=== PATIENT | female | born 1955 | race Caucasian/White ===

== ENCOUNTER 2017-01-20 10:26 | Inpatient (IN) | payer OTHER ==
[~2017-01-20] VITALS: Ht 162.6 cm; Wt 63.5 kg
[~2017-01-20 10:26] MED LIST: ALPR0.5T6 PO; APIX5TAB PO; ASPI81TA3 NGT; BENA10TA48 PO; CARI350T29 PO; HYDR-906 PO; ISOS30TA5 PO; LEVO50TA83 PO; NIT4 SL; OMEP20CA16 PO; TRAM50TA2 PO
--- NOTE | 2017-01-20 11:43 | RADRPT ---
PROCEDURE: XR Chest. CLINICAL INDICATION: chest pain TECHNIQUE: Single frontal view of the chest was obtained COMPARISON: 09/14/16 FINDINGS: The heart and mediastinum are within normal limits. The lungs are clear. There is no pleural effusion or pneumothorax. RPTAT: AA IMPRESSION: No acute disease. .Carl Sanchez MD, MD Date Time Electronically viewed and signed by .Carl Sanchez MD, on 01/20/2017 11:43 .S/
[2017-01-20 11:50] LABS: ADD SCAN DIFF NO
[2017-01-20 11:54] LABS: BASOPHIL # 0.1 10^3/ul (0.0-0.1); BASOPHILS % 0.5 % (0.0-2.0); EOSINOPHILS # 0.1 10^3/ul (0.0-0.5); EOSINOPHILS % 0.6 % (0.0-7.0); HEMATOCRIT 29.7 % (37.0-47.0); HEMOGLOBIN 9.6 g/dl (12.0-16.0); LYMPHOCYTES # 2.2 10^3/ul (0.8-2.9); LYMPHOCYTES % 20.5 % (15.0-51.0); MEAN CORPUSCULAR HEMOGLOBIN 27.2 pg (29.0-33.0); MEAN CORPUSCULAR HGB CONC 32.3 g/dl (32.0-37.0); MEAN CORPUSCULAR VOLUME 84.1 fl (82.0-101.0); MONOCYTE # 1.1 10^3/ul (0.3-0.9); MONOCYTES % 10.1 % (0.0-11.0); NEUTROPHIL # 7.4 10^3/ul (1.6-7.5); NEUTROPHILS % 67.9 % (39.0-77.0); PLATELET COUNT 325 10^3/UL (140-415); RED BLOOD COUNT 3.53 10^6/ul (4.20-5.40); RED CELL DISTRIBUTION WIDTH 18.6 % (11.5-14.5); WHITE BLOOD COUNT 10.9 10^3/ul (4.8-10.8)
[2017-01-20] MEDS ORDERED: morphine 4 MG/ML VIAL IV STA (11:58)
[2017-01-20 12:01] LABS: CHLORIDE 97 mmol/L (97-110); SODIUM 137 mmol/L (135-144)
[2017-01-20 12:02] LABS: POTASSIUM 3.8 mmol/L (3.5-5.1)
[2017-01-20 12:04] LABS: ANION GAP 16 (8-16); CARBON DIOXIDE 28 mmol/L (21-31); CREATININE 0.81 mg/dl (0.44-1.00)
[2017-01-20 12:05] LABS: BLOOD UREA NITROGEN 13 mg/dl (7-20); CALCIUM 8.4 mg/dl (8.4-10.2); GLUCOSE 137 mg/dl (70-220); INR 1.09; PROTIME 14.1 Sec (12.2-14.2); PT RATIO 1.1
[2017-01-20 12:06] LABS: PARTIAL THROMBOPLASTIN TIME 26.9 Sec (25.0-35.0)
[2017-01-20 12:18] LABS: TROPONIN-I < 0.012 ng/ml (0.00-0.12)
[2017-01-20] MEDS ORDERED: IOHEXOL 350MG/ML 50 ML BTL ONE (12:28)
[2017-01-20] MEDS ORDERED: IOHEXOL 100 ML ONE (12:28)
[2017-01-20] MEDS ORDERED: SOD CHLORIDE 0.9% 100 ML ONE (12:28)
--- NOTE | 2017-01-20 12:56 | RADRPT ---
PROCEDURE: CTA Chest and pulmonary angiogram. CLINICAL INDICATION: Chest pain and shortness of breath. TECHNIQUE: CT scan of the chest and CT pulmonary angiogram was performed on a multidetector high-r esolution CT scanner. High-resolution thin slice coronal and sagittal imaging was obtained from the axial source images. 3-D volumetric rendered post processing was performed as well. The patient w as examined following the uncomplicated intravenous administration of 100 cc of Omnipaque-350. The i mages were reviewed on a PACS workstation. The total exam CTDI equals 17.40 and the total exam DLP e quals 303.02 mGy-cm. One or more of the following dose reduction techniques were used: Automated exposure control. Adjustment of the mA and/or kV according to patient size. Use of iterative reconstruction technique. COMPARISON: No prior studies are available for comparison. FINDINGS: CT chest: The lungs are clear. There is minimal posterior dependent atelectasis. No focal opacification, effus ion, pneumothorax, edema, or nodules are seen. The central tracheobronchial tree is clear. The mediastinum is unremarkable without evidence for mass or lymphadenopathy. The vascular structur es of the mediastinum are normal in course and caliber. The heart size is normal without pericardia l thickening or effusion. The axillary, subpectoral, and supraclavicular regions are unremarkable. Imaging obtained through the upper abdomen is remarkable for small hiatal hernia. The adrenal gland s are symmetrically normal. The surrounding chest wall is unremarkable. The osseous structures are unremarkable CT pulmonary angiogram: No thrombus, clot, filling defect, or pulmonary web is identified. The pulmonary arteries are yo l in caliber and morphology. No filling defect is present to suggest pulmonary embolism. There is no evidence for pulmonary arterial hypertension. IMPRESSION: 1. No evidence for pulmonary embolism. 2. No mass, lymphadenopathy or acute infiltrates. 3. Scattered aortic and coronary artery calcifications. 4. Small hiatal hernia. RPTAT: BB .Mike Munoz MD, Date Time Electronically viewed and signed by .Mike Munoz MD, on 01/20/2017 12:56 .O/
--- NOTE | 2017-01-20 13:02 | RADRPT ---
PROCEDURE: US DVT. CLINICAL INDICATION: Left lower extremity swelling. TECHNIQUE: Multiple longitudinal and transverse images of the left lower extremity veins were obta ined with garcia scale and color Doppler imaging. 2D grayscale measurements with compression, color D oppler flow, and augmentation was performed. The calf veins were interrogated as well. COMPARISON: No prior studies are available for comparison. FINDINGS: The left common femoral, superficial femoral and popliteal veins are normally compressible throughou t. Color flow demonstrates normal filling of the vessel. Normal waveforms are visualized and there is normal response to augmentation. IMPRESSION: 1. No evidence of a deep vein thrombosis involving the left lower extremity. RPTAT: AACC Physician Rafita Date Time Electronically viewed and signed by Physician Rafita on 01/20/2017 13:02 /
--- NOTE | 2017-01-20 13:29 | ERA ---
ER Documentation Chief Complaint Date/Time DATE: 01/20/17 TIME: 13:25 Chief Complaint BILATERAL FOOT SWELLING W/ SOB. RECTAL BLEEDING BRIGHT RED HPI This is a 61-year-old female presents to the emergency room for evaluation of left foot pain and swelling, shortness of breath and chest pain. The patient does state that she has a previous history of a DVT and was on Eliquis, however she states that due to insurance reasons she has not taken her blood thinners in over 2 weeks. She presents with left lower extremity pain and shortness of breath and chest pain. The patient denies any aggravating or relieving factors for her pain ROS All systems reviewed and are negative except as per history of present illness. Medications Home Meds Active Scripts Apixaban* (Eliquis*) 5 Mg Tablet, 5 MG PO BID for 30 Days, TAB 5 Refills Prov:DOMITILA MURRELL 08/24/16 Aspirin (Aspirin) 81 Mg Chew, 81 MG NGT DAILY for 30 Days, TAB Prov:DOMITILA MURRELL 08/24/16 Alprazolam* (Alprazolam*) 0.5 Mg Tablet, 0.5 MG PO Q6H Y for ANXIETY, #30 TAB Prov:DOMITILA MURRELL 08/24/16 Levothyroxine Sodium* (Synthroid*) 50 Mcg Tablet, 50 MCG PO DAILY@06 for 30 Days , TAB Prov:DOMITILA MURRELL 08/24/16 Reported Medications Benazepril Hcl* (Benazepril Hcl*) 10 Mg Tablet, 10 MG PO DAILY, #30 TAB 09/14/16 Omeprazole* (Omeprazole*) 20 Mg Capsule.dr, 20 MG PO DAILY, #30 CAP 05/29/16 Isosorbide Mononitrate* (Isosorbide Mononitrate*) 30 Mg Tab.er.24h, 30 MG PO DAILY, TAB 05/29/16 Nitroglycerin* (Nitrostat*) 0.4 Mg Tab.subl, 0.4 MG SL Q5MIN Y for CHEST PAIN, BOTTLE 05/29/16 Discontinued Scripts Tramadol HCl (Tramadol HCl) 50 Mg Tablet, 50 MG PO Q6, #20 TAB Prov:SUGEY MEEKS 09/14/16 Hydrocodone/Acetaminophen (Garden 5-325 Tablet) 1 Each Tablet, 1 EACH PO Q4 for PAIN, #20 TAB Prov:DOMITILA MURRELL 08/24/16 Carisoprodol* (Carisoprodol*) 350 Mg Tablet, 350 MG PO BID Y for PAIN for 30 Days, TAB Prov:DOMITILA MURRELL 08/24/16 Allergies Allergies: Coded Allergies: No Known Allergy (Unverified , 01/20/17) PMhx/Soc History of Surgery: Yes (stenting) Anesthesia Reaction: No Hx Neurological Disorder: Yes (syncope) Hx Respiratory Disorders: No Hx Cardiac Disorders: Yes (a-fib, hypertension,angina, heart attack 1998 & 2003 ,DVT) Hx Psychiatric Problems: No Hx Miscellaneous Medical Probl: Yes (CAD< GA x2) Hx Alcohol Use: Yes (social) Hx Substance Use: No Hx Tobacco Use: No Smoking Status: Never smoker Physical Exam Vitals Vital Signs Date Time Temp Pulse Resp B/P Pulse Ox O2 Delivery O2 Flow Rate FiO2 01/20/17 10:47 99.4 125 22 123/70 97 Physical Exam INITIAL VITAL SIGNS: Reviewed by me GENERAL: The patient is well developed and appropriate for usual state of health in no apparent distress HEENT: Pupils equal, round, and reactive to light. EOMI. There is no scleral icterus. NECK: C-spine is soft and supple, there is no meningismus. There is no cervical lymphadenopathy. LUNGS: Clear to auscultation bilaterally. There are no rales, wheezes or rhonchi. HEART: Regular rate and rhythm, no murmurs, clicks, rubs or gallops. ABDOMEN: Soft, non-tender, non-distended. There are bowel sounds in all four quadrants. No rebound or guarding. EXTREMITIES: Tender to palpation in the left calf, 1+ pitting edema in the left lower extremity, no edema in the right lower extremity, there is no peripheral cyanosis . No focal swelling or erythema. NEUROLOGICAL: The patient moves all four extremities with 5/5 strength. Cranial nerves II - XII are intact. Normal gait. Alert and oriented SKIN: There is no apparent rash or petechiae. HEME/LYMPHATIC: There is no evidence of excessive bruising or lymphedema. PSYCHIATRIC: The patient does not appear anxious or depressed. Result Diagram: 01/20/17 1121 3/3/17 1121 Results 24 hrs Laboratory Tests Test 01/20/17 11:21 Activated Partial Thromboplast Time 26.9Sec Anion Gap 16 Basophils # 0.110^3/ul Basophils % 0.5% Blood Urea Nitrogen 13mg/dl Calcium Level 8.4mg/dl Carbon Dioxide Level 28mmol/L Chloride Level 97mmol/L Creatinine 0.81mg/dl Eosinophils # 0.110^3/ul Eosinophils % 0.6% Glucose Level 137mg/dl Hematocrit 29.7% Hemoglobin 9.6g/dl INR International Normalized Ratio 1.09 Lymphocytes # 2.210^3/ul Lymphocytes % 20.5% Mean Corpuscular Hemoglobin 27.2pg Mean Corpuscular Hemoglobin Concent 32.3g/dl Mean Corpuscular Volume 84.1fl Mean Platelet Volume 9.0fl Monocytes # 1.110^3/ul Monocytes % 10.1% Neutrophils # 7.410^3/ul Neutrophils % 67.9% Nucleated Red Blood Cells # 0.010^3/ul Nucleated Red Blood Cells % 0.0/100WBC Platelet Count 85523^3/UL Potassium Level 3.8mmol/L Prothrombin Time 14.1Sec Prothrombin Time Ratio 1.1 Red Blood Count 3.5310^6/ul Red Cell Distribution Width 18.6% Sodium Level 137mmol/L Troponin I < 0.012ng/ml White Blood Count 10.910^3/ul Current Medications Medications (Trade) Dose Ordered Sig/Marixa Route PRN Reason Start Time Stop Time Status Last Admin Dose Admin Morphine Sulfate (morphine) 4 mg ONCE STAT IV 01/20/17 11:58 01/20/17 12:02 DC 01/20/17 12:23 IV Flush 10 ml 10 ml STK-MED ONCE .ROUTE 01/20/17 12:28 01/20/17 12:29 DC 01/20/17 12:48 Sodium Chloride 100 ml @ ud STK-MED ONCE .ROUTE 01/20/17 12:28 01/20/17 12:29 DC 01/20/17 12:49 Iohexol (Omnipaque) 100 ml @ ud STK-MED ONCE .ROUTE 01/20/17 12:28 01/20/17 12:29 DC 01/20/17 12:49 Iohexol (Omnipaque 350mg/ ml) 50 ml STK-MED ONCE .ROUTE 01/20/17 12:28 01/20/17 12:29 DC 01/20/17 12:49 Procedures/MDM Ultrasound left lower extremity: No DVT CT angiography of chest: 1. No evidence for pulmonary embolism. 2. No mass, lymphadenopathy or acute infiltrates. 3. Scattered aortic and coronary artery calcifications. 4. Small hiatal hernia. Chest X-ray 1V Interpreted by me: Soft Tissue: No acute abnormalities Bones: No acute abnormalities Mediastinum/Cardiac Silhouette/Lungs: [No acute abnormalities] EKG: Rate/Rhythm: Sinus tachycardia QRS, ST, T-waves: [No changes consistent w/ acute ischemia] Impression: [No evidence of ischemia or arrhythmia] This 61-year-old female presents to the emergency room for evaluation of chest pain and left lower extremity pain and swelling. The patient has not been on blood thinners in over 2 weeks, states that she was on blood thinners for a previous deep vein thrombosis. Ultrasound was obtained which does not show any DVT. CT angios of the chest does not show any signs of pulmonary embolism. EKG is nonischemic, first troponin is normal. This patient will be placed in for admission at this time for evaluation of chest pain. This patient will be admitted on the telemetry floor under the care of Dr. travis. Departure Diagnosis: Primary Impression: Acute chest pain Additional Impressions: Normocytic anemia Left leg pain Leg edema, left Condition: VIVIANA Avalos DO Jan 20, 2017 13:29
[2017-01-20] MEDS ORDERED: ONDANSETRON 4 MG INJ IV PRN (13:30)
[2017-01-20] MEDS ORDERED: ACETAMINOPHEN 325 MG TAB PO PRN (13:30)
[2017-01-20 16:02] VITALS: TEMP 98.6
[2017-01-20 16:43] VITALS: PULSE 86
[2017-01-20 17:57] VITALS: Ht 162.6 cm; Wt 63.5 kg
--- NOTE | 2017-01-20 18:15 | HP ---
DATE OF ADMISSION: 01/20/2017 CHIEF COMPLAINT: Chest pain the patient developed a couple of days ago and left lower extremity swe lling and rectal bleed. HISTORY OF PRESENT ILLNESS: The patient is a 61-year-old female known to me from previous admission . The patient has a prior history of paroxysmal atrial fibrillation, hypertension, history of coron rajani artery disease and history of myocardial infarction, history of hypothyroidism, paroxysmal atria l fibrillation, anxiety, DVT of the right lower extremity. The patient was on Eliquis and hypertens ion. The patient presented to the emergency room with complaints of chest pain with radiation to bi lateral shoulder. The patient also complains of the left lower extremity swelling and pain and dav ent complains of some rectal bleeding. The patient also stated that she has been taking blood thinn ers for DVT; however, she stated that she stopped taking it more than 2 weeks ago. The patient unde rwent a left lower extremity ultrasound which did not reveal any evidence of deep vein thrombosis in volving the left lower extremity. The patient also underwent a CT chest and pulmonary angiogram wit h no evidence of pulmonary embolism. No mass, lymphadenopathy or acute infiltrates. Scattered aort ic and coronary artery calcifications noted and small hiatal hernia. The patient's troponin was neg ative on admission. Given the patient's past medical history, the patient was admitted for further evaluation and management to telemetry floor. The patient underwent a 12-lead EKG in the emergency room that revealed sinus tachycardia and no ST and T changes consistent with acute ischemia noted. The patient will be admitted for further evaluation and management, telemetry floor. PAST MEDICAL HISTORY: Per HPI. PAST SURGICAL HISTORY: Patient is status post C-sections x2. FAMILY HISTORY: Noncontributory. SOCIAL HISTORY: The patient denies any tobacco use, denies any illicit drug use. The patient uses alcohol occasionally. ALLERGIES: NO KNOWN ALLERGIES. MEDICATIONS ON ADMISSION: 1. Xanax. 2. Aspirin. 3. Benazepril. 4. Imdur. 5. Synthroid. 6. Nitroglycerin p.r.n. 7. Omeprazole. REVIEW OF SYSTEMS: Review of systems is negative unless what mentioned in the HPI. PHYSICAL EXAMINATION: GENERAL: Well-developed, well-nourished female, currently is awake, alert. VITAL SIGNS: Temperature is 98.6, pulse is 86, blood pressure is 110/77, respiratory rate 18, oxyge n saturation 100% on room air. HEENT: Head is atraumatic, normocephalic. Pupils equal, round, reactive to light and accommodation . Oral mucosa is pink and moist. NECK: Supple, no cervical lymphadenopathy, no thyromegaly. CHEST: Lungs clear bilaterally. There are no or rhonchi, wheezes, rales noted. CARDIOVASCULAR: Normal S1, S2. No murmurs, gallops, clicks, rubs noted. ABDOMEN: Round, soft, nondistended, nontender. Bowel sounds present. No guarding, no rebound tend erness. EXTREMITIES: Pulses equal bilaterally 2+. The patient has left lower extremity edema, 1+. There i s no erythema. Pulses equal bilaterally 2+. SKIN: There is no rash, petechiae noted. NEUROLOGIC: The patient is awake, alert and oriented x4. No focal deficits noted. Motor strength 5/5 in all extremities. LABORATORY DATA: On admission, CBC: White blood cells 10.9, hemoglobin 9.6, hematocrit 29.7, plate lets 325. Chemistry: Sodium is 137, potassium 3.8, chloride 97, carbon dioxide 28, anion gap 16. BUN is 15, creatinine 0.81, pulse 137, calcium 8.4. Troponin less than 0.012. PT is 14.1, INR is 1 .09, aPTT is 26.9. ASSESSMENT AND PLAN: 1. Chest pain, rule out acute coronary syndrome. We obtained cardiac enzymes q. 8 hours x3. We wi ll ask Dr. Cullen to see patient in cardiology consultation. Continue to monitor telemetry. Ramona nue patient on aspirin and Lovenox. 2. Left lower extremity swelling, deep venous thrombosis ruled out. Continue to monitor. 3. Anemia. The patient is complaining of the rectal bleed. We will continue to monitor hemoglobin and hematocrit. Obtain stool for OB. I will ask Dr. Sue to see patient in gastroenterology con sultation. 4. Hypertension. Continue patient on lisinopril. 5. Anxiety. Continue Xanax p.r.n. 6. Coronary artery disease. 7. Hypothyroidism. We will obtain TSH and T4. Continue patient's Synthroid. Further recommendations based on clinical course. Plan of care discussed with Dr. Gallo. Dictated By: DOMITILA MURRELL RADIOLOGY RECEPTIONIST for CJ GALLO MD, SR/NTS Conf#: [id number] DID#: [id number]
[2017-01-20] MEDS: ASPIRIN 81 MG TAB NGT SCH (18:27)
[2017-01-20] MEDS: ISOSORBIDE MONONITRATE(SR)30 MG TAB PO SCH (18:28)
[2017-01-20] MEDS: BENAZEPRIL 10 MG TAB PO SCH (18:28)
[2017-01-20 19:06] LABS: CK-MB 1.04 ng/ml (0.0-2.4)
[2017-01-20 19:09] LABS: TROPONIN-I 0.014 ng/ml (0.00-0.12)
[2017-01-20 20:16] VITALS: BP 119/70; RESP 16
[2017-01-20 20:18] VITALS: PULSE 86
[2017-01-20] MEDS: HYDROCODONE/APAP (5/325) TAB PO PRN (21:17)
--- NOTE | 2017-01-20 22:54 | RADRPT ---
PROCEDURE: Ultrasound of the right lower extremity venous system. CLINICAL INDICATION: Right leg pain and swelling, deep venous thrombosis TECHNIQUE: Saez scale with and without compression, color doppler, spectral doppler of the venous system of the right lower extremity was performed. Venous augmentation maneuvers were utilized. COMPARISON: 09/14/2016 FINDINGS: Common femoral vein: Patent. Superficial femoral vein: Patent. Popliteal vein: Patent. Calf veins: Patent. No soft tissue abnormalities are identified. IMPRESSION: No evidence of a deep vein thrombosis within the right lower extremity. RPTAT: AADD .Steve Garcia MD, MD Date Time Electronically viewed and signed by .Steve Garcia MD, MD on 01/20/2017 22:54 .B/
[2017-01-20] MEDS: ZOLPIDEM 5 MG TAB PO PRN (23:37)
[2017-01-21] VITALS (12 sets, daily range): BP systolic 90–119; BP diastolic 55–65; PULSE 72–80; RESP 16–20
[2017-01-21 00:07] LABS: CK-MB 0.84 ng/ml (0.0-2.4)
[2017-01-21 00:10] LABS: TROPONIN-I 0.03 ng/ml (0.00-0.12)
[2017-01-21] MEDS: HYDROCODONE/APAP (5/325) TAB PO PRN ×3 (03:22→18:10)
[2017-01-21] MEDS: LEVOTHYROXINE 50 MCG TAB PO SCH (05:48)
[2017-01-21 07:46] LABS: ADD SCAN DIFF NO
[2017-01-21 07:56] LABS: BASOPHIL # 0.1 10^3/ul (0.0-0.1); BASOPHILS % 0.6 % (0.0-2.0); EOSINOPHILS # 0.1 10^3/ul (0.0-0.5); EOSINOPHILS % 1.1 % (0.0-7.0); HEMATOCRIT 28.3 % (37.0-47.0); HEMOGLOBIN 8.8 g/dl (12.0-16.0); LYMPHOCYTES # 1.7 10^3/ul (0.8-2.9); LYMPHOCYTES % 17.7 % (15.0-51.0); MEAN CORPUSCULAR HGB CONC 31.1 g/dl (32.0-37.0); MEAN CORPUSCULAR VOLUME 86.8 fl (82.0-101.0); MEAN PLATELET VOLUME 9.1 fl (7.4-10.4); MONOCYTE # 0.5 10^3/ul (0.3-0.9); MONOCYTES % 5.4 % (0.0-11.0); NEUTROPHIL # 7.4 10^3/ul (1.6-7.5); PLATELET COUNT 262 10^3/UL (140-415); RED BLOOD COUNT 3.26 10^6/ul (4.20-5.40); WHITE BLOOD COUNT 9.8 10^3/ul (4.8-10.8)
[2017-01-21 08:01] LABS: POTASSIUM 3.7 mmol/L (3.5-5.1)
[2017-01-21 08:03] LABS: CREATININE 0.87 mg/dl (0.44-1.00)
[2017-01-21 08:04] LABS: CALCIUM 8.6 mg/dl (8.4-10.2)
[2017-01-21] MEDS: ASPIRIN 81 MG TAB NGT SCH (08:08)
[2017-01-21] MEDS: ENOXAPARIN 30 MG/0.3 ML SYG SC SCH (08:10)
[2017-01-21 08:34] LABS: THYROID STIMULATING HORMONE 4.7 MIU/L (0.465-4.680)
[2017-01-21] MEDS: ISOSORBIDE MONONITRATE(SR)30 MG TAB PO SCH (09:52)
[2017-01-21] MEDS: BENAZEPRIL 10 MG TAB PO SCH (09:53)
[2017-01-21] MEDS: ALPRAZOLAM 0.5 MG TAB PO PRN ×2 (11:09→20:55)
[2017-01-21] MEDS ORDERED: PEG/ELECTROLYTES 4L BTL PO ONE ×2 (14:00→21:00)
--- NOTE | 2017-01-21 14:10 | CONS ---
DATE OF ADMISSION: 01/20/2017 DATE OF CONSULTATION: 01/21/2017 TYPE OF CONSULTATION: Gastroenterology. Dear Dr. Gallo: Thank you for asking me to see Mrs. Rm Mandujano in GI consultation. HISTORY OF PRESENT ILLNESS: As you know, the patient is a 61-year-old white female who is admitted to the hospital because of left leg pain and chest pain. The venous Doppler study of the lower extr emities is negative. Troponin negative. EKG negative of myocardial infarction. Apparently she ennis s a history of myocardial infarction twice in the past. Now, she complains of rectal bleeding for t he past several weeks from time to time. She has no history of diarrhea. She does have abdominal pain that mostly occurs after eating food. She has a history of hematemesis in the recent past. No upper endoscopy, lower endoscopy done on h er. She lost 15 pounds of weight. No diarrhea, no constipation. She has bloody stools as mentioned earlier on from time to time in the past several weeks. PAST MEDICAL HISTORY: Two episodes of myocardial infarction and on admission, as I mentioned, she h ad left-sided chest pain radiating to the left arm. REVIEW OF SYSTEM: Includes coronary artery disease, hypothyroidism, paroxysmal atrial fibrillation, DVT in the right lower extremity. MEDICATIONS PRIOR TO THE ADMISSION: Include: 1. Xanax. 2. Aspirin. 3. Benazepril. 4. Imdur. 5. Synthroid. 6. Nitroglycerin. 7. Omeprazole. SOCIAL HISTORY: She denies smoking or drinking, although occasionally she drinks alcohol. PAST SURGICAL HISTORY: Includes C-sections in the past. PHYSICAL EXAMINATION: GENERAL: The patient is a 61-year-old white female who at this time, she is alert, she is afebrile. CARDIOVASCULAR: Normal heart sounds. RESPIRATORY: Normal breath sounds. ABDOMEN: Showed unremarkable findings. VITAL SIGNS: Temperature 98.3, pulse is 76, blood pressure is 119/62. LABORATORY WORKUP: The hemoglobin has dropped to 8.8 from 9.6, WBC 9800, platelets 252,000. Prothr ombin time 14.1. Potassium 3.7. Troponin 0.012, on another occasion 0.014 and then 0.030. The CT did not show any pulmonary embolus. CLINICAL IMPRESSION: The patient presenting with history of left lower extremity pain, chest pain, no evidence for myocardial infarction. She has history of rectal bleeding periodically in the past few weeks. She also has history of hematemesis, rule out peptic ulcer disease, rule out arterioveno us malformation of the stomach. Rule out colorectal neoplasm, diverticulosis, hemorrhoids in the colon. History of coronary artery disease, atrial fibrillation. PLAN: At this time, recommend upper endoscopy as well as lower endoscopy after cardiac clearance. Once again, doctor, thank you for this consultation. Dictated By: GIOVANY BAIG MD NC/NTS Conf#: [id number] DID#: [id number] CC: CJ GALLO MD;*EndCC*
--- NOTE | 2017-01-21 15:53 | CONS ---
DATE OF ADMISSION: 01/20/2017 DATE OF CONSULTATION: 01/21/2017 REASON FOR CONSULTATION: Preprocedure cardiac clearance. HISTORY OF PRESENT ILLNESS: The patient is a 61-year-old female who comes in with chest pain associ ated with shortness of breath and bilateral lower extremity edema. She does complain of dizziness. No palpitations. She does complain of history of syncope. Denies fever, chills, or rigors. Denie s nausea, vomiting. PAST MEDICAL HISTORY: Significant for: 1. Atrial fibrillation. 2. Myocardial infarction x2. 3. Deep venous thrombosis. 4. Hypertension. 5. Dyslipidemia. 6. Hypothyroidism. 7. Anxiety. PAST SURGICAL HISTORY: She had a x2. SOCIAL HISTORY: Denies any smoking or recreational drugs. She does take alcohol occasionally. ALLERGIES: NONE. CURRENT MEDICATIONS: Include: 1. Lovenox. 2. Synthroid. 3. Ambien. 4. Xanax. 5. Aspirin. 6. Benazepril. 7. Imdur. REVIEW OF SYSTEMS: Unremarkable except that mentioned in the HPI. PHYSICAL EXAMINATION: VITAL SIGNS: Temperature is 98.8, heart rate of 89, blood pressure 119/62 mmHg, breathing at 20, an d saturating 97% on room air. GENERAL: The patient is awake, alert, oriented, in no apparent distress. NECK: No JVD or carotid bruit. CARDIOVASCULAR: Regular rate and rhythm. There is ejection systolic murmur heard in second right u pper intercostal space. CHEST: Clear to auscultation. ABDOMEN: Soft. Bowel sounds are present. There is no organomegaly. EXTREMITIES: There is bilateral pedal edema. Pedal pulses are felt bilaterally. DIAGNOSTIC DATA: EKG shows sinus tachycardia with a ventricular rate of 118 beats per minute, yo l IL, normal QRS and normal QT intervals, with left atrial enlargement with left axis deviation, and low voltages. CTA shows no evidence of pulmonary embolism. Shows scattered aortic and coronary calcifications and small hiatal hernia Ultrasound of the right lower extremity shows no evidence of DVT. Chest x-ray shows no congestion or infiltrate. LABORATORY DATA: WBC 9.8, hemoglobin 8.8, hematocrit 28.3 with platelets of 262. Sodium 138, potas sium 3.7, chloride 99, CO2 of 30, BUN 7, creatinine 0.87. TSH 4.7. Troponin x3 is negative. ASSESSMENT AND PLAN: A 61-year-old female with: 1. Coronary artery disease, status post myocardial infarction x2. 2. Paroxysmal atrial fibrillation, now in sinus rhythm. 3. Hypertension. 4. History of deep venous thrombosis. 5. History of hypothyroidism. 6. Anxiety. 7. The patient has been ruled out for acute coronary syndrome with serial negative troponins. She has been ruled out for pulmonary embolism with a CTA as well as ruled out for DVT with bilateral low er extremity venous duplex. RECOMMENDATIONS: 1. Recommend 2-D echo to assess for systolic function and pulmonary arterial hypertension. 2. Started on low-dose metoprolol. 3. Continue benazepril. 4. Continue Imdur. 5. Continue GI and DVT prophylaxis. 6. Continue levothyroxine. The patient will be cleared for colonoscopy after review of the echocardiogram. Dictated By: CHEPE ANDERSON MD SR/NTS Conf#: [id number] DID#: [id number]
[2017-01-21] MEDS: ZOLPIDEM 5 MG TAB PO PRN (20:55)
[2017-01-21] MEDS: METOPROLOL 25 MG TAB PO SCH (20:55)
[2017-01-22] VITALS (12 sets, daily range): BP systolic 100–147; BP diastolic 56–95; PULSE 68–80; RESP 16–20
[2017-01-22] MEDS: LEVOTHYROXINE 50 MCG TAB PO SCH (05:19)
[2017-01-22] MEDS: HYDROCODONE/APAP (5/325) TAB PO PRN ×3 (05:19→18:13)
[2017-01-22] MEDS: ASPIRIN 81 MG TAB NGT SCH (08:26)
[2017-01-22] MEDS: METOPROLOL 25 MG TAB PO SCH ×2 (08:27→20:36)
[2017-01-22] MEDS: BENAZEPRIL 10 MG TAB PO SCH (08:27)
[2017-01-22] MEDS: ISOSORBIDE MONONITRATE(SR)30 MG TAB PO SCH (08:28)
[2017-01-22] MEDS: ENOXAPARIN 30 MG/0.3 ML SYG SC SCH (08:30)
--- NOTE | 2017-01-22 12:49 | PN ---
Date/Time of Note Date/Time of Note DATE: 01/22/17 TIME: 12:48 Assessment/Plan VTE Prophylaxis VTE Prophylaxis Intervention: other Lines/Catheters [facility] Urinary Cath still in place: No Assessment/Plan Chief Complaint/Hosp Course 1) chest pain - no active coronary syndrome - to have GI workup Problems: Subjective 24 Hr Interval Summary Free Text/Dictation Patient has no complaints Exam/Review of Systems Vital Signs Vitals Vital Signs Date Time Temp Pulse Resp B/P Pulse Ox O2 Delivery O2 Flow Rate FiO2 01/22/17 11:49 97.4 67 20 119/67 96 01/22/17 04:00 Room Air Intake and Output 01/21/17 01/21/17 01/22/17 15:00 23:00 07:00 Intake Total 200 ml 300 ml Output Total 1 ml Balance 200 ml 299 ml Exam Constitutional: well developed Head: atraumatic, normocephalic Neck: supple Respiratory: clear to auscultation Cardiovascular: regular rate and rhythm Gastrointestinal: non-tender, soft Results Result Diagram: 01/21/17 0723 01/21/17 0723 Medications Medications Current Medications Alprazolam (Xanax) 0.5 mg Q6H PRN PO ANXIETY Last administered on 01/21/17 20: 55; Admin Dose 0.5 MG; Start 01/20/17 at 17:30 Aspirin (Aspirin) 81 mg DAILY NGT Last administered on 01/22/17 08:26; Admin Dose 81 MG; Start 01/20/17 at 17:30 Benazepril HCl (Lotensin) 10 mg DAILY PO Last administered on 01/22/17 08:27; Admin Dose 10 MG; Start 01/20/17 at 17:30 Isosorbide Mononitrate (Imdur) 30 mg DAILY PO Last administered on 01/22/17 08: 28; Admin Dose 30 MG; Start 01/20/17 at 17:30 Levothyroxine Sodium (Synthroid) 50 mcg DAILY@06 PO Last administered on 05:19; Admin Dose 50 MCG; Start 01/21/17 at 06:00 Enoxaparin Sodium (Lovenox) 30 mg DAILY SC Last administered on 01/22/17 08:30 ; Admin Dose 30 MG; Start 01/21/17 at 09:00 Acetaminophen/ Hydrocodone Bitart (Rawlings (5/325)) 1 tab Q4H PRN PO MODERATE PAIN LEVEL 4-6 Last administered on 01/22/17 09:45; Admin Dose 1 TAB; Start 01/20 at 19:30 Zolpidem Tartrate (Ambien) 5 mg HS PRN PO INSOMNIA Last administered on 20:55; Admin Dose 5 MG; Start 01/20/17 at 19:30 Metoprolol Tartrate (Lopressor) 25 mg BID PO Last administered on 01/22/17 08: 27; Admin Dose 25 MG; Start 01/21/17 at 21:00 Polyethylene Glycol/ Electrolytes (Golytely) 2,000 ml ONCE ONCE PO ; Start 01/22 at 21:00; Stop 01/22/17 at 21:01 MATTHEW FRANK Jan 22, 2017 12:49
[2017-01-22] MEDS: ALPRAZOLAM 0.5 MG TAB PO PRN ×2 (12:58→16:20)
--- NOTE | 2017-01-22 16:06 | CONS ---
Date/Time of Note Date/Time of Note DATE: 01/22/17 TIME: 16:02 Assessment/Plan Assessment/Plan Additional Assessment/Plan ASSESSMENT AND PLAN: A 61-year-old female with: 1. Coronary artery disease, status post myocardial infarction x2. 2. Paroxysmal atrial fibrillation, now in sinus rhythm. 3. Hypertension. 4. History of deep venous thrombosis. 5. History of hypothyroidism. 6. Anxiety. 7. The patient has been ruled out for acute coronary syndrome with serial negative troponins. She has been ruled out for pulmonary embolism with a CTA as well as ruled out for DVT with bilateral lower extremity venous duplex. Echo shows normal systolic function with no segmental wall motion abnormality RECOMMENDATIONS: Continue low-dose metoprolol. Continue benazepril. Continue Imdur. Continue GI and DVT prophylaxis. Continue levothyroxine. Cleared for GI work up Consultation Date/Type/Reason Admit Date/Time Jan 20, 2017 at 11:25 Initial Consult Date Exam/Review of Systems Vital Signs Vitals Vital Signs Date Time Temp Pulse Resp B/P Pulse Ox O2 Delivery O2 Flow Rate FiO2 01/22/17 15:48 97.9 68 20 147/95 95 01/22/17 04:00 Room Air Intake and Output 01/21/17 01/21/17 01/22/17 15:00 23:00 07:00 Intake Total 200 ml 300 ml Output Total 1 ml Balance 200 ml 299 ml Exam Constitutional: alert, oriented Head: atraumatic, normocephalic Respiratory: clear to auscultation Cardiovascular: regular rate and rhythm Gastrointestinal: nl liver, spleen, non-tender, soft Extremities: normal pulses Results Result Diagram: 01/21/17 0723 01/21/17 0723 Medications Medications Current Medications Alprazolam (Xanax) 0.5 mg Q6H PRN PO ANXIETY Last administered on 01/22/17 12: 58; Admin Dose 0.5 MG; Start 01/20/17 at 17:30 Aspirin (Aspirin) 81 mg DAILY NGT Last administered on 01/22/17 08:26; Admin Dose 81 MG; Start 01/20/17 at 17:30 Benazepril HCl (Lotensin) 10 mg DAILY PO Last administered on 01/22/17 08:27; Admin Dose 10 MG; Start 01/20/17 at 17:30 Isosorbide Mononitrate (Imdur) 30 mg DAILY PO Last administered on 01/22/17 08: 28; Admin Dose 30 MG; Start 01/20/17 at 17:30 Levothyroxine Sodium (Synthroid) 50 mcg DAILY@06 PO Last administered on 05:19; Admin Dose 50 MCG; Start 01/21/17 at 06:00 Enoxaparin Sodium (Lovenox) 30 mg DAILY SC Last administered on 01/22/17 08:30 ; Admin Dose 30 MG; Start 01/21/17 at 09:00 Acetaminophen/ Hydrocodone Bitart ([place] (5/325)) 1 tab Q4H PRN PO MODERATE PAIN LEVEL 4-6 Last administered on 01/22/17 09:45; Admin Dose 1 TAB; Start 01/20 at 19:30 Zolpidem Tartrate (Ambien) 5 mg HS PRN PO INSOMNIA Last administered on 20:55; Admin Dose 5 MG; Start 01/20/17 at 19:30 Metoprolol Tartrate (Lopressor) 25 mg BID PO Last administered on 01/22/17 08: 27; Admin Dose 25 MG; Start 01/21/17 at 21:00 Polyethylene Glycol/ Electrolytes (Golytely) 2,000 ml ONCE ONCE PO ; Start 01/22 at 21:00; Stop 01/22/17 at 21:01 CHEPE ANDERSON M.D. Jan 22, 2017 16:05
[2017-01-22] MEDS ORDERED: ALPRAZOLAM 0.5 MG TAB PO ONE (16:23)
[2017-01-22] MEDS ORDERED: PEG/ELECTROLYTES 4L BTL PO ONE ×2 (16:30→21:00)
--- NOTE | 2017-01-22 19:35 | RADRPT ---
Echocardiogram Report Patient Name: JOHNSON RICHEY Gender: Female Date: 1955 Study Date: 22-Jan-2017 [employer] Education Director: GERRY Location: [facility] Height(Cm): 163 Weight(Kg): 63 BSA: 1.69 Ref. Physician: TAIWO DUNN Quality: Adequate Procedures: Transthoracic echocardiogram with complete 2D, M-Mode, and Doppler examination. Indications: Pre-op. 2D/M Mode Doppler Measurement Value Normal Ranges Measurement Value Normal Ranges AoR Diam MM 3.1 cm MAYRA Vmax 1.3 cm2 LVIDd 2D 4.0 3.5 - 5.6 cm MAYRA VTI 1.3 cm2 LVIDs 2D 2.2 2.1 - 4.1 cm AV Mean Thomas 2.4 m/sec LVPWd 2D 1.3 0.6 - 1.1 cm AV Mean PG 24.7 mmHg IVSd 2D 1.3 0.6 - 1.1 cm AV Peak Thomas 3.1 m/sec EDV 2D 71.2 cm3 AV Peak PG 37.8 mmHg ESV 2D 10.4 cm3 AV VTI 66.5 cm LA Dimen 2D 4.0 2.3 - 4.0 cm LVOT Mean Thomas 1.0 m/sec LVOT Diam 2.0 cm LVOT Mean PG 4.6 mmHg LVOT Peak Thomas 1.3 m/sec LVOT Peak PG 6.8 mmHg LVOT VTI 28.2 cm MVA PHT 2.8 cm2 TR Peak Thomas 2.5 m/sec TR Peak PG 24.2 mmHg PV Mean Thomas 0.8 m/sec PV Mean PG 3.0 mmHg RVSP 27.2 mmHg Findings Left Ventricle: Normal left ventricular systolic function. Normal left ventricular cavity size. Mild concentric left ventricular hypertrophy. Ejection fraction is visually estimated at 65 %. Tissue Doppler/Mitral Doppler indices are consistent with impaired relaxation (Stage I diastolic dysfunction). Right Ventricle: Normal right ventricular size. Normal right ventricular systolic function. Left Atrium: There is severe enlargement of left atrium, appreciated best by LA volume index. LA Volume Index=57. Right Atrium: The right atrium is normal in size. Atrial Septum: Normal atrial septum. Mitral Valve: Mild to moderate mitral annular calcification. Mild mitral valve regurgitation. Aortic Valve: Moderate aortic stenosis. Aortic valve Max velocity 3.10 m/sec. Max PG 38.00 mmHg. Mean PG 25.00 mmHg. Aortic valve area 1.30 cm2. Aortic cusps appear moderately calcified. Tricuspid Valve: Normal appearance of the tricuspid valve. Estimated peak PA systolic pressure 25 mmHg. There is trace to mild tricuspid regurgitation. Pulmonic Valve: Normal pulmonic valve appearance. There is trace pulmonic regurgitation. Pericardium: Normal pericardium with no significant pericardial effusion. Aorta: Normal aortic root. There is mild aortic root calcification. IVC: Normal size and normal respiratory collapse consistent with normal right atrial pressure. Pulmonary Artery: Normal pulmonary artery size. Conclusions Normal left ventricular systolic function. Normal left ventricular cavity size. Mild concentric left ventricular hypertrophy. Ejection fraction is visually estimated at 65 %. Tissue Doppler/Mitral Doppler indices are consistent with impaired relaxation (Stage I diastolic dysfunction). Normal right ventricular size. Normal right ventricular systolic function. Mild to moderate mitral annular calcification. Mild mitral valve regurgitation. Moderate aortic stenosis. Aortic valve area 1.30 cm2. Aortic cusps appear moderately calcified. Normal appearance of the tricuspid valve. Estimated peak PA systolic pressure 25 mmHg. There is trace to mild tricuspid regurgitation. Normal pericardium with no significant pericardial effusion. Electronically Signed By: Taiwo Dunn 22-Jan-2017 19:34:09 -0800 Patient Name: JOHNSON RICHEY Study Date: 22-Jan-2017 [id number]
[2017-01-22] MEDS ORDERED: KETOROLAC 15 MG INJ IV STA (20:25)
[2017-01-23] VITALS (11 sets, daily range): BP systolic 122–178; BP diastolic 67–86; PULSE 60–69; RESP 18–21
[2017-01-23] MEDS: LEVOTHYROXINE 50 MCG TAB PO SCH ×2 (05:23→08:22)
[2017-01-23 08:09] LABS: POTASSIUM 4.2 mmol/L (3.5-5.1)
[2017-01-23 08:11] LABS: CREATININE 0.74 mg/dl (0.44-1.00)
[2017-01-23 08:12] LABS: CALCIUM 8.2 mg/dl (8.4-10.2)
[2017-01-23] MEDS: METOPROLOL 25 MG TAB PO SCH ×2 (08:21→21:06)
[2017-01-23] MEDS: ISOSORBIDE MONONITRATE(SR)30 MG TAB PO SCH (08:21)
[2017-01-23] MEDS: ASPIRIN 81 MG TAB NGT SCH (08:21)
[2017-01-23] MEDS: BENAZEPRIL 10 MG TAB PO SCH ×2 (08:22→16:42)
[2017-01-23] MEDS: HYDROCODONE/APAP (5/325) TAB PO PRN ×3 (08:22→21:13)
[2017-01-23] MEDS: ENOXAPARIN 30 MG/0.3 ML SYG SC SCH (08:25)
[2017-01-23] MEDS: ALPRAZOLAM 0.5 MG TAB PO PRN ×2 (08:38→17:55)
--- NOTE | 2017-01-23 14:00 | PN ---
Date/Time of Note Date/Time of Note DATE: 01/23/17 TIME: 13:54 Assessment/Plan VTE Prophylaxis VTE Prophylaxis Intervention: SCD's Lines/Catheters [facility] Urinary Cath still in place: No Assessment/Plan Chief Complaint/Hosp Course ASSESSMENT AND PLAN: 1. Chest pain, ruled out acute coronary syndrome. Cardiac enzymes are negative. Dr. Cullen is following in cardiology consultation. Continue aspirin. 2. Left lower extremity swelling, deep venous thrombosis ruled out. Continue to monitor. 3. Anemia. The patient was complaining of the rectal bleed on admission. Stool for obese pending. Dr. Sue is following in in gastroenterology consultation. Plan for EGD and colonoscopy that patient refused today. 4. Hypertension. Continue patient on lisinopril. 5. Anxiety. Continue Xanax p.r.n. 6. Coronary artery disease. 7. Hypothyroidism. Continue patient's Synthroid. Further recommendations based on clinical course. Plan of care discussed with Dr. Trejo. Problems: Subjective 24 Hr Interval Summary Free Text/Dictation Patient refused EGD and colonoscopy today, patient denies any rectal bleed while in-house, denies any chest pain denies any shortness of breath. Exam/Review of Systems Vital Signs Vitals Vital Signs Date Time Temp Pulse Resp B/P Pulse Ox O2 Delivery O2 Flow Rate FiO2 01/23/17 13:38 98.1 57 20 170/79 96 01/22/17 04:00 Room Air Intake and Output 01/22/17 01/22/17 01/23/17 15:00 23:00 07:00 Intake Total 1300 ml 300 ml Output Total 2 ml Balance 1298 ml 300 ml Exam PHYSICAL EXAMINATION: GENERAL: Well-developed, well-nourished female, currently is awake, alert. HEENT: Head is atraumatic, normocephalic. Pu NECK: Supple, no cervical lymphadenopathy, no thyromegaly. CHEST: Lungs clear bilaterally. There are no or rhonchi, wheezes, rales noted. CARDIOVASCULAR: Normal S1, S2. No murmurs, gallops, clicks, rubs noted. ABDOMEN: Round, soft, nondistended, nontender. Bowel sounds present. EXTREMITIES: Pulses equal bilaterally 2+. The patient has left lower extremity edema, 1+. There is no erythema. Pulses equal bilaterally 2+. SKIN: There is no rash, petechiae noted. NEUROLOGIC: The patient is awake, alert and oriented x4. Results Result Diagram: 01/21/17 0723 01/23/17 0645 Results 24 hrs Laboratory Tests Test 01/23/17 06:45 Anion Gap 12 Blood Urea Nitrogen 7 Calcium Level 8.2 L Carbon Dioxide Level 30 Chloride Level 102 Creatinine 0.74 Glucose Level 82 Potassium Level 4.2 Sodium Level 140 Medications Medications Current Medications Alprazolam (Xanax) 0.5 mg Q6H PRN PO ANXIETY Last administered on 01/23/17 08: 38; Admin Dose 0.5 MG; Start 01/20/17 at 17:30 Aspirin (Aspirin) 81 mg DAILY NGT Last administered on 01/23/17 08:21; Admin Dose 81 MG; Start 01/20/17 at 17:30 Benazepril HCl (Lotensin) 10 mg DAILY PO Last administered on 01/23/17 08:22; Admin Dose 10 MG; Start 01/20/17 at 17:30 Isosorbide Mononitrate (Imdur) 30 mg DAILY PO Last administered on 01/23/17 08: 21; Admin Dose 30 MG; Start 01/20/17 at 17:30 Levothyroxine Sodium (Synthroid) 50 mcg DAILY@06 PO Last administered on 08:22; Admin Dose 50 MCG; Start 01/21/17 at 06:00 Enoxaparin Sodium (Lovenox) 30 mg DAILY SC Last administered on 01/23/17 08:25 ; Admin Dose 30 MG; Start 01/21/17 at 09:00 Acetaminophen/ Hydrocodone Bitart ([place] (5/325)) 1 tab Q4H PRN PO MODERATE PAIN LEVEL 4-6 Last administered on 01/23/17 08:22; Admin Dose 1 TAB; Start 01/20 at 19:30 Zolpidem Tartrate (Ambien) 5 mg HS PRN PO INSOMNIA Last administered on 20:55; Admin Dose 5 MG; Start 01/20/17 at 19:30 Metoprolol Tartrate (Lopressor) 25 mg BID PO Last administered on 01/23/17 08: 21; Admin Dose 25 MG; Start 01/21/17 at 21:00 Morphine Sulfate (morphine) 2 mg Q4H PRN IV PAIN; Start 01/23/17 at 05:00 DOMITILA MURRELL Jan 23, 2017 14:00
--- NOTE | 2017-01-23 16:03 | CONS ---
Date/Time of Note Date/Time of Note DATE: 01/23/17 TIME: 15:59 Assessment/Plan Assessment/Plan Chief Complaint/Hosp Course IMp: 1.Chest pain-resolved. Negative troponin x3/NL EF by echo 2.HTN 3.CAD 4.Anemia 5.LE edema-negative DVT by RUSS 6,Hypothyroid Recc: -Tele -serial ecg's -pnding endoscopy -continue BB -Add ACEI to improve BP -Dose of lasix and follow volume status closely Problems: Consultation Date/Type/Reason Admit Date/Time Jan 20, 2017 at 11:25 Initial Consult Date 01/21/2017 Type of Consultation: Cardiology Reason for Consultation Chest pain Referring Provider: CJ GALLO MD Exam/Review of Systems Vital Signs Vitals Vital Signs Date Time Temp Pulse Resp B/P Pulse Ox O2 Delivery O2 Flow Rate FiO2 01/23/17 13:38 98.1 57 20 170/79 96 01/22/17 04:00 Room Air Intake and Output 01/22/17 01/22/17 01/23/17 15:00 23:00 07:00 Intake Total 1300 ml 300 ml Output Total 2 ml Balance 1298 ml 300 ml Exam Review of Systems: CONSTITUTIONAL: No fevers, chills. PULMONARY: No sob CARDIOVASCULAR: No chest pain/palpitations GASTROINTESTINAL: No nausea/vomiting. GENITOURINARY: No hematuria/dysuria. MUSCULOSKELETAL: No myagias/arthalgias. PSYCHIATRIC: The patient denies depression. NEUROLOGIC: No weakness Constitutional: alert, oriented Psych: no complaints Head: normocephalic ENMT: mucosa pink and moist Neck: jvd (8-9 cm water), supple Respiratory: clear to auscultation Cardiovascular: regular rate and rhythm Gastrointestinal: non-tender, soft Musculoskeletal: muscle tone (normal) Extremities: edema (trace at ankles) Neurological: other (No focal deficits) Results Result Diagram: 01/21/17 0723 01/23/17 0645 Results 24 hrs Laboratory Tests Test 01/23/17 06:45 Anion Gap 12 Blood Urea Nitrogen 7 Calcium Level 8.2 L Carbon Dioxide Level 30 Chloride Level 102 Creatinine 0.74 Glucose Level 82 Potassium Level 4.2 Sodium Level 140 Medications Medications Current Medications Alprazolam (Xanax) 0.5 mg Q6H PRN PO ANXIETY Last administered on 01/23/17 08: 38; Admin Dose 0.5 MG; Start 01/20/17 at 17:30 Aspirin (Aspirin) 81 mg DAILY NGT Last administered on 01/23/17 08:21; Admin Dose 81 MG; Start 01/20/17 at 17:30 Benazepril HCl (Lotensin) 10 mg DAILY PO Last administered on 01/23/17 08:22; Admin Dose 10 MG; Start 01/20/17 at 17:30 Isosorbide Mononitrate (Imdur) 30 mg DAILY PO Last administered on 01/23/17 08: 21; Admin Dose 30 MG; Start 01/20/17 at 17:30 Levothyroxine Sodium (Synthroid) 50 mcg DAILY@06 PO Last administered on 08:22; Admin Dose 50 MCG; Start 01/21/17 at 06:00 Enoxaparin Sodium (Lovenox) 30 mg DAILY SC Last administered on 01/23/17 08:25 ; Admin Dose 30 MG; Start 01/21/17 at 09:00 Acetaminophen/ Hydrocodone Bitart ([place] (5/325)) 1 tab Q4H PRN PO MODERATE PAIN LEVEL 4-6 Last administered on 01/23/17 14:07; Admin Dose 1 TAB; Start 01/20 at 19:30 Zolpidem Tartrate (Ambien) 5 mg HS PRN PO INSOMNIA Last administered on 20:55; Admin Dose 5 MG; Start 01/20/17 at 19:30 Metoprolol Tartrate (Lopressor) 25 mg BID PO Last administered on 01/23/17 08: 21; Admin Dose 25 MG; Start 01/21/17 at 21:00 Morphine Sulfate (morphine) 2 mg Q4H PRN IV PAIN; Start 01/23/17 at 05:00 DALILA BUTT Jan 23, 2017 16:03
[2017-01-23] MEDS ORDERED: ACETAMINOPHEN 325 MG TAB PO PRN (16:30)
[2017-01-23] MEDS ORDERED: FUROSEMIDE 20 MG INJ IV ONE (16:30)
[2017-01-23] MEDS: ZOLPIDEM 5 MG TAB PO PRN (22:36)
[2017-01-24] VITALS (10 sets, daily range): BP systolic 98–164; BP diastolic 59–87; PULSE 56–68; RESP 17–20
[2017-01-24] MEDS: ALPRAZOLAM 0.5 MG TAB PO PRN ×3 (00:23→17:14)
[2017-01-24] MEDS: LEVOTHYROXINE 50 MCG TAB PO SCH (05:29)
[2017-01-24] MEDS: HYDROCODONE/APAP (5/325) TAB PO PRN ×3 (05:32→21:57)
[2017-01-24 08:07] LABS: ADD SCAN DIFF NO
[2017-01-24 08:14] LABS: BASOPHIL # 0.1 10^3/ul (0.0-0.1); EOSINOPHILS # 0.2 10^3/ul (0.0-0.5); EOSINOPHILS % 3.5 % (0.0-7.0); HEMATOCRIT 35.5 % (37.0-47.0); HEMOGLOBIN 10.7 g/dl (12.0-16.0); LYMPHOCYTES # 1.1 10^3/ul (0.8-2.9); LYMPHOCYTES % 21.5 % (15.0-51.0); MEAN CORPUSCULAR HEMOGLOBIN 26.8 pg (29.0-33.0); MEAN CORPUSCULAR HGB CONC 30.1 g/dl (32.0-37.0); MEAN PLATELET VOLUME 9.4 fl (7.4-10.4); MONOCYTE # 0.4 10^3/ul (0.3-0.9); MONOCYTES % 7.2 % (0.0-11.0); NEUTROPHIL # 3.3 10^3/ul (1.6-7.5); NEUTROPHILS % 66.6 % (39.0-77.0); PLATELET COUNT 310 10^3/UL (140-415); RED BLOOD COUNT 3.99 10^6/ul (4.20-5.40); RED CELL DISTRIBUTION WIDTH 19.9 % (11.5-14.5); WHITE BLOOD COUNT 4.9 10^3/ul (4.8-10.8)
[2017-01-24] MEDS: METOPROLOL 25 MG TAB PO SCH ×2 (08:20→20:27)
[2017-01-24] MEDS: ASPIRIN 81 MG TAB NGT SCH (08:20)
[2017-01-24] MEDS: BENAZEPRIL 10 MG TAB PO SCH (08:21)
[2017-01-24] MEDS: ISOSORBIDE MONONITRATE(SR)30 MG TAB PO SCH (08:21)
[2017-01-24] MEDS: ENOXAPARIN 30 MG/0.3 ML SYG SC SCH (08:22)
[2017-01-24] MEDS: morphine 2 MG INJ IV PRN (08:27)
[2017-01-24 08:32] LABS: IRON 20 ug/dl (35-150); POTASSIUM 3.8 mmol/L (3.5-5.1)
[2017-01-24 08:35] LABS: CALCIUM 9.1 mg/dl (8.4-10.2); CREATININE 0.78 mg/dl (0.44-1.00)
[2017-01-24 08:41] LABS: TOTAL IRON BINDING CAPACITY 367 ug/dl (241-421)
[2017-01-24 09:38] LABS: FOLATE 14.8 ng/ml (2.8-20.0)
[2017-01-24 09:59] LABS: FERRITIN 19.1 ng/ml (11.1-264.0)
--- NOTE | 2017-01-24 16:28 | PN ---
Date/Time of Note Date/Time of Note DATE: 01/24/17 TIME: 16:27 Assessment/Plan VTE Prophylaxis VTE Prophylaxis Intervention: SCD's Lines/Catheters [facility] Urinary Cath still in place: No Assessment/Plan Chief Complaint/Hosp Course ASSESSMENT AND PLAN: 1. Chest pain, ruled out acute coronary syndrome. Cardiac enzymes are negative. Dr. Cullen is following in cardiology consultation. Continue aspirin. 2. Left lower extremity swelling, deep venous thrombosis ruled out. Continue to monitor. 3. Anemia. The patient was complaining of the rectal bleed on admission. Stool for obese pending. Dr. Sue is following in in gastroenterology consultation. Plan for EGD and colonoscopy. 4. Hypertension. Continue patient on lisinopril. 5. Anxiety. Continue Xanax p.r.n. 6. Coronary artery disease. 7. Hypothyroidism. Continue patient's Synthroid. Further recommendations based on clinical course. Plan of care discussed with Dr. Trejo. Problems: Subjective 24 Hr Interval Summary Free Text/Dictation Patient agreed for colonoscopy, denies any chest pain nausea vomiting. Exam/Review of Systems Vital Signs Vitals Vital Signs Date Time Temp Pulse Resp B/P Pulse Ox O2 Delivery O2 Flow Rate FiO2 01/24/17 16:09 63 01/24/17 11:53 97.9 18 98/63 97 Room Air Intake and Output 01/23/17 01/23/17 01/24/17 15:00 23:00 07:00 Intake Total 950 ml 480 ml Balance 950 ml 480 ml Exam PHYSICAL EXAMINATION: GENERAL: Well-developed, well-nourished female, currently is awake, alert. HEENT: Head is atraumatic, normocephalic. Pu NECK: Supple, no cervical lymphadenopathy, no thyromegaly. CHEST: Lungs clear bilaterally. There are no or rhonchi, wheezes, rales noted. CARDIOVASCULAR: Normal S1, S2. No murmurs, gallops, clicks, rubs noted. ABDOMEN: Round, soft, nondistended, nontender. Bowel sounds present. EXTREMITIES: Pulses equal bilaterally 2+. The patient has left lower extremity edema, 1+. There is no erythema. Pulses equal bilaterally 2+. SKIN: There is no rash, petechiae noted. NEUROLOGIC: The patient is awake, alert and oriented x4. Results Result Diagram: 01/24/17 0656 01/24/17 0656 Results 24 hrs Laboratory Tests Test 01/24/17 06:56 Anion Gap 15 Basophils # 0.1 Basophils % 1.0 Blood Urea Nitrogen 5 L Calcium Level 9.1 Carbon Dioxide Level 31 Chloride Level 100 Creatinine 0.78 Eosinophils # 0.2 Eosinophils % 3.5 Ferritin 19.1 Folate 14.8 Glucose Level 88 Hematocrit 35.5 #L Hemoglobin 10.7 #L Iron Level 20 L Lymphocytes # 1.1 Lymphocytes % 21.5 Mean Corpuscular Hemoglobin 26.8 L Mean Corpuscular Hemoglobin Concent 30.1 L Mean Corpuscular Volume 89.0 Mean Platelet Volume 9.4 Monocytes # 0.4 Monocytes % 7.2 Neutrophils # 3.3 Neutrophils % 66.6 Nucleated Red Blood Cells # 0.0 Nucleated Red Blood Cells % 0.0 Percent Iron Saturation 5 L Platelet Count 310 Potassium Level 3.8 Red Blood Count 3.99 #L Red Cell Distribution Width 19.9 H Sodium Level 142 Total Iron Binding Capacity 367 White Blood Count 4.9 # Medications Medications Current Medications Alprazolam (Xanax) 0.5 mg Q6H PRN PO ANXIETY Last administered on 01/24/17 07: 48; Admin Dose 0.5 MG; Start 01/20/17 at 17:30 Aspirin (Aspirin) 81 mg DAILY NGT Last administered on 01/24/17 08:20; Admin Dose 81 MG; Start 01/20/17 at 17:30 Isosorbide Mononitrate (Imdur) 30 mg DAILY PO Last administered on 01/24/17 08: 21; Admin Dose 30 MG; Start 01/20/17 at 17:30 Levothyroxine Sodium (Synthroid) 50 mcg DAILY@06 PO Last administered on 05:29; Admin Dose 50 MCG; Start 01/21/17 at 06:00 Enoxaparin Sodium (Lovenox) 30 mg DAILY SC Last administered on 01/24/17 08:22 ; Admin Dose 30 MG; Start 01/21/17 at 09:00 Acetaminophen/ Hydrocodone Bitart ([place] (5/325)) 1 tab Q4H PRN PO MODERATE PAIN LEVEL 4-6 Last administered on 01/24/17 14:29; Admin Dose 1 TAB; Start 01/20 at 19:30 Zolpidem Tartrate (Ambien) 5 mg HS PRN PO INSOMNIA Last administered on 22:36; Admin Dose 5 MG; Start 01/20/17 at 19:30 Metoprolol Tartrate (Lopressor) 25 mg BID PO Last administered on 01/24/17 08: 20; Admin Dose 25 MG; Start 01/21/17 at 21:00 Morphine Sulfate (morphine) 2 mg Q4H PRN IV PAIN Last administered on 01/24/17 08:27; Admin Dose 2 MG; Start 01/23/17 at 05:00 Benazepril HCl (Lotensin) 10 mg DAILY PO Last administered on 01/24/17 08:21; Admin Dose 10 MG; Start 01/23/17 at 16:30 Acetaminophen (Tylenol Tab) 650 mg Q4H PRN PO PAIN AND OR ELEVATED TEMP Last administered on 01/23/17 16:41; Admin Dose 650 MG; Start 01/23/17 at 16:30 Ferrous Sulfate (Ferrous Sulfate (Ec)) 325 mg BID PO ; Start 01/24/17 at 21:00 DOMITILA MURRELL Jan 24, 2017 16:28
[2017-01-24] MEDS ORDERED: METOCLOPRAMIDE 10 MG INJ IV PRN (17:30)
[2017-01-24] MEDS ORDERED: PEG/ELECTROLYTES 4L BTL PO ONE (17:30)
[2017-01-24] MEDS ORDERED: POTASSIUM CHLORIDE 30 MEQ in DEXTROSE 5% 250 ML IVPB PRN (17:30)
--- NOTE | 2017-01-24 18:52 | CONS ---
Date/Time of Note Date/Time of Note DATE: 01/24/17 TIME: 18:49 Assessment/Plan Assessment/Plan Chief Complaint/Hosp Course IMp: 1.Chest pain-resolved. Negative troponin x3/NL EF by echo 2.HTN-very labile 3.CAD 4.Anemia 5.LE edema-negative DVT by RUSS-improved edema 6,Hypothyroid Recc: -Tele -serial ecg's -pnding endoscopy tomorrow -continue BB/ACEI and follow very labile BP closely -Follow volume status closely with spot dose lasix as necessary Problems: Consultation Date/Type/Reason Admit Date/Time Jan 20, 2017 at 11:25 Initial Consult Date 01/21/2017 Type of Consultation: Cardiology Reason for Consultation chest pain Referring Provider: CJ GALLO MD Exam/Review of Systems Vital Signs Vitals Vital Signs Date Time Temp Pulse Resp B/P Pulse Ox O2 Delivery O2 Flow Rate FiO2 01/24/17 16:09 63 01/24/17 16:00 97.9 18 156/71 98 Room Air Intake and Output 01/23/17 01/23/17 01/24/17 15:00 23:00 07:00 Intake Total 950 ml 480 ml Balance 950 ml 480 ml Exam Review of Systems: CONSTITUTIONAL: No fevers, chills. PULMONARY: No sob CARDIOVASCULAR: No chest pain/palpitations GASTROINTESTINAL: No nausea/vomiting. GENITOURINARY: No hematuria/dysuria. MUSCULOSKELETAL: No myagias/arthalgias. PSYCHIATRIC: The patient denies depression. NEUROLOGIC: No weakness Constitutional: alert, oriented Psych: no complaints Head: normocephalic ENMT: mucosa pink and moist Neck: jvd (8 cm water), supple Respiratory: clear to auscultation Cardiovascular: regular rate and rhythm Gastrointestinal: other (Mild TTP difusely), soft Musculoskeletal: muscle tone (normal) Extremities: edema (none) Neurological: other (No focal deficits) Results Result Diagram: 01/24/17 0656 01/24/17 0656 Results 24 hrs Laboratory Tests Test 01/24/17 06:56 Anion Gap 15 Basophils # 0.1 Basophils % 1.0 Blood Urea Nitrogen 5 L Calcium Level 9.1 Carbon Dioxide Level 31 Chloride Level 100 Creatinine 0.78 Eosinophils # 0.2 Eosinophils % 3.5 Ferritin 19.1 Folate 14.8 Glucose Level 88 Hematocrit 35.5 #L Hemoglobin 10.7 #L Iron Level 20 L Lymphocytes # 1.1 Lymphocytes % 21.5 Mean Corpuscular Hemoglobin 26.8 L Mean Corpuscular Hemoglobin Concent 30.1 L Mean Corpuscular Volume 89.0 Mean Platelet Volume 9.4 Monocytes # 0.4 Monocytes % 7.2 Neutrophils # 3.3 Neutrophils % 66.6 Nucleated Red Blood Cells # 0.0 Nucleated Red Blood Cells % 0.0 Percent Iron Saturation 5 L Platelet Count 310 Potassium Level 3.8 Red Blood Count 3.99 #L Red Cell Distribution Width 19.9 H Sodium Level 142 Total Iron Binding Capacity 367 White Blood Count 4.9 # Medications Medications Current Medications Alprazolam (Xanax) 0.5 mg Q6H PRN PO ANXIETY Last administered on 01/24/17 17: 14; Admin Dose 0.5 MG; Start 01/20/17 at 17:30 Aspirin (Aspirin) 81 mg DAILY NGT Last administered on 01/24/17 08:20; Admin Dose 81 MG; Start 01/20/17 at 17:30 Isosorbide Mononitrate (Imdur) 30 mg DAILY PO Last administered on 01/24/17 08: 21; Admin Dose 30 MG; Start 01/20/17 at 17:30 Levothyroxine Sodium (Synthroid) 50 mcg DAILY@06 PO Last administered on 05:29; Admin Dose 50 MCG; Start 01/21/17 at 06:00 Enoxaparin Sodium (Lovenox) 30 mg DAILY SC Last administered on 01/24/17 08:22 ; Admin Dose 30 MG; Start 01/21/17 at 09:00 Acetaminophen/ Hydrocodone Bitart ([place] (5/325)) 1 tab Q4H PRN PO MODERATE PAIN LEVEL 4-6 Last administered on 01/24/17 14:29; Admin Dose 1 TAB; Start 01/20 at 19:30 Zolpidem Tartrate (Ambien) 5 mg HS PRN PO INSOMNIA Last administered on 22:36; Admin Dose 5 MG; Start 01/20/17 at 19:30 Metoprolol Tartrate (Lopressor) 25 mg BID PO Last administered on 01/24/17 08: 20; Admin Dose 25 MG; Start 01/21/17 at 21:00 Morphine Sulfate (morphine) 2 mg Q4H PRN IV PAIN Last administered on 01/24/17 08:27; Admin Dose 2 MG; Start 01/23/17 at 05:00 Benazepril HCl (Lotensin) 10 mg DAILY PO Last administered on 01/24/17 08:21; Admin Dose 10 MG; Start 01/23/17 at 16:30 Acetaminophen (Tylenol Tab) 650 mg Q4H PRN PO PAIN AND OR ELEVATED TEMP Last administered on 01/23/17 16:41; Admin Dose 650 MG; Start 01/23/17 at 16:30 Ferrous Sulfate (Ferrous Sulfate (Ec)) 325 mg BID PO ; Start 01/24/17 at 21:00 Metoclopramide HCl 10 mg 10 mg Q4 PRN IV NAUSEA; Start 01/24/17 at 17:30 Potassium Chloride/Dextrose (KCl/D5W) 265 ml @ 88.333 mls/ hr ONCE PRN IVPB NOTE; Start 01/24/17 at 17:30; Stop 01/24/17 at 23:00 DALILA BUTT Jan 24, 2017 18:52
[2017-01-24] MEDS: FERROUS SULFATE (EC) 325 MG TAB PO SCH (20:28)
--- NOTE | 2017-01-24 20:38 | PN ---
Date/Time of Note Date/Time of Note DATE: 01/24/17 TIME: 20:36 Assessment/Plan VTE Prophylaxis VTE Prophylaxis Intervention: other (per pmd) Lines/Catheters IV Catheter Type (from Nrsg): pmd Urinary Cath still in place: No Assessment/Plan Assessment/Plan anemia r/ gi causes pud vs gi neoplasm plan egd colonoscopy Subjective 24 Hr Interval Summary Free Text/Dictation h/o anemia non sp gi complaints Exam/Review of Systems Vital Signs Vitals Vital Signs Date Time Temp Pulse Resp B/P Pulse Ox O2 Delivery O2 Flow Rate FiO2 01/24/17 20:24 97.8 68 18 153/83 98 Room Air Intake and Output 01/23/17 01/23/17 01/24/17 15:00 23:00 07:00 Intake Total 950 ml 480 ml Balance 950 ml 480 ml Exam pe pt alert heart nsr lungs clear abd soft Results Result Diagram: 01/24/17 0656 01/24/17 0656 Results 24 hrs Laboratory Tests Test 01/24/17 06:56 Anion Gap 15 Basophils # 0.1 Basophils % 1.0 Blood Urea Nitrogen 5 L Calcium Level 9.1 Carbon Dioxide Level 31 Chloride Level 100 Creatinine 0.78 Eosinophils # 0.2 Eosinophils % 3.5 Ferritin 19.1 Folate 14.8 Glucose Level 88 Hematocrit 35.5 #L Hemoglobin 10.7 #L Iron Level 20 L Lymphocytes # 1.1 Lymphocytes % 21.5 Mean Corpuscular Hemoglobin 26.8 L Mean Corpuscular Hemoglobin Concent 30.1 L Mean Corpuscular Volume 89.0 Mean Platelet Volume 9.4 Monocytes # 0.4 Monocytes % 7.2 Neutrophils # 3.3 Neutrophils % 66.6 Nucleated Red Blood Cells # 0.0 Nucleated Red Blood Cells % 0.0 Percent Iron Saturation 5 L Platelet Count 310 Potassium Level 3.8 Red Blood Count 3.99 #L Red Cell Distribution Width 19.9 H Sodium Level 142 Total Iron Binding Capacity 367 White Blood Count 4.9 # Medications Medications Current Medications Alprazolam (Xanax) 0.5 mg Q6H PRN PO ANXIETY Last administered on 01/24/17 17: 14; Admin Dose 0.5 MG; Start 01/20/17 at 17:30 Aspirin (Aspirin) 81 mg DAILY NGT Last administered on 01/24/17 08:20; Admin Dose 81 MG; Start 01/20/17 at 17:30 Isosorbide Mononitrate (Imdur) 30 mg DAILY PO Last administered on 01/24/17 08: 21; Admin Dose 30 MG; Start 01/20/17 at 17:30 Levothyroxine Sodium (Synthroid) 50 mcg DAILY@06 PO Last administered on 05:29; Admin Dose 50 MCG; Start 01/21/17 at 06:00 Enoxaparin Sodium (Lovenox) 30 mg DAILY SC Last administered on 01/24/17 08:22 ; Admin Dose 30 MG; Start 01/21/17 at 09:00 Acetaminophen/ Hydrocodone Bitart ([place] (5/325)) 1 tab Q4H PRN PO MODERATE PAIN LEVEL 4-6 Last administered on 01/24/17 14:29; Admin Dose 1 TAB; Start 01/20 at 19:30 Zolpidem Tartrate (Ambien) 5 mg HS PRN PO INSOMNIA Last administered on 22:36; Admin Dose 5 MG; Start 01/20/17 at 19:30 Metoprolol Tartrate (Lopressor) 25 mg BID PO Last administered on 01/24/17 20: 27; Admin Dose 25 MG; Start 01/21/17 at 21:00 Morphine Sulfate (morphine) 2 mg Q4H PRN IV PAIN Last administered on 01/24/17 08:27; Admin Dose 2 MG; Start 01/23/17 at 05:00 Benazepril HCl (Lotensin) 10 mg DAILY PO Last administered on 01/24/17 08:21; Admin Dose 10 MG; Start 01/23/17 at 16:30 Acetaminophen (Tylenol Tab) 650 mg Q4H PRN PO PAIN AND OR ELEVATED TEMP Last administered on 01/23/17 16:41; Admin Dose 650 MG; Start 01/23/17 at 16:30 Ferrous Sulfate (Ferrous Sulfate (Ec)) 325 mg BID PO Last administered on 20:28; Admin Dose 325 MG; Start 01/24/17 at 21:00 Metoclopramide HCl 10 mg 10 mg Q4 PRN IV NAUSEA; Start 01/24/17 at 17:30 Potassium Chloride/Dextrose (KCl/D5W) 265 ml @ 88.333 mls/ hr ONCE PRN IVPB NOTE; Start 01/24/17 at 17:30; Stop 01/24/17 at 23:00 GIOVANY BAIG MD Jan 24, 2017 20:38
[2017-01-24] MEDS: ZOLPIDEM 5 MG TAB PO PRN (21:57)
[2017-01-25] VITALS (13 sets, daily range): BP systolic 122–181; BP diastolic 70–99; PULSE 63–74; RESP 13–20
[2017-01-25] MEDS: ALPRAZOLAM 0.25 MG TAB PO PRN ×3 (02:58→19:43)
[2017-01-25 05:43] LABS: ADD SCAN DIFF NO
[2017-01-25 05:55] LABS: BASOPHIL # 0.1 10^3/ul (0.0-0.1); BASOPHILS % 1.2 % (0.0-2.0); EOSINOPHILS # 0.2 10^3/ul (0.0-0.5); EOSINOPHILS % 3.7 % (0.0-7.0); HEMATOCRIT 30.5 % (37.0-47.0); HEMOGLOBIN 9.6 g/dl (12.0-16.0); LYMPHOCYTES # 1.4 10^3/ul (0.8-2.9); LYMPHOCYTES % 32.9 % (15.0-51.0); MEAN CORPUSCULAR HEMOGLOBIN 27.5 pg (29.0-33.0); MEAN CORPUSCULAR HGB CONC 31.5 g/dl (32.0-37.0); MEAN CORPUSCULAR VOLUME 87.4 fl (82.0-101.0); MEAN PLATELET VOLUME 9.3 fl (7.4-10.4); MONOCYTE # 0.4 10^3/ul (0.3-0.9); MONOCYTES % 10.2 % (0.0-11.0); NEUTROPHIL # 2.2 10^3/ul (1.6-7.5); NEUTROPHILS % 51.5 % (39.0-77.0); PLATELET COUNT 293 10^3/UL (140-415); RED BLOOD COUNT 3.49 10^6/ul (4.20-5.40); RED CELL DISTRIBUTION WIDTH 19.9 % (11.5-14.5); WHITE BLOOD COUNT 4.3 10^3/ul (4.8-10.8)
[2017-01-25] MEDS: LEVOTHYROXINE 50 MCG TAB PO SCH (06:00)
[2017-01-25] MEDS: morphine 2 MG INJ IV PRN ×4 (06:17→22:08)
[2017-01-25 06:27] LABS: CALCIUM 8.5 mg/dl (8.4-10.2); CREATININE 0.77 mg/dl (0.44-1.00)
[2017-01-25] MEDS: FERROUS SULFATE (EC) 325 MG TAB PO SCH ×2 (09:00→22:07)
[2017-01-25] MEDS: ASPIRIN 81 MG TAB NGT SCH (09:00)
[2017-01-25] MEDS: ENOXAPARIN 30 MG/0.3 ML SYG SC SCH (09:00)
[2017-01-25] MEDS: BENAZEPRIL 10 MG TAB PO SCH (09:23)
[2017-01-25] MEDS: METOPROLOL 25 MG TAB PO SCH ×2 (09:23→22:08)
[2017-01-25] MEDS: ISOSORBIDE MONONITRATE(SR)30 MG TAB PO SCH (09:23)
--- NOTE | 2017-01-25 12:18 | CONS ---
Date/Time of Note Date/Time of Note DATE: 01/25/17 TIME: 12:16 Assessment/Plan Assessment/Plan Chief Complaint/Hosp Course IMp: 1.Chest pain-resolved. Negative troponin x3/NL EF by echo 2.HTN-very labile 3.CAD 4.Anemia 5.LE edema-negative DVT by RUSS-improved edema 6,Hypothyroid Recc: -Now on med-surg -serial ecg's -continue BB/ACEI and follow very labile BP closely -Follow volume status closely with spot dose lasix as necessary -Pnding endoscopy today Problems: Consultation Date/Type/Reason Admit Date/Time Jan 20, 2017 at 11:25 Initial Consult Date 01/21/2017 Type of Consultation: Cardiology Reason for Consultation Chest pain Referring Provider: CJ GALLO MD Exam/Review of Systems Vital Signs Vitals Vital Signs Date Time Temp Pulse Resp B/P Pulse Ox O2 Delivery O2 Flow Rate FiO2 01/25/17 07:26 97.7 61 18 141/76 99 01/24/17 20:24 Room Air Intake and Output 01/24/17 01/24/17 01/25/17 15:00 23:00 07:00 Intake Total 960 ml 120 ml Balance 960 ml 120 ml Exam Review of Systems: CONSTITUTIONAL: No fevers, chills. PULMONARY: No sob CARDIOVASCULAR: No chest pain/palpitations GASTROINTESTINAL: No nausea/vomiting. GENITOURINARY: No hematuria/dysuria. MUSCULOSKELETAL: No myagias/arthalgias. PSYCHIATRIC: The patient denies depression. NEUROLOGIC: No weakness Constitutional: alert, oriented Psych: no complaints Head: normocephalic ENMT: mucosa pink and moist Neck: jvd (8 cm water), supple Respiratory: clear to auscultation Cardiovascular: regular rate and rhythm Gastrointestinal: non-tender, soft Musculoskeletal: muscle tone (normal) Extremities: edema (none) Neurological: other (No focal deficits) Results Result Diagram: 01/25/1718 01/25/1718 Results 24 hrs Laboratory Tests Test 01/25/17 05:18 Anion Gap 14 Basophils # 0.1 Basophils % 1.2 Blood Urea Nitrogen 6 L Calcium Level 8.5 Carbon Dioxide Level 29 Chloride Level 102 Creatinine 0.77 Eosinophils # 0.2 Eosinophils % 3.7 Glucose Level 83 Hematocrit 30.5 L Hemoglobin 9.6 L Lymphocytes # 1.4 Lymphocytes % 32.9 Mean Corpuscular Hemoglobin 27.5 L Mean Corpuscular Hemoglobin Concent 31.5 L Mean Corpuscular Volume 87.4 Mean Platelet Volume 9.3 Monocytes # 0.4 Monocytes % 10.2 Neutrophils # 2.2 Neutrophils % 51.5 Nucleated Red Blood Cells # 0.0 Nucleated Red Blood Cells % 0.0 Platelet Count 293 Potassium Level 4.0 Red Blood Count 3.49 L Red Cell Distribution Width 19.9 H Sodium Level 141 White Blood Count 4.3 L Medications Medications Current Medications Aspirin (Aspirin) 81 mg DAILY NGT Last administered on 01/24/17 08:20; Admin Dose 81 MG; Start 01/20/17 at 17:30 Isosorbide Mononitrate (Imdur) 30 mg DAILY PO Last administered on 01/25/17 09: 23; Admin Dose 30 MG; Start 01/20/17 at 17:30 Levothyroxine Sodium (Synthroid) 50 mcg DAILY@06 PO Last administered on 05:29; Admin Dose 50 MCG; Start 01/21/17 at 06:00 Enoxaparin Sodium (Lovenox) 30 mg DAILY SC Last administered on 01/24/17 08:22 ; Admin Dose 30 MG; Start 01/21/17 at 09:00 Acetaminophen/ Hydrocodone Bitart ([place] (5/325)) 1 tab Q4H PRN PO MODERATE PAIN LEVEL 4-6 Last administered on 01/24/17 21:57; Admin Dose 1 TAB; Start 01/20 at 19:30 Zolpidem Tartrate (Ambien) 5 mg HS PRN PO INSOMNIA Last administered on 21:57; Admin Dose 5 MG; Start 01/20/17 at 19:30 Metoprolol Tartrate (Lopressor) 25 mg BID PO Last administered on 01/25/17 09: 23; Admin Dose 25 MG; Start 01/21/17 at 21:00 Morphine Sulfate (morphine) 2 mg Q4H PRN IV PAIN Last administered on 01/25/17 10:05; Admin Dose 2 MG; Start 01/23/17 at 05:00 Benazepril HCl (Lotensin) 10 mg DAILY PO Last administered on 01/25/17 09:23; Admin Dose 10 MG; Start 01/23/17 at 16:30 Acetaminophen (Tylenol Tab) 650 mg Q4H PRN PO PAIN AND OR ELEVATED TEMP Last administered on 01/23/17 16:41; Admin Dose 650 MG; Start 01/23/17 at 16:30 Ferrous Sulfate (Ferrous Sulfate (Ec)) 325 mg BID PO Last administered on 20:28; Admin Dose 325 MG; Start 01/24/17 at 21:00 Metoclopramide HCl (Reglan) 10 mg Q4 PRN IV NAUSEA; Start 01/24/17 at 17:30 Alprazolam (Xanax) 0.5 mg Q6H PRN PO ANXIETY Last administered on 01/25/17 11: 43; Admin Dose 0.5 MG; Start 01/25/17 at 02:50 DALILA BUTT 8, 2017 12:18
[2017-01-25] MEDS ORDERED: LIDOCAINE 2% (SDV) 5 ML INJ ONE (17:10)
[2017-01-25] MEDS ORDERED: PROPOFOL 40 ML ONE (17:10)
[2017-01-25] MEDS ORDERED: hydrALAzine 20 MG INJ IV PRN (17:30)
[2017-01-25] MEDS ORDERED: DIPHENHYDRAMINE 50 MG INJ IV PRN (17:30)
[2017-01-25] MEDS ORDERED: EPHEDrine SULFATE 50 MG/5 ML SYG IV PRN (17:30)
[2017-01-25] MEDS ORDERED: ONDANSETRON 4 MG INJ IV PRN (17:30)
[2017-01-25] MEDS ORDERED: LABETALOL HCL 20MG INJ IV PRN (17:30)
[2017-01-25] MEDS ORDERED: HYDROmorphONE (0.2 MG/ML) 10ML SYG IV PRN (17:30)
--- NOTE | 2017-01-25 17:57 | PN ---
Date/Time of Note Date/Time of Note DATE: 01/25/17 TIME: 17:55 Assessment/Plan VTE Prophylaxis VTE Prophylaxis Intervention: SCD's Lines/Catheters [facility]from [facility] Peripheral IV Urinary Cath still in place: No Assessment/Plan Chief Complaint/Hosp Course ASSESSMENT AND PLAN: 1. Chest pain, ruled out acute coronary syndrome. Cardiac enzymes are negative. Dr. Cullen is following in cardiology consultation. Continue aspirin. 2. Left lower extremity swelling, deep venous thrombosis ruled out. Continue to monitor. 3. Anemia. The patient was complaining of the rectal bleed on admission. Dr. Sue is following in in gastroenterology consultation. Plan for EGD and colonoscopy today. 4. Hypertension. Continue patient on lisinopril. 5. Anxiety. Continue Xanax p.r.n. 6. Coronary artery disease. 7. Hypothyroidism. Continue patient's Synthroid. Further recommendations based on clinical course. Plan of care discussed with Dr. Trejo. Problems: Subjective 24 Hr Interval Summary Free Text/Dictation Patient went to GI lab for colonoscopy. Exam/Review of Systems Vital Signs Vitals Vital Signs Date Time Temp Pulse Resp B/P Pulse Ox O2 Delivery O2 Flow Rate FiO2 01/25/17 17:25 63 18 122/70 98 Room Air 01/25/17 15:38 97.9 Intake and Output 01/24/17 01/24/17 01/25/17 15:00 23:00 07:00 Intake Total 960 ml 120 ml Balance 960 ml 120 ml Results Result Diagram: 01/25/17 0518 01/25/17 0518 Results 24 hrs Laboratory Tests Test 01/25/17 05:18 Anion Gap 14 Basophils # 0.1 Basophils % 1.2 Blood Urea Nitrogen 6 L Calcium Level 8.5 Carbon Dioxide Level 29 Chloride Level 102 Creatinine 0.77 Eosinophils # 0.2 Eosinophils % 3.7 Glucose Level 83 Hematocrit 30.5 L Hemoglobin 9.6 L Lymphocytes # 1.4 Lymphocytes % 32.9 Mean Corpuscular Hemoglobin 27.5 L Mean Corpuscular Hemoglobin Concent 31.5 L Mean Corpuscular Volume 87.4 Mean Platelet Volume 9.3 Monocytes # 0.4 Monocytes % 10.2 Neutrophils # 2.2 Neutrophils % 51.5 Nucleated Red Blood Cells # 0.0 Nucleated Red Blood Cells % 0.0 Platelet Count 293 Potassium Level 4.0 Red Blood Count 3.49 L Red Cell Distribution Width 19.9 H Sodium Level 141 White Blood Count 4.3 L Medications Medications Current Medications Aspirin (Aspirin) 81 mg DAILY NGT Last administered on 01/24/17 08:20; Admin Dose 81 MG; Start 01/20/17 at 17:30 Isosorbide Mononitrate (Imdur) 30 mg DAILY PO Last administered on 01/25/17 09: 23; Admin Dose 30 MG; Start 01/20/17 at 17:30 Levothyroxine Sodium (Synthroid) 50 mcg DAILY@06 PO Last administered on 05:29; Admin Dose 50 MCG; Start 01/21/17 at 06:00 Enoxaparin Sodium (Lovenox) 30 mg DAILY SC Last administered on 01/24/17 08:22 ; Admin Dose 30 MG; Start 01/21/17 at 09:00 Acetaminophen/ Hydrocodone Bitart ([place] (5/325)) 1 tab Q4H PRN PO MODERATE PAIN LEVEL 4-6 Last administered on 01/24/17 21:57; Admin Dose 1 TAB; Start 01/20 at 19:30 Zolpidem Tartrate (Ambien) 5 mg HS PRN PO INSOMNIA Last administered on 21:57; Admin Dose 5 MG; Start 01/20/17 at 19:30 Metoprolol Tartrate (Lopressor) 25 mg BID PO Last administered on 01/25/17 09: 23; Admin Dose 25 MG; Start 01/21/17 at 21:00 Morphine Sulfate (morphine) 2 mg Q4H PRN IV PAIN Last administered on 01/25/17 14:22; Admin Dose 2 MG; Start 01/23/17 at 05:00 Benazepril HCl (Lotensin) 10 mg DAILY PO Last administered on 01/25/17 09:23; Admin Dose 10 MG; Start 01/23/17 at 16:30 Acetaminophen (Tylenol Tab) 650 mg Q4H PRN PO PAIN AND OR ELEVATED TEMP Last administered on 01/23/17 16:41; Admin Dose 650 MG; Start 01/23/17 at 16:30 Ferrous Sulfate (Ferrous Sulfate (Ec)) 325 mg BID PO Last administered on 20:28; Admin Dose 325 MG; Start 01/24/17 at 21:00 Metoclopramide HCl (Reglan) 10 mg Q4 PRN IV NAUSEA; Start 01/24/17 at 17:30 Alprazolam (Xanax) 0.5 mg Q6H PRN PO ANXIETY Last administered on 01/25/17t 11: 43; Admin Dose 0.5 MG; Start 01/25/17 at 02:50 DOMITILA MURRELL Jan 25, 2017 17:56
[2017-01-25] MEDS ORDERED: EPHEDrine SULFATE 50 MG/5 ML SYG ONE (18:30)
--- NOTE | 2017-01-25 19:08 | GILP ---
DATE OF PROCEDURE: NAME OF PROCEDURE: Esophagogastroduodenoscopy. PREOPERATIVE DIAGNOSIS: The patient presenting with history of severe anemia, rule out peptic ulcer disease. POSTOPERATIVE DIAGNOSES: 1. Thickened folds noted in the antrum with erosions on the top of these folds. Multiple biopsies were obtained. 2. Patchy gastritis. 3. Hiatal hernia. 4. Possible betty of the esophagus. DESCRIPTION OF PROCEDURE: After informed written consent was obtained, the patient was asked to lie on the left lateral side. Intravenous anesthesia was given by anesthesiologist, Dr. Patel. When th e patient became somnolent, Olympus video upper endoscope was introduced into the oropharynx, then i nto the esophagus. Esophagus showed evidence of several areas of whitish patches. This could be ca ndida. Hence, biopsies were obtained to rule out betty. Small hiatal hernia was noted. Scope at this time was advanced into the stomach. Stomach showed evidence of thickening of the folds in the antrum with erosions on the tops of those folds noted. Multiple biopsies were obtained to rule out possible lymphoma. Several areas of erythema were noted, indicating mild diffuse gastritis. Biops y was done from the antrum, the lesser curvature and the fundus to rule out H. pylori infection. Th e duodenum appeared normal up to the end of the third portion. Scope at this time was withdrawn. O n the way out, no additional abnormalities detected, and the procedure was terminated. PLAN: Wait for the pathology report. Recommend Protonix 40 mg daily. Dictated By: GIOVANY EDWARD/MURTAZA Conf#: [id number] DID#: [id number]
--- NOTE | 2017-01-25 19:09 | GILP ---
DATE OF PROCEDURE: PROCEDURE: Colonoscopy. PREOPERATIVE DIAGNOSIS: Anemia, rule out colorectal neoplasm. POSTOPERATIVE DIAGNOSES: 1. Diverticulosis. 2. Minimal internal and external hemorrhoids. After the informed written consent was obtained, the patient was asked to lie on the left lateral si de. Intravenous anesthesia was given by anesthesiologist, Dr. Patel. When the patient became somnol ent, Olympus video colonoscope was introduced into the rectum, and scope was advanced all the way to the cecum. Diverticulosis noted all along the colon. At this time, no additional abnormalities de tected. On the way out, minimal internal and minimal external hemorrhoids were noted, and the proce dure was terminated. PLAN: Recommend further workup as indicated. Dictated By: GIOVANY EDWARD/MURTAZA Conf#: [id number] DID#: [id number]
[2017-01-25] MEDS: ZOLPIDEM 5 MG TAB PO PRN (23:07)
[2017-01-26] MEDS: morphine 2 MG INJ IV PRN ×2 (03:08→17:09)
[2017-01-26] MEDS: ALPRAZOLAM 0.25 MG TAB PO PRN ×3 (03:43→21:43)
[2017-01-26 05:42] LABS: ADD SCAN DIFF NO
[2017-01-26 05:46] LABS: BASOPHILS % 0.7 % (0.0-2.0); EOSINOPHILS # 0.1 10^3/ul (0.0-0.5); HEMATOCRIT 31.5 % (37.0-47.0); HEMOGLOBIN 9.7 g/dl (12.0-16.0); LYMPHOCYTES # 1.4 10^3/ul (0.8-2.9); MEAN CORPUSCULAR HEMOGLOBIN 26.9 pg (29.0-33.0); MEAN CORPUSCULAR HGB CONC 30.8 g/dl (32.0-37.0); MEAN CORPUSCULAR VOLUME 87.5 fl (82.0-101.0); MEAN PLATELET VOLUME 9.4 fl (7.4-10.4); MONOCYTE # 0.8 10^3/ul (0.3-0.9); MONOCYTES % 13.4 % (0.0-11.0); NEUTROPHIL # 3.5 10^3/ul (1.6-7.5); NEUTROPHILS % 59.6 % (39.0-77.0); PLATELET COUNT 299 10^3/UL (140-415); RED CELL DISTRIBUTION WIDTH 20.5 % (11.5-14.5); WHITE BLOOD COUNT 5.9 10^3/ul (4.8-10.8)
[2017-01-26 05:57] LABS: CREATININE 0.82 mg/dl (0.44-1.00)
[2017-01-26 05:58] LABS: CALCIUM 8.8 mg/dl (8.4-10.2)
[2017-01-26] MEDS: LEVOTHYROXINE 50 MCG TAB PO SCH (06:12)
[2017-01-26 07:59] VITALS: BP 144/82; RESP 20
[2017-01-26] MEDS: ASPIRIN 81 MG TAB NGT SCH (08:14)
[2017-01-26] MEDS: FERROUS SULFATE (EC) 325 MG TAB PO SCH ×2 (08:14→21:43)
[2017-01-26] MEDS: BENAZEPRIL 10 MG TAB PO SCH (08:14)
[2017-01-26] MEDS: ISOSORBIDE MONONITRATE(SR)30 MG TAB PO SCH (08:14)
[2017-01-26] MEDS: HYDROCODONE/APAP (5/325) TAB PO PRN (08:15)
[2017-01-26] MEDS: METOPROLOL 25 MG TAB PO SCH ×2 (08:15→21:44)
[2017-01-26] MEDS: ENOXAPARIN 30 MG/0.3 ML SYG SC SCH (08:18)
--- NOTE | 2017-01-26 12:46 | CONS ---
Date/Time of Note Date/Time of Note DATE: 01/26/17 TIME: 12:44 Assessment/Plan Assessment/Plan Chief Complaint/Hosp Course IMp: 1.Chest pain-resolved. Negative troponin x3/NL EF by echo 2.HTN-very labile 3.CAD 4.Anemia s/p EGD/colonscopy with gastritis/hemmrhoids 5.LE edema-negative DVT by RUSS-improved edema 6,Hypothyroid Recc: -Now on med-surg -continue BB and incrase ACEI to improve BP -Follow volume status closely with spot dose lasix as necessary Problems: Consultation Date/Type/Reason Admit Date/Time Jan 20, 2017 at 11:25 Initial Consult Date 01/21/2017 Type of Consultation: Cardiology Reason for Consultation Chest pain Referring Provider: CJ GALLO MD Exam/Review of Systems Vital Signs Vitals Vital Signs Date Time Temp Pulse Resp B/P Pulse Ox O2 Delivery O2 Flow Rate FiO2 01/26/17 07:59 98.7 64 20 144/82 100 01/25/17 18:34 Room Air Intake and Output 01/25/17 01/25/17 01/26/17 15:00 23:00 07:00 Intake Total 740 ml Balance 740 ml Exam Review of Systems: CONSTITUTIONAL: No fevers, chills. PULMONARY: No sob CARDIOVASCULAR: No chest pain/palpitations GASTROINTESTINAL: No nausea/vomiting. GENITOURINARY: No hematuria/dysuria. MUSCULOSKELETAL: No myagias/arthalgias. PSYCHIATRIC: The patient denies depression. NEUROLOGIC: No weakness Constitutional: alert, oriented Psych: no complaints Head: normocephalic ENMT: mucosa pink and moist Neck: jvd (8 cm water), supple Respiratory: clear to auscultation Cardiovascular: regular rate and rhythm Gastrointestinal: non-tender, soft Musculoskeletal: muscle tone (normal) Extremities: edema (none) Neurological: other (No focal deficits) Results Result Diagram: 01/26/1745601/26/17456 Results 24 hrs Laboratory Tests Test 01/26/17 04:57 Anion Gap 13 Basophils # 0.0 Basophils % 0.7 Blood Urea Nitrogen 9 Calcium Level 8.8 Carbon Dioxide Level 29 Chloride Level 102 Creatinine 0.82 Eosinophils # 0.1 Eosinophils % 2.0 Glucose Level 112 Hematocrit 31.5 L Hemoglobin 9.7 L Lymphocytes # 1.4 Lymphocytes % 24.0 Mean Corpuscular Hemoglobin 26.9 L Mean Corpuscular Hemoglobin Concent 30.8 L Mean Corpuscular Volume 87.5 Mean Platelet Volume 9.4 Monocytes # 0.8 Monocytes % 13.4 H Neutrophils # 3.5 Neutrophils % 59.6 Nucleated Red Blood Cells # 0.0 Nucleated Red Blood Cells % 0.0 Platelet Count 299 Potassium Level 4.0 Red Blood Count 3.60 L Red Cell Distribution Width 20.5 H Sodium Level 140 White Blood Count 5.9 # Medications Medications Current Medications Aspirin (Aspirin) 81 mg DAILY NGT Last administered on 01/26/17 08:14; Admin Dose 81 MG; Start 01/20/17 at 17:30 Isosorbide Mononitrate (Imdur) 30 mg DAILY PO Last administered on 01/26/17 08: 14; Admin Dose 30 MG; Start 01/20/17 at 17:30 Levothyroxine Sodium (Synthroid) 50 mcg DAILY@06 PO Last administered on 06:12; Admin Dose 50 MCG; Start 01/21/17 at 06:00 Enoxaparin Sodium (Lovenox) 30 mg DAILY SC Last administered on 01/26/17 08:18 ; Admin Dose 30 MG; Start 01/21/17 at 09:00 Acetaminophen/ Hydrocodone Bitart ([place] (5/325)) 1 tab Q4H PRN PO MODERATE PAIN LEVEL 4-6 Last administered on 01/26/17 08:15; Admin Dose 1 TAB; Start 01/20 at 19:30 Zolpidem Tartrate (Ambien) 5 mg HS PRN PO INSOMNIA Last administered on 23:07; Admin Dose 5 MG; Start 01/20/17 at 19:30 Metoprolol Tartrate (Lopressor) 25 mg BID PO Last administered on 01/26/17 08: 15; Admin Dose 25 MG; Start 01/21/17 at 21:00 Morphine Sulfate (morphine) 2 mg Q4H PRN IV PAIN Last administered on 01/26/17 03:08; Admin Dose 2 MG; Start 01/23/17 at 05:00 Benazepril HCl (Lotensin) 10 mg DAILY PO Last administered on 01/26/17 08:14; Admin Dose 10 MG; Start 01/23/17 at 16:30 Acetaminophen (Tylenol Tab) 650 mg Q4H PRN PO PAIN AND OR ELEVATED TEMP Last administered on 01/23/17 16:41; Admin Dose 650 MG; Start 01/23/17 at 16:30 Ferrous Sulfate (Ferrous Sulfate (Ec)) 325 mg BID PO Last administered on 08:14; Admin Dose 325 MG; Start 01/24/17 at 21:00 Metoclopramide HCl (Reglan) 10 mg Q4 PRN IV NAUSEA; Start 01/24/17 at 17:30 Alprazolam (Xanax) 0.5 mg Q6H PRN PO ANXIETY Last administered on 01/26/17 12: 03; Admin Dose 0.5 MG; Start 01/25/17 at 02:50 DALILA BUTT Jan 26, 2017 12:46
--- NOTE | 2017-01-26 14:03 | PN ---
Date/Time of Note Date/Time of Note DATE: 01/26/17 TIME: 14:02 Assessment/Plan VTE Prophylaxis VTE Prophylaxis Intervention: other Lines/Catheters [facility] [place] Urinary Cath still in place: No Assessment/Plan Assessment/Plan 1. Chest pain, ruled out acute coronary syndrome. Cardiac enzymes are negative. Dr. Cullen is following in cardiology consultation. Continue aspirin. 2. Left lower extremity swelling, deep venous thrombosis ruled out. Continue to monitor. 3. Anemia. The patient was complaining of the rectal bleed on admission. Dr. Sue is following in in gastroenterology consultation. Plan for EGD and colonoscopy today. 4. Hypertension. Continue patient on lisinopril. 5. Anxiety. Continue Xanax p.r.n. 6. Coronary artery disease. 7. Hypothyroidism. Continue patient's Synthroid. Further recommendations based on clinical course. Plan of care discussed with Dr. Trejo. Subjective 24 Hr Interval Summary Constitutional: improved Eyes: no complaints ENT: bleeding Respiratory: no complaints Cardiovascular: no complaints Gastrointestinal: no complaints Genitourinary: no complaints Musculoskeletal: no complaints Skin: no complaints Neurologic: no complaints Endocrine: no complaints Lymphatic: no complaints Psychological: no complaints Immunologic: no complaints Exam/Review of Systems Vital Signs Vitals Vital Signs Date Time Temp Pulse Resp B/P Pulse Ox O2 Delivery O2 Flow Rate FiO2 01/26/17 07:59 98.7 64 20 144/82 100 01/25/17 18:34 Room Air Intake and Output 01/25/17 01/25/17 01/26/17 15:00 23:00 07:00 Intake Total 740 ml Balance 740 ml Exam Constitutional: alert, oriented, well developed Psych: nl mood/affect Head: atraumatic Eyes: EOMI, PERRL, nl sclera ENMT: nl external ears & nose Neck: non-tender Respiratory: clear to auscultation Cardiovascular: nl pulses Gastrointestinal: non-tender, soft Musculoskeletal: nl extremities to inspection Extremities: normal pulses Neurological: nl mental status, nl speech Skin: nl turgor Results Result Diagram: 01/26/177 01/26/17456 Results 24 hrs Laboratory Tests Test 01/26/17 04:57 Anion Gap 13 Basophils # 0.0 Basophils % 0.7 Blood Urea Nitrogen 9 Calcium Level 8.8 Carbon Dioxide Level 29 Chloride Level 102 Creatinine 0.82 Eosinophils # 0.1 Eosinophils % 2.0 Glucose Level 112 Hematocrit 31.5 L Hemoglobin 9.7 L Lymphocytes # 1.4 Lymphocytes % 24.0 Mean Corpuscular Hemoglobin 26.9 L Mean Corpuscular Hemoglobin Concent 30.8 L Mean Corpuscular Volume 87.5 Mean Platelet Volume 9.4 Monocytes # 0.8 Monocytes % 13.4 H Neutrophils # 3.5 Neutrophils % 59.6 Nucleated Red Blood Cells # 0.0 Nucleated Red Blood Cells % 0.0 Platelet Count 299 Potassium Level 4.0 Red Blood Count 3.60 L Red Cell Distribution Width 20.5 H Sodium Level 140 White Blood Count 5.9 # Medications Medications Current Medications Aspirin (Aspirin) 81 mg DAILY NGT Last administered on 01/26/17 08:14; Admin Dose 81 MG; Start 01/20/17 at 17:30 Isosorbide Mononitrate (Imdur) 30 mg DAILY PO Last administered on 01/26/17 08: 14; Admin Dose 30 MG; Start 01/20/17 at 17:30 Levothyroxine Sodium (Synthroid) 50 mcg DAILY@06 PO Last administered on 06:12; Admin Dose 50 MCG; Start 01/21/17 at 06:00 Enoxaparin Sodium (Lovenox) 30 mg DAILY SC Last administered on 01/26/17 08:18 ; Admin Dose 30 MG; Start 01/21/17 at 09:00 Acetaminophen/ Hydrocodone Bitart ([place] (5/325)) 1 tab Q4H PRN PO MODERATE PAIN LEVEL 4-6 Last administered on 01/26/17 08:15; Admin Dose 1 TAB; Start 01/20 at 19:30 Zolpidem Tartrate (Ambien) 5 mg HS PRN PO INSOMNIA Last administered on 23:07; Admin Dose 5 MG; Start 01/20/17 at 19:30 Metoprolol Tartrate (Lopressor) 25 mg BID PO Last administered on 01/26/17 08: 15; Admin Dose 25 MG; Start 01/21/17 at 21:00 Morphine Sulfate (morphine) 2 mg Q4H PRN IV PAIN Last administered on 01/26/17 03:08; Admin Dose 2 MG; Start 01/23/17 at 05:00 Acetaminophen (Tylenol Tab) 650 mg Q4H PRN PO PAIN AND OR ELEVATED TEMP Last administered on 01/23/17 16:41; Admin Dose 650 MG; Start 01/23/17 at 16:30 Ferrous Sulfate (Ferrous Sulfate (Ec)) 325 mg BID PO Last administered on 08:14; Admin Dose 325 MG; Start 01/24/17 at 21:00 Metoclopramide HCl (Reglan) 10 mg Q4 PRN IV NAUSEA; Start 01/24/17 at 17:30 Alprazolam (Xanax) 0.5 mg Q6H PRN PO ANXIETY Last administered on 01/26/17 12: 03; Admin Dose 0.5 MG; Start 01/25/17 at 02:50 Benazepril HCl (Lotensin) 20 mg DAILY PO ; Start 01/27/17 at 09:00 AGUILA SEN Jan 26, 2017 14:03
[2017-01-26 19:39] VITALS: BP 101/55; RESP 16
[2017-01-26] MEDS: ZOLPIDEM 5 MG TAB PO PRN (23:48)
[2017-01-27] MEDS: LEVOTHYROXINE 50 MCG TAB PO SCH (05:10)
[2017-01-27] MEDS: morphine 2 MG INJ IV PRN ×3 (05:10→20:27)
[2017-01-27 05:35] LABS: ADD SCAN DIFF NO
[2017-01-27 05:49] LABS: BASOPHIL # 0.1 10^3/ul (0.0-0.1); BASOPHILS % 1.2 % (0.0-2.0); EOSINOPHILS # 0.2 10^3/ul (0.0-0.5); EOSINOPHILS % 3.3 % (0.0-7.0); HEMATOCRIT 31.9 % (37.0-47.0); HEMOGLOBIN 9.7 g/dl (12.0-16.0); LYMPHOCYTES # 1.5 10^3/ul (0.8-2.9); LYMPHOCYTES % 29.4 % (15.0-51.0); MEAN CORPUSCULAR HEMOGLOBIN 26.8 pg (29.0-33.0); MEAN CORPUSCULAR HGB CONC 30.4 g/dl (32.0-37.0); MEAN CORPUSCULAR VOLUME 88.1 fl (82.0-101.0); MEAN PLATELET VOLUME 9.2 fl (7.4-10.4); MONOCYTE # 0.7 10^3/ul (0.3-0.9); MONOCYTES % 12.5 % (0.0-11.0); NEUTROPHIL # 2.8 10^3/ul (1.6-7.5); PLATELET COUNT 304 10^3/UL (140-415); RED BLOOD COUNT 3.62 10^6/ul (4.20-5.40); RED CELL DISTRIBUTION WIDTH 20.6 % (11.5-14.5); WHITE BLOOD COUNT 5.2 10^3/ul (4.8-10.8)
[2017-01-27 05:52] LABS: POTASSIUM 3.9 mmol/L (3.5-5.1)
[2017-01-27 05:55] LABS: CALCIUM 8.6 mg/dl (8.4-10.2); CREATININE 0.85 mg/dl (0.44-1.00)
[2017-01-27 08:03] VITALS: BP 124/83; RESP 18
[2017-01-27] MEDS: FERROUS SULFATE (EC) 325 MG TAB PO SCH ×2 (08:13→20:36)
[2017-01-27] MEDS: ASPIRIN 81 MG TAB NGT SCH (08:13)
[2017-01-27] MEDS: ISOSORBIDE MONONITRATE(SR)30 MG TAB PO SCH (08:14)
[2017-01-27] MEDS: METOPROLOL 25 MG TAB PO SCH ×2 (08:14→20:40)
[2017-01-27] MEDS: BENAZEPRIL 20 MG TAB PO SCH (08:14)
[2017-01-27] MEDS: ENOXAPARIN 30 MG/0.3 ML SYG SC SCH (08:22)
[2017-01-27] MEDS ORDERED: LISINOPRIL 20 MG TAB PO SCH (09:00)
[2017-01-27] MEDS ORDERED: BENAZEPRIL 10 MG TAB PO SCH (09:00)
[2017-01-27] MEDS: ALPRAZOLAM 0.25 MG TAB PO PRN ×3 (09:35→22:21)
[2017-01-27] MEDS ORDERED: PANTOPRAZOLE (EC) 40 MG TAB PO SCH (11:00)
[2017-01-27] MEDS: AMOXICILLIN 500 MG CAP PO SCH ×2 (11:41→20:36)
[2017-01-27] MEDS: CLARITHROMYCIN 500 MG TAB PO SCH ×2 (11:41→20:36)
--- NOTE | 2017-01-27 11:50 | CONS ---
Date/Time of Note Date/Time of Note DATE: 01/27/17 TIME: 11:48 Assessment/Plan Assessment/Plan Chief Complaint/Hosp Course IMp: 1.Chest pain-resolved. Negative troponin x3/NL EF by echo 2.HTN-very labile 3.CAD 4.Anemia s/p EGD/colonscopy with gastritis/hemmrhoids 5.LE edema-negative DVT by RUSS-improved edema 6,Hypothyroid Recc: -Now on med-surg -continue BB/ACEI at current doses -Contineu imdur and consider holding asa if continues to have abd pain -Follow volume status closely with spot dose lasix as necessary -Continue traeatment for H pylori Problems: Consultation Date/Type/Reason Admit Date/Time Jan 20, 2017 at 11:25 Initial Consult Date 01/21/2017 Type of Consultation: Cardiology Reason for Consultation Chest pain Referring Provider: CJ GALLO MD Exam/Review of Systems Vital Signs Vitals Vital Signs Date Time Temp Pulse Resp B/P Pulse Ox O2 Delivery O2 Flow Rate FiO2 01/27/17 08:03 98.0 70 18 124/83 98 01/25/17 18:34 Room Air Intake and Output 01/26/17 01/26/17 01/27/17 15:00 23:00 07:00 Intake Total 1080 ml 240 ml Balance 1080 ml 240 ml Exam Review of Systems: CONSTITUTIONAL: No fevers, chills. PULMONARY: No sob CARDIOVASCULAR: No chest pain/palpitations GASTROINTESTINAL: MIld abd pain GENITOURINARY: No hematuria/dysuria. MUSCULOSKELETAL: No myagias/arthalgias. PSYCHIATRIC: The patient denies depression. NEUROLOGIC: No weakness Constitutional: alert, oriented Psych: no complaints Head: normocephalic ENMT: mucosa pink and moist Neck: jvd (9 cm water), supple Respiratory: clear to auscultation Cardiovascular: regular rate and rhythm Gastrointestinal: non-tender, soft Musculoskeletal: muscle tone (normal) Extremities: edema (none) Neurological: other (No focal deficits) Results Result Diagram: 01/27/17 0505 01/27/17 0505 Results 24 hrs Laboratory Tests Test 01/27/17 05:05 Anion Gap 13 Basophils # 0.1 Basophils % 1.2 Blood Urea Nitrogen 9 Calcium Level 8.6 Carbon Dioxide Level 27 Chloride Level 105 Creatinine 0.85 Eosinophils # 0.2 Eosinophils % 3.3 Glucose Level 94 Hematocrit 31.9 L Hemoglobin 9.7 L Lymphocytes # 1.5 Lymphocytes % 29.4 Mean Corpuscular Hemoglobin 26.8 L Mean Corpuscular Hemoglobin Concent 30.4 L Mean Corpuscular Volume 88.1 Mean Platelet Volume 9.2 Monocytes # 0.7 Monocytes % 12.5 H Neutrophils # 2.8 Neutrophils % 53.0 Nucleated Red Blood Cells # 0.0 Nucleated Red Blood Cells % 0.0 Platelet Count 304 Potassium Level 3.9 Red Blood Count 3.62 L Red Cell Distribution Width 20.6 H Sodium Level 141 White Blood Count 5.2 Medications Medications Current Medications Aspirin (Aspirin) 81 mg DAILY NGT Last administered on 01/27/17 08:13; Admin Dose 81 MG; Start 01/20/17 at 17:30 Isosorbide Mononitrate (Imdur) 30 mg DAILY PO Last administered on 01/27/17 08 :14; Admin Dose 30 MG; Start 01/20/17 at 17:30 Levothyroxine Sodium (Synthroid) 50 mcg DAILY@06 PO Last administered on 05:10; Admin Dose 50 MCG; Start 01/21/17 at 06:00 Enoxaparin Sodium (Lovenox) 30 mg DAILY SC Last administered on 01/27/17 08:22 ; Admin Dose 30 MG; Start 01/21/17 at 09:00 Acetaminophen/ Hydrocodone Bitart ([place] (5/325)) 1 tab Q4H PRN PO MODERATE PAIN LEVEL 4-6 Last administered on 01/26/17 08:15; Admin Dose 1 TAB; Start 01/20 at 19:30 Zolpidem Tartrate (Ambien) 5 mg HS PRN PO INSOMNIA Last administered on 23:48; Admin Dose 5 MG; Start 01/20/17 at 19:30 Metoprolol Tartrate (Lopressor) 25 mg BID PO Last administered on 01/27/17 08: 14; Admin Dose 25 MG; Start 01/21/17 at 21:00 Morphine Sulfate (morphine) 2 mg Q4H PRN IV PAIN Last administered on 09:37; Admin Dose 2 MG; Start 01/23/17 at 05:00 Acetaminophen (Tylenol Tab) 650 mg Q4H PRN PO PAIN AND OR ELEVATED TEMP Last administered on 01/23/17 16:41; Admin Dose 650 MG; Start 01/23/17 at 16:30 Ferrous Sulfate (Ferrous Sulfate (Ec)) 325 mg BID PO Last administered on 08:13; Admin Dose 325 MG; Start 01/24/17 at 21:00 Metoclopramide HCl (Reglan) 10 mg Q4 PRN IV NAUSEA; Start 01/24/17 at 17:30 Alprazolam (Xanax) 0.5 mg Q6H PRN PO ANXIETY Last administered on 01/27/17 09: 35; Admin Dose 0.5 MG; Start 01/25/17 at 02:50 Benazepril HCl (Lotensin) 20 mg DAILY PO Last administered on 01/27/17 08:14; Admin Dose 20 MG; Start 01/27/17 at 09:00 Clarithromycin (Biaxin) 500 mg BID PO Last administered on 01/27/17 11:41; Admin Dose 500 MG; Start 01/27/17 at 12:00 Amoxicillin (Amoxicillin) 1,000 mg BID PO Last administered on 01/27/17 11:41 ; Admin Dose 1,000 MG; Start 01/27/17 at 12:00 Pantoprazole (Protonix Tab) 40 mg BID@18 PO ; Start 01/27/17 at 18:00 DALILA BUTT Jan 27, 2017 11:50
--- NOTE | 2017-01-27 17:21 | PN ---
Date/Time of Note Date/Time of Note DATE: 01/27/17 TIME: 17:16 Assessment/Plan VTE Prophylaxis VTE Prophylaxis Intervention: SCD's Lines/Catheters IV [facility] Type [facility]from [facility] Urinary Cath still in place: No Assessment/Plan Chief Complaint/Hosp Course ASSESSMENT AND PLAN: 1. Chest pain, ruled out acute coronary syndrome. Cardiac enzymes are negative. Dr. Cullen is following in cardiology consultation. Continue aspirin. 2. Left lower extremity swelling, deep venous thrombosis ruled out. Continue to monitor. 3. Rectal bleed on admission. Dr. Sue is following in in gastroenterology consultation.S/p EGD and colonoscopy 01/25. 4. Hypertension. Continue patient on lisinopril. 5. Anxiety. Continue Xanax p.r.n. 6. Coronary artery disease. 7. Hypothyroidism. Continue patient's Synthroid. 8. Patchy gastritis per EGD continue Protonix. 9. Gastric biopsies positive for H pylori, patient is started on H. pylori eradication regimen. 10. Iron deficiency anemia, continue iron supplement. Patient stated that she feels sick was a stomach pain today, is unable to go home, anticipate discharge home tomorrow with amoxicillin and Biaxin and Protonix for 9 more days. Further recommendations based on clinical course. Plan of care discussed with Dr. Trejo. Problems: Subjective 24 Hr Interval Summary Free Text/Dictation Patient's complains of abdominal pain, stated that she feels too sick to go home , patient denies any chest pain and denies shortness of breath. Exam/Review of Systems Vital Signs Vitals Vital Signs Date Time Temp Pulse Resp B/P Pulse Ox O2 Delivery O2 Flow Rate FiO2 01/27/17 08:03 98.0 70 18 124/83 98 01/25/17 18:34 Room Air Intake and Output 01/26/17 01/26/17 01/27/17 15:00 23:00 07:00 Intake Total 1080 ml 240 ml Balance 1080 ml 240 ml Exam PHYSICAL EXAMINATION: GENERAL: Well-developed, well-nourished female, currently is awake, alert. HEENT: Head is atraumatic, normocephalic. Pu NECK: Supple, no cervical lymphadenopathy, no thyromegaly. CHEST: Lungs clear bilaterally. There are no or rhonchi, wheezes, rales noted. CARDIOVASCULAR: Normal S1, S2. No murmurs, gallops, clicks, rubs noted. ABDOMEN: Round, soft, nondistended, nontender. Bowel sounds present. EXTREMITIES: Pulses equal bilaterally 2+. The patient has left lower extremity edema, 1+. There is no erythema. Pulses equal bilaterally 2+. SKIN: There is no rash, petechiae noted. NEUROLOGIC: The patient is awake, alert and oriented x4. Results Result Diagram: 01/27/17 0505 01/27/17 0505 Results 24 hrs Laboratory Tests Test 01/27/17 05:05 Anion Gap 13 Basophils # 0.1 Basophils % 1.2 Blood Urea Nitrogen 9 Calcium Level 8.6 Carbon Dioxide Level 27 Chloride Level 105 Creatinine 0.85 Eosinophils # 0.2 Eosinophils % 3.3 Glucose Level 94 Hematocrit 31.9 L Hemoglobin 9.7 L Lymphocytes # 1.5 Lymphocytes % 29.4 Mean Corpuscular Hemoglobin 26.8 L Mean Corpuscular Hemoglobin Concent 30.4 L Mean Corpuscular Volume 88.1 Mean Platelet Volume 9.2 Monocytes # 0.7 Monocytes % 12.5 H Neutrophils # 2.8 Neutrophils % 53.0 Nucleated Red Blood Cells # 0.0 Nucleated Red Blood Cells % 0.0 Platelet Count 304 Potassium Level 3.9 Red Blood Count 3.62 L Red Cell Distribution Width 20.6 H Sodium Level 141 White Blood Count 5.2 Medications Medications Current Medications Aspirin (Aspirin) 81 mg DAILY NGT Last administered on 01/27/17 08:13; Admin Dose 81 MG; Start 01/20/17 at 17:30 Isosorbide Mononitrate (Imdur) 30 mg DAILY PO Last administered on 01/27/17 08 :14; Admin Dose 30 MG; Start 01/20/17 at 17:30 Levothyroxine Sodium (Synthroid) 50 mcg DAILY@06 PO Last administered on 05:10; Admin Dose 50 MCG; Start 01/21/17 at 06:00 Enoxaparin Sodium (Lovenox) 30 mg DAILY SC Last administered on 01/27/17 08:22 ; Admin Dose 30 MG; Start 01/21/17 at 09:00 Acetaminophen/ Hydrocodone Bitart ([place] (5/325)) 1 tab Q4H PRN PO MODERATE PAIN LEVEL 4-6 Last administered on 01/26/17 08:15; Admin Dose 1 TAB; Start 01/20 at 19:30 Zolpidem Tartrate (Ambien) 5 mg HS PRN PO INSOMNIA Last administered on 23:48; Admin Dose 5 MG; Start 01/20/17 at 19:30 Metoprolol Tartrate (Lopressor) 25 mg BID PO Last administered on 01/27/17 08: 14; Admin Dose 25 MG; Start 01/21/17 at 21:00 Morphine Sulfate (morphine) 2 mg Q4H PRN IV PAIN Last administered on 09:37; Admin Dose 2 MG; Start 01/23/17 at 05:00 Acetaminophen (Tylenol Tab) 650 mg Q4H PRN PO PAIN AND OR ELEVATED TEMP Last administered on 01/23/17 16:41; Admin Dose 650 MG; Start 01/23/17 at 16:30 Ferrous Sulfate (Ferrous Sulfate (Ec)) 325 mg BID PO Last administered on 08:13; Admin Dose 325 MG; Start 01/24/17 at 21:00 Metoclopramide HCl (Reglan) 10 mg Q4 PRN IV NAUSEA; Start 01/24/17 at 17:30 Alprazolam (Xanax) 0.5 mg Q6H PRN PO ANXIETY Last administered on 01/27/17 15: 48; Admin Dose 0.5 MG; Start 01/25/17 at 02:50 Benazepril HCl (Lotensin) 20 mg DAILY PO Last administered on 01/27/17 08:14; Admin Dose 20 MG; Start 01/27/17 at 09:00 Clarithromycin (Biaxin) 500 mg BID PO Last administered on 01/27/17 11:41; Admin Dose 500 MG; Start 01/27/17 at 12:00 Amoxicillin (Amoxicillin) 1,000 mg BID PO Last administered on 01/27/17 11:41 ; Admin Dose 1,000 MG; Start 01/27/17 at 12:00 Pantoprazole (Protonix Tab) 40 mg BID@,18 PO ; Start 01/27/17 at 18:00 DOMITILA MURRELL Jan 27, 2017 17:20
[2017-01-27] MEDS: PANTOPRAZOLE (EC) 40 MG TAB PO SCH (17:35)
[2017-01-27 19:36] VITALS: BP 109/59; RESP 16
[2017-01-27] MEDS: ZOLPIDEM 5 MG TAB PO PRN (22:53)
[2017-01-28] MEDS: morphine 2 MG INJ IV PRN ×3 (01:53→20:22)
[2017-01-28] MEDS: LEVOTHYROXINE 50 MCG TAB PO SCH (05:31)
[2017-01-28] MEDS: PANTOPRAZOLE (EC) 40 MG TAB PO SCH ×2 (05:31→17:52)
[2017-01-28 07:55] VITALS: BP 140/94; RESP 18
[2017-01-28] MEDS: METOPROLOL 25 MG TAB PO SCH ×2 (08:13→20:15)
[2017-01-28] MEDS: ASPIRIN 81 MG TAB NGT SCH (08:13)
[2017-01-28] MEDS: ISOSORBIDE MONONITRATE(SR)30 MG TAB PO SCH (08:13)
[2017-01-28] MEDS: CLARITHROMYCIN 500 MG TAB PO SCH ×2 (08:13→20:14)
[2017-01-28] MEDS: AMOXICILLIN 500 MG CAP PO SCH ×2 (08:13→20:14)
[2017-01-28] MEDS: FERROUS SULFATE (EC) 325 MG TAB PO SCH ×2 (08:13→20:14)
[2017-01-28] MEDS: BENAZEPRIL 20 MG TAB PO SCH (08:14)
[2017-01-28] MEDS: ALPRAZOLAM 0.25 MG TAB PO PRN ×2 (08:22→16:19)
[2017-01-28] MEDS: ENOXAPARIN 30 MG/0.3 ML SYG SC SCH (08:25)
--- NOTE | 2017-01-28 10:45 | PN ---
CJ GALLO MD 01/28/17 1045: Date/Time of Note Date/Time of Note DATE: 01/28/17 TIME: 10:42 Assessment/Plan VTE Prophylaxis VTE Prophylaxis Intervention: other Lines/Catheters IV Catheter Type (from [facility]rs): Saline Lock Urinary Cath still in place: No Assessment/Plan Assessment/Plan 1. Chest pain, ruled out acute coronary syndrome. Cardiac enzymes are negative. Dr. Cullen is following in cardiology consultation. Continue aspirin. 2. Left lower extremity swelling, deep venous thrombosis ruled out. Continue to monitor. 3. Rectal bleed on admission. Dr. Sue is following in in gastroenterology consultation.S/p EGD and colonoscopy 01/25. 4. Hypertension. Continue patient on lisinopril. 5. Anxiety. Continue Xanax p.r.n. 6. Coronary artery disease. 7. Hypothyroidism. Continue patient's Synthroid. 8. Patchy gastritis per EGD continue Protonix. 9. Gastric biopsies positive for H pylori, patient is started on H. pylori eradication regimen. 10. Iron deficiency anemia, continue iron supplement. 11. Hx chronic gstritis Anticipate discharge home with amoxicillin and Biaxin and Protonix for 8 more days.If stable. Further recommendations based on clinical course. Plan of care discussed with Dr. Gallo. Subjective 24 Hr Interval Summary Constitutional: improved Eyes: no complaints ENT: no complaints Respiratory: no complaints Cardiovascular: no complaints Gastrointestinal: no complaints Genitourinary: no complaints Musculoskeletal: no complaints Skin: no complaints Neurologic: no complaints Endocrine: no complaints Lymphatic: no complaints Psychological: nl mood/affect Immunologic: no complaints Exam/Review of Systems Vital Signs Vitals Vital Signs Date Time Temp Pulse Resp B/P Pulse Ox O2 Delivery O2 Flow Rate FiO2 01/28/17 07:55 98.0 65 18 140/94 99 01/25/17 18:34 Room Air Intake and Output 01/27/17 01/27/17 01/28/17 15:00 23:00 07:00 Intake Total 1400 ml 400 ml Output Total 1400 ml 600 ml Balance 0 ml -200 ml Exam Constitutional: alert, oriented, well developed Psych: nl mood/affect Head: atraumatic Eyes: EOMI, nl sclera ENMT: nl external ears & nose Neck: non-tender Respiratory: clear to auscultation Cardiovascular: nl pulses Gastrointestinal: non-tender, soft Musculoskeletal: other Extremities: normal pulses Neurological: nl mental status, nl speech Skin: nl turgor Lymph: nl lymph nodes Results Result Diagram: 01/27/17 0505 01/27/17 0505 Medications Medications Current Medications Aspirin (Aspirin) 81 mg DAILY NGT Last administered on 01/28/17 08:13; Admin Dose 81 MG; Start 01/20/17 at 17:30 Isosorbide Mononitrate (Imdur) 30 mg DAILY PO Last administered on 01/28/17 08 :13; Admin Dose 30 MG; Start 01/20/17 at 17:30 Levothyroxine Sodium (Synthroid) 50 mcg DAILY@06 PO Last administered on 05:31; Admin Dose 50 MCG; Start 01/21/17 at 06:00 Enoxaparin Sodium (Lovenox) 30 mg DAILY SC Last administered on 01/28/17 08:25 ; Admin Dose 30 MG; Start 01/21/17 at 09:00 Acetaminophen/ Hydrocodone Bitart ([place] (5/325)) 1 tab Q4H PRN PO MODERATE PAIN LEVEL 4-6 Last administered on 01/26/17 08:15; Admin Dose 1 TAB; Start 01/20 at 19:30 Zolpidem Tartrate (Ambien) 5 mg HS PRN PO INSOMNIA Last administered on 22:53; Admin Dose 5 MG; Start 01/20/17 at 19:30 Metoprolol Tartrate (Lopressor) 25 mg BID PO Last administered on 01/28/17 08: 13; Admin Dose 25 MG; Start 01/21/17 at 21:00 Morphine Sulfate (morphine) 2 mg Q4H PRN IV PAIN Last administered on 08:22; Admin Dose 2 MG; Start 01/23/17 at 05:00 Acetaminophen (Tylenol Tab) 650 mg Q4H PRN PO PAIN AND OR ELEVATED TEMP Last administered on 01/23/17 16:41; Admin Dose 650 MG; Start 01/23/17 at 16:30 Ferrous Sulfate (Ferrous Sulfate (Ec)) 325 mg BID PO Last administered on 08:13; Admin Dose 325 MG; Start 01/24/17 at 21:00 Metoclopramide HCl (Reglan) 10 mg Q4 PRN IV NAUSEA; Start 01/24/17 at 17:30 Alprazolam (Xanax) 0.5 mg Q6H PRN PO ANXIETY Last administered on 01/28/17 08: 22; Admin Dose 0.5 MG; Start 01/25/17 at 02:50 Benazepril HCl (Lotensin) 20 mg DAILY PO Last administered on 01/28/17 08:14; Admin Dose 20 MG; Start 01/27/17 at 09:00 Clarithromycin (Biaxin) 500 mg BID PO Last administered on 01/28/17 08:13; Admin Dose 500 MG; Start 01/27/17 at 12:00 Amoxicillin (Amoxicillin) 1,000 mg BID PO Last administered on 01/28/17 08:13 ; Admin Dose 1,000 MG; Start 01/27/17 at 12:00 Pantoprazole (Protonix Tab) 40 mg BID@06,18 PO Last administered on 01/28/17 05:31; Admin Dose 40 MG; Start 01/27/17 at 18:00 AGUILA SEN 01/28/17 1136: Exam/Review of Systems Results Result Diagram: 01/27/17 0505 01/27/17 0505 CJ GALLO MD Jan 28, 2017 10:45 AGUILA SEN Jan 28, 2017 11:36
--- NOTE | 2017-01-28 11:36 | PN ---
Date/Time of Note Date/Time of Note DATE: 01/28/17 TIME: 11:35 Assessment/Plan Lines/Catheters IV C[facility]ter Type (from [facility]): Sal[facility] Urinary Cath still in place: No Assessment/Plan Assessment/Plan 1. Chest pain, ruled out acute coronary syndrome. Cardiac enzymes are negative. Dr. Cullen is following in cardiology consultation. Continue aspirin. 2. Left lower extremity swelling, deep venous thrombosis ruled out. Continue to monitor. 3. Rectal bleed on admission. Dr. Sue is following in in gastroenterology consultation.S/p EGD and colonoscopy 01/25. 4. Hypertension. Continue patient on lisinopril. 5. Anxiety. Continue Xanax p.r.n. 6. Coronary artery disease. 7. Hypothyroidism. Continue patient's Synthroid. 8. Patchy gastritis per EGD continue Protonix. 9. Gastric biopsies positive for H pylori, patient is started on H. pylori eradication regimen. 10. Iron deficiency anemia, continue iron supplement. 11. Hx chronic gastritis Anticipate discharge home with amoxicillin and Biaxin and Protonix for 8 more days.If stable. Further recommendations based on clinical course. Plan of care discussed with Dr. Trejo. Subjective 24 Hr Interval Summary Eyes: no complaints ENT: no complaints Respiratory: no complaints Cardiovascular: no complaints Gastrointestinal: pain Genitourinary: no complaints Musculoskeletal: no complaints Skin: no complaints Neurologic: no complaints Exam/Review of Systems Vital Signs Vitals Vital Signs Date Time Temp Pulse Resp B/P Pulse Ox O2 Delivery O2 Flow Rate FiO2 01/28/17 07:55 98.0 65 18 140/94 99 01/25/17 18:34 Room Air Intake and Output 01/27/17 01/27/17 01/28/17 15:00 23:00 07:00 Intake Total 1400 ml 400 ml Output Total 1400 ml 600 ml Balance 0 ml -200 ml Exam Constitutional: alert, oriented, well developed Head: atraumatic Eyes: EOMI ENMT: nl external ears & nose Neck: non-tender Respiratory: clear to auscultation Cardiovascular: nl pulses Gastrointestinal: non-tender, soft Musculoskeletal: nl extremities to inspection Extremities: normal pulses Neurological: nl mental status, nl speech Results Result Diagram: 01/27/17 0505 01/27/17 0508 Medications Medications Current Medications Aspirin (Aspirin) 81 mg DAILY NGT Last administered on 01/28/17 08:13; Admin Dose 81 MG; Start 01/20/17 at 17:30 Isosorbide Mononitrate (Imdur) 30 mg DAILY PO Last administered on 01/28/17 08 :13; Admin Dose 30 MG; Start 01/20/17 at 17:30 Levothyroxine Sodium (Synthroid) 50 mcg DAILY@06 PO Last administered on 05:31; Admin Dose 50 MCG; Start 01/21/17 at 06:00 Enoxaparin Sodium (Lovenox) 30 mg DAILY SC Last administered on 01/28/17 08:25 ; Admin Dose 30 MG; Start 01/21/17 at 09:00 Acetaminophen/ Hydrocodone Bitart ([place] (5/325)) 1 tab Q4H PRN PO MODERATE PAIN LEVEL 4-6 Last administered on 01/26/17 08:15; Admin Dose 1 TAB; Start 01/20 at 19:30 Zolpidem Tartrate (Ambien) 5 mg HS PRN PO INSOMNIA Last administered on 22:53; Admin Dose 5 MG; Start 01/20/17 at 19:30 Metoprolol Tartrate (Lopressor) 25 mg BID PO Last administered on 01/28/17 08: 13; Admin Dose 25 MG; Start 01/21/17 at 21:00 Morphine Sulfate (morphine) 2 mg Q4H PRN IV PAIN Last administered on 08:22; Admin Dose 2 MG; Start 01/23/17 at 05:00 Acetaminophen (Tylenol Tab) 650 mg Q4H PRN PO PAIN AND OR ELEVATED TEMP Last administered on 01/23/17 16:41; Admin Dose 650 MG; Start 01/23/17 at 16:30 Ferrous Sulfate (Ferrous Sulfate (Ec)) 325 mg BID PO Last administered on 08:13; Admin Dose 325 MG; Start 01/24/17 at 21:00 Metoclopramide HCl (Reglan) 10 mg Q4 PRN IV NAUSEA; Start 01/24/17 at 17:30 Alprazolam (Xanax) 0.5 mg Q6H PRN PO ANXIETY Last administered on 01/28/17 08: 22; Admin Dose 0.5 MG; Start 01/25/17 at 02:50 Benazepril HCl (Lotensin) 20 mg DAILY PO Last administered on 01/28/17 08:14; Admin Dose 20 MG; Start 01/27/17 at 09:00 Clarithromycin (Biaxin) 500 mg BID PO Last administered on 01/28/17 08:13; Admin Dose 500 MG; Start 01/27/17 at 12:00 Amoxicillin (Amoxicillin) 1,000 mg BID PO Last administered on 01/28/17 08:13 ; Admin Dose 1,000 MG; Start 01/27/17 at 12:00 Pantoprazole (Protonix Tab) 40 mg BID@06,18 PO Last administered on 01/28/17 05:31; Admin Dose 40 MG; Start 01/27/17 at 18:00 AGUILA SEN Jan 28, 2017 11:36
--- NOTE | 2017-01-28 13:51 | CONS ---
Date/Time of Note Date/Time of Note DATE: 01/28/17 TIME: 13:49 Assessment/Plan Assessment/Plan Chief Complaint/Hosp Course IMP: 1.Chest pain-resolved. Negative troponin x3/NL EF by echo 2.HTN-very labile 3.CAD 4.Anemia s/p EGD/colonscopy with gastritis/hemmrhoids 5.LE edema-negative DVT by RUSS-improved edema 6,Hypothyroid Recc: -Now on med-surg -continue BB/ACEI at current doses -Continue imdur and consider holding asa if continues to have abd pain -Follow volume status closely with spot dose lasix as necessary -Continue treatment for H pylori Problems: Consultation Date/Type/Reason Admit Date/Time Jan 20, 2017 at 11:25 Initial Consult Date 01/21/2017 Type of Consultation: Cardiology Reason for Consultation Chest pain Referring Provider: CJ GALLO MD Exam/Review of Systems Vital Signs Vitals Vital Signs Date Time Temp Pulse Resp B/P Pulse Ox O2 Delivery O2 Flow Rate FiO2 01/28/17 07:55 98.0 65 18 140/94 99 01/25/17 18:34 Room Air Intake and Output 01/27/17 01/27/17 01/28/17 15:00 23:00 07:00 Intake Total 1400 ml 400 ml Output Total 1400 ml 600 ml Balance 0 ml -200 ml Exam Review of Systems: CONSTITUTIONAL: No fevers, chills. PULMONARY: No sob CARDIOVASCULAR: No chest pain/palpitations GASTROINTESTINAL: No nausea/vomiting. GENITOURINARY: No hematuria/dysuria. MUSCULOSKELETAL: No myagias/arthalgias. PSYCHIATRIC: The patient denies depression. NEUROLOGIC: No weakness Constitutional: alert, oriented Psych: no complaints Head: normocephalic ENMT: mucosa pink and moist Neck: jvd (8 cm water), supple Respiratory: diminished breath sounds (at bases/B) Cardiovascular: regular rate and rhythm Gastrointestinal: non-tender, soft Musculoskeletal: muscle tone (normal) Extremities: edema (none) Neurological: other (No focal deficits) Results Result Diagram: 01/27/17 0505 01/27/17 0505 Medications Medications Current Medications Aspirin (Aspirin) 81 mg DAILY NGT Last administered on 01/28/17t 08:13; Admin Dose 81 MG; Start 01/20/17 at 17:30 Isosorbide Mononitrate (Imdur) 30 mg DAILY PO Last administered on 01/28/17 08 :13; Admin Dose 30 MG; Start 01/20/17 at 17:30 Levothyroxine Sodium (Synthroid) 50 mcg DAILY@06 PO Last administered on 05:31; Admin Dose 50 MCG; Start 01/21/17 at 06:00 Enoxaparin Sodium (Lovenox) 30 mg DAILY SC Last administered on 01/28/17 08:25 ; Admin Dose 30 MG; Start 01/21/17 at 09:00 Acetaminophen/ Hydrocodone Bitart ([place] (5/325)) 1 tab Q4H PRN PO MODERATE PAIN LEVEL 4-6 Last administered on 01/26/17 08:15; Admin Dose 1 TAB; Start 01/20 at 19:30 Zolpidem Tartrate (Ambien) 5 mg HS PRN PO INSOMNIA Last administered on 22:53; Admin Dose 5 MG; Start 01/20/17 at 19:30 Metoprolol Tartrate (Lopressor) 25 mg BID PO Last administered on 01/28/17 08: 13; Admin Dose 25 MG; Start 01/21/17 at 21:00 Morphine Sulfate (morphine) 2 mg Q4H PRN IV PAIN Last administered on 08:22; Admin Dose 2 MG; Start 01/23/17 at 05:00 Acetaminophen (Tylenol Tab) 650 mg Q4H PRN PO PAIN AND OR ELEVATED TEMP Last administered on 01/23/17 16:41; Admin Dose 650 MG; Start 01/23/17 at 16:30 Ferrous Sulfate (Ferrous Sulfate (Ec)) 325 mg BID PO Last administered on 08:13; Admin Dose 325 MG; Start 01/24/17 at 21:00 Metoclopramide HCl (Reglan) 10 mg Q4 PRN IV NAUSEA; Start 01/24/17 at 17:30 Alprazolam (Xanax) 0.5 mg Q6H PRN PO ANXIETY Last administered on 01/28/17 08: 22; Admin Dose 0.5 MG; Start 01/25/17 at 02:50 Benazepril HCl (Lotensin) 20 mg DAILY PO Last administered on 01/28/17 08:14; Admin Dose 20 MG; Start 01/27/17 at 09:00 Clarithromycin (Biaxin) 500 mg BID PO Last administered on 01/28/17 08:13; Admin Dose 500 MG; Start 01/27/17 at 12:00 Amoxicillin (Amoxicillin) 1,000 mg BID PO Last administered on 01/28/17 08:13 ; Admin Dose 1,000 MG; Start 01/27/17 at 12:00 Pantoprazole (Protonix Tab) 40 mg BID@,18 PO Last administered on 01/28/17 05:31; Admin Dose 40 MG; Start 01/27/17 at 18:00 DALILA BUTT Jan 28, 2017 13:51
[2017-01-28 19:14] VITALS: BP 139/80; RESP 18
[2017-01-28] MEDS: ZOLPIDEM 5 MG TAB PO PRN (21:44)
[2017-01-29] MEDS: morphine 2 MG INJ IV PRN ×3 (01:33→22:09)
[2017-01-29 06:05] LABS: ADD SCAN DIFF NO
[2017-01-29 06:06] LABS: BASOPHILS % 0.9 % (0.0-2.0); EOSINOPHILS # 0.2 10^3/ul (0.0-0.5); EOSINOPHILS % 3.6 % (0.0-7.0); HEMATOCRIT 30.5 % (37.0-47.0); HEMOGLOBIN 9.2 g/dl (12.0-16.0); LYMPHOCYTES # 1.8 10^3/ul (0.8-2.9); LYMPHOCYTES % 38.6 % (15.0-51.0); MEAN CORPUSCULAR HEMOGLOBIN 27.3 pg (29.0-33.0); MEAN CORPUSCULAR HGB CONC 30.2 g/dl (32.0-37.0); MEAN CORPUSCULAR VOLUME 90.5 fl (82.0-101.0); MEAN PLATELET VOLUME 9.3 fl (7.4-10.4); MONOCYTE # 0.8 10^3/ul (0.3-0.9); MONOCYTES % 16.2 % (0.0-11.0); NEUTROPHIL # 1.9 10^3/ul (1.6-7.5); NEUTROPHILS % 40.3 % (39.0-77.0); PLATELET COUNT 342 10^3/UL (140-415); RED BLOOD COUNT 3.37 10^6/ul (4.20-5.40); RED CELL DISTRIBUTION WIDTH 20.7 % (11.5-14.5); WHITE BLOOD COUNT 4.7 10^3/ul (4.8-10.8)
[2017-01-29] MEDS: LEVOTHYROXINE 50 MCG TAB PO SCH (06:08)
[2017-01-29] MEDS: PANTOPRAZOLE (EC) 40 MG TAB PO SCH ×2 (06:08→18:09)
[2017-01-29 06:41] LABS: POTASSIUM 3.9 mmol/L (3.5-5.1)
[2017-01-29 06:43] LABS: CREATININE 0.83 mg/dl (0.44-1.00)
[2017-01-29 06:44] LABS: CALCIUM 8.6 mg/dl (8.4-10.2)
[2017-01-29] MEDS: AMOXICILLIN 500 MG CAP PO SCH ×2 (09:04→21:06)
[2017-01-29] MEDS: FERROUS SULFATE (EC) 325 MG TAB PO SCH ×2 (09:04→21:06)
[2017-01-29] MEDS: CLARITHROMYCIN 500 MG TAB PO SCH ×2 (09:04→21:00)
[2017-01-29] MEDS: ISOSORBIDE MONONITRATE(SR)30 MG TAB PO SCH (09:05)
[2017-01-29] MEDS: BENAZEPRIL 20 MG TAB PO SCH (09:05)
[2017-01-29] MEDS: METOPROLOL 25 MG TAB PO SCH ×2 (09:07→21:00)
[2017-01-29] MEDS: ENOXAPARIN 30 MG/0.3 ML SYG SC SCH (09:19)
[2017-01-29] MEDS ORDERED: CLAR500T39 PO (11:40)
[2017-01-29] MEDS ORDERED: AMO500 PO (11:40)
[2017-01-29] MEDS ORDERED: FER325 PO (11:41)
[2017-01-29] MEDS ORDERED: PANT40TA4 PO (11:41)
[2017-01-29] MEDS ORDERED: METO-448 PO (11:41)
[2017-01-29] MEDS ORDERED: BENA20TA48 PO (11:41)
[2017-01-29] MEDS ORDERED: HYDR-906 PO (12:58)
--- NOTE | 2017-01-29 13:01 | PN ---
Date/Time of Note Date/Time of Note DATE: 01/29/17 TIME: 12:58 Assessment/Plan VTE Prophylaxis VTE Prophylaxis Intervention: other Lines/Catheters [facility] Type [facility] Saline Lock Urinary Cath still in place: No Assessment/Plan Assessment/Plan 1. Chest pain, ruled out acute coronary syndrome. Cardiac enzymes are negative. Dr. Cullen is following in cardiology consultation. Continue aspirin. 2. Left lower extremity swelling, deep venous thrombosis ruled out. Continue to monitor. 3. Rectal bleed on admission. Dr. Sue is following in in gastroenterology consultation.S/p EGD and colonoscopy 01/25. 4. Hypertension. Continue patient on lisinopril. 5. Anxiety. Continue Xanax p.r.n. 6. Coronary artery disease. 7. Hypothyroidism. Continue patient's Synthroid. 8. Patchy gastritis per EGD continue Protonix. 9. Gastric biopsies positive for H pylori, patient is started on H. pylori eradication regimen. 10. Iron deficiency anemia, continue iron supplement. 11. Hx chronic gastritis 12. Acute nausea/vomitting - none at present. Patient was discharged today but started c/o abdomonal apin /nausea/vomitting. will hold discharge today. Anticipate discharge home with amoxicillin and Biaxin and Protonix for total 10 more days.If stable. Further recommendations based on clinical course. Plan of care discussed with Dr. Trejo. Subjective 24 Hr Interval Summary Eyes: no complaints ENT: no complaints Respiratory: no complaints Cardiovascular: no complaints Gastrointestinal: nausea, pain Genitourinary: no complaints Musculoskeletal: no complaints Skin: no complaints Endocrine: no complaints Lymphatic: no complaints Psychological: no complaints Exam/Review of Systems Vital Signs Vitals Vital Signs Date Time Temp Pulse Resp B/P Pulse Ox O2 Delivery O2 Flow Rate FiO2 01/28/17 19:14 98.2 80 18 139/80 97 01/25/17 18:34 Room Air Intake and Output 01/28/17 01/28/17 01/29/17 15:00 23:00 07:00 Intake Total 1440 ml 750 ml Balance 1440 ml 750 ml Exam Constitutional: alert, oriented, well developed Psych: nl mood/affect Head: atraumatic Eyes: EOMI ENMT: nl external ears & nose Neck: non-tender Cardiovascular: nl pulses Gastrointestinal: non-tender, soft Musculoskeletal: nl extremities to inspection Extremities: normal pulses Neurological: nl mental status, nl speech Skin: nl turgor Results Result Diagram: 01/29/173 01/29/17452 Results 24 hrs Laboratory Tests Test 01/29/17 04:53 Anion Gap 14 Basophils # 0.0 Basophils % 0.9 Blood Urea Nitrogen 8 Calcium Level 8.6 Carbon Dioxide Level 28 Chloride Level 105 Creatinine 0.83 Eosinophils # 0.2 Eosinophils % 3.6 Glucose Level 79 Hematocrit 30.5 L Hemoglobin 9.2 L Lymphocytes # 1.8 Lymphocytes % 38.6 Mean Corpuscular Hemoglobin 27.3 L Mean Corpuscular Hemoglobin Concent 30.2 L Mean Corpuscular Volume 90.5 Mean Platelet Volume 9.3 Monocytes # 0.8 Monocytes % 16.2 H Neutrophils # 1.9 Neutrophils % 40.3 Nucleated Red Blood Cells # 0.0 Nucleated Red Blood Cells % 0.0 Platelet Count 342 Potassium Level 3.9 Red Blood Count 3.37 L Red Cell Distribution Width 20.7 H Sodium Level 143 White Blood Count 4.7 L Medications Medications Current Medications Aspirin (Aspirin) 81 mg DAILY NGT Last administered on 01/28/17 08:13; Admin Dose 81 MG; Start 01/20/17 at 17:30; Status Future Hold Isosorbide Mononitrate (Imdur) 30 mg DAILY PO Last administered on 01/29/17 09 :05; Admin Dose 30 MG; Start 01/20/17 at 17:30 Levothyroxine Sodium (Synthroid) 50 mcg DAILY@06 PO Last administered on 06:08; Admin Dose 50 MCG; Start 01/21/17 at 06:00 Enoxaparin Sodium (Lovenox) 30 mg DAILY SC Last administered on 01/29/17 09:19 ; Admin Dose 30 MG; Start 01/21/17 at 09:00 Acetaminophen/ Hydrocodone Bitart ([place] (5/325)) 1 tab Q4H PRN PO MODERATE PAIN LEVEL 4-6 Last administered on 01/26/17 08:15; Admin Dose 1 TAB; Start 01/20 at 19:30 Zolpidem Tartrate (Ambien) 5 mg HS PRN PO INSOMNIA Last administered on 21:44; Admin Dose 5 MG; Start 01/20/17 at 19:30 Metoprolol Tartrate (Lopressor) 25 mg BID PO Last administered on 01/29/17 09: 07; Admin Dose 25 MG; Start 01/21/17 at 21:00 Morphine Sulfate (morphine) 2 mg Q4H PRN IV PAIN Last administered on 01:33; Admin Dose 2 MG; Start 01/23/17 at 05:00 Acetaminophen (Tylenol Tab) 650 mg Q4H PRN PO PAIN AND OR ELEVATED TEMP Last administered on 01/23/17 16:41; Admin Dose 650 MG; Start 01/23/17 at 16:30 Ferrous Sulfate (Ferrous Sulfate (Ec)) 325 mg BID PO Last administered on 09:04; Admin Dose 325 MG; Start 01/24/17 at 21:00 Metoclopramide HCl (Reglan) 10 mg Q4 PRN IV NAUSEA; Start 01/24/17 at 17:30 Alprazolam (Xanax) 0.5 mg Q6H PRN PO ANXIETY Last administered on 01/28/17 16: 19; Admin Dose 0.5 MG; Start 01/25/17 at 02:50 Benazepril HCl (Lotensin) 20 mg DAILY PO Last administered on 01/29/17 09:05; Admin Dose 20 MG; Start 01/27/17 at 09:00 Clarithromycin (Biaxin) 500 mg BID PO Last administered on 01/29/17 09:04; Admin Dose 500 MG; Start 01/27/17 at 12:00 Amoxicillin (Amoxicillin) 1,000 mg BID PO Last administered on 01/29/17 09:04 ; Admin Dose 1,000 MG; Start 01/27/17 at 12:00 Pantoprazole (Protonix Tab) 40 mg BID@18 PO Last administered on 01/29/17 06:08; Admin Dose 40 MG; Start 01/27/17 at 18:00 AGUILA SEN Jan 29, 2017 13:01
[2017-01-29] MEDS: ALPRAZOLAM 0.25 MG TAB PO PRN (13:03)
[2017-01-29] MEDS: HYDROCODONE/APAP (5/325) TAB PO PRN (13:04)
--- NOTE | 2017-01-29 13:37 | CONS ---
Date/Time of Note Date/Time of Note DATE: 01/29/17 TIME: 13:35 Assessment/Plan Assessment/Plan Chief Complaint/Hosp Course IMP: 1.Chest pain-resolved. Negative troponin x3/NL EF by echo 2.HTN-very labile 3.CAD 4.Anemia s/p EGD/colonscopy with gastritis/hemmrhoids 5.LE edema-negative DVT by RUSS-improved edema 6,Hypothyroid Recc: -Now on med-surg -continue BB/ACEI at current doses -Continue imdur -Holding asa given abd pain and gastritis -Follow volume status closely with spot dose lasix as necessary -Continue treatment for H pylori Problems: Consultation Date/Type/Reason Admit Date/Time Jan 20, 2017 at 11:25 Initial Consult Date 01/21/2017 Type of Consultation: Cardiology Reason for Consultation Chest pain Referring Provider: CJ GALLO MD Exam/Review of Systems Vital Signs Vitals Vital Signs Date Time Temp Pulse Resp B/P Pulse Ox O2 Delivery O2 Flow Rate FiO2 01/28/17 19:14 98.2 80 18 139/80 97 01/25/17 18:34 Room Air Intake and Output 01/28/17 01/28/17 01/29/17 14:59 22:59 06:59 Intake Total 1440 ml 750 ml Balance 1440 ml 750 ml Exam Review of Systems: CONSTITUTIONAL: No fevers, chills. PULMONARY: No sob CARDIOVASCULAR: No chest pain/palpitations GASTROINTESTINAL: intermittent abd pain GENITOURINARY: No hematuria/dysuria. MUSCULOSKELETAL: No myagias/arthalgias. PSYCHIATRIC: The patient denies depression. NEUROLOGIC: No weakness Constitutional: alert, oriented Psych: no complaints Head: normocephalic ENMT: mucosa pink and moist Neck: jvd (8-9 cm water), supple Respiratory: clear to auscultation Cardiovascular: regular rate and rhythm Gastrointestinal: non-tender, soft Musculoskeletal: muscle tone (normal) Extremities: edema (none) Neurological: other (No focal deficits) Results Result Diagram: 01/29/17 0453 01/29/17 0453 Results 24 hrs Laboratory Tests Test 01/29/17 04:53 Anion Gap 14 Basophils # 0.0 Basophils % 0.9 Blood Urea Nitrogen 8 Calcium Level 8.6 Carbon Dioxide Level 28 Chloride Level 105 Creatinine 0.83 Eosinophils # 0.2 Eosinophils % 3.6 Glucose Level 79 Hematocrit 30.5 L Hemoglobin 9.2 L Lipase 202 Lymphocytes # 1.8 Lymphocytes % 38.6 Mean Corpuscular Hemoglobin 27.3 L Mean Corpuscular Hemoglobin Concent 30.2 L Mean Corpuscular Volume 90.5 Mean Platelet Volume 9.3 Monocytes # 0.8 Monocytes % 16.2 H Neutrophils # 1.9 Neutrophils % 40.3 Nucleated Red Blood Cells # 0.0 Nucleated Red Blood Cells % 0.0 Platelet Count 342 Potassium Level 3.9 Red Blood Count 3.37 L Red Cell Distribution Width 20.7 H Sodium Level 143 White Blood Count 4.7 L Medications Medications Current Medications Aspirin (Aspirin) 81 mg DAILY NGT Last administered on 01/28/17 08:13; Admin Dose 81 MG; Start 01/20/17 at 17:30; Status Future Hold Isosorbide Mononitrate (Imdur) 30 mg DAILY PO Last administered on 01/29/17 09 :05; Admin Dose 30 MG; Start 01/20/17 at 17:30 Levothyroxine Sodium (Synthroid) 50 mcg DAILY@06 PO Last administered on 06:08; Admin Dose 50 MCG; Start 01/21/17 at 06:00 Enoxaparin Sodium (Lovenox) 30 mg DAILY SC Last administered on 01/29/17 09:19 ; Admin Dose 30 MG; Start 01/21/17 at 09:00 Acetaminophen/ Hydrocodone Bitart ([place] (5/325)) 1 tab Q4H PRN PO MODERATE PAIN LEVEL 4-6 Last administered on 01/29/17 13:04; Admin Dose 1 TAB; Start 01/20/17 at 19:30 Zolpidem Tartrate (Ambien) 5 mg HS PRN PO INSOMNIA Last administered on 21:44; Admin Dose 5 MG; Start 01/20/17 at 19:30 Metoprolol Tartrate (Lopressor) 25 mg BID PO Last administered on 01/29/17 09: 07; Admin Dose 25 MG; Start 01/21/17 at 21:00 Morphine Sulfate (morphine) 2 mg Q4H PRN IV PAIN Last administered on 01:33; Admin Dose 2 MG; Start 01/23/17 at 05:00 Acetaminophen (Tylenol Tab) 650 mg Q4H PRN PO PAIN AND OR ELEVATED TEMP Last administered on 01/23/17 16:41; Admin Dose 650 MG; Start 01/23/17 at 16:30 Ferrous Sulfate (Ferrous Sulfate (Ec)) 325 mg BID PO Last administered on 09:04; Admin Dose 325 MG; Start 01/24/17 at 21:00 Metoclopramide HCl (Reglan) 10 mg Q4 PRN IV NAUSEA; Start 01/24/17 at 17:30 Alprazolam (Xanax) 0.5 mg Q6H PRN PO ANXIETY Last administered on 01/29/17 13: 03; Admin Dose 0.5 MG; Start 01/25/17 at 02:50 Benazepril HCl (Lotensin) 20 mg DAILY PO Last administered on 01/29/17 09:05; Admin Dose 20 MG; Start 01/27/17 at 09:00 Clarithromycin (Biaxin) 500 mg BID PO Last administered on 01/29/17 09:04; Admin Dose 500 MG; Start 01/27/17 at 12:00 Amoxicillin (Amoxicillin) 1,000 mg BID PO Last administered on 01/29/17 09:04 ; Admin Dose 1,000 MG; Start 01/27/17 at 12:00 Pantoprazole (Protonix Tab) 40 mg BID@,18 PO Last administered on 01/29/17 06:08; Admin Dose 40 MG; Start 01/27/17 at 18:00 DALILA BUTT 12, 2017 13:37
[2017-01-29 21:00] VITALS: BP 101/58; PULSE 67; RESP 18
[2017-01-29] MEDS: ZOLPIDEM 5 MG TAB PO PRN (22:07)
[2017-01-30] MEDS: LEVOTHYROXINE 50 MCG TAB PO SCH (05:30)
[2017-01-30] MEDS: PANTOPRAZOLE (EC) 40 MG TAB PO SCH ×2 (05:30→17:44)
[2017-01-30] MEDS: morphine 2 MG INJ IV PRN ×4 (05:30→22:12)
[2017-01-30 05:44] LABS: ADD SCAN DIFF NO
[2017-01-30 05:50] LABS: BASOPHILS % 0.9 % (0.0-2.0); EOSINOPHILS # 0.2 10^3/ul (0.0-0.5); EOSINOPHILS % 3.7 % (0.0-7.0); HEMATOCRIT 30.7 % (37.0-47.0); HEMOGLOBIN 9.3 g/dl (12.0-16.0); LYMPHOCYTES % 43.9 % (15.0-51.0); MEAN CORPUSCULAR HEMOGLOBIN 27.3 pg (29.0-33.0); MEAN CORPUSCULAR HGB CONC 30.3 g/dl (32.0-37.0); MEAN PLATELET VOLUME 9.6 fl (7.4-10.4); MONOCYTE # 0.7 10^3/ul (0.3-0.9); MONOCYTES % 15.5 % (0.0-11.0); NEUTROPHIL # 1.6 10^3/ul (1.6-7.5); NEUTROPHILS % 35.8 % (39.0-77.0); PLATELET COUNT 353 10^3/UL (140-415); RED BLOOD COUNT 3.41 10^6/ul (4.20-5.40); RED CELL DISTRIBUTION WIDTH 21.2 % (11.5-14.5); WHITE BLOOD COUNT 4.6 10^3/ul (4.8-10.8)
[2017-01-30 06:02] LABS: POTASSIUM 4.4 mmol/L (3.5-5.1)
[2017-01-30 06:05] LABS: CREATININE 0.84 mg/dl (0.44-1.00)
[2017-01-30 06:06] LABS: CALCIUM 8.7 mg/dl (8.4-10.2)
[2017-01-30 07:43] VITALS: BP 127/72; RESP 16
[2017-01-30] MEDS: BENAZEPRIL 20 MG TAB PO SCH (08:37)
[2017-01-30] MEDS: ISOSORBIDE MONONITRATE(SR)30 MG TAB PO SCH (08:38)
[2017-01-30] MEDS: ALPRAZOLAM 0.25 MG TAB PO PRN ×2 (08:38→15:55)
[2017-01-30] MEDS: METOPROLOL 25 MG TAB PO SCH ×2 (08:39→20:14)
[2017-01-30] MEDS: FERROUS SULFATE (EC) 325 MG TAB PO SCH ×2 (08:39→20:13)
[2017-01-30] MEDS: AMOXICILLIN 500 MG CAP PO SCH ×2 (08:39→20:14)
[2017-01-30] MEDS: ENOXAPARIN 30 MG/0.3 ML SYG SC SCH (08:50)
[2017-01-30] MEDS: CLARITHROMYCIN 500 MG TAB PO SCH ×3 (09:00→22:11)
--- NOTE | 2017-01-30 16:48 | CONS ---
Date/Time of Note Date/Time of Note DATE: 01/30/17 TIME: 16:46 Assessment/Plan Assessment/Plan Chief Complaint/Hosp Course IMP: 1.Chest pain-resolved. Negative troponin x3/NL EF by echo 2.HTN-very labile 3.CAD 4.Anemia s/p EGD/colonscopy with gastritis/hemmrhoids 5.LE edema-negative DVT by RUSS-improved edema 6,Hypothyroid Recc: -Now on med-surg -continue BB/ACEI at current doses -Continue imdur -Holding asa given abd pain and gastritis -Follow volume status closely with spot dose lasix as necessary -Continue treatment for H pylori Problems: Consultation Date/Type/Reason Admit Date/Time Jan 20, 2017 at 11:25 Initial Consult Date 01/21/2017 Type of Consultation: Cardiology Reason for Consultation Chest pain Referring Provider: CJ GALLO MD Exam/Review of Systems Vital Signs Vitals Vital Signs Date Time Temp Pulse Resp B/P Pulse Ox O2 Delivery O2 Flow Rate FiO2 01/30/17 07:43 98.1 61 16 127/72 95 01/29/17 21:00 Room Air Intake and Output 01/29/17 01/29/17 01/30/17 15:00 23:00 07:00 Intake Total 1050 ml Balance 1050 ml Exam Review of Systems: CONSTITUTIONAL: No fevers, chills. PULMONARY: No sob CARDIOVASCULAR: No chest pain/palpitations GASTROINTESTINAL: No nausea/vomiting. GENITOURINARY: No hematuria/dysuria. MUSCULOSKELETAL: No myagias/arthalgias. PSYCHIATRIC: The patient denies depression. NEUROLOGIC: No weakness Constitutional: alert, oriented Psych: no complaints Head: normocephalic ENMT: mucosa pink and moist Neck: jvd (8 cm water), supple Cardiovascular: regular rate and rhythm Gastrointestinal: non-tender, soft Musculoskeletal: muscle tone (normal) Extremities: edema (none) Neurological: other (No focal deficits) Results Result Diagram: 01/30/17 0459 01/30/17 0459 Results 24 hrs Laboratory Tests Test 01/30/17 04:59 Anion Gap 15 Basophils # 0.0 Basophils % 0.9 Blood Urea Nitrogen 15 Calcium Level 8.7 Carbon Dioxide Level 27 Chloride Level 103 Creatinine 0.84 Eosinophils # 0.2 Eosinophils % 3.7 Glucose Level 83 Hematocrit 30.7 L Hemoglobin 9.3 L Lymphocytes # 2.0 Lymphocytes % 43.9 Mean Corpuscular Hemoglobin 27.3 L Mean Corpuscular Hemoglobin Concent 30.3 L Mean Corpuscular Volume 90.0 Mean Platelet Volume 9.6 Monocytes # 0.7 Monocytes % 15.5 H Neutrophils # 1.6 Neutrophils % 35.8 L Nucleated Red Blood Cells # 0.0 Nucleated Red Blood Cells % 0.0 Platelet Count 353 Potassium Level 4.4 Red Blood Count 3.41 L Red Cell Distribution Width 21.2 H Sodium Level 141 White Blood Count 4.6 L Medications Medications Current Medications Aspirin (Aspirin) 81 mg DAILY NGT Last administered on 01/28/17 08:13; Admin Dose 81 MG; Start 01/20/17 at 17:30; Status Future Hold Isosorbide Mononitrate (Imdur) 30 mg DAILY PO Last administered on 01/30/17 08 :38; Admin Dose 30 MG; Start 01/20/17 at 17:30 Levothyroxine Sodium (Synthroid) 50 mcg DAILY@06 PO Last administered on 05:30; Admin Dose 50 MCG; Start 01/21/17 at 06:00 Enoxaparin Sodium (Lovenox) 30 mg DAILY SC Last administered on 01/30/17 08:50 ; Admin Dose 30 MG; Start 01/21/17 at 09:00 Acetaminophen/ Hydrocodone Bitart ([place] (5/325)) 1 tab Q4H PRN PO MODERATE PAIN LEVEL 4-6 Last administered on 01/29/17 13:04; Admin Dose 1 TAB; Start 01/20/17 at 19:30 Zolpidem Tartrate (Ambien) 5 mg HS PRN PO INSOMNIA Last administered on 22:07; Admin Dose 5 MG; Start 01/20/17 at 19:30 Metoprolol Tartrate (Lopressor) 25 mg BID PO Last administered on 01/30/17 08: 39; Admin Dose 25 MG; Start 01/21/17 at 21:00 Morphine Sulfate (morphine) 2 mg Q4H PRN IV PAIN Last administered on 13:14; Admin Dose 2 MG; Start 01/23/17 at 05:00 Acetaminophen (Tylenol Tab) 650 mg Q4H PRN PO PAIN AND OR ELEVATED TEMP Last administered on 01/23/17 16:41; Admin Dose 650 MG; Start 01/23/17 at 16:30 Ferrous Sulfate (Ferrous Sulfate (Ec)) 325 mg BID PO Last administered on 08:39; Admin Dose 325 MG; Start 01/24/17 at 21:00 Metoclopramide HCl (Reglan) 10 mg Q4 PRN IV NAUSEA; Start 01/24/17 at 17:30 Alprazolam (Xanax) 0.5 mg Q6H PRN PO ANXIETY Last administered on 01/30/17 15: 55; Admin Dose 0.5 MG; Start 01/25/17 at 02:50 Benazepril HCl (Lotensin) 20 mg DAILY PO Last administered on 01/30/17 08:37; Admin Dose 20 MG; Start 01/27/17 at 09:00 Clarithromycin (Biaxin) 500 mg BID PO Last administered on 01/30/17 13:13; Admin Dose 500 MG; Start 01/27/17 at 12:00 Amoxicillin (Amoxicillin) 1,000 mg BID PO Last administered on 01/30/17 08:39 ; Admin Dose 1,000 MG; Start 01/27/17 at 12:00 Pantoprazole (Protonix Tab) 40 mg BID@,18 PO Last administered on 01/30/17 05:30; Admin Dose 40 MG; Start 01/27/17 at 18:00 DALILA BUTT 13, 2017 16:47
--- NOTE | 2017-01-30 17:45 | PN ---
Date/Time of Note Date/Time of Note DATE: 01/30/17 TIME: 17:43 Assessment/Plan VTE Prophylaxis VTE Prophylaxis Intervention: SCD's Lines/Catheters [facility] Saline Lock Urinary Cath still in place: No Assessment/Plan Chief Complaint/Hosp Course ASSESSMENT AND PLAN: 1. Chest pain, ruled out acute coronary syndrome. Cardiac enzymes are negative. Dr. Cullen is following in cardiology consultation. Continue aspirin. 2. Left lower extremity swelling, deep venous thrombosis ruled out. Continue to monitor. 3. Rectal bleed on admission. Dr. Sue is following in in gastroenterology consultation.S/p EGD and colonoscopy 01/25. 4. Hypertension. Continue patient on lisinopril. 5. Anxiety. Continue Xanax p.r.n. 6. Coronary artery disease. 7. Hypothyroidism. Continue patient's Synthroid. 8. Patchy gastritis per EGD continue Protonix. 9. Gastric biopsies positive for H pylori, patient is started on H. pylori eradication regimen. 10. Iron deficiency anemia, continue iron supplement. Further recommendations based on clinical course. Plan of care discussed with Dr. Trejo. Problems: Subjective 24 Hr Interval Summary Free Text/Dictation Patient's continues to complaints of abdominal pain and generalized weakness, patient is encouraged to ambulate in the hallway, patient stated that she gets anxious at times. Exam/Review of Systems Vital Signs Vitals Vital Signs Date Time Temp Pulse Resp B/P Pulse Ox O2 Delivery O2 Flow Rate FiO2 01/30/17 07:43 98.1 61 16 127/72 95 01/29/17 21:00 Room Air Intake and Output 01/29/17 01/29/17 01/30/17 15:00 23:00 07:00 Intake Total 1050 ml Balance 1050 ml Exam PHYSICAL EXAMINATION: GENERAL: Well-developed, well-nourished female, currently is awake, alert. HEENT: Head is atraumatic, normocephalic. PERRLA. NECK: Supple, no cervical lymphadenopathy, no thyromegaly. CHEST: Lungs clear bilaterally. There are no or rhonchi, wheezes, rales noted. CARDIOVASCULAR: Normal S1, S2. No murmurs, gallops, clicks, rubs noted. ABDOMEN: Round, soft, nondistended, nontender. Bowel sounds present. EXTREMITIES: Pulses equal bilaterally 2+. The patient has left lower extremity edema, 1+. There is no erythema. Pulses equal bilaterally 2+. SKIN: There is no rash, petechiae noted. NEUROLOGIC: The patient is awake, alert and oriented x4. Results Result Diagram: 01/30/17 0459 01/30/17 0459 Results 24 hrs Laboratory Tests Test 01/30/17 04:59 Anion Gap 15 Basophils # 0.0 Basophils % 0.9 Blood Urea Nitrogen 15 Calcium Level 8.7 Carbon Dioxide Level 27 Chloride Level 103 Creatinine 0.84 Eosinophils # 0.2 Eosinophils % 3.7 Glucose Level 83 Hematocrit 30.7 L Hemoglobin 9.3 L Lymphocytes # 2.0 Lymphocytes % 43.9 Mean Corpuscular Hemoglobin 27.3 L Mean Corpuscular Hemoglobin Concent 30.3 L Mean Corpuscular Volume 90.0 Mean Platelet Volume 9.6 Monocytes # 0.7 Monocytes % 15.5 H Neutrophils # 1.6 Neutrophils % 35.8 L Nucleated Red Blood Cells # 0.0 Nucleated Red Blood Cells % 0.0 Platelet Count 353 Potassium Level 4.4 Red Blood Count 3.41 L Red Cell Distribution Width 21.2 H Sodium Level 141 White Blood Count 4.6 L Medications Medications Current Medications Aspirin (Aspirin) 81 mg DAILY NGT Last administered on 01/28/17 08:13; Admin Dose 81 MG; Start 01/20/17 at 17:30; Status Future Hold Isosorbide Mononitrate (Imdur) 30 mg DAILY PO Last administered on 01/30/17 08 :38; Admin Dose 30 MG; Start 01/20/17 at 17:30 Levothyroxine Sodium (Synthroid) 50 mcg DAILY@06 PO Last administered on 05:30; Admin Dose 50 MCG; Start 01/21/17 at 06:00 Enoxaparin Sodium (Lovenox) 30 mg DAILY SC Last administered on 01/30/17 08:50 ; Admin Dose 30 MG; Start 01/21/17 at 09:00 Acetaminophen/ Hydrocodone Bitart ([place] (5/325)) 1 tab Q4H PRN PO MODERATE PAIN LEVEL 4-6 Last administered on 01/29/17 13:04; Admin Dose 1 TAB; Start 01/20/17 at 19:30 Zolpidem Tartrate (Ambien) 5 mg HS PRN PO INSOMNIA Last administered on 22:07; Admin Dose 5 MG; Start 01/20/17 at 19:30 Metoprolol Tartrate (Lopressor) 25 mg BID PO Last administered on 01/30/17 08: 39; Admin Dose 25 MG; Start 01/21/17 at 21:00 Morphine Sulfate (morphine) 2 mg Q4H PRN IV PAIN Last administered on 13:14; Admin Dose 2 MG; Start 01/23/17 at 05:00 Acetaminophen (Tylenol Tab) 650 mg Q4H PRN PO PAIN AND OR ELEVATED TEMP Last administered on 01/23/17 16:41; Admin Dose 650 MG; Start 01/23/17 at 16:30 Ferrous Sulfate (Ferrous Sulfate (Ec)) 325 mg BID PO Last administered on 08:39; Admin Dose 325 MG; Start 01/24/17 at 21:00 Metoclopramide HCl (Reglan) 10 mg Q4 PRN IV NAUSEA; Start 01/24/17 at 17:30 Alprazolam (Xanax) 0.5 mg Q6H PRN PO ANXIETY Last administered on 01/30/17 15: 55; Admin Dose 0.5 MG; Start 01/25/17 at 02:50 Benazepril HCl (Lotensin) 20 mg DAILY PO Last administered on 01/30/17 08:37; Admin Dose 20 MG; Start 01/27/17 at 09:00 Clarithromycin (Biaxin) 500 mg BID PO Last administered on 01/30/17 13:13; Admin Dose 500 MG; Start 01/27/17 at 12:00 Amoxicillin (Amoxicillin) 1,000 mg BID PO Last administered on 01/30/17 08:39 ; Admin Dose 1,000 MG; Start 01/27/17 at 12:00 Pantoprazole (Protonix Tab) 40 mg BID@18 PO Last administered on 01/30/17 05:30; Admin Dose 40 MG; Start 01/27/17 at 18:00 DOMITILA MURRELL Jan 30, 2017 17:45
[2017-01-30 19:31] VITALS: BP 126/63; RESP 18
[2017-01-30] MEDS: ZOLPIDEM 5 MG TAB PO PRN (22:15)
[2017-01-31] MEDS: ALPRAZOLAM 0.25 MG TAB PO PRN ×2 (01:21→16:11)
[2017-01-31] MEDS: LEVOTHYROXINE 50 MCG TAB PO SCH (06:01)
[2017-01-31] MEDS: PANTOPRAZOLE (EC) 40 MG TAB PO SCH ×2 (06:01→18:37)
[2017-01-31] MEDS: morphine 2 MG INJ IV PRN ×4 (06:14→21:38)
[2017-01-31 07:56] VITALS: BP 119/68; RESP 20
[2017-01-31] MEDS: CLARITHROMYCIN 500 MG TAB PO SCH ×2 (08:15→20:28)
[2017-01-31] MEDS: AMOXICILLIN 500 MG CAP PO SCH ×2 (08:15→20:27)
[2017-01-31] MEDS: METOPROLOL 25 MG TAB PO SCH ×2 (08:16→20:28)
[2017-01-31] MEDS: FERROUS SULFATE (EC) 325 MG TAB PO SCH ×2 (08:16→20:27)
[2017-01-31] MEDS: ISOSORBIDE MONONITRATE(SR)30 MG TAB PO SCH (08:16)
[2017-01-31] MEDS: BENAZEPRIL 20 MG TAB PO SCH (08:16)
--- NOTE | 2017-01-31 10:23 | CONS ---
Date/Time of Note Date/Time of Note DATE: 01/31/17 TIME: 10:21 Assessment/Plan Assessment/Plan Additional Assessment/Plan 1.Chest pain-resolved. Negative troponin x3/NL EF by echo - no intervention planned now. 2.HTN-very labile - better now, con't to adjust RX as needed. 3.CAD - no CP now, r/o ID. 4.Anemia s/p EGD/colonscopy with gastritis/hemmrhoids - GI team follows 5.LE edema-negative DVT by RUSS-improved edema 6,Hypothyroid - rx as needed Consultation Date/Type/Reason Admit Date/Time Jan 20, 2017 at 11:25 Initial Consult Date Type of Consultation: Cardiology Referring Provider: CJ GALLO MD 24 HR Interval Summary Free Text/Dictation NO acute change - no active CP now ROS: No fever, no chills, no nausea, no vomiting, no diarrhea/constipation No recent weight changes No chest pain, no PND, no orthopnea No dizziness, blurred vision No thirst, no heat or cold intolerance Exam/Review of Systems Vital Signs Vitals Vital Signs Date Time Temp Pulse Resp B/P Pulse Ox O2 Delivery O2 Flow Rate FiO2 01/31/17 07:56 97.7 66 20 119/68 95 01/29/17 21:00 Room Air Intake and Output 01/30/17 01/30/17 01/31/17 15:00 23:00 07:00 Intake Total 1200 ml 400 ml Output Total 800 ml 800 ml Balance 400 ml -400 ml Exam General: WN/WD/NAD, AOx 3 HEENT: Unicetric/atraumatic/EOMI ( follow commands) NECK: JVD elevated, no thyromegaly Lymph: no lymphadenopathy HEART: regular with no S3, II/ systolic murmur at apex LUNGS: Coarse sounds ABD: soft, NT, ND, +BS : Intact Neuro: non focal SKIN: chronic changes EXT: trace edema Results Result Diagram: 01/30/179 01/30/17 0459 Medications Medications Current Medications Aspirin (Aspirin) 81 mg DAILY NGT Last administered on 01/28/17t 08:13; Admin Dose 81 MG; Start 01/20/17 at 17:30; Status Future Hold Isosorbide Mononitrate (Imdur) 30 mg DAILY PO Last administered on 01/30/17 08 :38; Admin Dose 30 MG; Start 01/20/17 at 17:30 Levothyroxine Sodium (Synthroid) 50 mcg DAILY@06 PO Last administered on 06:01; Admin Dose 50 MCG; Start 01/21/17 at 06:00 Enoxaparin Sodium (Lovenox) 30 mg DAILY SC Last administered on 01/30/17 08:50 ; Admin Dose 30 MG; Start 01/21/17 at 09:00 Acetaminophen/ Hydrocodone Bitart ([place] (5/325)) 1 tab Q4H PRN PO MODERATE PAIN LEVEL 4-6 Last administered on 01/29/17 13:04; Admin Dose 1 TAB; Start 01/20/17 at 19:30 Zolpidem Tartrate (Ambien) 5 mg HS PRN PO INSOMNIA Last administered on 22:15; Admin Dose 5 MG; Start 01/20/17 at 19:30 Metoprolol Tartrate (Lopressor) 25 mg BID PO Last administered on 01/30/17 20: 14; Admin Dose 25 MG; Start 01/21/17 at 21:00 Morphine Sulfate (morphine) 2 mg Q4H PRN IV PAIN Last administered on 06:14; Admin Dose 2 MG; Start 01/23/17 at 05:00 Acetaminophen (Tylenol Tab) 650 mg Q4H PRN PO PAIN AND OR ELEVATED TEMP Last administered on 01/23/17 16:41; Admin Dose 650 MG; Start 01/23/17 at 16:30 Ferrous Sulfate (Ferrous Sulfate (Ec)) 325 mg BID PO Last administered on 20:13; Admin Dose 325 MG; Start 01/24/17 at 21:00 Metoclopramide HCl (Reglan) 10 mg Q4 PRN IV NAUSEA; Start 01/24/17 at 17:30 Alprazolam (Xanax) 0.5 mg Q6H PRN PO ANXIETY Last administered on 01/31/17 01: 21; Admin Dose 0.5 MG; Start 01/25/17 at 02:50 Benazepril HCl (Lotensin) 20 mg DAILY PO Last administered on 01/30/17 08:37; Admin Dose 20 MG; Start 01/27/17 at 09:00 Clarithromycin (Biaxin) 500 mg BID PO Last administered on 01/30/17 22:11; Admin Dose 500 MG; Start 01/27/17 at 12:00 Amoxicillin (Amoxicillin) 1,000 mg BID PO Last administered on 01/30/17 20:14 ; Admin Dose 1,000 MG; Start 01/27/17 at 12:00 Pantoprazole (Protonix Tab) 40 mg BID@18 PO Last administered on 01/31/17 06:01; Admin Dose 40 MG; Start 01/27/17 at 18:00 CONSTANCE KC MD Jan 31, 2017 10:23
[2017-01-31] MEDS: ENOXAPARIN 30 MG/0.3 ML SYG SC SCH (11:04)
--- NOTE | 2017-01-31 16:01 | PN ---
Date/Time of Note Date/Time of Note DATE: 01/31/17 TIME: 15:59 Assessment/Plan VTE Prophylaxis VTE Prophylaxis Intervention: SCD's Lines/Catheters IV [facility] Saline Lock Urinary Cath still in place: No Assessment/Plan Chief Complaint/Hosp Course ASSESSMENT AND PLAN: 1. Chest pain, ruled out acute coronary syndrome. Cardiac enzymes are negative. Dr. Cullen is following in cardiology consultation. Continue aspirin. 2. Left lower extremity swelling, deep venous thrombosis ruled out. Continue to monitor. 3. Rectal bleed on admission. Dr. Sue is following in in gastroenterology consultation.S/p EGD and colonoscopy 01/25. 4. Hypertension. Continue patient on lisinopril. 5. Anxiety. Continue Xanax p.r.n. 6. Coronary artery disease. 7. Hypothyroidism. Continue patient's Synthroid. 8. Patchy gastritis per EGD continue Protonix. 9. Gastric biopsies positive for H pylori, patient is started on H. pylori eradication regimen. 10. Iron deficiency anemia, continue iron supplement. Further recommendations based on clinical course. Plan of care discussed with Dr. Trejo. Problems: Subjective 24 Hr Interval Summary Free Text/Dictation Patient stated that she developed chest pain overnight, complains of some mild chest pain right now, will obtain 12-lead EKG and troponin. Vital signs remained stable. Per nurse per nurse patient is tolerates diet well no nausea no vomiting. Exam/Review of Systems Vital Signs Vitals Vital Signs Date Time Temp Pulse Resp B/P Pulse Ox O2 Delivery O2 Flow Rate FiO2 01/31/17 07:56 97.7 66 20 119/68 95 01/29/17 21:00 Room Air Intake and Output 01/30/17 01/30/17 01/31/17 15:00 23:00 07:00 Intake Total 1200 ml 400 ml Output Total 800 ml 800 ml Balance 400 ml -400 ml Exam PHYSICAL EXAMINATION: GENERAL: Well-developed, well-nourished female, currently is awake, alert. HEENT: Head is atraumatic, normocephalic. PERRLA. NECK: Supple, no cervical lymphadenopathy, no thyromegaly. CHEST: Lungs clear bilaterally. There are no or rhonchi, wheezes, rales noted. CARDIOVASCULAR: Normal S1, S2. No murmurs, gallops, clicks, rubs noted. ABDOMEN: Round, soft, nondistended, nontender. Bowel sounds present. EXTREMITIES: Pulses equal bilaterally 2+. The patient has left lower extremity edema, 1+. There is no erythema. Pulses equal bilaterally 2+. SKIN: There is no rash, petechiae noted. NEUROLOGIC: The patient is awake, alert and oriented x4. Results Result Diagram: 01/30/17 0459 01/30/17 0459 Medications Medications Current Medications Aspirin (Aspirin) 81 mg DAILY NGT Last administered on 01/28/17 08:13; Admin Dose 81 MG; Start 01/20/17 at 17:30; Status Future Hold Isosorbide Mononitrate (Imdur) 30 mg DAILY PO Last administered on 01/31/17 08 :16; Admin Dose 30 MG; Start 01/20/17 at 17:30 Levothyroxine Sodium (Synthroid) 50 mcg DAILY@06 PO Last administered on 06:01; Admin Dose 50 MCG; Start 01/21/17 at 06:00 Enoxaparin Sodium (Lovenox) 30 mg DAILY SC Last administered on 01/31/17 11:04 ; Admin Dose 30 MG; Start 01/21/17 at 09:00 Acetaminophen/ Hydrocodone Bitart ([place] (5/325)) 1 tab Q4H PRN PO MODERATE PAIN LEVEL 4-6 Last administered on 01/29/17 13:04; Admin Dose 1 TAB; Start 01/20/17 at 19:30 Zolpidem Tartrate (Ambien) 5 mg HS PRN PO INSOMNIA Last administered on 22:15; Admin Dose 5 MG; Start 01/20/17 at 19:30 Metoprolol Tartrate (Lopressor) 25 mg BID PO Last administered on 01/31/17 08: 16; Admin Dose 25 MG; Start 01/21/17 at 21:00 Morphine Sulfate (morphine) 2 mg Q4H PRN IV PAIN Last administered on 11:38; Admin Dose 2 MG; Start 01/23/17 at 05:00 Acetaminophen (Tylenol Tab) 650 mg Q4H PRN PO PAIN AND OR ELEVATED TEMP Last administered on 01/23/17 16:41; Admin Dose 650 MG; Start 01/23/17 at 16:30 Ferrous Sulfate (Ferrous Sulfate (Ec)) 325 mg BID PO Last administered on 08:16; Admin Dose 325 MG; Start 01/24/17 at 21:00 Metoclopramide HCl (Reglan) 10 mg Q4 PRN IV NAUSEA; Start 01/24/17 at 17:30 Alprazolam (Xanax) 0.5 mg Q6H PRN PO ANXIETY Last administered on 01/31/17 01: 21; Admin Dose 0.5 MG; Start 01/25/17 at 02:50 Benazepril HCl (Lotensin) 20 mg DAILY PO Last administered on 01/31/17 08:16; Admin Dose 20 MG; Start 01/27/17 at 09:00 Clarithromycin (Biaxin) 500 mg BID PO Last administered on 01/31/17 08:15; Admin Dose 500 MG; Start 01/27/17 at 12:00 Amoxicillin (Amoxicillin) 1,000 mg BID PO Last administered on 01/31/17 08:15 ; Admin Dose 1,000 MG; Start 01/27/17 at 12:00 Pantoprazole (Protonix Tab) 40 mg BID@18 PO Last administered on 01/31/17 06:01; Admin Dose 40 MG; Start 01/27/17 at 18:00 DOMITILA MURRELL Jan 31, 2017 16:01
[2017-01-31 19:57] VITALS: BP 115/69; RESP 20
[2017-01-31] MEDS: ZOLPIDEM 5 MG TAB PO PRN (21:38)
[2017-02-01] MEDS: ALPRAZOLAM 0.25 MG TAB PO PRN ×2 (00:44→08:34)
[2017-02-01] MEDS: morphine 2 MG INJ IV PRN ×3 (02:03→11:31)
[2017-02-01] MEDS: LEVOTHYROXINE 50 MCG TAB PO SCH (06:05)
[2017-02-01] MEDS: PANTOPRAZOLE (EC) 40 MG TAB PO SCH (06:05)
[2017-02-01 06:13] LABS: ADD SCAN DIFF NO
[2017-02-01 06:25] LABS: BASOPHIL # 0.1 10^3/ul (0.0-0.1); EOSINOPHILS # 0.1 10^3/ul (0.0-0.5); EOSINOPHILS % 2.5 % (0.0-7.0); HEMATOCRIT 32.1 % (37.0-47.0); HEMOGLOBIN 9.5 g/dl (12.0-16.0); LYMPHOCYTES # 2.4 10^3/ul (0.8-2.9); LYMPHOCYTES % 45.8 % (15.0-51.0); MEAN CORPUSCULAR HEMOGLOBIN 27.1 pg (29.0-33.0); MEAN CORPUSCULAR HGB CONC 29.6 g/dl (32.0-37.0); MEAN CORPUSCULAR VOLUME 91.7 fl (82.0-101.0); MEAN PLATELET VOLUME 9.7 fl (7.4-10.4); MONOCYTE # 0.6 10^3/ul (0.3-0.9); MONOCYTES % 10.7 % (0.0-11.0); NEUTROPHILS % 39.6 % (39.0-77.0); PLATELET COUNT 373 10^3/UL (140-415); RED CELL DISTRIBUTION WIDTH 21.1 % (11.5-14.5); WHITE BLOOD COUNT 5.2 10^3/ul (4.8-10.8)
[2017-02-01 06:31] LABS: POTASSIUM 4.1 mmol/L (3.5-5.1)
[2017-02-01 06:34] LABS: CREATININE 0.91 mg/dl (0.44-1.00)
[2017-02-01 06:35] LABS: CALCIUM 8.9 mg/dl (8.4-10.2)
[2017-02-01 07:38] VITALS: BP 121/59; RESP 18
[2017-02-01] MEDS: CLARITHROMYCIN 500 MG TAB PO SCH (08:28)
[2017-02-01] MEDS: AMOXICILLIN 500 MG CAP PO SCH (08:29)
[2017-02-01] MEDS: ISOSORBIDE MONONITRATE(SR)30 MG TAB PO SCH (08:29)
[2017-02-01] MEDS: FERROUS SULFATE (EC) 325 MG TAB PO SCH (08:29)
[2017-02-01] MEDS: METOPROLOL 25 MG TAB PO SCH (08:29)
[2017-02-01] MEDS: BENAZEPRIL 20 MG TAB PO SCH (08:29)
[2017-02-01] MEDS: HYDROCODONE/APAP (5/325) TAB PO PRN (08:34)
[2017-02-01] MEDS: ENOXAPARIN 30 MG/0.3 ML SYG SC SCH (09:00)
--- NOTE | 2017-02-01 14:31 | CONS ---
Date/Time of Note Date/Time of Note DATE: 02/01/17 TIME: 14:28 Assessment/Plan Assessment/Plan Chief Complaint/Hosp Course IMP: 1.Chest pain-resolved. Negative troponin x3/NL EF by echo 2.HTN-very labile 3.CAD 4.Anemia s/p EGD/colonscopy with gastritis/hemmrhoids 5.LE edema-negative DVT by RUSS-improved edema 6,Hypothyroid 7. Syncope-reported by patient but not witnessed by nurse/staff Recc: -Now on med-surg -continue BB/ACEI at current doses -Continue imdur -Holding asa given abd pain and gastritis -Follow volume status closely with spot dose lasix as necessary -Continue treatment for H pylori -Check orthstatics/ECG -Will consider transfer to [facility] for additional findings/eval Problems: Consultation Date/Type/Reason Admit Date/Time Jan 20, 2017 at 11:25 Initial Consult Date 01/21/2017 Type of Consultation: Cardiology Reason for Consultation Chest pain Referring Provider: CJ GALLO MD Exam/Review of Systems Vital Signs Vitals Vital Signs Date Time Temp Pulse Resp B/P Pulse Ox O2 Delivery O2 Flow Rate FiO2 02/01/17 07:38 97.8 56 18 121/59 99 01/29/17 21:00 Room Air Intake and Output 01/31/17 01/31/17 02/01/17 15:00 23:00 07:00 Intake Total 1480 ml 840 ml Output Total 1300 ml 800 ml Balance 180 ml 40 ml Exam Review of Systems: CONSTITUTIONAL: No fevers, chills. PULMONARY: No sob CARDIOVASCULAR: No chest pain/palpitations GASTROINTESTINAL: abd pain GENITOURINARY: No hematuria/dysuria MUSCULOSKELETAL: No myagias/arthalgias. PSYCHIATRIC: The patient denies depression. NEUROLOGIC: syncope Constitutional: alert Psych: no complaints Head: normocephalic ENMT: mucosa pink and moist Neck: jvd, supple Respiratory: diminished breath sounds (at bases/B) Cardiovascular: regular rate and rhythm Gastrointestinal: non-tender, soft Musculoskeletal: muscle tone (normal) Extremities: edema (none) Neurological: other (No focal deficits) Results Result Diagram: 02/01/17 0531 02/01/17 0531 Results 24 hrs Laboratory Tests Test 01/31/17 18:10 02/01/17 00:29 02/01/17 05:31 Troponin I < 0.012 0.015 Anion Gap 11 Basophils # 0.1 Basophils % 1.0 Blood Urea Nitrogen 19 Calcium Level 8.9 Carbon Dioxide Level 30 Chloride Level 105 Creatinine 0.91 Eosinophils # 0.1 Eosinophils % 2.5 Glucose Level 79 Hematocrit 32.1 L Hemoglobin 9.5 L Lymphocytes # 2.4 Lymphocytes % 45.8 Mean Corpuscular Hemoglobin 27.1 L Mean Corpuscular Hemoglobin Concent 29.6 L Mean Corpuscular Volume 91.7 Mean Platelet Volume 9.7 Monocytes # 0.6 Monocytes % 10.7 Neutrophils # 2.0 Neutrophils % 39.6 Nucleated Red Blood Cells # 0.0 Nucleated Red Blood Cells % 0.0 Platelet Count 373 Potassium Level 4.1 Red Blood Count 3.50 L Red Cell Distribution Width 21.1 H Sodium Level 142 White Blood Count 5.2 Medications Medications Current Medications Aspirin (Aspirin) 81 mg DAILY NGT Last administered on 01/28/17 08:13; Admin Dose 81 MG; Start 01/20/17 at 17:30; Status Future Hold Isosorbide Mononitrate (Imdur) 30 mg DAILY PO Last administered on 02/01/17 08 :29; Admin Dose 30 MG; Start 01/20/17 at 17:30 Levothyroxine Sodium (Synthroid) 50 mcg DAILY@06 PO Last administered on 06:05; Admin Dose 50 MCG; Start 01/21/17 at 06:00 Enoxaparin Sodium (Lovenox) 30 mg DAILY SC Last administered on 01/31/17 11:04 ; Admin Dose 30 MG; Start 01/21/17 at 09:00 Acetaminophen/ Hydrocodone Bitart ([place] (5/325)) 1 tab Q4H PRN PO MODERATE PAIN LEVEL 4-6 Last administered on 02/01/17 08:34; Admin Dose 1 TAB; Start 01/20/17 at 19:30 Zolpidem Tartrate (Ambien) 5 mg HS PRN PO INSOMNIA Last administered on 21:38; Admin Dose 5 MG; Start 01/20/17 at 19:30 Metoprolol Tartrate (Lopressor) 25 mg BID PO Last administered on 02/01/17 08: 29; Admin Dose 25 MG; Start 01/21/17 at 21:00 Morphine Sulfate (morphine) 2 mg Q4H PRN IV PAIN Last administered on 11:31; Admin Dose 2 MG; Start 01/23/17 at 05:00 Acetaminophen (Tylenol Tab) 650 mg Q4H PRN PO PAIN AND OR ELEVATED TEMP Last administered on 01/23/17 16:41; Admin Dose 650 MG; Start 01/23/17 at 16:30 Ferrous Sulfate (Ferrous Sulfate (Ec)) 325 mg BID PO Last administered on 08:29; Admin Dose 325 MG; Start 01/24/17 at 21:00 Metoclopramide HCl (Reglan) 10 mg Q4 PRN IV NAUSEA; Start 01/24/17 at 17:30 Alprazolam (Xanax) 0.5 mg Q6H PRN PO ANXIETY Last administered on 02/01/17 08: 34; Admin Dose 0.5 MG; Start 01/25/17 at 02:50 Benazepril HCl (Lotensin) 20 mg DAILY PO Last administered on 02/01/17 08:29; Admin Dose 20 MG; Start 01/27/17 at 09:00 Clarithromycin (Biaxin) 500 mg BID PO Last administered on 02/01/17 08:28; Admin Dose 500 MG; Start 01/27/17 at 12:00 Amoxicillin (Amoxicillin) 1,000 mg BID PO Last administered on 02/01/17 08:29 ; Admin Dose 1,000 MG; Start 01/27/17 at 12:00 Pantoprazole (Protonix Tab) 40 mg BID@,18 PO Last administered on 02/01/17 06:05; Admin Dose 40 MG; Start 01/27/17 at 18:00 DALILA BUTT Feb 01, 2017 14:31
--- NOTE | 2017-02-01 19:18 | RADRPT ---
Vent Rate: 64 bpm RR Interval: 0 msec IN Interval: 182 msec QRS Duration: 84 msec QT Interval: 410 msec QTC Interval: 422 msec P-R-T [place]: 26 - -31 - 27 degrees Normal sinus rhythm Left axis deviation Low voltage QRS Inferior infarct , age undetermined Cannot rule out Anteroseptal infarct , age undetermined Abnormal ECG Electronically Signed By: Dane Dahl [id number]
== END 2017-02-01 16:35 | disposition home or self-care (01) | DRG 378 ==
LOC: E/R 10:26 → MS4 11:25 → MS2 01-24 22:20
PROVIDERS: ADMIT Internal Medicine; ATTEND Internal Medicine
PROC: 0DJD8ZZ Inspection of Lower Intestinal Tract, Via Natural or Artificial Opening Endoscopic (ICD-10-PCS; 2017-01-25)
PROC: 0DB58ZX Excision of Esophagus, Via Natural or Artificial Opening Endoscopic, Diagnostic (ICD-10-PCS; principal; 2017-01-25 17:00)
PROC: 0DB68ZX Excision of Stomach, Via Natural or Artificial Opening Endoscopic, Diagnostic (ICD-10-PCS; 2017-01-25 17:00)
DX: K62.5 Hemorrhage of anus and rectum (principal); B37.81 Candidal esophagitis; M79.89 Other specified soft tissue disorders; R07.9 Chest pain, unspecified; I25.2 Old myocardial infarction; Z86.718 Personal history of other venous thrombosis and embolism; Z79.02 Long term (current) use of antithrombotics/antiplatelets; R06.02 Shortness of breath; I10 Essential (primary) hypertension; E03.9 Hypothyroidism, unspecified; F41.9 Anxiety disorder, unspecified; K44.9 Diaphragmatic hernia without obstruction or gangrene; K29.70 Gastritis, unspecified, without bleeding; K57.30 Diverticulosis of large intestine without perforation or abscess without bleeding; K64.4 Residual hemorrhoidal skin tags; K64.8 Other hemorrhoids; D50.9 Iron deficiency anemia, unspecified; B96.81 Helicobacter pylori [H. pylori] as the cause of diseases classified elsewhere
CPT/HCPCS: 36415; 71010; 71275; 80048; 82550; 82553; 82607; 82728; 82746; 83540; 83690; 84443; 84484; 85025; 85610; 85730; 88305; 88312; 93005; 93306; 93971; 96374; J1940; J0360; J1650; J1885; J2270; Q9967

== ENCOUNTER 2017-03-20 17:08 | Inpatient (IN) | payer OTHER ==
[~2017-03-20] VITALS: Ht 162.6 cm; Wt 60.2 kg
[~2017-03-20 17:08] MED LIST changes: +AMO500 PO; +BENA20TA48 PO; -CARI350T29 PO; +CLAR500T39 PO; +FER325 PO; +METO-448 PO; +PANT40TA4 PO; -TRAM50TA2 PO
[2017-03-20 21:27] VITALS: PULSE 72
[2017-03-20 21:30] VITALS: Ht 162.6 cm; Wt 60.2 kg
[2017-03-20 22:06] VITALS: BP 134/67; RESP 20
[2017-03-20 22:42] LABS: ADD SCAN DIFF NO
[2017-03-20 22:44] LABS: BASOPHILS % 0.9 % (0.0-2.0); EOSINOPHILS # 0.3 10^3/ul (0.0-0.5); HEMATOCRIT 32.9 % (37.0-47.0); HEMOGLOBIN 10.5 g/dl (12.0-16.0); LYMPHOCYTES # 1.9 10^3/ul (0.8-2.9); LYMPHOCYTES % 40.3 % (15.0-51.0); MEAN CORPUSCULAR HEMOGLOBIN 27.9 pg (29.0-33.0); MEAN CORPUSCULAR HGB CONC 31.9 g/dl (32.0-37.0); MEAN CORPUSCULAR VOLUME 87.5 fl (82.0-101.0); MEAN PLATELET VOLUME 8.9 fl (7.4-10.4); MONOCYTE # 0.6 10^3/ul (0.3-0.9); MONOCYTES % 11.8 % (0.0-11.0); NEUTROPHIL # 1.9 10^3/ul (1.6-7.5); PLATELET COUNT 229 10^3/UL (140-415); RED BLOOD COUNT 3.76 10^6/ul (4.20-5.40); RED CELL DISTRIBUTION WIDTH 17.4 % (11.5-14.5); WHITE BLOOD COUNT 4.7 10^3/ul (4.8-10.8)
[2017-03-20 22:53] LABS: INR 1.1; PROTIME 14.2 Sec (12.2-14.2); PT RATIO 1.1
[2017-03-20 22:54] LABS: PARTIAL THROMBOPLASTIN TIME 32.3 Sec (25.0-35.0)
[2017-03-20 22:59] LABS: CALCIUM 8.9 mg/dl (8.4-10.2); CREATININE 0.82 mg/dl (0.44-1.00); POTASSIUM 4.8 mmol/L (3.5-5.1)
[2017-03-20] MEDS ORDERED: ALPRAZOLAM 0.5 MG TAB PO PRN (23:00)
[2017-03-20 23:08] LABS: CK-MB 0.49 ng/ml (0.0-2.4)
[2017-03-20] MEDS: ALPRAZOLAM 0.25 MG TAB PO PRN (23:09)
[2017-03-20] MEDS: ZOLPIDEM 5 MG TAB PO PRN (23:09)
[2017-03-20 23:12] LABS: TROPONIN-I 0.016 ng/ml (0.00-0.12)
[2017-03-21] VITALS (11 sets, daily range): BP systolic 116–132; BP diastolic 69–74; PULSE 60–73; RESP 18–22
[2017-03-21] MEDS ORDERED: ALPRAZOLAM 0.5 MG TAB PO PRN (02:00)
[2017-03-21] MEDS ORDERED: ALPRAZOLAM 0.25 MG TAB PO PRN (02:00)
[2017-03-21] MEDS ORDERED: NITROGLYCERIN (SL) 0.4 MG TAB SL PRN ×3 (02:00→03:00)
[2017-03-21] MEDS ORDERED: NACL 0.9% 3 ML SYG IV SCH (03:00)
[2017-03-21] MEDS ORDERED: ONDANSETRON 4 MG TAB PO PRN (03:00)
[2017-03-21] MEDS ORDERED: ZOLPIDEM 5 MG TAB PO PRN (03:00)
--- NOTE | 2017-03-21 03:16 | HP ---
Date/Time of Note Date/Time of Note DATE: 03/21/17 TIME: 03:00 Assessment/Plan VTE Prophylaxis VTE Prophylaxis Intervention: heparin Lines/Catheters IV C[facility]from [facility] Saline Lock Assessment/Plan Chief Complaint/Hosp Course This is a 61-year-old female being admitted to telemetry for: #1 chest pain -patient is being admitted to the telemetry floor at her previous hospital stay in [facility] she had positive troponins 3 which is likely possibly from type II and NSTEMI. Patient was subsequently transferred to our facility here at [facility]. Accepting supervisor statement clerks is Dr. Reese. Patient is to undergo further workup and possibly cardiac catheterization. Trend troponin. Continue nitro patch for chest pain. Continue telemetry monitoring #2 DVT-apparently patient was diagnosed with a right lower extremity DVT in January she was treated with Eliquis for 1 month and since then has not been taking any anticoagulation except for when she was admitted at [facility] over the last few days based on her transfer records.. At the current time her next dose will be held and further discuss with cardiology when to restart as she may be undergoing a cardiac cath. Currently we will put her on heparin subq. #3 coronary artery disease: Patient is status post stent placement, will continue telemetry monitoring, continue statin, continue Coreg, continue nitro patch for chest pain #4 hyperlipidemia -continue statin 10 mg of atorvastatin daily #5 hypothyroidism-check TSH, continue 50 mcgs of Synthroid daily #6 hypertension continue benazepril 10 mg once daily. #7 anxiety -continue Xanax 0.5 mg p.o. 3 times daily as needed #8 DVT and GI prophylaxis, heparin subcu, as a tramaine, patient also has current history of DVT was previously started on Eliquis however did not complete her course. Will restart medication as clinically indicated once evaluated by cardiology. Problems: HPI/ROS Admit Date/Time Admit Date/Time March 20, 2017 at 21:00 Hx of Present Illness This is a 61-year-old female with a past medical history of CAD/[place] status post stent/hypertension/DVT who was transferred over from [facility]. Patient was recently admitted to [facility] complaining of chest pain. The pain had been constant for about 24 hours. She stated that he had felt like her previous [place]. She had also previously been diagnosed with a right lower extremity DVT in January for which she did take Eliquis for 1 month. She did not continue Eliquis after that as the cost of the medication was too high for her and she did not want to take Coumadin secondary to the requirement of frequent blood tests. Because of her insurance issues her anxiety is also been getting worse and making her chest pain worse. She states that when she did have her chest pain it was located in the middle of her chest and it was radiating down her left arm. She stated that at that time she felt short of breath and also had nausea. She denied any fevers coughing or any other sort of symptoms at that time. Denied any vomiting diarrhea or dysuria. Did not have any lower extremity edema or any diaphoresis. Upon transfer to [facility], currently she is sitting in bed comfortably she does state that she does sometimes experience the chest pain as it comes and goes but is not as bad as it was when she went to the ER at [facility]. She does have a nitro patch on right now. Patient also states that she is anxious. And she is requesting her Xanax right now. Allergies: NKDA Meds: See REBEKAH BAZAN Const: Currently denies any chest pain or shortness of breath, she does state she is slightly anxious Eyes : No pain discharge or redness or change in visual acuity ENT: No pain, sore throat, congestion, congestion, dysphagia or discharge Respiratory: No shortness of breath, cough, sputum, wheezing, or pleuritic pain Cardiovascular: No chest pain, palpitation, PND, or edema GI : no change in appetite, abdominal pain, nausea, vomiting, diarrhea, constipation, or change in the color his stool Genitourinary: No dysuria, hematuria, flank pain , discharge or CVA tenderness Musculoskeletal: Right lower extremity posterior thigh pain to palpation ( chronic since being diagnosed with a DVT) Skin: No rash, bruising or hives Neuro: No headache, dizziness, syncope, seizure, focal weakness Endocrine: No polyuria, polydipsia, temperature intolerance Psych: Does state she feels anxious. no hallucination, depression, or suicidal ideation PMH/Family/Social Past Medical History CAD, hypertension, [place] status post stents, DVT diagnosed in January 2017 Past Surgical History C-sections 2 Family History Significant Family History: diabetes Social History EtOH negative, smoking negative Alcohol Use: none Smoking Status: Never smoker Drug Use: none Exam/Review of Systems Vital Signs Vitals Vital Signs Date Time Temp Pulse Resp B/P Pulse Ox O2 Delivery O2 Flow Rate FiO2 03/21/17 00:01 66 03/20/17 22:06 97.9 20 134/67 96 Exam Exam General: The patient is well-developed, well-nourished woman in acute distress. The patient is alert oriented -3 lying comfortably in bed. HEENT: Atraumatic, normocephalic. The pupils are equal, round and reactive. Extraocular motor are intact Neck: Supple with full range of motion. No rigidity or meningismus Chest: Nontender Lungs: Clear to auscultation bilaterally no crackles rales or wheezing Heart: Normal S1-S2, Regular rhythm and rate. Systolic murmur Abdomen: Soft , nontender, nondistended , bowel sounds are present. No guarding no rebound tenderness , No masses or organomegaly. No costovertebral temporal angle mass Extremities: Right posterior thigh tenderness to palpation, no erythema or redness noted of the bilateral thighs. Neurologic: Normal mental status, speech normal, cranial nerves II through XII are intact, motor and sensory are intact, no focal weakness Additional Comments Telemetry: Patient is currently in normal sinus rhythm, no overt ST abnormalities noted Labs Result Diagram: 03/20/17222903/20/172229 Medications Medications Current Medications Alprazolam (Xanax) 0.5 mg TID PRN PO ANXIETY Last administered on 03/20/17t 23: 09; Admin Dose 0.5 MG; Start 03/20/17 at 23:30 Aspirin (Aspirin) 81 mg DAILY NGT ; Start 03/21/17 at 09:00 Benazepril HCl (Lotensin) 10 mg DAILY PO ; Start 03/21/17 at 09:00 Isosorbide Mononitrate (Imdur) 30 mg DAILY PO ; Start 03/21/17 at 09:00 Levothyroxine Sodium (Synthroid) 50 mcg DAILY@06 PO ; Start 03/21/17 at 06:00 Pantoprazole (Protonix Tab) 40 mg BID@06,18 PO ; Start 03/21/17 at 06:00 Carvedilol (Coreg) 6.25 mg BID PO ; Start 03/21/17 at 09:00 Nitroglycerin (Nitroglycerin 2% Oint) 1 inch Q12 TD ; Start 03/21/17 at 09:00 Alprazolam (Xanax) 0.25 mg Q6H PRN PO ANXIETY; Start 03/21/17 at 02:00 Nitroglycerin 1 tab 1 tab Q5M PRN SL CHEST PAIN; Start 03/21/17 at 02:00 Sodium Chloride (NS) 1,000 ml @ 75 mls/hr [id number] IV ; Start 03/21/17 at 02:44; Status UNV Ondansetron HCl (Zofran Tab) 4 mg Q6H PRN PO NAUSEA AND/OR VOMITING; Start 03/21 at 03:00; Status UNV Nitroglycerin (Nitroglycerin (Sl Tab) 0.4 Mg) 1 tab Q5M PRN SL CHEST PAIN; Start 03/21/17 at 03:00; Status UNV Acetaminophen (Tylenol Tab) 650 mg Q6H PRN PO PAIN LEVEL 1-3 OR FEVER; Start at 03:00; Status UNV Zolpidem Tartrate (Ambien) 5 mg QHS PRN PO INSOMNIA; Start 03/21/17 at 03:00; Status UNV Famotidine (Pepcid) 20 mg Q12 PO ; Start 03/21/17 at 09:00; Status UNV Heparin Sodium (Porcine) (Heparin (5000 Units/0.5 ml)) 5,000 unit Q8 SC ; Start 03/21/17 at 06:00; Status UNV CHIQUI ZAMORA March 21, 2017 03:10
[2017-03-21] MEDS: SOD CHLORIDE 0.9% 1,000 ML IV SCH ×2 (03:20→16:55)
[2017-03-21] MEDS: PANTOPRAZOLE (EC) 40 MG TAB PO SCH ×2 (06:14→17:01)
[2017-03-21] MEDS: LEVOTHYROXINE 50 MCG TAB PO SCH (06:15)
[2017-03-21] MEDS: HEPARIN 5,000 UNIT/0.5 ML VIAL SC SCH ×3 (06:20→21:00)
[2017-03-21 07:21] LABS: ADD SCAN DIFF NO
[2017-03-21 07:39] LABS: BASOPHIL # 0.1 10^3/ul (0.0-0.1); BASOPHILS % 1.1 % (0.0-2.0); EOSINOPHILS # 0.3 10^3/ul (0.0-0.5); EOSINOPHILS % 6.2 % (0.0-7.0); HEMATOCRIT 33.8 % (37.0-47.0); HEMOGLOBIN 10.6 g/dl (12.0-16.0); LYMPHOCYTES # 1.8 10^3/ul (0.8-2.9); LYMPHOCYTES % 39.5 % (15.0-51.0); MEAN CORPUSCULAR HGB CONC 31.4 g/dl (32.0-37.0); MEAN CORPUSCULAR VOLUME 89.4 fl (82.0-101.0); MEAN PLATELET VOLUME 9.5 fl (7.4-10.4); MONOCYTE # 0.5 10^3/ul (0.3-0.9); MONOCYTES % 10.4 % (0.0-11.0); NEUTROPHIL # 1.9 10^3/ul (1.6-7.5); NEUTROPHILS % 42.6 % (39.0-77.0); PLATELET COUNT 225 10^3/UL (140-415); RED BLOOD COUNT 3.78 10^6/ul (4.20-5.40); RED CELL DISTRIBUTION WIDTH 17.3 % (11.5-14.5); WHITE BLOOD COUNT 4.5 10^3/ul (4.8-10.8)
[2017-03-21 07:46] LABS: ALBUMIN 3.4 g/dl (3.3-4.9); ALBUMIN/GLOBULIN RATIO 1.47; BILIRUBIN,INDIRECT 0.1 mg/dl (0-1.1); BILIRUBIN,TOTAL 0.1 mg/dl (0.2-1.3); CALCIUM 8.7 mg/dl (8.4-10.2); CREATININE 0.8 mg/dl (0.44-1.00); POTASSIUM 4.5 mmol/L (3.5-5.1); TOTAL PROTEIN 5.7 g/dl (6.1-8.1)
[2017-03-21] MEDS: ASPIRIN 81 MG TAB NGT SCH (09:25)
[2017-03-21] MEDS: ACETAMINOPHEN 325 MG TAB PO PRN (09:26)
[2017-03-21] MEDS: FAMOTIDINE 20 MG TAB PO SCH ×2 (09:26→20:50)
[2017-03-21] MEDS: ALPRAZOLAM 0.25 MG TAB PO PRN ×3 (09:26→22:38)
[2017-03-21] MEDS: BENAZEPRIL 10 MG TAB PO SCH (09:27)
[2017-03-21] MEDS: ISOSORBIDE MONONITRATE(SR)30 MG TAB PO SCH (09:28)
[2017-03-21] MEDS: NITROGLYCERIN 2% 1 GM OINT PKT TD SCH ×2 (09:28→21:00)
--- NOTE | 2017-03-21 11:26 | RADRPT ---
Vent Rate: 62 bpm RR Interval: 0 msec [place] Interval: 188 msec QRS Duration: 84 msec QT Interval: 418 msec QTC Interval: 424 msec P-R-T [place]: 47 - -26 - 51 degrees Normal sinus rhythm Anteroseptal infarct , age undetermined Abnormal ECG Electronically Signed By: Stephon Casas [id number]
--- NOTE | 2017-03-21 12:45 | EN ---
Date/Time of Note Date/Time of Note DATE: 03/21/17 TIME: 12:43 Event Note Medicine Medicine Event Note Patient stable this morning following transfer from [facility] Complaining of right-sided shoulder pain Denies any chest discomfort no shortness of breath chest pain or palpitations no orthopnea or PND. Vital signs within normal limits GENERAL: Well-nourished well-developed lady comfortable at rest VITAL SIGNS: per chart NECK: Supple. No JVD or lymphadenopathy. CARDIAC EXAM: S1, S2. No added sounds or murmurs. CHEST: clear bilaterally, No added sounds, rales or wheezes ABDOMEN: Soft, nontender. No guarding or rebound. EXTREMITIES: No cyanosis, clubbing or edema. NEUROLOGIC: Generalized weakness. No focal deficits. Assessment 1. History of coronary artery disease now with new onset chest pain concerning for coronary ischemia 2. History of hypertension 3. Musculoskeletal pain Plan 1. Pending cardiac catheterization by Dr. Reese 2. Continue current medications 3. Addition of IV morphine per patient request BLANCA ROSEN MD, [facility] March 21, 2017 12:45
[2017-03-21] MEDS: morphine 2 MG INJ IV PRN ×2 (13:47→20:52)
[2017-03-21 15:39] LABS: BARBITURATES NEGATIVE (NEGATIVE); BENZODIAZEPINES POSITIVE (NEGATIVE); CANNABINOIDS NEGATIVE (NEGATIVE); COCAINE NEGATIVE (NEGATIVE); OPIATES NEGATIVE (NEGATIVE)
--- NOTE | 2017-03-21 17:25 | CONS ---
DATE OF ADMISSION: 03/20/2017 DATE OF CONSULTATION: 03/21/2017 TYPE OF CONSULTATION: Cardiology. REFERRING PHYSICIAN: Dr. Omalley. REASON FOR EVALUATION: Non-ST elevation myocardial infarction, chest pain. HISTORY OF PRESENT ILLNESS: Ms. Arroyo is a 61-year-old [facility] with history of hypertension, dyslipidemia, history of coronary artery disease, history of hypothy roidism, prior history of syncope, who presented initially to the medical center with syncope and ch est pain. I have been asked to see the patient in consultation for cardiac evaluation. The patient says that he was arranging contact with Dr. Cullen his primary bacteriologist pharmaceutical. Dr. Cullen is plann ing to have left heart catheterization with this patient tomorrow. The patient is aware of risks, b enefits and alternatives and agrees to proceed. PAST MEDICAL HISTORY: 1. Hypertension. 2. Dyslipidemia. 3. History of syncope. 4. History of lower extremity edema. 5. Thyroid disease. 6. Possible psychiatric illness. ALLERGIES: NO KNOWN DRUG ALLERGIES. SOCIAL HISTORY: The patient does not smoke, does not drink, does not use any drugs. FAMILY HISTORY: Negative for sudden cardiac or premature coronary artery disease. OUTPATIENT MEDICATIONS: 1. Atorvastatin 10 mg p.o. once a day. 2. Morphine sulfate. 3. Aspirin. 4. Benazepril 10 mg daily. 5. Isosorbide mononitrate 30 mg p.o. daily. 6. Coreg 6.25 mg p.o. once a day. 7. Famotidine. 8. Levothyroxine. 9. ____IV flush. 10. Nitroglycerin. 11. Alprazolam. REVIEW OF SYSTEMS: CONSTITUTIONAL: No fevers, no chills, rash, changes in vision. CARDIAC: Chest pain as reported. RESPIRATORY: Shortness of breath. GASTROINTESTINAL: No nausea, vomiting, diarrhea, constipation. GENITOURINARY: No dysuria, hematuria. NEUROLOGIC: The patient has history of psychiatric illness. PHYSICAL EXAMINATION: VITAL SIGNS: Temperature is 98.3, heart rate 70, blood pressure was . GENERAL: He is a well-nourished woman in no acute distress, alert and oriented x3, aware of her con dition. HEAD: Normocephalic, atraumatic. Eyes anicteric. NECK: Supple. JVD 6-7 cm. No lymphadenopathy. HEART: Regular with soft holosystolic murmur at the apex. PMI is nondisplaced. I do not hear S3. LUNGS: Coarse at bases. ABDOMEN: Distended, bowel sounds are present. There is no hepatosplenomegaly. GENITOURINARY: Grossly intact. EXTREMITIES: Show no clubbing, cyanosis, or edema. LABORATORY DATA: ____ 4.5, ____ 10.6, platelets 255. INR is 1.0. Sodium 134, potassium 4.5, creat inine 0.8. Troponin 0.6 on presentation. ASSESSMENT AND PLAN: Acute chest pain with angina. The patient is here with chest pain and angina. She was initiated admitted in [facility] to the [facility]. She had chest pain there and was d iagnosed with non-ST elevation myocardial infarction. The patient is planned to have left heart cat heterization with Dr. Cullen tomorrow. 2. Hypertension. Blood pressure well controlled. Continue medical optimization care. 3. History of coronary artery disease as noted. 4. History of gastroesophageal reflux disease. Continue PPI therapy. 5. History of medical noncompliance. I will defer to primary team for evaluation and management. Left heart catheterization tomorrow. I would like to thank Dr. Omalley for referring this patient for my evaluation. Dictated By: CONSTANCE KC MD ML/NTS Conf#: [id number] DID#: [id number]
[2017-03-21] MEDS: ATORVASTATIN 10 MG TAB PO SCH (20:50)
[2017-03-21] MEDS: ZOLPIDEM 5 MG TAB PO PRN (22:38)
[2017-03-22] VITALS (36 sets, daily range): BP systolic 119–173; BP diastolic 71–90; PULSE 62–70; RESP 13–23
[2017-03-22] MEDS: SOD CHLORIDE 0.9% 1,000 ML IV SCH (05:11)
[2017-03-22] MEDS: morphine 2 MG INJ IV PRN ×2 (05:11→17:55)
[2017-03-22] MEDS: HEPARIN 5,000 UNIT/0.5 ML VIAL SC SCH ×3 (05:18→22:00)
[2017-03-22] MEDS: LEVOTHYROXINE 50 MCG TAB PO SCH (05:19)
[2017-03-22] MEDS: PANTOPRAZOLE (EC) 40 MG TAB PO SCH ×2 (05:19→17:37)
[2017-03-22] MEDS: ALPRAZOLAM 0.25 MG TAB PO PRN ×2 (06:31→22:30)
[2017-03-22 08:08] LABS: ADD SCAN DIFF NO
[2017-03-22 08:23] LABS: BASOPHILS % 0.7 % (0.0-2.0); EOSINOPHILS # 0.3 10^3/ul (0.0-0.5); HEMATOCRIT 33.1 % (37.0-47.0); HEMOGLOBIN 10.6 g/dl (12.0-16.0); LYMPHOCYTES # 1.9 10^3/ul (0.8-2.9); LYMPHOCYTES % 35.4 % (15.0-51.0); MEAN CORPUSCULAR HEMOGLOBIN 28.4 pg (29.0-33.0); MEAN CORPUSCULAR VOLUME 88.7 fl (82.0-101.0); MEAN PLATELET VOLUME 9.8 fl (7.4-10.4); MONOCYTE # 0.5 10^3/ul (0.3-0.9); MONOCYTES % 9.7 % (0.0-11.0); NEUTROPHIL # 2.6 10^3/ul (1.6-7.5); PLATELET COUNT 213 10^3/UL (140-415); RED BLOOD COUNT 3.73 10^6/ul (4.20-5.40); RED CELL DISTRIBUTION WIDTH 17.4 % (11.5-14.5); WHITE BLOOD COUNT 5.3 10^3/ul (4.8-10.8)
[2017-03-22 08:44] LABS: POTASSIUM 4.9 mmol/L (3.5-5.1)
[2017-03-22 08:46] LABS: CREATININE 0.73 mg/dl (0.44-1.00)
[2017-03-22 08:47] LABS: MAGNESIUM 1.7 mg/dl (1.7-2.5); PHOSPHORUS 4.7 mg/dl (2.5-4.9)
[2017-03-22] MEDS: ASPIRIN 81 MG TAB NGT SCH (08:48)
[2017-03-22] MEDS: NITROGLYCERIN 2% 1 GM OINT PKT TD SCH ×2 (08:48→20:31)
[2017-03-22] MEDS: BENAZEPRIL 10 MG TAB PO SCH (08:48)
[2017-03-22] MEDS: FAMOTIDINE 20 MG TAB PO SCH ×2 (08:48→20:30)
[2017-03-22] MEDS: ACETAMINOPHEN 325 MG TAB PO PRN ×3 (10:40→20:32)
[2017-03-22] MEDS: ISOSORBIDE MONONITRATE(SR)30 MG TAB PO SCH (11:27)
--- NOTE | 2017-03-22 11:53 | CONS ---
Date/Time of Note Date/Time of Note DATE: 03/22/17 TIME: 11:47 Assessment/Plan Assessment/Plan Chief Complaint/Hosp Course Imp: 1.Nstemi-at [facility] 2.Chest pain 3.abnl ecg- q's 4.HTN 5.Hypothyroid Recc: -Tele -serial ecg's -Continue asa/statin -Continue ACEI/BB -Continue oral nitrates -LHC with possible PTCA/stent today Problems: Consultation Date/Type/Reason Admit Date/Time March 20, 2017 at 21:00 Initial Consult Date 03/21/2017 Type of Consultation: Cardiology Reason for Consultation Chest pain Referring Provider: BLANCA ROSEN MD, [facility] Exam/Review of Systems Vital Signs Vitals Vital Signs Date Time Temp Pulse Resp B/P Pulse Ox O2 Delivery O2 Flow Rate FiO2 03/22/17 08:21 64 03/22/17 07:53 97.8 18 154/90 98 Intake and Output 03/21/17 03/21/17 03/22/17 15:00 23:00 07:00 Intake Total 1900 ml 1100 ml Balance 1900 ml 1100 ml Exam Review of Systems: CONSTITUTIONAL: No fevers, chills. PULMONARY: No sob CARDIOVASCULAR: No chest pain/palpitations GASTROINTESTINAL: No nausea/vomiting. GENITOURINARY: No hematuria/dysuria. MUSCULOSKELETAL: No myagias/arthalgias. PSYCHIATRIC: The patient denies depression. NEUROLOGIC: No weakness Constitutional: alert, oriented Psych: no complaints Head: normocephalic ENMT: mucosa pink and moist Neck: jvd, supple Respiratory: diminished breath sounds (at bases/B) Cardiovascular: regular rate and rhythm Gastrointestinal: non-tender, soft Musculoskeletal: muscle tone (normal) Extremities: edema (none) Neurological: other (No focal deficits) Results Result Diagram: 03/22/17 0711 03/22/17 0711 Results 24 hrs Laboratory Tests Test 03/21/17 14:15 03/22/17 07:11 Urine Opiates Screen NEGATIVE Urine Barbiturates NEGATIVE Urine Amphetamines Screen NEGATIVE Urine Benzodiazepines Screen POSITIVE Urine Cocaine Screen NEGATIVE Urine Cannabinoids NEGATIVE White Blood Count 5.3 Red Blood Count 3.73 L Hemoglobin 10.6 L Hematocrit 33.1 L Mean Corpuscular Volume 88.7 Mean Corpuscular Hemoglobin 28.4 L Mean Corpuscular Hemoglobin Concent 32.0 Red Cell Distribution Width 17.4 H Platelet Count 213 Mean Platelet Volume 9.8 Neutrophils % 48.0 Lymphocytes % 35.4 Monocytes % 9.7 Eosinophils % 6.0 Basophils % 0.7 Nucleated Red Blood Cells % 0.0 Neutrophils # 2.6 Lymphocytes # 1.9 Monocytes # 0.5 Eosinophils # 0.3 Basophils # 0.0 Nucleated Red Blood Cells # 0.0 Sodium Level 137 Potassium Level 4.9 Chloride Level 99 Carbon Dioxide Level 30 Anion Gap 13 Blood Urea Nitrogen 14 Creatinine 0.73 Glucose Level 101 Calcium Level 9.0 Phosphorus Level 4.7 Magnesium Level 1.7 Medications Medications Current Medications Alprazolam (Xanax) 0.5 mg TID PRN PO ANXIETY Last administered on 03/22/17 06: 31; Admin Dose 0.5 MG; Start 03/20/17 at 23:30 Aspirin (Aspirin) 81 mg DAILY NGT Last administered on 03/22/17 08:48; Admin Dose 81 MG; Start 03/21/17 at 09:00 Benazepril HCl (Lotensin) 10 mg DAILY PO Last administered on 03/22/17 08:48; Admin Dose 10 MG; Start 03/21/17 at 09:00 Isosorbide Mononitrate (Imdur) 30 mg DAILY PO Last administered on 03/22/17 11: 27; Admin Dose 30 MG; Start 03/21/17 at 09:00 Levothyroxine Sodium (Synthroid) 50 mcg DAILY@06 PO Last administered on 06:15; Admin Dose 50 MCG; Start 03/21/17 at 06:00 Pantoprazole (Protonix Tab) 40 mg BID@06,18 PO Last administered on 03/21/17 17 :01; Admin Dose 40 MG; Start 03/21/17 at 06:00 Carvedilol (Coreg) 6.25 mg BID PO Last administered on 03/22/17 08:48; Admin Dose 6.25 MG; Start 03/21/17 at 09:00 Nitroglycerin (Nitroglycerin 2% Oint) 1 inch Q12 TD Last administered on 08:48; Admin Dose 1 INCH; Start 03/21/17 at 09:00 Alprazolam (Xanax) 0.25 mg Q6H PRN PO ANXIETY Last administered on 03/21/17 06: 15; Admin Dose 0.25 MG; Start 03/21/17 at 02:00 Nitroglycerin 1 tab 1 tab Q5M PRN SL CHEST PAIN; Start 03/21/17 at 02:00 Sodium Chloride (NS) 1,000 ml @ 75 mls/hr [id number] IV Last administered on 05:11; Admin Dose 75 MLS/HR; Start 03/21/17 at 02:44 Ondansetron HCl (Zofran Tab) 4 mg Q6H PRN PO NAUSEA AND/OR VOMITING; Start 03/21 at 03:00 Nitroglycerin (Nitroglycerin (Sl Tab) 0.4 Mg) 1 tab Q5M PRN SL CHEST PAIN; Start 03/21/17 at 03:00 Acetaminophen (Tylenol Tab) 650 mg Q6H PRN PO PAIN LEVEL 1-3 OR FEVER Last administered on 03/22/17 10:40; Admin Dose 650 MG; Start 03/21/17 at 03:00 Zolpidem Tartrate (Ambien) 5 mg QHS PRN PO INSOMNIA; Start 03/21/17 at 03:00 Famotidine (Pepcid) 20 mg Q12 PO Last administered on 03/22/17 08:48; Admin Dose 20 MG; Start 03/21/17 at 09:00 Heparin Sodium (Porcine) (Heparin (5000 Units/0.5 ml)) 5,000 unit Q8 SC Last administered on 03/22/17 05:18; Admin Dose 5,000 UNIT; Start 03/21/17 at 06:00 Atorvastatin Calcium (Lipitor) 10 mg HS PO Last administered on 03/21/17 20:50 ; Admin Dose 10 MG; Start 03/21/17 at 21:00 Morphine Sulfate (morphine) 2 mg Q4H PRN IV pain Last administered on 03/22/17 05:11; Admin Dose 2 MG; Start 03/21/17 at 13:00 DALILA BUTT March 22, 2017 11:53
--- NOTE | 2017-03-22 12:42 | PN ---
Date/Time of Note Date/Time of Note DATE: 03/22/17 TIME: 12:40 Assessment/Plan VTE Prophylaxis VTE Prophylaxis Intervention: LMWH Lines/Catheters IV [facility] Peripheral IV Assessment/Plan Chief Complaint/Hosp Course Assessment 1. History of coronary artery disease now with new onset chest pain concerning for coronary ischemia, mildly positive troponin 2. History of hypertension 3. Musculoskeletal pain Plan 1. Pending cardiac catheterization possibly today 2. Continue current medications 3. Addition IV Ativan per patient request Problems: Subjective 24 Hr Interval Summary Free Text/Dictation patient somewhat anxious this morning concerned about if she is having a cardiac catheterization She denies any chest pain or shortness of breath. No nausea no vomiting. She did eat a light breakfast this morning. Exam/Review of Systems Vital Signs Vitals Vital Signs Date Time Temp Pulse Resp B/P Pulse Ox O2 Delivery O2 Flow Rate FiO2 03/22/17 12:31 65 03/22/17 11:46 98.2 18 139/78 91 Intake and Output 03/21/17 03/21/17 03/22/17 15:00 23:00 07:00 Intake Total 1900 ml 1100 ml Balance 1900 ml 1100 ml Exam GENERAL: Well-nourished well-developed lady comfortable at rest VITAL SIGNS: per chart NECK: Supple. No JVD or lymphadenopathy. CARDIAC EXAM: S1, S2. No added sounds or murmurs. CHEST: clear bilaterally, No added sounds, rales or wheezes ABDOMEN: Soft, nontender. No guarding or rebound. EXTREMITIES: No cyanosis, clubbing or edema. NEUROLOGIC: Generalized weakness. No focal deficits. Results Result Diagram: 03/22/17 0711 03/22/17 0711 Results 24 hrs Laboratory Tests Test 03/21/17 14:15 03/22/17 07:11 Urine Opiates Screen NEGATIVE Urine Barbiturates NEGATIVE Urine Amphetamines Screen NEGATIVE Urine Benzodiazepines Screen POSITIVE Urine Cocaine Screen NEGATIVE Urine Cannabinoids NEGATIVE White Blood Count 5.3 Red Blood Count 3.73 L Hemoglobin 10.6 L Hematocrit 33.1 L Mean Corpuscular Volume 88.7 Mean Corpuscular Hemoglobin 28.4 L Mean Corpuscular Hemoglobin Concent 32.0 Red Cell Distribution Width 17.4 H Platelet Count 213 Mean Platelet Volume 9.8 Neutrophils % 48.0 Lymphocytes % 35.4 Monocytes % 9.7 Eosinophils % 6.0 Basophils % 0.7 Nucleated Red Blood Cells % 0.0 Neutrophils # 2.6 Lymphocytes # 1.9 Monocytes # 0.5 Eosinophils # 0.3 Basophils # 0.0 Nucleated Red Blood Cells # 0.0 Sodium Level 137 Potassium Level 4.9 Chloride Level 99 Carbon Dioxide Level 30 Anion Gap 13 Blood Urea Nitrogen 14 Creatinine 0.73 Glucose Level 101 Calcium Level 9.0 Phosphorus Level 4.7 Magnesium Level 1.7 Medications Medications Current Medications Alprazolam (Xanax) 0.5 mg TID PRN PO ANXIETY Last administered on 03/22/17 06: 31; Admin Dose 0.5 MG; Start 03/20/17 at 23:30 Aspirin (Aspirin) 81 mg DAILY NGT Last administered on 03/22/17 08:48; Admin Dose 81 MG; Start 03/21/17 at 09:00 Benazepril HCl (Lotensin) 10 mg DAILY PO Last administered on 03/22/17 08:48; Admin Dose 10 MG; Start 03/21/17 at 09:00 Isosorbide Mononitrate (Imdur) 30 mg DAILY PO Last administered on 03/22/17 11: 27; Admin Dose 30 MG; Start 03/21/17 at 09:00 Levothyroxine Sodium (Synthroid) 50 mcg DAILY@06 PO Last administered on 06:15; Admin Dose 50 MCG; Start 03/21/17 at 06:00 Pantoprazole (Protonix Tab) 40 mg BID@06,18 PO Last administered on 03/21/17 17 :01; Admin Dose 40 MG; Start 03/21/17 at 06:00 Carvedilol (Coreg) 6.25 mg BID PO Last administered on 03/22/17 08:48; Admin Dose 6.25 MG; Start 03/21/17 at 09:00 Nitroglycerin (Nitroglycerin 2% Oint) 1 inch Q12 TD Last administered on 08:48; Admin Dose 1 INCH; Start 03/21/17 at 09:00 Alprazolam (Xanax) 0.25 mg Q6H PRN PO ANXIETY Last administered on 03/21/17 06: 15; Admin Dose 0.25 MG; Start 03/21/17 at 02:00 Nitroglycerin 1 tab 1 tab Q5M PRN SL CHEST PAIN; Start 03/21/17 at 02:00 Sodium Chloride (NS) 1,000 ml @ 75 mls/hr [id number] IV Last administered on 05:11; Admin Dose 75 MLS/HR; Start 03/21/17 at 02:44 Ondansetron HCl (Zofran Tab) 4 mg Q6H PRN PO NAUSEA AND/OR VOMITING; Start 03/21 at 03:00 Nitroglycerin (Nitroglycerin (Sl Tab) 0.4 Mg) 1 tab Q5M PRN SL CHEST PAIN; Start 03/21/17 at 03:00 Acetaminophen (Tylenol Tab) 650 mg Q6H PRN PO PAIN LEVEL 1-3 OR FEVER Last administered on 03/22/17 10:40; Admin Dose 650 MG; Start 03/21/17 at 03:00 Zolpidem Tartrate (Ambien) 5 mg QHS PRN PO INSOMNIA; Start 03/21/17 at 03:00 Famotidine (Pepcid) 20 mg Q12 PO Last administered on 03/22/17 08:48; Admin Dose 20 MG; Start 03/21/17 at 09:00 Heparin Sodium (Porcine) (Heparin (5000 Units/0.5 ml)) 5,000 unit Q8 SC Last administered on 03/22/17 05:18; Admin Dose 5,000 UNIT; Start 03/21/17 at 06:00 Atorvastatin Calcium (Lipitor) 10 mg HS PO Last administered on 03/21/17 20:50 ; Admin Dose 10 MG; Start 03/21/17 at 21:00 Morphine Sulfate (morphine) 2 mg Q4H PRN IV pain Last administered on 03/22/17 05:11; Admin Dose 2 MG; Start 03/21/17 at 13:00 BLANCA ROSEN MD, [facility] March 22, 2017 12:42
[2017-03-22] MEDS ORDERED: HEPARIN 1000 UNITS/ML 10 ML INJ ONE (12:49)
[2017-03-22] MEDS ORDERED: IODIXANOL LOCM 100 ML BTL ONE (12:49)
[2017-03-22] MEDS ORDERED: LIDOCAINE 1% (MDV) 20 ML INJ ONE (12:49)
[2017-03-22] MEDS ORDERED: NITROGLYCERIN (IC) 100 MCG/ML INJ ONE (12:50)
[2017-03-22] MEDS ORDERED: MIDAZOLAM 1 MG/ML 2 ML INJ ONE (12:50)
[2017-03-22] MEDS ORDERED: SOD CHLORIDE 0.9% 500 ML ONE (12:50)
[2017-03-22] MEDS ORDERED: VERAPAMIL 5 MG INJ ONE ×2 (12:50→12:51)
[2017-03-22] MEDS ORDERED: FENTAnyl 50 MCG/ML VIAL ONE (12:51)
[2017-03-22] MEDS ORDERED: SOD CHLORIDE 0.9% 1,000 ML IV SCH (14:02)
--- NOTE | 2017-03-22 14:29 | CARRPT ---
DATE OF PROCEDURE: 03/22/2017 TYPE OF PROCEDURE: 1. Left heart catheterization. 2. Coronary angiography. 3. Measurement of left ventricular end-diastolic pressure. ATTENDING PHYSICIAN: Dalila Cullen MD REFERRING PHYSICIAN: Yeyo Omalley MD from the hospitalist service. INDICATION: Positive troponin, non-ST elevation myocardial infarction with chest pain at outside [facility]. TYPE OF ANESTHESIA: Conscious and local. BRIEF HISTORY AND HOSPITAL COURSE: Ms. Kerr is a 61-year-old female with a history of hype rtension, dyslipidemia, who initially presented to outside hospital with complaints of substernal ch est pain. The patient subsequently ruled in for [id number] myocardial infarction with minimal ly positive troponins. The patient therefore was transferred to [facility] to ass ess for the possibility of significant obstructive coronary artery disease lending to symptoms of ch est pain and positive troponin and subsequent non-ST myocardial infarction. PROCEDURE: After informed consent was obtained, the patient was brought to the [facility] cardiac catheterization lab where her right radial area was prepped and draped in the usual sterile fashion. Lidocaine 2% was infiltrated in the right radial area in order to achieve adequat e local anesthesia. Using modified Seldinger technique, the radial artery was cannulated and a 6-Fr ench arterial sheath was placed. A 6-Tamazight JL3.5 catheter was used to cannulate the left main guy nary ostium. With contrast injection, multiple views of the left coronary arterial system were obta ined. JL3.5 was removed over a guidewire for a JR4. We initially attempted to cannulate the right coronary artery with a JR4 unsuccessfully. Subsequently, this was exchanged for a Scott right wh ich was used to successfully cannulate the right coronary arterial ostium. With contrast injection, multiple views of the right coronary arterial system obtained. JR4 was removed over a guidewire an d a 6-Tamazight pigtail was passed down the ascending aorta across the aortic valve. Left ventricular end-diastolic pressure was measured and pullback across the aortic valve to assess for significant g radient, which there was not and removed. Subsequently, at this time, the patient's radial sheath w as removed and a TR ban was applied. This completed the procedure. There were no noted complicatio ns. Additionally, it should be noted at the onset of the procedure, the patient did receive a radia l cocktail which included 5000 units of heparin, 2.5 of verapamil and 200 mcg of nitroglycerin. FINDINGS: 1. Coronary angiography: Right coronary artery proximally is a 4 mm vessel and has a 20% to 30% st enosis in its ostium. Thereafter, the remainder of the right coronary artery is free of any signifi cant focal stenoses. It is a dominant vessel and therefore gives off a 2 mm PDA and a 2.5 mm assistant tennis coach olateral branch with no significant focal stenoses. The left main proximally is a 4.5 mm vessel wit h no significant stenoses. Circumflex proximally is a 3.5 mm vessel and has no significant focal st enoses throughout its entirety with a mid branching obtuse marginal sub-2 mm vessel with no signific ant focal stenoses. The LAD proximally is a 3.5 mm vessel, had 20% stenosis shortly after its takeo ff. In the mid portion of the LAD, there is approximately a 30% to 40% stenosis with an area of pro bable mild myocardial bridging with not complete compression of the vessel. Thereafter, the LAD goe s around the apex and is very tortuous. There are proximal and mid branching diagonals, each approx imately 2 to 2.5 mm, with no significant focal stenoses. Once again, very tortuous vessels. Measurement of left ventricular end-diastolic pressure of 30 to 31. No significant aortic stenosis by gradient. No LV gram undertaken due to elevated LVEDP. TOTAL FLUOROSCOPY TIME: 5.5 minutes. TOTAL CONTRAST: 55 mL. IMPRESSION: 1. Moderate nonobstructive coronary artery disease primarily involving a mid left anterior descendi ng lesion. 2. 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 3. Probable hypertensive effect on the vessels with extreme tortuosity. 4. Probable diastolic dysfunction with elevated left ventricular end-diastolic pressure. 5. No significant aortic stenosis by gradient. RECOMMENDATIONS: In light of procedure and findings at this time would: 1. Maximize medical management. 2. Aggressive risk factor reduction. 3. The patient will be admitted to the telemetry floor for post-catheterization observation and con tinued management of symptoms with probable discharge later this afternoon or tomorrow a.m. Dictated By: DALILA ROMO/MURTAZA Conf#: [id number] DID#: [id number] CC: YEYO OMALLEY MD;*[facility]*
[2017-03-22] MEDS ORDERED: AL HYDROX/MG HYDROX/SIMETH 30 ML CUP PO PRN (14:30)
[2017-03-22] MEDS ORDERED: ONDANSETRON 4 MG INJ IV PRN (14:30)
[2017-03-22] MEDS: ATORVASTATIN 10 MG TAB PO SCH (20:30)
[2017-03-22] MEDS: ZOLPIDEM 5 MG TAB PO PRN (22:30)
[2017-03-23] VITALS (12 sets, daily range): BP systolic 95–166; BP diastolic 50–83; PULSE 53–69; RESP 16–20
[2017-03-23] MEDS: morphine 2 MG INJ IV PRN ×5 (02:17→20:31)
[2017-03-23] MEDS: LEVOTHYROXINE 50 MCG TAB PO SCH ×2 (05:42→05:44)
[2017-03-23] MEDS: ALPRAZOLAM 0.25 MG TAB PO PRN ×2 (05:43→05:44)
[2017-03-23] MEDS: PANTOPRAZOLE (EC) 40 MG TAB PO SCH ×2 (05:44→17:36)
[2017-03-23] MEDS: HEPARIN 5,000 UNIT/0.5 ML VIAL SC SCH ×2 (05:45→12:44)
[2017-03-23] MEDS: ASPIRIN 81 MG TAB NGT SCH (08:20)
[2017-03-23] MEDS: BENAZEPRIL 10 MG TAB PO SCH (08:20)
[2017-03-23] MEDS: NITROGLYCERIN 2% 1 GM OINT PKT TD SCH (08:21)
[2017-03-23] MEDS: FAMOTIDINE 20 MG TAB PO SCH ×2 (08:21→20:30)
[2017-03-23] MEDS: ISOSORBIDE MONONITRATE(SR)30 MG TAB PO SCH (08:21)
[2017-03-23] MEDS: ACETAMINOPHEN 325 MG TAB PO PRN (12:43)
--- NOTE | 2017-03-23 14:23 | PN ---
Date/Time of Note Date/Time of Note DATE: 03/23/17 TIME: 14:17 Assessment/Plan VTE Prophylaxis VTE Prophylaxis Intervention: other Lines/Catheters IV Catheter Type (from [facility]rs[facility]): [place] Assessment/Plan Assessment/Plan 1. Chest pain, coronary angiography on 03/22/2017 without significant obstructive lesion(up to 40%), follow up with cardiology 2. CAD, s/p PCI/stent in the past, continue treatment 3. Anxiety disorder, change xanax to ativan 4. Dyslipidemia, on statin 5. Hypothyroidism, on synthroid 6. Hypertension, controlled 7. DVT-apparently patient was diagnosed with a right lower extremity DVT in January, restart Eliquis Subjective 24 Hr Interval Summary Free Text/Dictation still has lower retrosternal chest pain, anxious and states xanax is not working Exam/Review of Systems Vital Signs Vitals Vital Signs Date Time Temp Pulse Resp B/P Pulse Ox O2 Delivery O2 Flow Rate FiO2 03/23/17 12:05 61 03/23/17 12:00 97.8 18 95/50 96 03/22/17 18:00 Room Air Intake and Output 03/22/17 03/22/17 03/23/17 15:00 23:00 07:00 Intake Total 1280 ml Balance 1280 ml Exam Constitutional: alert, oriented, well developed Psych: anxiety Head: atraumatic, normocephalic Eyes: EOMI, PERRL, nl conjunctiva, nl lids ENMT: nl external ears & nose, nl lips & teeth, nl nasal mucosa & septum Neck: non-tender, supple Respiratory: clear to auscultation, normal air movement, No congested cough, No crackles/rales, No diminished breath sounds, No intercostal retraction, No labored breathing, No other, No respirations, No tactile fremitus, No wheezing Cardiovascular: nl pulses, regular rate and rhythm, No S3, No S4, No bruits, No diastolic murmur, No edema, No gallop, No irregular rhythm, No jugular venous distention (JVD), No murmurs/extra sounds, No other, No rub, No systolic murmur Gastrointestinal: nl liver, spleen, non-tender, soft, No ascites, No bowel sounds, No distended, No firm, No hepatomegaly, No mass , No other, No rebound or guarding, No splenomegaly, No surgical scars, No tender Musculoskeletal: nl extremities to inspection Extremities: normal pulses, No calf tenderness, No clubbing, No cyanosis, No edema, No other, No palpable cord, No pitting pedal edema, No tenderness Neurological: 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 MAKEUP DESIGNER II-XII intact, nl mental status, nl speech, nl strength Skin: nl turgor Lymph: nl lymph nodes Results Result Diagram: 03/22/17 0711 03/22/17 0711 Medications Medications Current Medications Alprazolam (Xanax) 0.5 mg TID PRN PO ANXIETY Last administered on 03/23/17 05: 44; Admin Dose 0.5 MG; Start 03/20/17 at 23:30 Aspirin (Aspirin) 81 mg DAILY NGT Last administered on 03/23/17 08:20; Admin Dose 81 MG; Start 03/21/17 at 09:00 Benazepril HCl (Lotensin) 10 mg DAILY PO Last administered on 03/23/17 08:20; Admin Dose 10 MG; Start 03/21/17 at 09:00 Isosorbide Mononitrate (Imdur) 30 mg DAILY PO Last administered on 03/23/17 08: 21; Admin Dose 30 MG; Start 03/21/17 at 09:00 Levothyroxine Sodium (Synthroid) 50 mcg DAILY@06 PO Last administered on 05:44; Admin Dose 50 MCG; Start 03/21/17 at 06:00 Pantoprazole (Protonix Tab) 40 mg BID@06,18 PO Last administered on 03/23/17 05 :44; Admin Dose 40 MG; Start 03/21/17 at 06:00 Carvedilol (Coreg) 6.25 mg BID PO Last administered on 03/23/17 08:21; Admin Dose 6.25 MG; Start 03/21/17 at 09:00 Nitroglycerin (Nitroglycerin 2% Oint) 1 inch Q12 TD Last administered on 08:21; Admin Dose 1 INCH; Start 03/21/17 at 09:00 Alprazolam (Xanax) 0.25 mg Q6H PRN PO ANXIETY Last administered on 03/21/17 06: 15; Admin Dose 0.25 MG; Start 03/21/17 at 02:00 Nitroglycerin (Nitroglycerin (Sl Tab) 0.4 Mg) 1 tab Q5M PRN SL CHEST PAIN; Start 03/21/17 at 02:00 Ondansetron HCl (Zofran Tab) 4 mg Q6H PRN PO NAUSEA AND/OR VOMITING; Start 03/21 at 03:00 Nitroglycerin (Nitroglycerin (Sl Tab) 0.4 Mg) 1 tab Q5M PRN SL CHEST PAIN; Start 03/21/17 at 03:00 Zolpidem Tartrate (Ambien) 5 mg QHS PRN PO INSOMNIA; Start 03/21/17 at 03:00 Famotidine (Pepcid) 20 mg Q12 PO Last administered on 03/23/17 08:21; Admin Dose 20 MG; Start 03/21/17 at 09:00 Heparin Sodium (Porcine) (Heparin (5000 Units/0.5 ml)) 5,000 unit Q8 SC Last administered on 03/23/17 12:44; Admin Dose 5,000 UNIT; Start 03/21/17 at 06:00 Atorvastatin Calcium (Lipitor) 10 mg HS PO Last administered on 03/22/17 20:30 ; Admin Dose 10 MG; Start 03/21/17 at 21:00 Acetaminophen (Tylenol Tab) 650 mg Q4H PRN PO NON-CARDIAC PAIN LEVEL (1-3) Last administered on 03/23/17 12:43; Admin Dose 650 MG; Start 03/22/17 at 14:30 Morphine Sulfate (morphine) 2 mg Q2H PRN IV FOR NON CARDIAC PAIN (4-10) Last administered on 03/23/17 09:52; Admin Dose 2 MG; Start 03/22/17 at 14:30 Al Hydrox/Mg Hydrox/Simethicone (Mag-Al Plus) 30 ml Q4H PRN PO GASTROINTESTINAL UPSET; Start 03/22/17 at 14:30 Ondansetron HCl (Zofran Inj) 4 mg Q4H PRN IV NAUSEA AND/OR VOMITING; Start 03/22 at 14:30 SHITAL FERNÁNDEZ MD March 23, 2017 14:23
--- NOTE | 2017-03-23 19:47 | CONS ---
Date/Time of Note Date/Time of Note DATE: 03/23/17 TIME: 19:44 Assessment/Plan Assessment/Plan Chief Complaint/Hosp Course Imp: 1.Nstemi-at [facility] now s/p C with no sig obstructive disease. 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 2.Chest pain 3.abnl ecg- q's 4.HTN 5.Hypothyroid 6.anxiety Recc: -Tele -Continue asa/statin -Continue ACEI/BB -Continue oral nitrates -Treat anxiety -follow radial site for any recurrent bleeding Problems: Consultation Date/Type/Reason Admit Date/Time March 20, 2017 at 21:00 Initial Consult Date 03/21/2017 Type of Consultation: Cardiology Reason for Consultation Chset pain/positive troponin @[facility] Referring Provider: BLANCA ROSEN MD, [facility] Exam/Review of Systems Vital Signs Vitals Vital Signs Date Time Temp Pulse Resp B/P Pulse Ox O2 Delivery O2 Flow Rate FiO2 03/23/17 19:30 97.7 73 20 166/83 97 03/22/17 18:00 Room Air Intake and Output 03/22/17 03/22/17 03/23/17 15:00 23:00 07:00 Intake Total 1280 ml Balance 1280 ml Exam Review of Systems: CONSTITUTIONAL: No fevers, chills. PULMONARY: No sob CARDIOVASCULAR:c/o intermittent chest pain GASTROINTESTINAL: No nausea/vomiting. GENITOURINARY: No hematuria/dysuria. MUSCULOSKELETAL: No myagias/arthalgias. PSYCHIATRIC: The patient denies depression. NEUROLOGIC: No weakness Constitutional: alert, oriented Psych: anxiety ENMT: mucosa pink and moist Neck: jvd (9cm water), supple Respiratory: diminished breath sounds (at bases/B) Cardiovascular: regular rate and rhythm Gastrointestinal: non-tender, soft Musculoskeletal: muscle tone (normal) Extremities: edema (none) Neurological: other (No focal deficits) Results Result Diagram: 03/22/17 0711 03/22/17 0711 Medications Medications Current Medications Aspirin (Aspirin) 81 mg DAILY NGT Last administered on 03/23/17 08:20; Admin Dose 81 MG; Start 03/21/17 at 09:00 Benazepril HCl (Lotensin) 10 mg DAILY PO Last administered on 03/23/17 08:20; Admin Dose 10 MG; Start 03/21/17 at 09:00 Isosorbide Mononitrate (Imdur) 30 mg DAILY PO Last administered on 03/23/17 08: 21; Admin Dose 30 MG; Start 03/21/17 at 09:00 Levothyroxine Sodium (Synthroid) 50 mcg DAILY@06 PO Last administered on 05:44; Admin Dose 50 MCG; Start 03/21/17 at 06:00 Pantoprazole (Protonix Tab) 40 mg BID@,18 PO Last administered on 03/23/17 17 :36; Admin Dose 40 MG; Start 03/21/17 at 06:00 Carvedilol (Coreg) 6.25 mg BID PO Last administered on 03/23/17 08:21; Admin Dose 6.25 MG; Start 03/21/17 at 09:00 Nitroglycerin (Nitroglycerin 2% Oint) 1 inch Q12 TD Last administered on 08:21; Admin Dose 1 INCH; Start 03/21/17 at 09:00 Ondansetron HCl (Zofran Tab) 4 mg Q6H PRN PO NAUSEA AND/OR VOMITING; Start 03/21 at 03:00 Nitroglycerin (Nitroglycerin (Sl Tab) 0.4 Mg) 1 tab Q5M PRN SL CHEST PAIN; Start 03/21/17 at 03:00 Famotidine (Pepcid) 20 mg Q12 PO Last administered on 03/23/17 08:21; Admin Dose 20 MG; Start 03/21/17 at 09:00 Atorvastatin Calcium (Lipitor) 10 mg HS PO Last administered on 03/22/17 20:30 ; Admin Dose 10 MG; Start 03/21/17 at 21:00 Acetaminophen (Tylenol Tab) 650 mg Q4H PRN PO NON-CARDIAC PAIN LEVEL (1-3) Last administered on 03/23/17 12:43; Admin Dose 650 MG; Start 03/22/17 at 14:30 Morphine Sulfate (morphine) 2 mg Q2H PRN IV FOR NON CARDIAC PAIN (4-10) Last administered on 03/23/17 15:59; Admin Dose 2 MG; Start 03/22/17 at 14:30 Al Hydrox/Mg Hydrox/Simethicone (Mag-Al Plus) 30 ml Q4H PRN PO GASTROINTESTINAL UPSET; Start 03/22/17 at 14:30 Ondansetron HCl (Zofran Inj) 4 mg Q4H PRN IV NAUSEA AND/OR VOMITING; Start 03/22 at 14:30 Apixaban (Eliquis) 5 mg BID PO ; Start 03/23/17 at 21:00 Lorazepam (Ativan) 1 mg Q6H PRN IV anxiety; Start 03/23/17 at 14:30 DALILA BUTT March 23, 2017 19:47
[2017-03-23] MEDS: ATORVASTATIN 10 MG TAB PO SCH (20:30)
[2017-03-23] MEDS: APIXABAN 5 MG TABLET PO SCH (20:35)
[2017-03-23] MEDS: ZOLPIDEM 5 MG TAB PO PRN (22:30)
[2017-03-23] MEDS: LORAZEPAM 2 MG INJ IV PRN (22:30)
[2017-03-24] VITALS (7 sets, daily range): BP systolic 117–131; BP diastolic 73–83; PULSE 65–75; RESP 18–21
--- NOTE | 2017-03-24 03:01 | RADRPT ---
PROCEDURE: XR Chest. CLINICAL INDICATION: Chest pain. TECHNIQUE: PA and lateral chest x-ray. COMPARISON: 01/20/2017 FINDINGS: Heart is mildly enlarged. There is no congestive heart failure. There is no focal infiltrate. Th ere is no pleural effusion. There is no pneumothorax Bones are unchanged including old fractures/o steolysis of the distal left clavicle.. IMPRESSION: No CHF or focal infiltrate. Unchanged old fracture versus osteolysis of the distal left clavicle. RPTAT: HMVK .Mario Silva MD, MD Date Time Electronically viewed and signed by .Mario Silva MD, on 03/24/2017 03:01 .K/
[2017-03-24] MEDS: morphine 2 MG INJ IV PRN ×2 (04:00→09:27)
[2017-03-24] MEDS: LORAZEPAM 2 MG INJ IV PRN ×2 (05:26→11:53)
[2017-03-24] MEDS: PANTOPRAZOLE (EC) 40 MG TAB PO SCH (05:26)
[2017-03-24] MEDS: LEVOTHYROXINE 50 MCG TAB PO SCH (05:27)
[2017-03-24] MEDS: ASPIRIN 81 MG TAB NGT SCH (09:14)
[2017-03-24] MEDS: BENAZEPRIL 10 MG TAB PO SCH (09:14)
[2017-03-24] MEDS: FAMOTIDINE 20 MG TAB PO SCH (09:14)
[2017-03-24] MEDS: ISOSORBIDE MONONITRATE(SR)30 MG TAB PO SCH (09:14)
[2017-03-24] MEDS: APIXABAN 5 MG TABLET PO SCH (09:16)
[2017-03-24] MEDS ORDERED: APIX2.5T PO (14:24)
[2017-03-24] MEDS ORDERED: ALPR0.5T PO (14:24)
--- NOTE | 2017-03-24 14:34 | DS ---
Date/Time of Note Date/Time of Note DATE: 03/24/17 TIME: 14:27 Discharge Summary Admission/Discharge Info Admit Date/Time March 20, 2017 at 21:00 Discharge Date/Time Final Diagnosis 1. Chest pain, coronary angiography on 03/22/2017 without significant obstructive lesion(up to 40%), follow up with cardiology 2. CAD, h/o IN but never had PCI/stent, follow up with cardiology 3. Anxiety disorder, xanax prn 4. Dyslipidemia, on statin 5. Hypothyroidism, on synthroid 6. Hypertension, controlled Patient Condition: Stable Procedures CARDIOLOGY REPORT DATE OF PROCEDURE: 03/22/2017 TYPE OF PROCEDURE: 1. Left heart catheterization. 2. Coronary angiography. 3. Measurement of left ventricular end-diastolic pressure. ATTENDING PHYSICIAN: Dalila Cullen MD REFERRING PHYSICIAN: Yeyo Omalley MD from the hospitalist service. INDICATION: Positive troponin, non-ST elevation myocardial infarction with chest pain at outside hospital. TYPE OF ANESTHESIA: Conscious and local. BRIEF HISTORY AND HOSPITAL COURSE: Ms. Kerr is a 61-year-old female with a history of hypertension, dyslipidemia, who initially presented to outside hospital with complaints of substernal chest pain. The patient subsequently ruled in for pos-CV-vfssaimfy myocardial infarction with minimally positive troponins. The patient therefore was transferred to [facility] to assess for the possibility of significant obstructive coronary artery disease lending to symptoms of chest pain and positive troponin and subsequent non-ST myocardial infarction. PROCEDURE: After informed consent was obtained, the patient was brought to the [facility] cardiac catheterization lab where her right radial area was prepped and draped in the usual sterile fashion. Lidocaine 2% was infiltrated in the right radial area in order to achieve adequate local anesthesia. Using modified Seldinger technique, the radial artery was cannulated and a 6[place] arterial sheath was placed. A 6[place] JL3.5 catheter was used to cannulate the left main coronary ostium. With contrast injection, multiple views of the left coronary arterial system were obtained. JL3.5 was removed over a guidewire for a JR4. We initially attempted to cannulate the right coronary artery with a JR4 unsuccessfully. Subsequently, this was exchanged for a Scott right which was used to successfully cannulate the right coronary arterial ostium. With contrast injection, multiple views of the right coronary arterial system obtained. JR4 was removed over a guidewire and a 6-[place]izen [place] pigtail was passed down the ascending aorta across the aortic valve. Left ventricular end-diastolic pressure was measured and pullback across the aortic valve to assess for significant gradient, which there was not and removed. Subsequently, at this time, the patient's radial sheath was removed and a TR ban was applied. This completed the procedure. There were no noted complications. Additionally, it should be noted at the onset of the procedure, the patient did receive a radial cocktail which included 5000 units of heparin, 2.5 of verapamil and 200 mcg of nitroglycerin. FINDINGS: 1. Coronary angiography: Right coronary artery proximally is a 4 mm vessel and has a 20% to 30% stenosis in its ostium. Thereafter, the remainder of the right coronary artery is free of any significant focal stenoses. It is a dominant vessel and therefore gives off a 2 mm PDA and a 2.5 mm posterolateral branch with no significant focal stenoses. The left main proximally is a 4.5 mm vessel with no significant stenoses. Circumflex proximally is a 3.5 mm vessel and has no significant focal stenoses throughout its entirety with a mid branching obtuse marginal sub-2 mm vessel with no significant focal stenoses. The LAD proximally is a 3.5 mm vessel, had 20% stenosis shortly after its takeoff. In the mid portion of the LAD, there is approximately a 30% to 40% stenosis with an area of probable mild myocardial bridging with not complete compression of the vessel. Thereafter, the LAD goes around the apex and is very tortuous. There are proximal and mid branching diagonals, each approximately 2 to 2.5 mm, with no significant focal stenoses. Once again, very tortuous vessels. Measurement of left ventricular end-diastolic pressure of 30 to 31. No significant aortic stenosis by gradient. No LV gram undertaken due to elevated LVEDP. TOTAL FLUOROSCOPY TIME: 5.5 minutes. TOTAL CONTRAST: 55 mL. IMPRESSION: 1. Moderate nonobstructive coronary artery disease primarily involving a mid left anterior descending lesion. 2. Probable area of mild myocardial bridge with incomplete compression of the left anterior descending in the mid portion. 3. Probable hypertensive effect on the vessels with extreme tortuosity. 4. Probable diastolic dysfunction with elevated left ventricular end-diastolic pressure. 5. No significant aortic stenosis by gradient. RECOMMENDATIONS: In light of procedure and findings at this time would: 1. Maximize medical management. 2. Aggressive risk factor reduction. 3. The patient will be admitted to the telemetry floor for post- catheterization observation and continued management of symptoms with probable discharge later this afternoon or tomorrow a.m. Dictated By: DALILA ROMO/NTS Conf#: [id number] DID#: [id number] CC: YEYO OMALLEY MD;*EndCC* Hospital Course 61 years old female with hypertension and dyslipidemia was diagnosed with IN in [facility] in the past but no need for PCI or stent. She came in with constant left sided chest pain. Patient had coronary angiography on 2016 that only showed nonobstructive lesions up to 40%. Patient will have medical management and follow up with PCP outpatient. Home Meds Active Scripts Apixaban* (Eliquis*) 2.5 Mg Tablet, 5 MG PO BID for 30 Days, TAB Prov:SHITAL FERNÁNDEZ MD 03/24/17 Alprazolam* (Xanax*) 0.5 Mg Tab, 0.5 MG PO Q8H Y for ANXIETY, #20 TAB Prov:SHITAL FERNÁNDEZ MD 03/24/17 Hydrocodone/Acetaminophen ([place] 5-325 Tablet) 1 Each Tablet, 1 EACH PO Q6, #14 TAB Prov:AGUILA SEN 01/29/17 Pantoprazole* (Pantoprazole*) 40 Mg Tablet.dr, 40 MG PO BID@06,18 for 30 Days Prov:AGUILA SEN 01/29/17 Metoprolol Tartrate* (Lopressor*) 25 Mg Tab, 25 MG PO BID for 30 Days, TAB Prov:AGUILA SEN 01/29/17 Ferrous Sulfate* (Ferrous Sulfate*) 325 Mg Tabec, 325 MG PO BID for 30 Days, TAB Prov:AGUILA SEN 01/29/17 Aspirin (Aspirin) 81 Mg Chew, 81 MG NGT DAILY for 30 Days, TAB Prov:DOMITILA MURRELL 08/24/16 Levothyroxine Sodium* (Synthroid*) 50 Mcg Tablet, 50 MCG PO DAILY@06 for 30 Days , TAB Prov:DOMITILA MURRELL 08/24/16 Reported Medications Benazepril Hcl* (Benazepril Hcl*) 10 Mg Tablet, 10 MG PO DAILY, #30 TAB 09/14/16 Omeprazole* (Omeprazole*) 20 Mg Capsule.dr, 20 MG PO DAILY, #30 CAP 05/29/16 Isosorbide Mononitrate* (Isosorbide Mononitrate*) 30 Mg Tab.er.24h, 30 MG PO DAILY, TAB 05/29/16 Nitroglycerin* (Nitrostat*) 0.4 Mg Tab.subl, 0.4 MG SL Q5MIN Y for CHEST PAIN, BOTTLE 05/29/16 Discontinued Scripts Benazepril Hcl* (Benazepril Hcl*) 20 Mg Tablet, 20 MG PO DAILY for 30 Days, TAB Prov:AGUILA SEN 01/29/17 Clarithromycin* (Biaxin*) 500 Mg Tablet, 500 MG PO BID for 10 Days, TAB Prov:AGUILA SEN 01/29/17 Amoxicillin* (Amoxicillin*) 500 Mg Cap, 1000 MG PO BID for 10 Days, CAP Prov:AGUILA SEN 01/29/17 Apixaban* (Eliquis*) 5 Mg Tablet, 5 MG PO BID for 30 Days, TAB 5 Refills Prov:DOMITILA MURRELL 08/24/16 Alprazolam* (Alprazolam*) 0.5 Mg Tablet, 0.5 MG PO Q6H Y for ANXIETY, #30 TAB Prov:DOMITILA MURRELL 08/24/16 Follow-up Plan PCP in one week Cardiology in one week SHITAL FERNÁNDEZ MD March 24, 2017 14:34
--- NOTE | 2017-03-24 15:24 | CONS ---
Date/Time of Note Date/Time of Note DATE: 03/24/17 TIME: 15:21 Assessment/Plan Assessment/Plan Chief Complaint/Hosp Course Imp: 1.Nstemi-at [facility] now s/p C with no sig obstructive disease. 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 indication for eliquis Problems: Consultation Date/Type/Reason Admit Date/Time March 20, 2017 at 21:00 Initial Consult Date 03/21/2017 Type of Consultation: Cardiology Reason for Consultation chest pain/positive troponin Referring Provider: BLANCA ROSEN MD, [facility] Exam/Review of Systems Vital Signs Vitals Vital Signs Date Time Temp Pulse Resp B/P Pulse Ox O2 Delivery O2 Flow Rate FiO2 03/24/17 12:37 65 03/24/17 12:01 98.3 20 117/75 99 03/22/17 18:00 Room Air Intake and Output 03/23/17 03/23/17 03/24/17 15:00 23:00 07:00 Intake Total 640 ml Balance 640 ml Exam Review of Systems: CONSTITUTIONAL: No fevers, chills. PULMONARY: No sob CARDIOVASCULAR: No chest pain/palpitations GASTROINTESTINAL: No nausea/vomiting. GENITOURINARY: No hematuria/dysuria. MUSCULOSKELETAL: No myagias/arthalgias. PSYCHIATRIC: The patient denies depression. NEUROLOGIC: No weakness Constitutional: alert Psych: anxiety Head: normocephalic ENMT: mucosa pink and moist Neck: jvd (8-9 cm water), supple Respiratory: diminished breath sounds (at bases/B) Cardiovascular: regular rate and rhythm Gastrointestinal: non-tender, soft Musculoskeletal: muscle tone (normal) Extremities: other (r wrist with min ecchymosis/no swelling/palpable pulse/no bleeding) Neurological: other (No focal deficits) Results Result Diagram: 03/22/17 0711 03/22/17 0711 Medications Medications Current Medications Aspirin (Aspirin) 81 mg DAILY NGT Last administered on 03/24/17t 09:14; Admin Dose 81 MG; Start 03/21/17 at 09:00 Benazepril HCl (Lotensin) 10 mg DAILY PO Last administered on 03/24/17 09:14; Admin Dose 10 MG; Start 03/21/17 at 09:00 Isosorbide Mononitrate (Imdur) 30 mg DAILY PO Last administered on 03/24/17 09: 14; Admin Dose 30 MG; Start 03/21/17 at 09:00 Levothyroxine Sodium (Synthroid) 50 mcg DAILY@06 PO Last administered on 05:27; Admin Dose 50 MCG; Start 03/21/17 at 06:00 Pantoprazole (Protonix Tab) 40 mg BID@06,18 PO Last administered on 03/24/17 05 :26; Admin Dose 40 MG; Start 03/21/17 at 06:00 Carvedilol (Coreg) 6.25 mg BID PO Last administered on 03/24/17 09:16; Admin Dose 6.25 MG; Start 03/21/17 at 09:00 Ondansetron HCl (Zofran Tab) 4 mg Q6H PRN PO NAUSEA AND/OR VOMITING; Start 03/21 at 03:00 Nitroglycerin (Nitroglycerin (Sl Tab) 0.4 Mg) 1 tab Q5M PRN SL CHEST PAIN; Start 03/21/17 at 03:00 Famotidine (Pepcid) 20 mg Q12 PO Last administered on 03/24/17 09:14; Admin Dose 20 MG; Start 03/21/17 at 09:00 Atorvastatin Calcium (Lipitor) 10 mg HS PO Last administered on 03/23/17 20:30 ; Admin Dose 10 MG; Start 03/21/17 at 21:00 Acetaminophen (Tylenol Tab) 650 mg Q4H PRN PO NON-CARDIAC PAIN LEVEL (1-3) Last administered on 03/23/17 12:43; Admin Dose 650 MG; Start 03/22/17 at 14:30 Morphine Sulfate (morphine) 2 mg Q2H PRN IV FOR NON CARDIAC PAIN (4-10) Last administered on 03/24/17 09:27; Admin Dose 2 MG; Start 03/22/17 at 14:30 Al Hydrox/Mg Hydrox/Simethicone (Mag-Al Plus) 30 ml Q4H PRN PO GASTROINTESTINAL UPSET; Start 03/22/17 at 14:30 Ondansetron HCl (Zofran Inj) 4 mg Q4H PRN IV NAUSEA AND/OR VOMITING; Start 03/22 at 14:30 Apixaban (Eliquis) 5 mg BID PO Last administered on 03/24/17 09:16; Admin Dose 5 MG; Start 03/23/17 at 21:00 Lorazepam (Ativan) 1 mg Q6H PRN IV anxiety Last administered on 03/24/17 11:53 ; Admin Dose 1 MG; Start 03/23/17 at 14:30 DALILA BUTT March 24, 2017 15:24
== END 2017-03-24 15:55 | disposition home or self-care (01) | DRG 281 ==
LOC: MS4 21:00
PROVIDERS: ADMIT Internal Medicine Pulmonary Disease; ATTEND Internal Medicine Pulmonary Disease
PROC: 4A023N7 Measurement of Cardiac Sampling and Pressure, Left Heart, Percutaneous Approach (ICD-10-PCS; principal; 2017-03-22)
PROC: B2111ZZ Fluoroscopy of Multiple Coronary Arteries using Low Osmolar Contrast (ICD-10-PCS; 2017-03-22)
DX: I21.4 Non-ST elevation (NSTEMI) myocardial infarction (principal); Q24.5 Malformation of coronary vessels; I23.7 Postinfarction angina; I82.4Z1 Acute embolism and thrombosis of unspecified deep veins of right distal lower extremity; I25.118 Atherosclerotic heart disease of native coronary artery with other forms of angina pectoris; I25.2 Old myocardial infarction; F41.9 Anxiety disorder, unspecified; E78.5 Hyperlipidemia, unspecified; E03.9 Hypothyroidism, unspecified; I10 Essential (primary) hypertension; Z79.02 Long term (current) use of antithrombotics/antiplatelets; T50.996A Underdosing of other drugs, medicaments and biological substances, initial encounter; Z91.128 Patient's intentional underdosing of medication regimen for other reason
CPT/HCPCS: 71020; 80048; 80053; 80061; 80307; 82550; 82553; 83036; 83735; 84100; 84443; 84484; 85025; 85610; 85730; 86850; 86900; 86901; 93005; 93458; C1769; C1887; J1644; J2060; J2250; J2270; J3010; J7030; J7040; Q9967

== ENCOUNTER 2017-07-09 12:07 | Observation (INO) | payer OTHER ==
[~2017-07-09] VITALS: Ht 162.6 cm; Wt 61.2 kg
[~2017-07-09 12:07] MED LIST changes: +ACET1TAB40 PO; +ACET325T33 PO; +ALBU8.5H3 INH; +ALPR0.254 PO; +ALPR0.5T PO; +AMLO-147 PO; +APIX2.5T PO; +ASPI-664 PO; +ATEN-51 PO; +ATOR20TA38 PO; +AZIT250T94 PO; +BACTDS PO; +BISM262O23 PO; +CARI350T29 PO; +CEPH-443 PO; +HYDR-3011 PO; +HYDR-3498 PO; +IBUP-1542 PO; +ISOS20TA19 PO; +LORA-441 PO; +LORA1TAB PO; +MELO-110 PO; +NAPR-260 PO; +PANT40TA3 PO; +PRED20TA PO; +TRAM50TA2 PO
[2017-07-09] MEDS ORDERED: CARI350T29 PO (12:51)
[2017-07-09] MEDS ORDERED: SIMV10TA PO (12:52)
[2017-07-09] MEDS ORDERED: FER325 PO (12:52)
[2017-07-09] MEDS ORDERED: NITROGLYCERIN (SL) 0.4 MG TAB SL ONE (13:00)
[2017-07-09] MEDS ORDERED: LORAZEPAM 0.5 MG TAB PO ONE (13:00)
[2017-07-09 13:01] LABS: BASOPHIL # 0.1 10^3/ul (0.0-0.1); BASOPHILS % 0.8 % (0.0-2.0); EOSINOPHILS # 0.1 10^3/ul (0.0-0.5); EOSINOPHILS % 1.3 % (0.0-7.0); HEMATOCRIT 35.6 % (37.0-47.0); HEMOGLOBIN 11.9 g/dl (12.0-16.0); LYMPHOCYTES # 1.6 10^3/ul (0.8-2.9); LYMPHOCYTES % 18.6 % (15.0-51.0); MEAN CORPUSCULAR HEMOGLOBIN 29.8 pg (29.0-33.0); MEAN CORPUSCULAR HGB CONC 33.4 g/dl (32.0-37.0); MEAN CORPUSCULAR VOLUME 89.2 fl (82.0-101.0); MEAN PLATELET VOLUME 9.4 fl (7.4-10.4); MONOCYTE # 0.5 10^3/ul (0.3-0.9); MONOCYTES % 5.8 % (0.0-11.0); NEUTROPHILS % 73.3 % (39.0-77.0); PLATELET COUNT 284 10^3/UL (140-415); RED BLOOD COUNT 3.99 10^6/ul (4.20-5.40); RED CELL DISTRIBUTION WIDTH 16.4 % (11.5-14.5); WHITE BLOOD COUNT 8.4 10^3/ul (4.8-10.8)
--- NOTE | 2017-07-09 13:04 | RADRPT ---
PROCEDURE: XR Chest. CLINICAL INDICATION: 62-year-old female with chest pain. TECHNIQUE: Single frontal view of the chest was obtained. COMPARISON: None FINDINGS: The soft tissues are normal. There is an swelling and deformity of the lateral end of the left clav icle secondary to nonunion of an old fracture deformity. The heart is enlarged. Bilateral epicardi al fat pads are suspected. The cardiomediastinal silhouette and hilar structures are normal. The pu lmonary vasculature is normal. Vascular calcifications are noted in the aortic arch. The lungs are clear. The costophrenic angles are normal. IMPRESSION: 1. Cardiomegaly with atherosclerosis and ectasia of the thoracic aorta. 2. Bilateral epicardial fat pads are suspected. 3. 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 RPTAT:AAJJ Physician Ludy Date Time Electronically viewed and signed by Physician Ludy on 07/09/2017 13:03 SAMREEN/
--- NOTE | 2017-07-09 13:14 | ERA ---
ER Documentation Chief Complaint Date/Time DATE: 07/09/17 TIME: 13:11 Chief Complaint CHEST PAIN WHILE WALKING TODAY. NO SOB. NO DIAPHORESIS. MILD CP HPI 62-year-old female with a history of MN 2 presenting with EMS with 48 hours of intermittent chest pain, worse today. She was walking outside when she suddenly felt tightness in her chest in the substernal region. She had associated shortness of breath. She states the pain radiated to bilateral shoulders. It improved with rest. No associated diaphoresis, nausea, vomiting. She also complains of worsening shortness of breath with walking short distances in the past week. She was given aspirin in the field. ROS All systems reviewed and are negative except as per history of present illness. Medications Home Meds Active Scripts Alprazolam* (Xanax*) 0.5 Mg Tab, 0.5 MG PO Q8H Y for ANXIETY, #20 TAB Prov:SHITAL FERNÁNDEZ MD 03/24/17 Pantoprazole* (Pantoprazole*) 40 Mg Tablet.dr, 40 MG PO BID@06,18 for 30 Days Prov:AGUILA SEN 01/29/17 Aspirin (Aspirin) 81 Mg Chew, 81 MG NGT DAILY for 30 Days, TAB Prov:DOMITILA MURRELL 08/24/16 Levothyroxine Sodium* (Synthroid*) 50 Mcg Tablet, 50 MCG PO DAILY@06 for 30 Days , TAB Prov:DOMITILA MURRELL 08/24/16 Reported Medications Simvastatin* (Zocor*) Unknown Strength Tablet, 1 TAB PO QHS, #30 TAB 07/09/17 Ferrous Sulfate* (Ferrous Sulfate*) 325 Mg Tabec, 325 MG PO NEEDED, TAB 07/09/17 Carisoprodol* (Carisoprodol*) 350 Mg Tablet, 350 MG PO NEEDED Y for MUSCLE SPASMS, TAB 07/09/17 Benazepril Hcl* (Benazepril Hcl*) 10 Mg Tablet, 10 MG PO DAILY, #30 TAB 09/14/16 Isosorbide Mononitrate* (Isosorbide Mononitrate*) 30 Mg Tab.er.24h, 30 MG PO DAILY, TAB 05/29/16 Nitroglycerin* (Nitrostat*) 0.4 Mg Tab.subl, 0.4 MG SL Q5MIN Y for CHEST PAIN, BOTTLE 05/29/16 Discontinued Reported Medications Omeprazole* (Omeprazole*) 20 Mg Capsule.dr, 20 MG PO DAILY, #30 CAP 05/29/16 Discontinued Scripts Apixaban* (Eliquis*) 2.5 Mg Tablet, 5 MG PO BID for 30 Days, TAB Prov:SHITAL FERNÁNDEZ MD 03/24/17 Hydrocodone/Acetaminophen ([place] 5-325 Tablet) 1 Each Tablet, 1 EACH PO Q6, #14 TAB Prov:AGUILA SEN 01/29/17 Metoprolol Tartrate* (Lopressor*) 25 Mg Tab, 25 MG PO BID for 30 Days, TAB Prov:NORAEAGUILA JIMENEZ 01/29/17 Ferrous Sulfate* (Ferrous Sulfate*) 325 Mg Tabec, 325 MG PO BID for 30 Days, TAB Prov:NORAEORAAGUILA 01/29/17 Allergies Allergies: Coded Allergies: No Known Allergy (Unverified , 07/09/17) PMhx/Soc History of Surgery: Yes (x2 C-sections) Anesthesia Reaction: No Hx Neurological Disorder: Yes (syncope) Hx Respiratory Disorders: No Hx Cardiac Disorders: Yes (HTN, CAD, MN, DVT, AFIB, SYNCOPE) Hx Psychiatric Problems: Yes (ANXIETY) Hx Miscellaneous Medical Probl: No Hx Alcohol Use: Yes (Socially) Hx Substance Use: No Hx Tobacco Use: No Smoking Status: Former smoker FmHx Family History: coronary disease Physical Exam Vitals Vital Signs Date Time Temp Pulse Resp B/P Pulse Ox O2 Delivery O2 Flow Rate FiO2 07/09/17 12:31 Nasal Cannula 2 07/09/17 12:09 98.5 80 21 110/59 98 Physical Exam Const: Nondiaphoretic, no apparent distress Head: Atraumatic Eyes: Normal Conjunctiva ENT: Normal External Ears, Nose and Mouth. Neck: Full range of motion..~ No meningismus. Resp: Clear to auscultation bilaterally Cardio: Regular rate and rhythm, systolic murmur noted Abd: Soft, non tender, non distended. Normal bowel sounds Skin: No petechiae or rashes Back: No midline or flank tenderness Ext: No cyanosis, or edema. 2+ distal pulses Neur: Awake and alert Psych: Normal Mood and Affect Result Diagram: 07/09/17 1224 07/09/17 1224 Results 24 hrs Laboratory Tests Test 07/09/17 12:24 White Blood Count 8.410^3/ul Red Blood Count 3.9910^6/ul Hemoglobin 11.9g/dl Hematocrit 35.6% Mean Corpuscular Volume 89.2fl Mean Corpuscular Hemoglobin 29.8pg Mean Corpuscular Hemoglobin Concent 33.4g/dl Red Cell Distribution Width 16.4% Platelet Count 58660^3/UL Mean Platelet Volume 9.4fl Neutrophils % 73.3% Lymphocytes % 18.6% Monocytes % 5.8% Eosinophils % 1.3% Basophils % 0.8% Nucleated Red Blood Cells % 0.0/100WBC Neutrophils # (Manual) 610^3/ul Lymphocytes # 1.610^3/ul Monocytes # 0.510^3/ul Eosinophils # 0.110^3/ul Basophils # 0.110^3/ul Nucleated Red Blood Cells # 0.010^3/ul Prothrombin Time 14.8Sec Prothrombin Time Ratio 1.2 INR International Normalized Ratio 1.16 Activated Partial Thromboplast Time 29.7Sec Sodium Level 140mmol/L Potassium Level 3.9mmol/L Chloride Level 98mmol/L Carbon Dioxide Level 23mmol/L Anion Gap 23 Blood Urea Nitrogen 15mg/dl Creatinine 0.85mg/dl Glucose Level 87mg/dl Calcium Level 8.8mg/dl Troponin I < 0.012ng/ml Current Medications Medications (Trade) Dose Ordered Sig/Marixa Route PRN Reason Start Time Stop Time Status Last Admin Dose Admin Nitroglycerin (Nitroglycerin (Sl Tab) 0.4 Mg) 1 tab ONCE ONCE SL 07/09/17 13:00 07/09/17 13:01 DC 07/09/17 13:06 Lorazepam (Ativan) 0.5 mg ONCE ONCE PO 07/09/17 13:00 07/09/17 13:01 DC 07/09/17 13:06 Ondansetron HCl (Zofran Inj) 4 mg ER BRIDGE PRN IV NAUSEA AND/OR VOMITING 07/09/17 14:00 07/10/17 13:59 Acetaminophen (Tylenol Tab) 650 mg ER BRIDGE PRN PO MILD PAIN/FEVER 07/09/17 14:00 07/10/17 13:59 Procedures/MDM EMERGENT LABS AND DIAGNOSTIC STUDIES: Lab Results above were reviewed and interpreted by me. CBC unremarkable BMP unremarkable troponin within normal limits 12-lead EKG was interpreted by Allan Adam MD: Normal Sinus Rhythm Left axis deviation Anterior and inferior Q waves No acute ST or T wave changes suggestive of acute ischemia or STEMI. Radiology Results as interpreted by Radiology below were reviewed by Lobito Adam MD: CXR: IMPRESSION: 1. Cardiomegaly with atherosclerosis and ectasia of the thoracic aorta. 2. Bilateral epicardial fat pads are suspected. 3. 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 RPTAT:AAJJ Physician Ludy Date Time Electronically viewed and signed by Ahsan Harris Physician on 07/09/2017 13:03 Initial Nursing notes reviewed. Previous Medical Records requested via the Electronic Health Record. EMERGENCY DEPARTMENT COURSE / MEDICAL DECISION MAKING: Patients symptoms are concerning for a cardiac etiology. Other etiologies considered were PE, aortic dissection, pneumonia, pneumothorax, esophageal rupture. EKG showed no acute ischemia but is abnormal.. Initial troponin is negative. There are no overt signs of CHF on exam however patient has a high risk of adverse events. Plan to admit for further evaluation. Patient is not safe for discharge and will need inpatient monitoring and further evaluation. Further workup will be deferred to the inpatient team. Accepting Care Team: Current data and ongoing care discussed. Time: Time of admission Primary Provider: Dr. Camacho Consulting: None Outstanding Data: none Departure Diagnosis: Primary Impression: Chest pain Qualified Code: R07.2 - Precordial pain Condition: Serious EKCOLUMBA MYERS MD Jul 09, 2017 13:14
[2017-07-09 13:17] LABS: INR 1.16; PARTIAL THROMBOPLASTIN TIME 29.7 Sec (25.0-35.0); PROTIME 14.8 Sec (12.2-14.2); PT RATIO 1.2
[2017-07-09 13:24] LABS: ANION GAP 23 (8-16); BLOOD UREA NITROGEN 15 mg/dl (7-20); CALCIUM 8.8 mg/dl (8.4-10.2); CARBON DIOXIDE 23 mmol/L (21-31); CHLORIDE 98 mmol/L (97-110); CREATININE 0.85 mg/dl (0.44-1.00); GLUCOSE 87 mg/dl (70-220); POTASSIUM 3.9 mmol/L (3.5-5.1); SODIUM 140 mmol/L (135-144)
[2017-07-09 13:39] LABS: TROPONIN-I < 0.012 ng/ml (0.00-0.12)
[2017-07-09] MEDS ORDERED: ONDANSETRON 4 MG INJ IV PRN ×2 (14:00→14:30)
[2017-07-09] MEDS ORDERED: ACETAMINOPHEN 325 MG TAB PO PRN ×2 (14:00→14:30)
[2017-07-09] MEDS: SOD CHLORIDE 0.45% 1,000 ML IV SCH (14:02)
--- NOTE | 2017-07-09 14:28 | HP ---
Date/Time of Note Date/Time of Note DATE: 07/09/17 TIME: 14:21 Assessment/Plan VTE Prophylaxis VTE Prophylaxis Intervention: heparin Lines/Catheters IV [facility]from [facility] Saline Lock Assessment/Plan Chief Complaint/Hosp Course Assessment and plan: 62-year-old female prior history of CAD with stent, TX 2, DVT, atrial fibrillation, hypertension, who presents with chest pain 2 days, rule out acute coronary syndrome. 1. Chest pain: Admit patient to telemetry floor, check troponin every 6 hours 3, check TSH A1c lipid panel. Put on aspirin, morphine, oxygen, nitroglycerin. Get echocardiogram. Given her cardiac history we will also get cardiology consult, as patient may benefit from stress test. 2. History of CAD with stent: See #1 3. History of atrial for ablation: Presently Patient appears to be in normal sinus rhythm. -Monitor heart rate and telemetry, cardiology consult. 4. DVT: Patient states she completed 3 months of Eliquis recently. No signs of any swelling, continue monitor for 5. Hypertension: See #1 6. GI prophylaxis: PPI Problems: HPI/ROS Admit Date/Time Admit Date/Time Hx of Present Illness 62-year-old female past medical history of TX 2, CAD with stents, hypertension , DVT, atrial fibrillation, prior syncope, anxiety presenting with EMS with 48 hours of intermittent chest pain, worse today. She was walking outside when she suddenly felt tightness in her chest in the substernal region. She had associated shortness of breath. She states the pain radiated both her neck and her left arm, it improved with rest. She had some nausea vomiting symptoms, nonbilious nonbloody as well. Positive orthopnea and PND as well. She states she has run out of her isosorbide as well as her nitroglycerin at home. Also with increased shortness of breath symptoms while ambulating, decreased exercise tolerance as well. No diarrhea or constipation, no fevers or chills. She was given aspirin in the field. 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 Arana in [place], and her primary care doctor is Dr. Davis in [place]. PMH/Family/Social Past Surgical History Past Surgical Hx: other ( 2) Family History Significant Family History: other (Father: CAD, diabetes, prostate cancer, lymphoma mother: of cerebral aneurysm, lupus) Social History Alcohol Use: occasionally Smoking Status: Former smoker Drug Use: none Exam/Review of Systems Vital Signs Vitals Vital Signs Date Time Temp Pulse Resp B/P Pulse Ox O2 Delivery O2 Flow Rate FiO2 07/09/17 12:31 Nasal Cannula 2 07/09/17 12:09 98.5 80 21 110/59 98 Exam Exam Head: Atraumatic, answering questions, in mild distress Eyes: Normal Conjunctiva ENT: Normal External Ears, Nose and Mouth. Neck: Full range of motion..~ No meningismus. Resp: Clear to auscultation bilaterally Cardio: Regular rate and rhythm, systolic murmur noted Abd: Soft, non tender, non distended. Normal bowel sounds Skin: No petechiae or rashes Back: No midline or flank tenderness Ext: No cyanosis, or edema. 2+ distal pulses Neur: Awake and alert Psych: Normal Mood and Affect Labs Result Diagram: 07/09/17 1224 07/09/17 1224 Medications Medications Current Medications Ondansetron HCl (Zofran Inj) 4 mg Q6H PRN IV NAUSEA AND/OR VOMITING; Start at 14:30 Acetaminophen (Tylenol Tab) 650 mg Q6H PRN PO PAIN LEVEL 1-3 OR FEVER; Start at 14:30 Acetaminophen/ Hydrocodone Bitart ([place] (5/325)) 1 tab Q6H PRN PO MODERATE PAIN LEVEL 4-6; Start 07/09/17 at 14:30 Morphine Sulfate (morphine) 2 mg Q4H PRN IV SEVERE PAIN LEVEL 7-10; Start 07/09 at 14:30 Docusate Sodium (Colace) 100 mg Q12H PRN PO CONSTIPATION; Start 07/09/17 at 14: 30 Magnesium Hydroxide (Milk Of Mag) 30 ml DAILY PRN PO CONSTIPATION; Start at 14:30 Sodium Biphosphate/ Sodium Phosphate (Fleet Enema) 133 ml DAILY PRN [place] CONSTIPATION; Start 07/09/17 at 14:30 Heparin Sodium (Porcine) 5000 unit 5,000 unit Q12 SC ; Start 07/09/17 at 21:00 Sodium Chloride (1/2 NS) 1,000 ml @ 75 mls/hr [id number] IV ; Start 07/09/17 at 14 :02 Lorazepam (Ativan) 0.5 mg Q6H PRN IV ANXIETY; Start 07/09/17 at 14:30 Hydralazine HCl (Apresoline) 10 mg Q6H PRN IV ELEVATED BLOOD PRESSURE; Start at 14:30 Nitroglycerin (Nitroglycerin (Sl Tab) 0.4 Mg) 1 tab Q5M PRN SL ANGINA; Start at 14:30 Aspirin (Ecotrin) 325 mg DAILY PO ; Start 07/10/17 at 09:00; Status UNV Alprazolam (Xanax) 0.5 mg Q8H PRN PO ANXIETY; Start 07/09/17 at 14:30; Status UNV Benazepril HCl (Lotensin) 10 mg DAILY PO ; Start 07/10/17 at 09:00; Status UNV Ferrous Sulfate (Ferrous Sulfate (Ec)) 325 mg BID PO ; Start 07/09/17 at 21:00; Status UNV Isosorbide Mononitrate (Imdur) 30 mg DAILY PO ; Start 07/10/17 at 09:00; Status UNV Levothyroxine Sodium (Synthroid) 50 mcg DAILY@06 PO ; Start 07/10/17 at 06:00; Status UNV Pantoprazole (Protonix Tab) 40 mg BID@06,18 PO ; Start 07/09/17 at 18:00 Miscellaneous Information 1 tab QHS PO ; Start 07/09/17 at 21:00; Status UNV SILVIA HUERTA Jul 09, 2017 14:27
[2017-07-09] MEDS ORDERED: DOCUSATE SODIUM 100 MG CAP PO PRN (14:30)
[2017-07-09] MEDS ORDERED: NACL 0.9% 3 ML SYG IV SCH (14:30)
[2017-07-09] MEDS ORDERED: hydrALAzine 20 MG INJ IV PRN (14:30)
[2017-07-09] MEDS ORDERED: NA PHOSPHATE/BIPHOS 133 ML ENEMA PR PRN (14:30)
[2017-07-09] MEDS ORDERED: HYDROCODONE/APAP (5/325) TAB PO PRN (14:30)
[2017-07-09 14:37] VITALS: TEMP 98.2
[2017-07-09 15:45] LABS: CK-MB 1.42 ng/ml (0.0-2.4); TROPONIN-I 0.018 ng/ml (0.00-0.12)
[2017-07-09 15:51] VITALS: Ht 162.6 cm; Wt 61.2 kg
[2017-07-09 16:11] VITALS: BP 170/86; RESP 18
[2017-07-09] MEDS: ALPRAZOLAM 0.5 MG TAB PO PRN (16:25)
[2017-07-09] MEDS: morphine 2 MG INJ IV PRN (16:47)
[2017-07-09] MEDS: ALBUTEROL/IPRATROPIUM (NEB) 3 ML AMP HHN PRN (17:11)
[2017-07-09] MEDS: PANTOPRAZOLE (EC) 40 MG TAB PO SCH (18:31)
[2017-07-09 19:20] LABS: CK-MB 1.13 ng/ml (0.0-2.4); TROPONIN-I 0.017 ng/ml (0.00-0.12)
[2017-07-09 20:00] VITALS: PULSE 88
[2017-07-09 20:13] VITALS: BP 150/77; RESP 20
[2017-07-09] MEDS: FERROUS SULFATE (EC) 325 MG TAB PO SCH (20:21)
[2017-07-09] MEDS: HEPARIN 5,000 UNIT/0.5 ML VIAL SC SCH (20:22)
[2017-07-09] MEDS ORDERED: ZOLPIDEM 5 MG TAB PO PRN (20:30)
[2017-07-09] MEDS ORDERED: SIMVASTATIN PO SCH (21:00)
[2017-07-09 22:37] VITALS: BP 132/71; PULSE 85
[2017-07-09] MEDS: MAGNESIUM HYDROXIDE 30ML CUP PO PRN (22:38)
[2017-07-09] MEDS: NITROGLYCERIN (SL) 0.4 MG TAB SL PRN (22:38)
[2017-07-09 22:50] VITALS: BP 124/68; PULSE 95; RESP 20
[2017-07-10] VITALS (9 sets, daily range): BP systolic 120–140; BP diastolic 61–83; PULSE 75–85; RESP 16–20
[2017-07-10 02:02] LABS: CK-MB 0.82 ng/ml (0.0-2.4); TROPONIN-I 0.015 ng/ml (0.00-0.12)
[2017-07-10] MEDS: SOD CHLORIDE 0.45% 1,000 ML IV SCH (03:08)
[2017-07-10] MEDS: LEVOTHYROXINE 50 MCG TAB PO SCH (05:09)
[2017-07-10] MEDS: NITROGLYCERIN (SL) 0.4 MG TAB SL PRN ×4 (05:09→15:48)
[2017-07-10] MEDS: ALPRAZOLAM 0.5 MG TAB PO PRN ×3 (05:09→23:46)
[2017-07-10] MEDS: PANTOPRAZOLE (EC) 40 MG TAB PO SCH ×2 (05:09→17:19)
[2017-07-10 07:09] LABS: CHOL/HDL RATIO 1.5 RATIO
[2017-07-10 07:21] LABS: BASOPHILS % 0.8 % (0.0-2.0); EOSINOPHILS # 0.2 10^3/ul (0.0-0.5); EOSINOPHILS % 2.5 % (0.0-7.0); HEMATOCRIT 31.6 % (37.0-47.0); HEMOGLOBIN 10.5 g/dl (12.0-16.0); LYMPHOCYTES # 1.9 10^3/ul (0.8-2.9); LYMPHOCYTES % 29.1 % (15.0-51.0); MEAN CORPUSCULAR HEMOGLOBIN 30.3 pg (29.0-33.0); MEAN CORPUSCULAR HGB CONC 33.2 g/dl (32.0-37.0); MEAN CORPUSCULAR VOLUME 91.1 fl (82.0-101.0); MEAN PLATELET VOLUME 9.5 fl (7.4-10.4); MONOCYTE # 0.4 10^3/ul (0.3-0.9); MONOCYTES % 6.3 % (0.0-11.0); NEUTROPHILS % 61.1 % (39.0-77.0); PLATELET COUNT 210 10^3/UL (140-415); RED BLOOD COUNT 3.47 10^6/ul (4.20-5.40); RED CELL DISTRIBUTION WIDTH 16.8 % (11.5-14.5); WHITE BLOOD COUNT 6.5 10^3/ul (4.8-10.8)
[2017-07-10 07:22] LABS: BASOPHIL # 0.1 10^3/ul (0.0-0.1)
[2017-07-10 07:36] LABS: CALCIUM 8.6 mg/dl (8.4-10.2); CREATININE 0.72 mg/dl (0.44-1.00); MAGNESIUM 1.6 mg/dl (1.7-2.5); PHOSPHORUS 3.6 mg/dl (2.5-4.9); POTASSIUM 3.5 mmol/L (3.5-5.1)
[2017-07-10 08:22] LABS: THYROID STIMULATING HORMONE 4.08 MIU/L (0.465-4.680)
[2017-07-10] MEDS: ASPIRIN (EC) 325 MG TAB PO SCH (08:24)
[2017-07-10] MEDS: morphine 2 MG INJ IV PRN ×3 (08:24→21:28)
[2017-07-10] MEDS: BENAZEPRIL 10 MG TAB PO SCH (08:24)
[2017-07-10] MEDS: FERROUS SULFATE (EC) 325 MG TAB PO SCH ×2 (08:24→21:19)
[2017-07-10] MEDS: ISOSORBIDE MONONITRATE(SR)30 MG TAB PO SCH (08:25)
[2017-07-10] MEDS: HEPARIN 5,000 UNIT/0.5 ML VIAL SC SCH ×2 (09:29→21:21)
[2017-07-10] MEDS: LORAZEPAM 2 MG INJ IV PRN ×2 (09:58→17:19)
[2017-07-10] MEDS: ALBUTEROL/IPRATROPIUM (NEB) 3 ML AMP HHN PRN ×3 (10:02→20:20)
[2017-07-10 11:21] LABS: IRON 229 ug/dl (35-150)
[2017-07-10 11:30] LABS: TOTAL IRON BINDING CAPACITY 298 ug/dl (241-421)
--- NOTE | 2017-07-10 13:06 | RADRPT ---
Echocardiogram Report Patient Name: JOHNSON RICHEY Gender: Female Date: 1955 Study Date: 10-Jul-2017 Receiving And Processing Supervisor: Marissa Pedersen RUST Location: [id number] Ref. Physician: SILVIA HUERTA Quality: Adequate Procedures: Transthoracic echocardiogram with complete 2D, M-Mode, and doppler examination. Indications: Chest Pain, hx of MS. 2D/M Mode Doppler Measurement Value Normal Ranges Measurement Value Normal Ranges LVIDd 2D 3.7 3.5 - 5.6 cm MAYRA Vmax 1.7 cm2 LVIDs 2D 1.4 2.1 - 4.1 cm MAYRA VTI 1.7 cm2 LVPWd 2D 1.2 0.6 - 1.1 cm AV Mean Thomas 2.0 m/sec IVSd 2D 1.1 0.6 - 1.1 cm AV Mean PG 18.2 mmHg AoR Diam 2D 2.1 2.0 - 3.7 cm AV Peak Thomas 2.7 m/sec EDV 2D 57.3 cm3 AV Peak PG 28.4 mmHg ESV 2D 2.8 cm3 AV VTI 62.0 cm LA Dimen 2D 3.8 2.3 - 4.0 cm LVOT Mean Thomas 1.2 m/sec LVOT Diam 1.9 cm LVOT Mean PG 6.4 mmHg LVOT Peak Thomas 1.5 m/sec LVOT Peak PG 9.2 mmHg LVOT VTI 35.9 cm MV E Peak Thomas 1.5 m/sec MV A Peak Thomas 1.2 m/sec MV E/A 1.3 MV PHT 85.5 msec MV Peak Thomas 1.9 m/sec MV Peak PG 14.2 mmHg MV Mean Thomas 1.1 m/sec MV Mean PG 5.3 mmHg MV Decel Time 299 msec MV Decel [place] 5 MV E/A 1.3 MV PHT 85.5 msec MV VTI 54.8 cm MVA PHT 2.6 cm2 TR Peak Thomas 2.7 m/sec TR Peak PG 29.7 mmHg RVSP 38.0 mmHg Findings Left Ventricle: Normal left ventricular systolic function. Normal left ventricular cavity size. Mild concentric left ventricular hypertrophy. Ejection fraction is visually estimated at 65 %. Tissue Doppler/Mitral Doppler indices are consistent with pseudonormalization with mildly elevated left atrial pressure (Stage II diastolic dysfunction). Right Ventricle: Normal right ventricular size. Normal right ventricular systolic function. Left Atrium: The left atrium is normal in size. Right Atrium: The right atrium is normal in size. Mitral Valve: Mitral valve leaflets appear mildly thickened. Moderate mitral annular calcification. Trace mitral regurgitation. Aortic Valve: Mild aortic stenosis. Aortic valve Max velocity 2.66 m/sec. Max PG 28.00 mmHg. Mean PG 18.00 mmHg. Aortic valve area 1.70 cm2. Aortic cusps appear mildly calcified. Mild aortic valve regurgitation. Tricuspid Valve: Normal appearance of the tricuspid valve. Estimated peak PA systolic pressure 38 mmHg. There is mild tricuspid regurgitation. Pulmonic Valve: Normal pulmonic valve appearance. Pericardium: Normal pericardium with no significant pericardial effusion. Aorta: Normal aortic root. IVC: Dilated IVC with respiratory collapse consistent with elevated right atrial pressure. Conclusions 1.Normal left ventricular systolic function. Normal left ventricular cavity size. Mild concentric left ventricular hypertrophy. Ejection fraction is visually estimated at 65 %. Tissue Doppler/Mitral Doppler indices are consistent with pseudonormalization with mildly elevated left atrial pressure (Stage II diastolic dysfunction). 2.Mitral valve leaflets appear mildly thickened. Moderate mitral annular calcification. Trace mitral regurgitation. 3.Mild aortic stenosis. Aortic valve Max velocity 2.66 m/sec. Max PG 28.00 mmHg. Mean PG 18.00 mmHg. Aortic valve area 1.70 cm2. Aortic cusps appear mildly calcified. Mild aortic valve regurgitation. 4.Normal appearance of the tricuspid valve. Estimated peak PA systolic pressure 38 mmHg. There is mild tricuspid regurgitation. 5.Normal pulmonic valve appearance. 6.Normal pericardium with no significant pericardial effusion. Electronically Signed By: Mohit Sahni 10-Jul-2017 13:06:13 0700 Patient Name: JOHNSON RICHEY Study Date: 10-Jul-2017 [id number]
--- NOTE | 2017-07-10 13:16 | CONS ---
DATE OF ADMISSION: 07/09/2017 DATE OF CONSULTATION: 07/10/2017 REASON FOR CONSULTATION: Chest pain, assess acute coronary syndrome. REFERRING PHYSICIAN: Dr. Antonio from the hospitalist service. HISTORY OF PRESENT ILLNESS: Miss Arroyo is a 62-year-old female with a history of hypertension, dyslipidemia, nonobstructive coronary artery disease by catheterization March 2017 with a mild LAD myocardial bridge, prior non-ST myocardial infarction who initially presented with complaints of substernal chest pain described as a crushing pain, worse with ambulation. Upon arrival in the emergency department temperature of 98.5, blood pressure 110/59, pulse 80, respiratory 21, satting 98 percent. LABORATORY: Revealed a white count 8.4, hemoglobin 0.9, platelet count 284,000. Sodium 140, potassium 3.9, creatinine 0.85, BUN 15, TSH within normal limits. Troponin negative. INR 1.1. ETOH alcohol 118. The patient underwent a chest x-ray revealing cardiomegaly with atherosclerotic ectasia of thoracic aorta, bilateral epicardial fat pads. Patient's electrocardiogram revealed normal sinus rhythm at a rate of 90 with left axis deviation and inferior Qs as well as lateral Qs. The patient subsequently admitted to the floor and since admitted to the floor has had greater than 3 negative troponins, ruling her out for acute myocardial infarction. Patient this time denies ongoing chest pain. PAST MEDICAL HISTORY: As above in HPI, patient underwent left heart catheterization in March 2017 revealing mild to moderate nonobstructive coronary disease and a LAD myocardial bridge. MEDICATION: Lipitor 10 nightly; aspirin 325 mg daily; benazepril 10 mg daily; Imdur 30 mg daily; Synthroid; heparin 5000 subcu every 12hours; Protonix 40 mg daily; Zofran p.r.n.; Tylenol p.r.n.; [place] p.r.n.; Milk of Magnesia p.r.n.; hydralazine p.r.n.; Duo-Neb p.r.n.; Xanax p.r.n. ALLERGIES: NO KNOWN DRUG ALLERGIES. SOCIAL HISTORY: No current tobacco, ETOH, illicit drug use. FAMILY HISTORY: Negative for sudden cardiac or early CAD. REVIEW OF SYSTEMS: As above in HPI. CONSTITUTIONAL: No fevers or chills. RESPIRATORY: No current shortness of breath. HEART: Intermittent chest pain, improved currently. GASTROINTESTINAL: No vomiting. GENITOURINARY: No hematuria. MUSCULOSKELETAL: Degenerative joint disease. PSYCH: The patient has depression. NEUROLOGIC: No documented CVA. PHYSICAL EXAMINATION: VITAL SIGNS: Temperature of 98.2, blood pressure of 120/82, pulse 95, respirations 17, saturation 98 percent. GENERAL: The patient is alert, awake, in no acute distress. NECK: JVP approximately 8 to 9 cm. LUNGS: Fair air movement throughout. HEART: Regular rate and rhythm. Normal S1, S2 with a 1/6 systolic murmur. Nondisplaced PMI. ABDOMEN: Positive bowel sounds. Soft. EXTREMITIES: No edema, 1+ pulses bilateral at posterior tibial. LABORATORY: Most recently today, sodium 139, potassium 3.5, creatinine 0.7, BUN 12, white count 6.5, hemoglobin 10.5, platelet count of 210,000. IMAGING STUDIES: As above in HPI. No further imaging studies are reviewed at this time. ECG as above in HPI. IMPRESSION: 1. Chest pain. Assess for acute coronary syndrome with more than 3 negative troponins and heart catheterization March 2017 revealing no significant obstructive coronary disease. 2. Abnormal electrocardiogram with inferior and lateral Qs, negative troponins. 3. Hypertension. 4. Dyslipidemia. 5. History of coronary artery disease, nonobstructive by catheterization March 2017 with myocardial bridge. RECOMMENDATIONS: 1. At this time, would maintain patient on telemetry monitoring to follow rhythm rates closely. 2. We will check a follow up EKG to assess for any significant changes post rule out. 3. Continue the patient's current Imdur, benazepril and would add a beta-tramaine to decrease O2 demand and possible decrease some of the compression of the vessel during systole. Myocardial bridge may be the cause of the patient's chest pain. Continue the patient's current statin therapy and adjust according to a fasting lipid panel to be checked. 4. Follow patient's repeat 2D echo. 5. If patient continues to remain chest pain free, patient will be reasonable for discharge with further outpatient follow up. Dictated By: Queenie Baig /brittny/sunshine /Document#: [id number]
[2017-07-10] MEDS: MAGNESIUM HYDROXIDE 30ML CUP PO PRN (14:21)
--- NOTE | 2017-07-10 17:57 | PN ---
Date/Time of Note Date/Time of Note DATE: 07/10/17 TIME: 17:56 Assessment/Plan VTE Prophylaxis VTE Prophylaxis Intervention: SCD's Lines/Catheters IV Catheter Type (from [facility]): Saline Lock Urinary Cath still in place: No Assessment/Plan Assessment/Plan 62 yo F with hx nonobstructive CAD admitted for chest pain. ruled out for ACS TTE with just DD no compelling indication for stress per cards cont home meds if no events on tele, will likely dc in AM Subjective 24 Hr Interval Summary Free Text/Dictation Pt reports EtOH level was + on admission because she had come right from [facility] to the hospital Exam/Review of Systems Vital Signs Vitals Vital Signs Date Time Temp Pulse Resp B/P Pulse Ox O2 Delivery O2 Flow Rate FiO2 07/10/17 15:54 83 20 98 Nasal Cannula 2.0 07/10/17 15:27 98.0 126/78 Intake and Output 07/09/17 07/09/17 07/10/17 15:00 23:00 07:00 Intake Total 600 ml 480 ml Balance 600 ml 480 ml Exam no mrg lungs clear abd soft no rashes no edema TTE Conclusions 1. Normal left ventricular systolic function. Normal left ventricular cavity size. Mild concentric left ventricular hypertrophy. Ejection fraction is visually estimated at 65 %. Tissue Doppler/Mitral Doppler indices are consistent with pseudonormalization with mildly elevated left atrial pressure (Stage II diastolic dysfunction). 2. Mitral valve leaflets appear mildly thickened. Moderate mitral annular calcification. Trace mitral regurgitation. 3. Mild aortic stenosis. Aortic valve Max velocity 2.66 m/sec. Max PG 28.00 mmHg. Mean PG 18.00 mmHg. Aortic valve area 1.70 cm2. Aortic cusps appear mildly calcified. Mild aortic valve regurgitation. 4. Normal appearance of the tricuspid valve. Estimated peak PA systolic pressure 38 mmHg. There is mild tricuspid regurgitation. 5. Normal pulmonic valve appearance. 6. Normal pericardium with no significant pericardial effusion. Results Result Diagram: 07/10/1752107/10/17521 Results 24 hrs Laboratory Tests Test 07/09/17 18:28 07/10/17 00:55 07/10/17 05:22 07/10/17 10:22 Creatine Kinase 43 37 Creatine Kinase Index 2.6 2.2 Creatinine Kinase MB (Mass) 1.13 0.82 Troponin I 0.017 0.015 White Blood Count 6.5 # Red Blood Count 3.47 L Hemoglobin 10.5 L Hematocrit 31.6 L Mean Corpuscular Volume 91.1 Mean Corpuscular Hemoglobin 30.3 Mean Corpuscular Hemoglobin Concent 33.2 Red Cell Distribution Width 16.8 H Platelet Count 210 # Mean Platelet Volume 9.5 Neutrophils % 61.1 Lymphocytes % 29.1 Monocytes % 6.3 Eosinophils % 2.5 Basophils % 0.8 Nucleated Red Blood Cells % 0.0 Neutrophils # (Manual) 4 Lymphocytes # 1.9 Monocytes # 0.4 Eosinophils # 0.2 Basophils # 0.1 Nucleated Red Blood Cells # 0.0 Sodium Level 139 Potassium Level 3.5 Chloride Level 99 Carbon Dioxide Level 25 Anion Gap 19 H Blood Urea Nitrogen 12 Creatinine 0.72 Glucose Level 113 Hemoglobin A1c 4.9 Calcium Level 8.6 Phosphorus Level 3.6 Magnesium Level 1.6 L Triglycerides Level 128 Cholesterol Level 128 LDL Cholesterol, Calculated 19 HDL Cholesterol 83 Cholesterol/HDL Ratio 1.5 Thyroid Stimulating Hormone (TSH) 4.080 Iron Level 229 H Total Iron Binding Capacity 298 Percent Iron Saturation 77 H Medications Medications Current Medications Ondansetron HCl (Zofran Inj) 4 mg Q6H PRN IV NAUSEA AND/OR VOMITING; Start at 14:30 Acetaminophen (Tylenol Tab) 650 mg Q6H PRN PO PAIN LEVEL 1-3 OR FEVER; Start at 14:30 Acetaminophen/ Hydrocodone Bitart ([place] (5/325)) 1 tab Q6H PRN PO MODERATE PAIN LEVEL 4-6; Start 07/09/17 at 14:30 Morphine Sulfate (morphine) 2 mg Q4H PRN IV SEVERE PAIN LEVEL 7-10 Last administered on 07/10/17 14:21; Admin Dose 2 MG; Start 07/09/17 at 14:30 Docusate Sodium (Colace) 100 mg Q12H PRN PO CONSTIPATION; Start 07/09/17 at 14: 30 Magnesium Hydroxide (Milk Of Mag) 30 ml DAILY PRN PO CONSTIPATION Last administered on 07/10/17 14:21; Admin Dose 30 ML; Start 07/09/17 at 14:30 Sodium Biphosphate/ Sodium Phosphate (Fleet Enema) 133 ml DAILY PRN [place] CONSTIPATION; Start 07/09/17 at 14:30 Heparin Sodium (Porcine) (Heparin (5000 Units/0.5 ml)) 5,000 unit Q12 SC Last administered on 07/10/17 09:29; Admin Dose 5,000 UNIT; Start 07/09/17 at 21:00 Lorazepam (Ativan) 0.5 mg Q6H PRN IV ANXIETY Last administered on 07/10/17 17: 19; Admin Dose 0.5 MG; Start 07/09/17 at 14:30 Hydralazine HCl (Apresoline) 10 mg Q6H PRN IV ELEVATED BLOOD PRESSURE; Start at 14:30 Nitroglycerin (Nitroglycerin (Sl Tab) 0.4 Mg) 1 tab Q5M PRN SL ANGINA Last administered on 07/10/17 15:48; Admin Dose 1 TAB; Start 07/09/17 at 14:30 Aspirin (Ecotrin) 325 mg DAILY PO Last administered on 07/10/17 08:24; Admin Dose 325 MG; Start 07/10/17 at 09:00 Alprazolam (Xanax) 0.5 mg Q8H PRN PO ANXIETY Last administered on 07/10/17 13: 24; Admin Dose 0.5 MG; Start 07/09/17 at 14:30 Benazepril HCl (Lotensin) 10 mg DAILY PO Last administered on 07/10/17 08:24; Admin Dose 10 MG; Start 07/10/17 at 09:00 Ferrous Sulfate (Ferrous Sulfate (Ec)) 325 mg BID PO Last administered on 08:24; Admin Dose 325 MG; Start 07/09/17 at 21:00 Isosorbide Mononitrate (Imdur) 30 mg DAILY PO Last administered on 07/10/17 08 :25; Admin Dose 30 MG; Start 07/10/17 at 09:00 Levothyroxine Sodium (Synthroid) 50 mcg DAILY@06 PO Last administered on 05:09; Admin Dose 50 MCG; Start 07/10/17 at 06:00 Pantoprazole (Protonix Tab) 40 mg BID@,18 PO Last administered on 07/10/17 17:19; Admin Dose 40 MG; Start 07/09/17 at 18:00 Atorvastatin Calcium (Lipitor) 10 mg DAILY@ PO ; Start 07/10/17 at 21:00 Metoprolol Tartrate (Lopressor) 25 mg BID PO ; Start 07/10/17 at 21:00 NAOMIE STEEL MD Jul 10, 2017 17:57
[2017-07-10] MEDS ORDERED: ATORVASTATIN 10 MG TAB PO SCH (21:00)
[2017-07-10] MEDS: METOPROLOL 25 MG TAB PO SCH (21:19)
[2017-07-10] MEDS ORDERED: ZOLPIDEM 5 MG TAB PO PRN (21:30)
[2017-07-11] VITALS (8 sets, daily range): BP systolic 133–157; BP diastolic 70–86; PULSE 75–88; RESP 16–18
[2017-07-11] MEDS: morphine 2 MG INJ IV PRN ×2 (04:08→08:46)
[2017-07-11] MEDS: ALBUTEROL/IPRATROPIUM (NEB) 3 ML AMP HHN PRN (05:14)
[2017-07-11] MEDS: LEVOTHYROXINE 50 MCG TAB PO SCH (05:23)
[2017-07-11] MEDS: PANTOPRAZOLE (EC) 40 MG TAB PO SCH (05:23)
[2017-07-11] MEDS: NITROGLYCERIN (SL) 0.4 MG TAB SL PRN ×2 (06:05→11:26)
[2017-07-11] MEDS: BENAZEPRIL 10 MG TAB PO SCH (08:58)
[2017-07-11] MEDS: METOPROLOL 25 MG TAB PO SCH (08:59)
[2017-07-11] MEDS: ISOSORBIDE MONONITRATE(SR)30 MG TAB PO SCH (09:00)
[2017-07-11] MEDS: FERROUS SULFATE (EC) 325 MG TAB PO SCH (09:00)
[2017-07-11] MEDS: ASPIRIN (EC) 325 MG TAB PO SCH (09:00)
[2017-07-11] MEDS: HEPARIN 5,000 UNIT/0.5 ML VIAL SC SCH (10:09)
[2017-07-11 11:15] LABS: BASOPHILS % 0.5 % (0.0-2.0); EOSINOPHILS # 0.3 10^3/ul (0.0-0.5); EOSINOPHILS % 3.2 % (0.0-7.0); HEMATOCRIT 31.9 % (37.0-47.0); HEMOGLOBIN 10.2 g/dl (12.0-16.0); LYMPHOCYTES # 1.2 10^3/ul (0.8-2.9); MEAN CORPUSCULAR HEMOGLOBIN 29.9 pg (29.0-33.0); MEAN CORPUSCULAR VOLUME 93.5 fl (82.0-101.0); MEAN PLATELET VOLUME 9.7 fl (7.4-10.4); MONOCYTE # 0.4 10^3/ul (0.3-0.9); MONOCYTES % 4.8 % (0.0-11.0); NEUTROPHILS % 75.4 % (39.0-77.0); PLATELET COUNT 226 10^3/UL (140-415); RED BLOOD COUNT 3.41 10^6/ul (4.20-5.40); RED CELL DISTRIBUTION WIDTH 16.5 % (11.5-14.5); WHITE BLOOD COUNT 7.8 10^3/ul (4.8-10.8)
[2017-07-11 11:41] LABS: CALCIUM 8.9 mg/dl (8.4-10.2); CREATININE 0.72 mg/dl (0.44-1.00); POTASSIUM 4.5 mmol/L (3.5-5.1)
--- NOTE | 2017-07-11 11:50 | CONS ---
Date/Time of Note Date/Time of Note DATE: 07/11/17 TIME: 11:48 Assessment/Plan Assessment/Plan Additional Assessment/Plan 1. Chest pain. Assess for acute coronary syndrome with more than 3 negative troponins and heart catheterization March 2017 revealing no significant obstructive coronary disease- DOUBT ISCHEMIA. NO INDICATION for ADDITIONAL STRESS TESTING NOW, 2. Abnormal electrocardiogram with inferior and lateral Qs, negative troponins. R/o DC. 3. Hypertension- well rX now. 4. Dyslipidemia. 5. History of coronary artery disease, nonobstructive by catheterization March 2017 with myocardial bridge. - no meds. Consultation Date/Type/Reason Admit Date/Time Jul 09, 2017 at 13:46 Initial Consult Date 24 HR Interval Summary Free Text/Dictation N objective evidence of cardiac disease - ? anxiety - no indication for additional rectification ow. No arrhythmia on tele. ROS: No fever, no chills, no nausea, no vomiting, no diarrhea/constipation No recent weight changes No chest pain, no PND, no orthopnea No dizziness, blurred vision No thirst, no heat or cold intolerance Exam/Review of Systems Vital Signs Vitals Vital Signs Date Time Temp Pulse Resp B/P Pulse Ox O2 Delivery O2 Flow Rate FiO2 07/11/17 09:15 88 07/11/17 07:06 97.7 18 133/70 97 07/11/17 05:15 21 07/11/17 04:09 2.0 07/10/17 20:00 Nasal Cannula Intake and Output 07/10/17 07/10/17 07/11/17 15:00 23:00 07:00 Intake Total 1200 ml 800 ml Balance 1200 ml 800 ml Exam General: WN/WD/NAD, AOx 3 HEENT: Unicetric/atraumatic/EOMI (follow commands) NECK: JVD elevated, no thyromegaly Lymph: no lymphadenopathy HEART: regular with no S3, II/ systolic murmur at apex LUNGS: Coarse sounds ABD: soft, NT, ND, +BS : Intact Neuro: non focal SKIN: chronic changes EXT: trace edema Results Result Diagram: 07/11/17 1052 07/10/17 0522 Results 24 hrs Laboratory Tests Test 07/11/17 10:52 White Blood Count 7.8 Red Blood Count 3.41 L Hemoglobin 10.2 L Hematocrit 31.9 L Mean Corpuscular Volume 93.5 Mean Corpuscular Hemoglobin 29.9 Mean Corpuscular Hemoglobin Concent 32.0 Red Cell Distribution Width 16.5 H Platelet Count 226 Mean Platelet Volume 9.7 Neutrophils % 75.4 Lymphocytes % 16.0 Monocytes % 4.8 Eosinophils % 3.2 Basophils % 0.5 Nucleated Red Blood Cells % 0.0 Neutrophils # (Manual) 6 Lymphocytes # 1.2 Monocytes # 0.4 Eosinophils # 0.3 Basophils # 0.0 Nucleated Red Blood Cells # 0.0 Medications Medications Current Medications Ondansetron HCl (Zofran Inj) 4 mg Q6H PRN IV NAUSEA AND/OR VOMITING; Start at 14:30 Acetaminophen (Tylenol Tab) 650 mg Q6H PRN PO PAIN LEVEL 1-3 OR FEVER; Start at 14:30 Acetaminophen/ Hydrocodone Bitart ([place] (5/325)) 1 tab Q6H PRN PO MODERATE PAIN LEVEL 4-6; Start 07/09/17 at 14:30 Morphine Sulfate (morphine) 2 mg Q4H PRN IV SEVERE PAIN LEVEL 7-10 Last administered on 07/11/17 08:46; Admin Dose 2 MG; Start 07/09/17 at 14:30 Docusate Sodium (Colace) 100 mg Q12H PRN PO CONSTIPATION; Start 07/09/17 at 14: 30 Magnesium Hydroxide (Milk Of Mag) 30 ml DAILY PRN PO CONSTIPATION Last administered on 07/10/17 14:21; Admin Dose 30 ML; Start 07/09/17 at 14:30 Sodium Biphosphate/ Sodium Phosphate (Fleet Enema) 133 ml DAILY PRN [place] CONSTIPATION; Start 07/09/17 at 14:30 Heparin Sodium (Porcine) (Heparin (5000 Units/0.5 ml)) 5,000 unit Q12 SC Last administered on 07/11/17 10:09; Admin Dose 5,000 UNIT; Start 07/09/17 at 21:00 Nitroglycerin (Nitroglycerin (Sl Tab) 0.4 Mg) 1 tab Q5M PRN SL ANGINA Last administered on 07/11/17 11:26; Admin Dose 1 TAB; Start 07/09/17 at 14:30 Aspirin (Ecotrin) 325 mg DAILY PO Last administered on 07/11/17 09:00; Admin Dose 325 MG; Start 07/10/17 at 09:00 Alprazolam (Xanax) 0.5 mg Q8H PRN PO ANXIETY Last administered on 07/10/17 23: 46; Admin Dose 0.5 MG; Start 07/09/17 at 14:30 Benazepril HCl (Lotensin) 10 mg DAILY PO Last administered on 07/11/17 08:58; Admin Dose 10 MG; Start 07/10/17 at 09:00 Ferrous Sulfate (Ferrous Sulfate (Ec)) 325 mg BID PO Last administered on 09:00; Admin Dose 325 MG; Start 07/09/17 at 21:00 Isosorbide Mononitrate (Imdur) 30 mg DAILY PO Last administered on 07/11/17 09 :00; Admin Dose 30 MG; Start 07/10/17 at 09:00 Levothyroxine Sodium (Synthroid) 50 mcg DAILY@06 PO Last administered on 05:23; Admin Dose 50 MCG; Start 07/10/17 at 06:00 Pantoprazole (Protonix Tab) 40 mg BID@06,18 PO Last administered on 07/11/17 05:23; Admin Dose 40 MG; Start 07/09/17 at 18:00 Atorvastatin Calcium (Lipitor) 10 mg DAILY@ PO Last administered on 21:18; Admin Dose 10 MG; Start 07/10/17 at 21:00 Metoprolol Tartrate (Lopressor) 25 mg BID PO Last administered on 07/11/17 08: 59; Admin Dose 25 MG; Start 07/10/17 at 21:00 Zolpidem Tartrate (Ambien) 10 mg HS PRN PO INSOMNIA Last administered on 22:13; Admin Dose 10 MG; Start 07/10/17 at 21:30 CONSTANCE KC MD Jul 11, 2017 11:50
[2017-07-11] MEDS ORDERED: METO-448 PO (12:43)
--- NOTE | 2017-07-11 12:46 | PDOCDIS ---
Discharge Instructions CONDITION Patient Condition: Stable HOME CARE INSTRUCTIONS: Special Diet: LOW FAT LOW CHOLESTEROL FOLLOW UP/APPOINTMENTS Follow-up Plan Follow up with your regular doctor in 1-2 weeks Follow up with the cardiologists (Dr Mercado or Dr Cullen) within 2-4 weeks Office Address [address] [place] [id number] Office NAOMIE STEEL MD Jul 11, 2017 12:46
--- NOTE | 2017-07-11 12:48 | DS ---
Date/Time of Note Date/Time of Note DATE: 07/11/17 TIME: 12:47 Discharge Summary Admission/Discharge Info Admit Date/Time Jul 09, 2017 at 13:46 Discharge Date/Time Discharge Diagnosis chest pain Patient Condition: Stable Consults cardiology Procedures TTE 8.20 Conclusions 1. Normal left ventricular systolic function. Normal left ventricular cavity size. Mild concentric left ventricular hypertrophy. Ejection fraction is visually estimated at 65 %. Tissue Doppler/Mitral Doppler indices are consistent with pseudonormalization with mildly elevated left atrial pressure (Stage II diastolic dysfunction). 2. Mitral valve leaflets appear mildly thickened. Moderate mitral annular calcification. Trace mitral regurgitation. 3. Mild aortic stenosis. Aortic valve Max velocity 2.66 m/sec. Max PG 28.00 mmHg. Mean PG 18.00 mmHg. Aortic valve area 1.70 cm2. Aortic cusps appear mildly calcified. Mild aortic valve regurgitation. 4. Normal appearance of the tricuspid valve. Estimated peak PA systolic pressure 38 mmHg. There is mild tricuspid regurgitation. 5. Normal pulmonic valve appearance. 6. Normal pericardium with no significant pericardial effusion. Hx of Present Illness 62-year-old female past medical history of RI 2, CAD with stents, hypertension , DVT, atrial fibrillation, prior syncope, anxiety presenting with EMS with 48 hours of intermittent chest pain, worse today. She was walking outside when she suddenly felt tightness in her chest in the substernal region. She had associated shortness of breath. She states the pain radiated both her neck and her left arm, it improved with rest. She had some nausea vomiting symptoms, nonbilious nonbloody as well. Positive orthopnea and PND as well. She states she has run out of her isosorbide as well as her nitroglycerin at home. Also with increased shortness of breath symptoms while ambulating, decreased exercise tolerance as well. No diarrhea or constipation, no fevers or chills. She was given aspirin in the field. 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 Davis in [place]. Hospital Course Pt admitted for chest pain, ruled out for ACS with serial troponins. Given CAD hx, cardiology consulted. Given cardiac cath in March with no significant obstructive disease, no indication at this time for repeat cath. Pt discharged for follow up in the outpatient setting. Home Meds Active Scripts Metoprolol Tartrate* (Lopressor*) 25 Mg Tab, 25 MG PO BID for 30 Days, #60 TAB Prov:NAOMIE STEEL MD 07/11/17 Alprazolam* (Xanax*) 0.5 Mg Tab, 0.5 MG PO Q8H Y for ANXIETY, #20 TAB Prov:SHITAL FERNÁNDEZ MD 03/24/17 Pantoprazole* (Pantoprazole*) 40 Mg Tablet.dr, 40 MG PO BID@06,18 for 30 Days Prov:AGUILA SEN 01/29/17 Aspirin (Aspirin) 81 Mg Chew, 81 MG NGT DAILY for 30 Days, TAB Prov:DOMITILA MURRELL 08/24/16 Levothyroxine Sodium* (Synthroid*) 50 Mcg Tablet, 50 MCG PO DAILY@06 for 30 Days , TAB Prov:DOMITILA MURRELL 08/24/16 Reported Medications Simvastatin* (Zocor*) Unknown Strength Tablet, 1 TAB PO QHS, #30 TAB 07/09/17 Ferrous Sulfate* (Ferrous Sulfate*) 325 Mg Tabec, 325 MG PO NEEDED, TAB 07/09/17 Carisoprodol* (Carisoprodol*) 350 Mg Tablet, 350 MG PO NEEDED Y for MUSCLE SPASMS, TAB 07/09/17 Benazepril Hcl* (Benazepril Hcl*) 10 Mg Tablet, 10 MG PO DAILY, #30 TAB 09/14/16 Isosorbide Mononitrate* (Isosorbide Mononitrate*) 30 Mg Tab.er.24h, 30 MG PO DAILY, TAB 05/29/16 Nitroglycerin* (Nitrostat*) 0.4 Mg Tab.subl, 0.4 MG SL Q5MIN Y for CHEST PAIN, BOTTLE 05/29/16 Discontinued Reported Medications Omeprazole* (Omeprazole*) 20 Mg Capsule.dr, 20 MG PO DAILY, #30 CAP 05/29/16 Discontinued Scripts Apixaban* (Eliquis*) 2.5 Mg Tablet, 5 MG PO BID for 30 Days, TAB Prov:SHITAL FERNÁNDEZ MD 03/24/17 Hydrocodone/Acetaminophen ([place] 5-325 Tablet) 1 Each Tablet, 1 EACH PO Q6, #14 TAB Prov:AGUILA SEN 01/29/17 Metoprolol Tartrate* (Lopressor*) 25 Mg Tab, 25 MG PO BID for 30 Days, TAB Prov:AGUILA SEN 01/29/17 Ferrous Sulfate* (Ferrous Sulfate*) 325 Mg Tabec, 325 MG PO BID for 30 Days, TAB Prov:NORAEORAAGUILA 01/29/17 Follow-up Plan PCP within 1-2 weeks cardiology within 2-4 weeks Primary Care Provider Taran Davis Time spent on discharge: > 30 minutes Pending Labs Laboratory Tests Test 07/11/17 10:52 White Blood Count 7.810^3/ul (4.8-10.8) Red Blood Count 3.4110^6/ul (4.20-5.40) Hemoglobin 10.2g/dl (12.0-16.0) Hematocrit 31.9% (37.0-47.0) Mean Corpuscular Volume 93.5fl (82.0-101.0) Mean Corpuscular Hemoglobin 29.9pg (29.0-33.0) Mean Corpuscular Hemoglobin Concent 32.0g/dl (32.0-37.0) Red Cell Distribution Width 16.5% (11.5-14.5) Platelet Count 49781^3/UL (140-415) Mean Platelet Volume 9.7fl (7.4-10.4) Neutrophils % 75.4% (39.0-77.0) Lymphocytes % 16.0% (15.0-51.0) Monocytes % 4.8% (0.0-11.0) Eosinophils % 3.2% (0.0-7.0) Basophils % 0.5% (0.0-2.0) Nucleated Red Blood Cells % 0.0/100WBC (0.0-0.0) Neutrophils # (Manual) 610^3/ul (1.7-7.5) Lymphocytes # 1.210^3/ul (0.8-2.9) Monocytes # 0.410^3/ul (0.3-0.9) Eosinophils # 0.310^3/ul (0.0-0.5) Basophils # 0.010^3/ul (0.0-0.1) Nucleated Red Blood Cells # 0.010^3/ul (0.0-0.0) Sodium Level 139mmol/L (135-144) Potassium Level 4.5mmol/L (3.5-5.1) Chloride Level 98mmol/L (97-110) Carbon Dioxide Level 29mmol/L (21-31) Anion Gap 17 (8-16) Blood Urea Nitrogen 10mg/dl (7-20) Creatinine 0.72mg/dl (0.44-1.00) Glucose Level 93mg/dl (70-220) Calcium Level 8.9mg/dl (8.4-10.2) NAOMIE STEEL MD Jul 11, 2017 12:48
[2017-07-11] MEDS ORDERED: LEVO50TA83 PO (13:07)
[2017-07-11] MEDS ORDERED: TOLT2TAB13 PO ×2 (13:29→13:30)
[2017-07-11] MEDS ORDERED: TOLTERODINE 2 MG TAB PO SCH (14:00)
--- NOTE | 2017-07-14 17:05 | RADRPT ---
Vent Rate: 76 bpm RR Interval: 0 msec SD Interval: 174 msec QRS Duration: 74 msec QT Interval: 396 msec QTC Interval: 445 msec P-R-T [place]: 37 - -14 - 41 degrees Normal sinus rhythm Low voltage QRS Cannot rule out Anteroseptal infarct , age undetermined Abnormal ECG Electronically Signed By: Edward Pandey [id number]
== END 2017-07-11 14:15 | disposition home or self-care (01) ==
LOC: E/R 12:07 → TEL 13:46
PROVIDERS: ADMIT Internal Medicine; ATTEND Internal Medicine
DX: R07.9 Chest pain, unspecified (principal); I10 Essential (primary) hypertension; Z79.82 Long term (current) use of aspirin; I25.10 Atherosclerotic heart disease of native coronary artery without angina pectoris; Z95.5 Presence of coronary angioplasty implant and graft; R94.31 Abnormal electrocardiogram [ECG] [EKG]; I25.2 Old myocardial infarction; Z86.718 Personal history of other venous thrombosis and embolism; I48.91 Unspecified atrial fibrillation; E78.5 Hyperlipidemia, unspecified; Z87.891 Personal history of nicotine dependence; Z82.49 Family history of ischemic heart disease and other diseases of the circulatory system
CPT/HCPCS: 36415; 71010; 80048; 80061; 80306; 82550; 82553; 83036; 83540; 83735; 84100; 84439; 84443; 84484; 85025; 85610; 85730; 93005; 93306; 94640; 94664; J1644; J2060; J2270; Z7500; Z7502; Z7610; G0378

== ENCOUNTER 2017-08-14 15:03 | Inpatient (IN) | payer OTHER ==
[~2017-08-14] VITALS: Ht 160 cm; Wt 69.0 kg
[~2017-08-14 15:03] MED LIST changes: -ACET1TAB40 PO; -ACET325T33 PO; -ALBU8.5H3 INH; -ALPR0.254 PO; -ALPR0.5T6 PO; -AMLO-147 PO; -AMO500 PO; -APIX2.5T PO; -APIX5TAB PO; -ASPI-664 PO; -ATEN-51 PO; -ATOR20TA38 PO; -AZIT250T94 PO; -BACTDS PO; -BENA20TA48 PO; -BISM262O23 PO; -CEPH-443 PO; -CLAR500T39 PO; -HYDR-3011 PO; -HYDR-3498 PO; -HYDR-906 PO; -IBUP-1542 PO; -ISOS20TA19 PO; -LORA-441 PO; -LORA1TAB PO; -MELO-110 PO; -NAPR-260 PO; -OMEP20CA16 PO; -PANT40TA3 PO; -PRED20TA PO; +SIMV10TA PO; +TOLT2TAB13 PO; -TRAM50TA2 PO
--- NOTE | 2017-08-14 15:15 | ERA ---
ER Documentation Chief Complaint Date/Time DATE: 08/14/17 TIME: 15:15 Chief Complaint Weakness HPI The patient is a 72-year-old female, [facility] because of generalized [facility]. She had a near syncopal episode, possible seizure. The patient was not postictal according to the EMS. She has been having abdominal pain and vomiting diarrhea for 1 week, denies hematochezia, denies hematemesis. She denies neck pain, chest pain, dyspnea, dysuria. She does not smoke nor drink. Past medical history: CAD, anxiety, dyslipidemia, hypothyroidism, hypertension Past surgical history: Recent cardiac catheterization, 2 ROS All systems reviewed and are negative except as per history of present illness. Medications Home Meds Active Scripts Tolterodine Tartrate* (Detrol*) 2 Mg Tablet, 2 MG PO BID for 30 Days, #60 TAB Prov:NAOMIE STEEL MD 07/11/17 Levothyroxine Sodium* (Synthroid*) 50 Mcg Tablet, 50 MCG PO DAILY@06 for 30 Days , #30 TAB Prov:NAOMIE STEEL MD 07/11/17 Alprazolam* (Xanax*) 0.5 Mg Tab, 0.5 MG PO Q8H Y for ANXIETY, #20 TAB Prov:SHITAL FERNÁNDEZ MD 03/24/17 Reported Medications Apixaban* (Eliquis*) Unknown Strength Tablet, 1 TAB PO DAILY, TAB 08/14/17 Pantoprazole* (Pantoprazole*) 40 Mg Tablet.dr, 40 MG PO AC BREAKFAST DINNER, TAB 08/14/17 Simvastatin* (Zocor*) Unknown Strength Tablet, 1 TAB PO QHS, #30 TAB 07/09/17 Ferrous Sulfate* (Ferrous Sulfate*) 325 Mg Tabec, 325 MG PO NEEDED, TAB 07/09/17 Carisoprodol* (Carisoprodol*) 350 Mg Tablet, 350 MG PO NEEDED Y for MUSCLE SPASMS, TAB 07/09/17 Benazepril Hcl* (Benazepril Hcl*) 10 Mg Tablet, 10 MG PO DAILY, #30 TAB 09/14/16 Isosorbide Mononitrate* (Isosorbide Mononitrate*) 30 Mg Tab.er.24h, 30 MG PO DAILY, TAB 05/29/16 Nitroglycerin* (Nitrostat*) 0.4 Mg Tab.subl, 0.4 MG SL Q5MIN Y for CHEST PAIN, BOTTLE 05/29/16 Discontinued Scripts Metoprolol Tartrate* (Lopressor*) 25 Mg Tab, 25 MG PO BID for 30 Days, #60 TAB Prov:NAOMIE STEEL MD 07/11/17 Pantoprazole* (Pantoprazole*) 40 Mg Tablet.dr, 40 MG PO BID@06,18 for 30 Days Prov:AGUILA SEN 01/29/17 Aspirin (Aspirin) 81 Mg Chew, 81 MG NGT DAILY for 30 Days, TAB Prov:DOMITILA MURRELL 08/24/16 Allergies Allergies: Coded Allergies: No Known Allergy (Unverified , 08/14/17) PMhx/Soc History of Surgery: Yes (2 c-sections) Anesthesia Reaction: No Hx Neurological Disorder: Yes (Seizure 10/05) Hx Respiratory Disorders: No Hx Cardiac Disorders: Yes (Stent, 2 Heart Attacks, HTN, CHF) Hx Psychiatric Problems: Yes (anxiety, depression ) Hx Miscellaneous Medical Probl: Yes (See EMR for detail. ) Hx Alcohol Use: Yes (Social drinker ) Hx Substance Use: No Hx Tobacco Use: No Physical Exam Vitals Vital Signs Date Time Temp Pulse Resp B/P Pulse Ox O2 Delivery O2 Flow Rate FiO2 08/14/17 18:25 95 91/65 08/14/17 17:07 98.2 94 18 84/56 100 Room Air 08/14/17 15:31 100 20 92/70 100 Room Air 08/14/17 15:27 Nasal Cannula 2 08/14/17 15:16 98.2 102 17 69/41 100 Physical Exam Const: No acute distress.Dehydrated Head: Atraumatic. Eyes: Normal Conjunctiva. ENT: Normal External Ears, Nose and Mouth. Neck: Full range of motion. No meningismus. Resp: Clear to auscultation bilaterally. Cardio: Regular Tachycardic Abd: Soft, non distended, normal bowel sounds, Vague and diffuse abdominal discomfort, no rigidity, rebound, CVA tenderness Skin: No petechiae or rashes. Back: No midline or flank tenderness. Ext: No cyanosis, or edema. Neur: Awake and alert. No focal deficit Psych: Normal Mood and Affect. Result Diagram: 08/14/17 1533 08/14/17 1550 Results 24 hrs Laboratory Tests Test 08/14/17 15:33 08/14/17 15:35 08/14/17 15:50 08/14/17 16:29 White Blood Count 5.610^3/ul Red Blood Count 3.5610^6/ul Hemoglobin 10.8g/dl Hematocrit 32.9% Mean Corpuscular Volume 92.4fl Mean Corpuscular Hemoglobin 30.3pg Mean Corpuscular Hemoglobin Concent 32.8g/dl Red Cell Distribution Width 16.2% Platelet Count 75526^3/UL Mean Platelet Volume 9.1fl Neutrophils % 68.8% Lymphocytes % 20.2% Monocytes % 8.8% Eosinophils % 1.1% Basophils % 0.7% Nucleated Red Blood Cells % 0.0/100WBC Neutrophils # 3.910^3/ul Lymphocytes # 1.110^3/ul Monocytes # 0.510^3/ul Eosinophils # 0.110^3/ul Basophils # 0.010^3/ul Nucleated Red Blood Cells # 0.010^3/ul Prothrombin Time 14.5Sec Prothrombin Time Ratio 1.1 INR International Normalized Ratio 1.13 Activated Partial Thromboplast Time 29.3Sec Ethyl Alcohol Level < 10.0mg/dl Sodium Level 134mmol/L Potassium Level 2.8mmol/L Chloride Level 97mmol/L Carbon Dioxide Level 24mmol/L Anion Gap 16 Blood Urea Nitrogen 7mg/dl Creatinine 1.06mg/dl Glucose Level 113mg/dl Lactic Acid Level 8.9mmol/L Calcium Level 8.0mg/dl Total Bilirubin 0.2mg/dl Direct Bilirubin 0.00mg/dl Indirect Bilirubin 0.2mg/dl Aspartate Amino Transf (AST/SGOT) 83IU/L Alanine Aminotransferase (ALT/SGPT) 26IU/L Alkaline Phosphatase 105IU/L Troponin I 0.026ng/ml Total Protein 5.2g/dl Albumin 2.9g/dl Globulin 2.30g/dl Albumin/Globulin Ratio 1.26 Urine Color YELLOW Urine Clarity CLOUDY Urine pH 6.0 Urine Specific [place] 1.009 Urine Ketones NEGATIVEmg/dL Urine Nitrite NEGATIVEmg/dL Urine Bilirubin NEGATIVEmg/dL Urine Urobilinogen 1+mg/dL Urine Leukocyte Esterase 3+John/ul Urine Microscopic RBC 22/HPF Urine Microscopic WBC 30/HPF Urine Bacteria FEW/HPF Urine Hemoglobin 2+mg/dL Urine Glucose NEGATIVEmg/dL Urine Total Protein 1+mg/dl Urine Opiates Screen Negative Urine Barbiturates Negative Urine Amphetamines Screen Negative Urine Benzodiazepines Screen Positive Urine Cocaine Screen Negative Urine Cannabinoids Negative Test 08/14/17 17:30 Lactic Acid Level 3.4mmol/L Current Medications Medications (Trade) Dose Ordered Sig/Marixa Route PRN Reason Start Time Stop Time Status Last Admin Dose Admin Sodium Chloride 1480 ml 1,480 ml BOLUS OVER 2 HOURS STAT IV* 08/14/17 15:23 08/14/17 15:25 DC 08/14/17 15:29 Potassium Chloride 250 ml @ 62.5 mls/hr ONCE ONCE IVPB 08/14/17 17:00 08/14/17 20:59 Potassium Chloride 20 meq/ Sodium Chloride 110 ml @ 55 mls/hr ONCE ONCE IVPB 08/14/17 21:00 08/14/17 22:59 Vancomycin HCl 250 ml @ 125 mls/hr ONCE IVPB 08/14/17 17:00 08/14/17 18:59 Piperacillin Sod/ Tazobactam Sod 100 ml @ 200 mls/hr ONCE ONCE IVPB 08/14/17 17:00 08/14/17 17:29 DC 08/14/17 17:58 Sodium Chloride (NS) 1,480 ml @ 1,480 mls/hr BOLUS X1 ONCE IV 08/14/17 17:00 08/14/17 17:59 DC 08/14/17 17:33 Lidocaine (Xylocaine 1% (Mpf)) 5 ml ONCE ONCE SC 08/14/17 17:00 08/14/17 17:01 DC Procedures/MDM EKG: Read by emergency physician Rate/Rhythm: Normal Sinus Rhythm 98 beats/min QRS, ST, T-waves: No ST elevation, no T inversion, LAD, Low voltage, RSR prime in V1, inferior Q waves Impression: Abnormal EKG [place] [id number] Radiology Main Line: [phone] DIAGNOSTIC IMAGING REPORT Patient: JOHNSON RICHEY : 1955 Age: 62 Sex: F MR #: [id number] DOS: 08/14/17 1523 Ordering MD: ASIA ROMAN MD Location: E/R Room/Bed: PROCEDURE: XR Chest. CLINICAL INDICATION: Sepsis. TECHNIQUE: Single frontal view. COMPARISON: 07/09/2017. FINDINGS: The lungs are clear. The heart is enlarged. There is calcification in the aorta consistent with atherosclerosis. There is no pleural effusion. There is no pneumothorax. There is an old nonunited fracture of the left distal clavicle. IMPRESSION: 1. Cardiomegaly. 2. Atherosclerosis. 3. Clear lungs. 4. 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 RPTAT: QQ .Leonard Gamble MD, MD Date Time Electronically viewed and signed by .Leonard Gamble MD, MD on 08/14/2017 15:53 .R/ CC: ASIA ROMAN MD [place] [id number] Radiology Main Line: [phone] DIAGNOSTIC IMAGING REPORT Patient: JOHNSON RICHEY : 1955 Age: 62 Sex: F MR #: [id number] DOS: 08/14/17 1538 Ordering MD: ASIA ROMAN MD Location: E/R Room/Bed: PROCEDURE: CT Head without. CLINICAL INDICATION: Syncope. TECHNIQUE: The study was performed utilizing a multi-slice, multidetector CT scanner. Direct spiral 1 mm axial sections were obtained through the head without the use of intravenous contrast material. 1 or more of the following dose reduction techniques were utilized: Automated exposure control, adjustment of the mA and/or kV according to patient's size, iterative reconstruction technique. Coronal and sagittal reformations were obtained. The images were reviewed on a PACS workstation. RADIATION DOSE: CTDIvol: 45.0 mGy DLP: 720.2 mGy-cm COMPARISON: 08/15/2016 FINDINGS: There is no intracranial hemorrhage, extra-axial fluid collection, mass lesion, midline shift or hydrocephalus. There is mild prominence of the cerebral sulci , lateral and third ventricles. There is mild periventricular and subcortical white matter hypodensity. There is mild arteriosclerotic calcification of the parasellar internal carotid arteries. The garcia-white matter differentiation is preserved. The basal cisterns are patent. The midline structures are intact. There is pneumatization of the bilateral petrous apices without evidence of inflammatory changes, normal variant. The orbits, calvarium and extracranial soft tissues are normal in appearance. The visualized paranasal sinuses, mastoid air cells and middle ear cavities are normally aerated. IMPRESSION: 1. No acute intracranial abnormality. No intracranial hemorrhage, extra-axial fluid collection, mass lesion or hydrocephalous. 2. Mild peripheral and central cerebral volume loss. 3. Mild periventricular and subcortical white matter hypodensity, likely related to chronic microangiopathic changes. RPTAT: HGAS .Adarsh Gupta MD, MD Date Time Electronically viewed and signed by .Adarsh Gupta MD, MD on 08/14/2017 16: 09 .S/ CC: ASIA ROMAN MD [place] [address] Radiology Main Line: [phone] DIAGNOSTIC IMAGING REPORT Patient: JOHNSON RICHEY : 1955 Age: 62 Sex: F MR #: [id number] DOS: 08/14/17 1659 Ordering MD: ASIA ROMAN MD Location: E/R Room/Bed: PROCEDURE: CT Abdomen and Pelvis without contrast. CLINICAL INDICATION: Abdominal and pelvic pain. TECHNIQUE: CT scan of the abdomen and pelvis without contrast was performed. Coronal and sagittal reformatted images were obtained from the axial source images. Images were reviewed on a high-resolution PACS workstation. Total exam DLP is 640.04 mGy-cm. CTDIvol is 11.06 mGy. One or more of the following dose reduction techniques were used: Automated exposure control, adjustment of the mA and/or kV according to patient size, use of iterative reconstruction technique. COMPARISON: CT scan of the abdomen and pelvis dated 07/25/2016. FINDINGS: The lung bases are normal. There is no pleural effusion or pericardial effusion. The heart is mildly enlarged. There is calcification of the mitral valve annulus and there is coronary artery calcification. The liver is normal in size and diffusely decreased attenuation consistent with fatty metamorphosis. The gallbladder and bile ducts are normal. The spleen is normal in size. There is no focal splenic lesion. Both adrenals are normal with no enlargement or mass. The pancreas is unremarkable with no mass or evidence of pancreatitis. There is no renal mass or hydronephrosis. There is no renal calculus or ureteral calculus. The abdominal aorta is not dilated. There is calcification in the aorta consistent with atherosclerosis. There is no retroperitoneal lymphadenopathy or mass. There is no pelvic lymphadenopathy or mass. The bladder and distal ureters are normal. The periappendiceal region is unremarkable with no evidence of appendicitis. There is diverticulosis of the sigmoid colon without evidence of diverticulitis. The bowel and mesentery are otherwise normal. There is no free fluid or free gas. There are degenerative changes of the lower lumbar spine. There is no fracture or lytic lesion. IMPRESSION: 1. Mild cardiomegaly. 2. Fatty metamorphosis of the liver, new when compared with the prior study. 3. Calcification of the mitral valve annulus. Coronary artery calcification. 4. Atherosclerosis. 5. Diverticulosis of the sigmoid colon without evidence of diverticulitis. 6. No urinary tract calculus or hydronephrosis. 7. No evidence of appendicitis. 8. Degenerative changes of the lower lumbar spine. RPTAT: QQ .Leonard Gamble MD, Date Time Electronically viewed and signed by .Leonard Gamble MD, on 08/14/2017 17:47 .R/ CC: ASIA ROMAN MD MEDICAL MAKING DECISION: The patient is a 62-year-old female, presenting with acute septic shock, acute dehydration, acute near syncope, acute hypokalemia, acute cystitis. She was treated with normal saline 30 mL/kg IV 2, Zosyn IV, vancomycin IV for acute septic shock and acute dehydration, potassium chloride 60 mEq IV due to acute hypokalemia with good response. Admit MDM: Patient's infectious symptoms have not stabilized and the patient is at risk of rapid decompensation. The patient will be admitted for careful hydration, antibiotic therapy, and infectious source control. Severe Sepsis criteria: Infectious source: UTI End organ damage indicated by: Lactate > 2.0 mmol/L Hypotension (SBP < 90 or >40 mmHG drop or MAP < 65) Sepsis Management: Time of recognition of severe sepsis/septic shock:1700 Within 3 hours of recognition: Blood cultures x 2 before broad-spectrum antibiotics: Yes 30 ml/kg NS bolus completed Initial lactate 8.9 Repeat lactate pending Critical Care: Critical care time 35 minutes excluding billable procedure Emergent fluid management while maintaining close respiratory support. Provision of immediate and broad-spectrum antibiotic therapy. Simultaneous assessment for possible sources in order to direct targeted therapy. Consideration for invasive and chemical support to prevent cardiopulmonary collapse. Septic Shock Assessment: Any lactic acid > 4.0 yes Persistent hypotension (SBP < 90 or 40 mmHg drop, MAP < 65) despite 30 mL/kg IV fluid bolusno Volume Re-assessment for Septic Shock (post 30 ml/kg bolus): Temp98.2, BP91/65, HR95, RR20, Pox100% 2 L Heart regular rate & rhythm Lungs no crackles Skin Warm & dry & pink Cap Refill less than 2 seconds Peripheral pulses radially present Persistent Hypotension Treatment: Comfort care no Central line PICC ordered Vasopressor started NA I considered further perfusion assessment with CVP measurement, SCVO2, bedside ultrasound volume assessment, passive leg raise, trial of further fluid bolus. And proceeded withIVF Departure Diagnosis: Primary Impression: Septic shock Additional Impressions: UTI (urinary tract infection) Near syncope Hypokalemia Anemia Condition: Serious Comments I discussed the findings with the patient. I discussed the patient with the on- call hospitalist Dr. Musa at 6:20 PM. who was made aware of the lab, the treatment, the patient condition. The patient is admitted to telemetry ASIA ROMAN MD Aug 14, 2017 15:15
[2017-08-14] MEDS ORDERED: SODIUM CHLORIDE 0.9% 1L BAG IV* STA (15:23)
--- NOTE | 2017-08-14 15:54 | RADRPT ---
PROCEDURE: XR Chest. CLINICAL INDICATION: Sepsis. TECHNIQUE: Single frontal view. COMPARISON: 07/09/2017. FINDINGS: The lungs are clear. The heart is enlarged. There is calcification in the aorta consistent with atherosclerosis. There is no pleural effusion. There is no pneumothorax. There is an old nonunited fracture of the left distal clavicle. IMPRESSION: 1. Cardiomegaly. 2. Atherosclerosis. 3. Clear lungs. 4. 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 RPTAT: QQ .Leonard Gamble MD, MD Date Time Electronically viewed and signed by .Leonard Gamble MD, MD on 08/14/2017 15:53 .R/
[2017-08-14 15:59] LABS: BASOPHILS % 0.7 % (0.0-2.0); EOSINOPHILS # 0.1 10^3/ul (0.0-0.5); EOSINOPHILS % 1.1 % (0.0-7.0); HEMATOCRIT 32.9 % (37.0-47.0); HEMOGLOBIN 10.8 g/dl (12.0-16.0); LYMPHOCYTES # 1.1 10^3/ul (0.8-2.9); LYMPHOCYTES % 20.2 % (15.0-51.0); MEAN CORPUSCULAR HEMOGLOBIN 30.3 pg (29.0-33.0); MEAN CORPUSCULAR HGB CONC 32.8 g/dl (32.0-37.0); MEAN CORPUSCULAR VOLUME 92.4 fl (82.0-101.0); MEAN PLATELET VOLUME 9.1 fl (7.4-10.4); MONOCYTE # 0.5 10^3/ul (0.3-0.9); MONOCYTES % 8.8 % (0.0-11.0); NEUTROPHIL # 3.9 10^3/ul (1.6-7.5); NEUTROPHILS % 68.8 % (39.0-77.0); PLATELET COUNT 171 10^3/UL (140-415); RED BLOOD COUNT 3.56 10^6/ul (4.20-5.40); RED CELL DISTRIBUTION WIDTH 16.2 % (11.5-14.5); WHITE BLOOD COUNT 5.6 10^3/ul (4.8-10.8)
--- NOTE | 2017-08-14 16:09 | RADRPT ---
PROCEDURE: CT Head without. CLINICAL INDICATION: Syncope. TECHNIQUE: The study was performed utilizing a multi-slice, multidetector CT scanner. Direct spira l 1 mm axial sections were obtained through the head without the use of intravenous contrast materia l. 1 or more of the following dose reduction techniques were utilized: Automated exposure control, adjustment of the mA and/or kV according to patient's size, iterative reconstruction technique. Co alena and sagittal reformations were obtained. The images were reviewed on a PACS workstation. RADIATION DOSE: CTDIvol: 45.0 mGyDLP: 720.2 mGy-cm COMPARISON: 08/15/2016 FINDINGS: There is no intracranial hemorrhage, extra-axial fluid collection, mass lesion, midline shift or hyd rocephalus. There is mild prominence of the cerebral sulci, lateral and third ventricles. There is mild periventricular and subcortical white matter hypodensity. There is mild arteriosclerotic calc ification of the parasellar internal carotid arteries. The garcia-white matter differentiation is pre served. The basal cisterns are patent. The midline structures are intact. There is pneumatization of the bilateral petrous apices without evidence of inflammatory changes, normal variant. The orbit s, calvarium and extracranial soft tissues are normal in appearance. The visualized paranasal sinuse s, mastoid air cells and middle ear cavities are normally aerated. IMPRESSION: 1. No acute intracranial abnormality. No intracranial hemorrhage, extra-axial fluid collection, ma ss lesion or hydrocephalous. 2. Mild peripheral and central cerebral volume loss. 3. Mild periventricular and subcortical white matter hypodensity, likely related to chronic microan giopathic changes. RPTAT: HGAS .Adarsh Gupta MD, MD Date Time Electronically viewed and signed by .Adarsh Gupta MD, MD on 08/14/2017 16:09 .S/
[2017-08-14 16:22] LABS: INR 1.13; PROTIME 14.5 Sec (12.2-14.2); PT RATIO 1.1
[2017-08-14 16:23] LABS: PARTIAL THROMBOPLASTIN TIME 29.3 Sec (25.0-35.0)
[2017-08-14 16:27] LABS: ALBUMIN 2.9 g/dl (3.3-4.9); ALBUMIN/GLOBULIN RATIO 1.26; BILIRUBIN,INDIRECT 0.2 mg/dl (0-1.1); BILIRUBIN,TOTAL 0.2 mg/dl (0.2-1.3); CREATININE 1.06 mg/dl (0.44-1.00); TOTAL PROTEIN 5.2 g/dl (6.1-8.1)
[2017-08-14 16:31] LABS: POTASSIUM 2.8 mmol/L (3.5-5.1)
[2017-08-14 16:38] LABS: TROPONIN-I 0.026 ng/ml (0.00-0.12)
[2017-08-14] MEDS ORDERED: PANT40TA4 PO (16:50)
[2017-08-14] MEDS ORDERED: APIX5TAB PO (16:53)
[2017-08-14 17:00] LABS: ADD UMIC YES; UR ASCORBIC ACID NEGATIVE (NEGATIVE); UR BACTERIA FEW /HPF (NONE SEEN); UR BILIRUBIN (Dip) NEGATIVE (NEGATIVE); UR BLOOD (Dip) 2+ mg/dL (NEGATIVE); UR CLARITY CLOUDY (CLEAR); UR COLOR YELLOW (YELLOW); UR GLUCOSE (Dip) NEGATIVE (NEGATIVE); UR KETONES (Dip) NEGATIVE (NEGATIVE); UR LEUKOCYTE ESTERASE (Dip) 3+ Leu/ul (NEGATIVE); UR NITRITE (Dip) NEGATIVE (NEGATIVE); UR RBC 22 /HPF (0-5); UR SPECIFIC GRAVITY (Dip) 1.009 (1.003-1.030); UR TOTAL PROTEIN (Dip) 1+ mg/dl (NEGATIVE); UR UROBILINOGEN (Dip) 1+ mg/dL (NEGATIVE)
[2017-08-14] MEDS ORDERED: VANCOMYCIN 1 GM (PMX) 250 ML IVPB SCH (17:00)
[2017-08-14] MEDS ORDERED: SOD CHLORIDE 0.9% IV ONE (17:00)
[2017-08-14] MEDS ORDERED: LIDOCAINE 1% (MPF) 5 ML VIAL SC ONE (17:00)
[2017-08-14] MEDS ORDERED: POTASSIUM CHLORIDE 250 ML IVPB ONE (17:00)
[2017-08-14] MEDS ORDERED: PIPER-TAZO 3.375 GM IV (PMX) 100 ML IVPB ONE (17:00)
[2017-08-14 17:07] VITALS: TEMP 98.2
[2017-08-14 17:23] LABS: BARBITURATES Negative (NEGATIVE); BENZODIAZEPINES Positive (NEGATIVE); CANNABINOIDS Negative (NEGATIVE); COCAINE Negative (NEGATIVE); OPIATES Negative (NEGATIVE)
--- NOTE | 2017-08-14 17:48 | RADRPT ---
PROCEDURE: CT Abdomen and Pelvis without contrast. CLINICAL INDICATION: Abdominal and pelvic pain. TECHNIQUE: CT scan of the abdomen and pelvis without contrast was performed. Coronal and sagittal reformatted images were obtained from the axial source images. Images were reviewed on a high[employer] PACS workstation. Total exam DLP is 640.04 mGy-cm. CTDIvol is 11.06 mGy. One or more of the f ollowing dose reduction techniques were used: Automated exposure control, adjustment of the mA and/o r kV according to patient size, use of iterative reconstruction technique. COMPARISON: CT scan of the abdomen and pelvis dated 07/25/2016. FINDINGS: The lung bases are normal. There is no pleural effusion or pericardial effusion. The heart is mildl y enlarged. There is calcification of the mitral valve annulus and there is coronary artery calcific ation. The liver is normal in size and diffusely decreased attenuation consistent with fatty metamorphosis. The gallbladder and bile ducts are normal. The spleen is normal in size. There is no focal splenic lesion. Both adrenals are normal with no enlargement or mass. The pancreas is unremarkable with no mass or evidence of pancreatitis. There is no renal mass or hydronephrosis. There is no renal calculus or ureteral calculus. The abdominal aorta is not dilated. There is calcification in the aorta consistent with atherosclero sis. There is no retroperitoneal lymphadenopathy or mass. There is no pelvic lymphadenopathy or mass. The bladder and distal ureters are normal. The periappendiceal region is unremarkable with no evidence of appendicitis. There is diverticulosis of the sigmoid colon without evidence of diverticulitis. The bowel and mesen bianca are otherwise normal. There is no free fluid or free gas. There are degenerative changes of the lower lumbar spine. There is no fracture or lytic lesion. IMPRESSION: 1. Mild cardiomegaly. 2. Fatty metamorphosis of the liver, new when compared with the prior study. 3. Calcification of the mitral valve annulus. Coronary artery calcification. 4. Atherosclerosis. 5. Diverticulosis of the sigmoid colon without evidence of diverticulitis. 6. No urinary tract calculus or hydronephrosis. 7. No evidence of appendicitis. 8. Degenerative changes of the lower lumbar spine. RPTAT: QQ .Leonard Gamble MD, MD Date Time Electronically viewed and signed by .Leonard Gamble MD, on 08/14/2017 17:47 .R/
[2017-08-14] MEDS ORDERED: POTASSIUM CHLORIDE 20 MEQ in SOD CHLORIDE 0.9% 100 ML IVPB ONE (21:00)
[2017-08-15] VITALS (13 sets, daily range): BP systolic 120–158; BP diastolic 70–99; PULSE 75–102; RESP 17–20; Ht 160 cm; Wt 69.0 kg
[2017-08-15] MEDS ORDERED: ONDANSETRON 4 MG INJ IV PRN (04:00)
[2017-08-15] MEDS ORDERED: HALOPERIDOL 5 MG INJ IV PRN (04:30)
[2017-08-15] MEDS: DEXTROSE 5%-0.9% NACL 1,000 ML IV SCH ×2 (04:51→13:00)
[2017-08-15 07:37] LABS: BASOPHILS % 0.5 % (0.0-2.0); EOSINOPHILS # 0.2 10^3/ul (0.0-0.5); EOSINOPHILS % 4.3 % (0.0-7.0); HEMATOCRIT 31.6 % (37.0-47.0); HEMOGLOBIN 9.8 g/dl (12.0-16.0); LYMPHOCYTES # 1.4 10^3/ul (0.8-2.9); LYMPHOCYTES % 31.5 % (15.0-51.0); MEAN CORPUSCULAR HEMOGLOBIN 29.4 pg (29.0-33.0); MEAN CORPUSCULAR VOLUME 94.9 fl (82.0-101.0); MEAN PLATELET VOLUME 9.4 fl (7.4-10.4); MONOCYTE # 0.4 10^3/ul (0.3-0.9); MONOCYTES % 8.1 % (0.0-11.0); NEUTROPHIL # 2.5 10^3/ul (1.6-7.5); NEUTROPHILS % 55.1 % (39.0-77.0); PLATELET COUNT 124 10^3/UL (140-415); RED BLOOD COUNT 3.33 10^6/ul (4.20-5.40); WHITE BLOOD COUNT 4.4 10^3/ul (4.8-10.8)
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
[2017-08-15 08:18] LABS: IRON 26 ug/dl (35-150)
[2017-08-15 08:27] LABS: TOTAL IRON BINDING CAPACITY 236 ug/dl (241-421)
[2017-08-15 08:40] LABS: ALBUMIN 2.4 g/dl (3.3-4.9); ALBUMIN/GLOBULIN RATIO 0.96; BILIRUBIN,INDIRECT 0.1 mg/dl (0-1.1); BILIRUBIN,TOTAL 0.1 mg/dl (0.2-1.3); CALCIUM 7.4 mg/dl (8.4-10.2); CREATININE 0.87 mg/dl (0.44-1.00); MAGNESIUM 1.3 mg/dl (1.7-2.5); PHOSPHORUS 1.9 mg/dl (2.5-4.9); POTASSIUM 3.3 mmol/L (3.5-5.1); TOTAL PROTEIN 4.9 g/dl (6.1-8.1)
[2017-08-15] MEDS: CEFTRIAXONE 1 GM/50 ML (PMX) 50 ML IVPB SCH ×2 (08:45→21:28)
[2017-08-15] MEDS: HEPARIN 5,000 UNIT/0.5 ML VIAL SC SCH ×2 (08:46→21:00)
[2017-08-15] MEDS: LORAZEPAM 2 MG INJ IV PRN ×3 (11:52→21:30)
[2017-08-15] MEDS: morphine 2 MG INJ IV PRN ×2 (14:07→18:43)
[2017-08-15] MEDS ORDERED: POTASSIUM CHLORIDE (SR) 20 MEQ TAB PO STA (14:43)
--- NOTE | 2017-08-15 14:57 | PN ---
Date/Time of Note Date/Time of Note DATE: 08/15/17 TIME: 14:42 Assessment/Plan VTE Prophylaxis VTE Prophylaxis Intervention: heparin Assessment/Plan Assessment/Plan 1. Syncope due to hypotension 2. Sepsis, improving with IVF and antibiotics 3. UTI, on rocephin 4. Reported dark stool, GI consult 5. Anemia, normocytic, follow up with H/H 6. Hypokalemia, hypomagnesemia, hypophosphatemia, supplement 7. Hypothyroidism, on Synthroid 8. History of seizure, Continue home meds 9. History of anxiety/depression, Antianxiety antidepressant medication 10. DVT prophylaxis: heparin Subjective 24 Hr Interval Summary Free Text/Dictation still dizzy, no BM, epigastric pain Exam/Review of Systems Vital Signs Vitals Vital Signs Date Time Temp Pulse Resp B/P Pulse Ox O2 Delivery O2 Flow Rate FiO2 08/15/17 12:10 92 08/15/17 11:28 98.4 18 129/91 100 08/15/17 05:00 Room Air 08/14/17 15:27 2 Exam Constitutional: alert, oriented, well developed Head: atraumatic, normocephalic Eyes: EOMI, PERRL, nl conjunctiva, nl lids, nl sclera ENMT: nl external ears & nose, nl lips & teeth, nl nasal mucosa & septum Neck: non-tender, supple Respiratory: clear to auscultation, normal air movement, No congested cough, No crackles/rales, No diminished breath sounds, No intercostal retraction, No labored breathing, No other, No respirations, No tactile fremitus, No wheezing Cardiovascular: nl pulses, regular rate and rhythm, No S3, No S4, No bruits, No diastolic murmur, No edema, No gallop, No irregular rhythm, No jugular venous distention (JVD), No murmurs/extra sounds, No other, No rub, No systolic murmur Gastrointestinal: nl liver, spleen, other (mild epigastric tenderness), soft Musculoskeletal: nl extremities to inspection Extremities: normal pulses, No calf tenderness, No clubbing, No cyanosis, No edema, No other, No palpable cord, No pitting pedal edema, No tenderness Neurological: RELAY CHECKER II-XII intact, nl mental status, nl speech, nl strength Skin: nl turgor Lymph: nl lymph nodes Results Result Diagram: 08/15/17 0642 08/15/17 0642 Results 24 hrs Laboratory Tests Test 08/14/17 15:33 08/14/17 15:35 08/14/17 15:50 08/14/17 16:29 White Blood Count 5.6 # Red Blood Count 3.56 L Hemoglobin 10.8 L Hematocrit 32.9 L Mean Corpuscular Volume 92.4 Mean Corpuscular Hemoglobin 30.3 Mean Corpuscular Hemoglobin Concent 32.8 Red Cell Distribution Width 16.2 H Platelet Count 171 # Mean Platelet Volume 9.1 Neutrophils % 68.8 Lymphocytes % 20.2 Monocytes % 8.8 Eosinophils % 1.1 Basophils % 0.7 Nucleated Red Blood Cells % 0.0 Neutrophils # 3.9 Lymphocytes # 1.1 Monocytes # 0.5 Eosinophils # 0.1 Basophils # 0.0 Nucleated Red Blood Cells # 0.0 Prothrombin Time 14.5 H Prothrombin Time Ratio 1.1 INR International Normalized Ratio 1.13 Activated Partial Thromboplast Time 29.3 Ethyl Alcohol Level < 10.0 Sodium Level 134 L Potassium Level 2.8 *L Chloride Level 97 Carbon Dioxide Level 24 Anion Gap 16 Blood Urea Nitrogen 7 Creatinine 1.06 H Glucose Level 113 Lactic Acid Level 8.9 *H Calcium Level 8.0 L Total Bilirubin 0.2 Direct Bilirubin 0.00 Indirect Bilirubin 0.2 Aspartate Amino Transf (AST/SGOT) 83 H Alanine Aminotransferase (ALT/SGPT) 26 Alkaline Phosphatase 105 Troponin I 0.026 Total Protein 5.2 L Albumin 2.9 L Globulin 2.30 Albumin/Globulin Ratio 1.26 Urine Color YELLOW Urine Clarity CLOUDY A Urine pH 6.0 Urine Specific Dewitt 1.009 Urine Ketones NEGATIVE Urine Nitrite NEGATIVE Urine Bilirubin NEGATIVE Urine Urobilinogen 1+ H Urine Leukocyte Esterase 3+ H Urine Microscopic RBC 22 H Urine Microscopic WBC 30 H Urine Bacteria FEW A Urine Hemoglobin 2+ H Urine Glucose NEGATIVE Urine Total Protein 1+ H Urine Opiates Screen Negative Urine Barbiturates Negative Urine Amphetamines Screen Negative Urine Benzodiazepines Screen Positive Urine Cocaine Screen Negative Urine Cannabinoids Negative Test 08/14/17 17:30 08/14/17 19:23 08/15/17 06:42 Lactic Acid Level 3.4 *H 2.3 *H White Blood Count 4.4 #L Red Blood Count 3.33 L Hemoglobin 9.8 L Hematocrit 31.6 L Mean Corpuscular Volume 94.9 Mean Corpuscular Hemoglobin 29.4 Mean Corpuscular Hemoglobin Concent 31.0 L Red Cell Distribution Width 17.0 H Platelet Count 124 #L Mean Platelet Volume 9.4 Neutrophils % 55.1 Lymphocytes % 31.5 Monocytes % 8.1 Eosinophils % 4.3 Basophils % 0.5 Nucleated Red Blood Cells % 0.0 Neutrophils # 2.5 Lymphocytes # 1.4 Monocytes # 0.4 Eosinophils # 0.2 Basophils # 0.0 Nucleated Red Blood Cells # 0.0 Sodium Level 138 Potassium Level 3.3 L Chloride Level 111 H Carbon Dioxide Level 24 Anion Gap 6 #L Blood Urea Nitrogen 5 L Creatinine 0.87 Glucose Level 88 Calcium Level 7.4 L Phosphorus Level 1.9 L Magnesium Level 1.3 L Iron Level 26 L Total Iron Binding Capacity 236 L Percent Iron Saturation 11 L Ferritin 48.9 Total Bilirubin 0.1 L Direct Bilirubin 0.00 Indirect Bilirubin 0.1 Aspartate Amino Transf (AST/SGOT) 48 H Alanine Aminotransferase (ALT/SGPT) 36 Alkaline Phosphatase 95 Total Protein 4.9 L Albumin 2.4 L Globulin 2.50 Albumin/Globulin Ratio 0.96 Thyroid Stimulating Hormone (TSH) 7.160 H Medications Medications Current Medications Dextrose/Sodium Chloride (D5-NS) 1,000 ml @ 100 mls/hr Q10H IV Last administered on 08/15/17 13:00; Admin Dose 100 MLS/HR; Start 08/15/17 at 04:00 Haloperidol (Haldol) 2 mg Q4 PRN IV anxiety; Start 08/15/17 at 04:30 Lorazepam 1 mg 1 mg Q3H PRN IV anxiety Last administered on 08/15/17 11:52; Admin Dose 1 MG; Start 08/15/17 at 04:30 Ceftriaxone Sodium (Rocephin) 50 ml @ 100 mls/hr Q12 IVPB Last administered on 08/15/17 08:45; Admin Dose 100 MLS/HR; Start 08/15/17 at 09:00 Ondansetron HCl (Zofran Inj) 4 mg Q4H PRN IV NAUSEA AND/OR VOMITING; Start at 04:00 Acetaminophen (Tylenol Tab) 650 mg Q6H PRN PO PAIN AND OR ELEVATED TEMP; Start 08/15/17 at 04:00 Morphine Sulfate (morphine) 2 mg Q4H PRN IV PAIN LEVEL 4-7 Last administered on 08/15/17 14:07; Admin Dose 2 MG; Start 08/15/17 at 04:00 Heparin Sodium (Porcine) (Heparin (5000 Units/0.5 ml)) 5,000 unit BID SC Last administered on 08/15/17 08:46; Admin Dose 5,000 UNIT; Start 08/15/17 at 09:00 Influenza Virus Vaccine (Fluzone) 0.5 ml ONCE ONCE IM* ; Start 08/16/17 at 09:00 ; Stop 08/16/17 at 09:01 SHITAL FERNÁNDEZ MD Aug 15, 2017 14:52
[2017-08-15] MEDS ORDERED: MAGNESIUM SULFATE 2 GM/50 ML 50 ML IVPB ONE (15:00)
[2017-08-15] MEDS: NS + KCL 20 MEQ 1,000 ML IV SCH (17:54)
[2017-08-15] MEDS ORDERED: SOD CHLORIDE 0.9% 100 ML ONE (18:48)
--- NOTE | 2017-08-15 19:24 | RADRPT ---
PROCEDURE: XR Chest. CLINICAL INDICATION: Check PICC line position. TECHNIQUE: Single frontal view. COMPARISON: 08/14/2017. FINDINGS: There is a left arm PICC line with the tip in the cavoatrial junction. There is atelectasis at the lung bases, worse than seen previously. The lungs are otherwise clear. The heart is enlarged. There are small bilateral pleural effusions. There is no pneumothorax. There is an old nonunited fracture of the distal left clavicle, unchanged. IMPRESSION: 1. Left arm PICC line tip in satisfactory position. 2. Worse appearance of the lung bases. 3. New small bilateral pleural effusions. 4. No other new abnormality. RPTAT: QQ .Leonard Gamble MD, MD Date Time Electronically viewed and signed by .Leonard Gamble MD, MD on 08/15/2017 19:24 .R/
--- NOTE | 2017-08-15 19:37 | RADRPT ---
PROCEDURE: XR Chest. CLINICAL INDICATION: Check PICC line position. TECHNIQUE: Single frontal view. COMPARISON: Prior study done earlier the same day. FINDINGS: There is a left arm PICC line with the tip in the mid superior vena cava. There is mild atelectasis at the lung bases, unchanged. The heart is enlarged. There are small bilateral pleural effusions. There is no pneumothorax. IMPRESSION: 1. Left arm PICC line tip in the mid superior vena cava. 2. No other change from the prior study done earlier the same day. RPTAT: QQ .Leonard Gamble MD, Date Time Electronically viewed and signed by .Leonard Gamble MD, on 08/15/2017 19:37 .R/
--- NOTE | 2017-08-15 19:37 | RADRPT ---
PROCEDURE: Ultrasound guidance for placement of needle in left upper extremity vein. CLINICAL INDICATION: Venous access. TECHNIQUE: Limited sonography of the left upper extremity was performed. Ultrasound images were recorded and s tored in the patient's medical record. COMPARISON: None. FINDINGS: The ultrasound images demonstrate a patent left upper extremity vein. The PICC line was inserted by the PICC line nurse. IMPRESSION: 1. Ultrasound guidance for a needle placement in a left upper extremity vein. 2. The left upper extremity vein is patent. RPTAT: QQ .Leonard Gamble MD, MD Date Time Electronically viewed and signed by .Leonard Gamble MD, MD on 08/15/2017 19:37 .R/
--- NOTE | 2017-08-15 19:41 | CONS ---
Date/Time of Note Date/Time of Note DATE: 08/15/17 TIME: : Assessment/Plan Assessment/Plan Additional Assessment/Plan Assessment * Elevated lactic acic T/C sepsis * Dark stool(?) R?O lower gi bleed vs upper gi bleed * H/o seizure * H/O depression * H/O colonoscopy 01/2017 diverticulosis Plan * stool occult blood * monitor hemoglobin and hematocrit * continue present managent * case discussed wit Dr Uriostegui * further orders will depend on clinical course Consultation Date/Type/Reason Admit Date/Time Aug 14, 2017 at 18:22 Date of Consultation: Aug 15, 2017 Type of Consultation: Gastroenterology Reason for Consultation black stool Referring Provider: SILVIA HUERTA Hx of Present Illness 62 year old female who presented in te emergency room because of generalized weakness and syncope at the parking lot of a restaurant.Past medical history includes hypothyroidism,seizure,dyslipidemia,CHF,[place] anxiety depression Laboratory workup revealed lactic acid 2,[address] scan showed 1. Mild cardiomegaly. Fatty metamorphosis of the liver, new when compared with the prior study.. Calcification of the mitral valve annulus. Coronary artery calcification.. Atherosclerosis. Diverticulosis of the sigmoid colon without evidence of diverticulitis. No urinary tract calculus or hydronephrosis. No evidence of appendicitis. Degenerative changes of the lower lumbar spine. Patient also complains of black tarry stool but a recent colonoscopy performed which revealed . Diverticulosis.. Minimal internal and external hemorrhoids. I have explained to the patient that we will obtained stool for occult blood and monitor hemoglobin and hematocrit ,Patient agreed with the plan Psychological: confusion Past Medical History Medical History: congestive heart failure, other (di verticulosis) Past Surgical History Past Surgical Hx: other Social History Smoking Status: Never smoker Exam/Review of Systems Vital Signs Vitals Vital Signs Date Time Temp Pulse Resp B/P Pulse Ox O2 Delivery O2 Flow Rate FiO2 08/15/17 16:22 92 08/15/17 15:55 97.8 17 158/99 97 08/15/17 05:00 Room Air 08/14/17 15:27 2 Exam Constitutional: alert, oriented, well developed Psych: nl mood/affect, no complaints Head: atraumatic, normocephalic Eyes: EOMI, PERRL, nl conjunctiva, nl lids, nl sclera ENMT: nl external ears & nose, nl lips & teeth, nl nasal mucosa & septum Neck: non-tender, supple Respiratory: clear to auscultation, normal air movement Cardiovascular: nl pulses, regular rate and rhythm Gastrointestinal: nl liver, spleen, non-tender, soft Musculoskeletal: nl extremities to inspection, nl gait and stance Extremities: normal pulses Neurological: BARK GRINDER II-XII intact, nl mental status, nl speech, nl strength Skin: nl turgor, No rash or lesions Lymph: nl lymph nodes Results Result Diagram: 08/15/17 0642 08/15/17 0642 Results 24 hrs Laboratory Tests Test 08/15/17 06:42 White Blood Count 4.4 #L Red Blood Count 3.33 L Hemoglobin 9.8 L Hematocrit 31.6 L Mean Corpuscular Volume 94.9 Mean Corpuscular Hemoglobin 29.4 Mean Corpuscular Hemoglobin Concent 31.0 L Red Cell Distribution Width 17.0 H Platelet Count 124 #L Mean Platelet Volume 9.4 Neutrophils % 55.1 Lymphocytes % 31.5 Monocytes % 8.1 Eosinophils % 4.3 Basophils % 0.5 Nucleated Red Blood Cells % 0.0 Neutrophils # 2.5 Lymphocytes # 1.4 Monocytes # 0.4 Eosinophils # 0.2 Basophils # 0.0 Nucleated Red Blood Cells # 0.0 Sodium Level 138 Potassium Level 3.3 L Chloride Level 111 H Carbon Dioxide Level 24 Anion Gap 6 #L Blood Urea Nitrogen 5 L Creatinine 0.87 Glucose Level 88 Calcium Level 7.4 L Phosphorus Level 1.9 L Magnesium Level 1.3 L Iron Level 26 L Total Iron Binding Capacity 236 L Percent Iron Saturation 11 L Ferritin 48.9 Total Bilirubin 0.1 L Direct Bilirubin 0.00 Indirect Bilirubin 0.1 Aspartate Amino Transf (AST/SGOT) 48 H Alanine Aminotransferase (ALT/SGPT) 36 Alkaline Phosphatase 95 Total Protein 4.9 L Albumin 2.4 L Globulin 2.50 Albumin/Globulin Ratio 0.96 Thyroid Stimulating Hormone (TSH) 7.160 H Medications Medications Current Medications Haloperidol (Haldol) 2 mg Q4 PRN IV anxiety; Start 08/15/17 at 04:30 Lorazepam 1 mg 1 mg Q3H PRN IV anxiety Last administered on 08/15/17t 16:18; Admin Dose 1 MG; Start 08/15/17 at 04:30 Ceftriaxone Sodium (Rocephin) 50 ml @ 100 mls/hr Q12 IVPB Last administered on 08/15/17 08:45; Admin Dose 100 MLS/HR; Start 08/15/17 at 09:00 Ondansetron HCl (Zofran Inj) 4 mg Q4H PRN IV NAUSEA AND/OR VOMITING; Start at 04:00 Acetaminophen (Tylenol Tab) 650 mg Q6H PRN PO PAIN AND OR ELEVATED TEMP; Start 08/15/17 at 04:00 Morphine Sulfate (morphine) 2 mg Q4H PRN IV PAIN LEVEL 4-7 Last administered on 08/15/17 18:43; Admin Dose 2 MG; Start 08/15/17 at 04:00 Heparin Sodium (Porcine) (Heparin (5000 Units/0.5 ml)) 5,000 unit BID SC Last administered on 08/15/17 08:46; Admin Dose 5,000 UNIT; Start 08/15/17 at 09:00 Influenza Virus Vaccine 0.5 ml 0.5 ml ONCE ONCE IM* ; Start 08/16/17 at 09:00; Stop 08/16/17 at 09:01 Potassium Chloride/Sodium Chloride (NS-KCl 20 Meq) 1,000 ml @ 100 mls/hr Q10H IV Last administered on 08/15/17 17:54; Admin Dose 100 MLS/HR; Start 08/15/17 at 15:00 Sodium Phosphate (Neutra-Phos) 250 mg TID PO ; Start 08/15/17 at 21:00 IV Flush (NS 10 ml) 10 ml PRN PRN IV IV PROTOCOL; Start 08/15/17 at 18:00 RAMILA AVALOS NP Aug 15, 2017 19:37
[2017-08-15] MEDS: NEUTRA-PHOS 250 MG PACKET PO SCH (21:00)
[2017-08-16] VITALS (19 sets, daily range): BP systolic 113–222; BP diastolic 62–138; PULSE 80–102; RESP 14–22
[2017-08-16] MEDS: morphine 2 MG INJ IV PRN ×4 (00:16→20:17)
[2017-08-16] MEDS: LORAZEPAM 2 MG INJ IV PRN (05:18)
[2017-08-16 07:34] LABS: BASOPHILS % 0.6 % (0.0-2.0); EOSINOPHILS # 0.2 10^3/ul (0.0-0.5); EOSINOPHILS % 4.1 % (0.0-7.0); HEMATOCRIT 30.7 % (37.0-47.0); HEMOGLOBIN 9.6 g/dl (12.0-16.0); LYMPHOCYTES % 19.2 % (15.0-51.0); MEAN CORPUSCULAR HEMOGLOBIN 30.1 pg (29.0-33.0); MEAN CORPUSCULAR HGB CONC 31.3 g/dl (32.0-37.0); MEAN CORPUSCULAR VOLUME 96.2 fl (82.0-101.0); MEAN PLATELET VOLUME 9.2 fl (7.4-10.4); MONOCYTE # 0.4 10^3/ul (0.3-0.9); NEUTROPHIL # 3.7 10^3/ul (1.6-7.5); NEUTROPHILS % 68.7 % (39.0-77.0); PLATELET COUNT 101 10^3/UL (140-415); RED BLOOD COUNT 3.19 10^6/ul (4.20-5.40); RED CELL DISTRIBUTION WIDTH 16.9 % (11.5-14.5); WHITE BLOOD COUNT 5.3 10^3/ul (4.8-10.8)
[2017-08-16 07:47] LABS: CALCIUM 7.5 mg/dl (8.4-10.2); CREATININE 0.71 mg/dl (0.44-1.00); MAGNESIUM 1.6 mg/dl (1.7-2.5); PHOSPHORUS 2.8 mg/dl (2.5-4.9)
[2017-08-16] MEDS: NS + KCL 20 MEQ 1,000 ML IV SCH ×3 (08:04→23:05)
[2017-08-16] MEDS ORDERED: INFLUENZA VIRUS VACCINE 0.5 ML (DISPENSING) IM* ONE (09:00)
[2017-08-16] MEDS: NEUTRA-PHOS 250 MG PACKET PO SCH ×3 (09:00→22:59)
[2017-08-16] MEDS: HEPARIN 5,000 UNIT/0.5 ML VIAL SC SCH (09:00)
[2017-08-16] MEDS: CEFTRIAXONE 1 GM/50 ML (PMX) 50 ML IVPB SCH ×2 (09:16→23:01)
[2017-08-16] MEDS ORDERED: MAGNESIUM SULFATE 2 GM/50 ML 50 ML IVPB ONE (11:30)
--- NOTE | 2017-08-16 15:26 | PN ---
Date/Time of Note Date/Time of Note DATE: 08/16/17 TIME: 15:21 Assessment/Plan VTE Prophylaxis VTE Prophylaxis Intervention: heparin Lines/Catheters IV Catheter Type (from Nrs): PICC Line Central line still needed: Yes Assessment/Plan Chief Complaint/Hosp Course Assessment and plan 1. Syncope. Likely secondary to hypotension. CT scan of the head was negative for any acute findings. Cardiac Doppler is pending. Hypotension likely secondary to anemia given history of black tarry stools. GI following. Tentative plan for colonoscopy. Will follow up. 2. Sepsis secondary to UTI. Continue antibiotics. Monitor for clinical improvement. 3. Reported correct stool. GI consult is following. Plan for colonoscopy. Will follow up. 4. Hypothyroidism. Continue on Synthroid 5. History of seizures. Continue antiepileptic medications Disposition and plan: Tentative plan for colonoscopy. We will follow-up Discussed plan of care with Dr. Dawkins Problems: Subjective 24 Hr Interval Summary Free Text/Dictation No specific complaints. No reports of pain at this time Exam/Review of Systems Vital Signs Vitals Vital Signs Date Time Temp Pulse Resp B/P Pulse Ox O2 Delivery O2 Flow Rate FiO2 08/16/17 14:00 98.4 96 20 156/89 96 08/15/17 05:00 Room Air 08/14/17 15:27 2 Intake and Output 08/15/17 08/15/17 08/16/17 15:00 23:00 07:00 Intake Total 650 ml Balance 650 ml Exam Constitutional: alert, oriented Psych: anxiety Respiratory: clear to auscultation, normal air movement Cardiovascular: regular rate and rhythm Gastrointestinal: non-tender, soft Neurological: DICTATING MACHINE TYPIST II-XII intact, nl mental status, nl speech Skin: nl turgor Results Result Diagram: 08/16/17 0659 08/16/17 0659 Results 24 hrs Laboratory Tests Test 08/16/17 06:59 White Blood Count 5.3 # Red Blood Count 3.19 L Hemoglobin 9.6 L Hematocrit 30.7 L Mean Corpuscular Volume 96.2 Mean Corpuscular Hemoglobin 30.1 Mean Corpuscular Hemoglobin Concent 31.3 L Red Cell Distribution Width 16.9 H Platelet Count 101 L Mean Platelet Volume 9.2 Neutrophils % 68.7 Lymphocytes % 19.2 Monocytes % 7.0 Eosinophils % 4.1 Basophils % 0.6 Nucleated Red Blood Cells % 0.0 Neutrophils # 3.7 Lymphocytes # 1.0 Monocytes # 0.4 Eosinophils # 0.2 Basophils # 0.0 Nucleated Red Blood Cells # 0.0 Sodium Level 137 Potassium Level 4.0 Chloride Level 109 Carbon Dioxide Level 25 Anion Gap 7 L Blood Urea Nitrogen 3 L Creatinine 0.71 Glucose Level 86 Calcium Level 7.5 L Phosphorus Level 2.8 Magnesium Level 1.6 L Medications Medications Current Medications Haloperidol (Haldol) 2 mg Q4 PRN IV anxiety; Start 08/15/17 at 04:30 Lorazepam 1 mg 1 mg Q3H PRN IV anxiety Last administered on 08/16/17 05:18; Admin Dose 1 MG; Start 08/15/17 at 04:30 Ceftriaxone Sodium (Rocephin) 50 ml @ 100 mls/hr Q12 IVPB Last administered on 08/16/17 09:16; Admin Dose 100 MLS/HR; Start 08/15/17 at 09:00 Ondansetron HCl (Zofran Inj) 4 mg Q4H PRN IV NAUSEA AND/OR VOMITING; Start at 04:00 Acetaminophen (Tylenol Tab) 650 mg Q6H PRN PO PAIN AND OR ELEVATED TEMP; Start 08/15/17 at 04:00 Morphine Sulfate (morphine) 2 mg Q4H PRN IV PAIN LEVEL 4-7 Last administered on 08/16/17 14:41; Admin Dose 2 MG; Start 08/15/17 at 04:00 Heparin Sodium (Porcine) 5000 unit 5,000 unit BID SC Last administered on 08:46; Admin Dose 5,000 UNIT; Start 08/15/17 at 09:00 Potassium Chloride/Sodium Chloride (NS-KCl 20 Meq) 1,000 ml @ 100 mls/hr Q10H IV Last administered on 08/16/17 08:04; Admin Dose 100 MLS/HR; Start 08/15/17 at 15:00 Sodium Phosphate (Neutra-Phos) 250 mg TID PO ; Start 08/15/17 at 21:00 IV Flush (NS 10 ml) 10 ml PRN PRN IV IV PROTOCOL; Start 08/15/17 at 18:00 JENNIFER PRUITT Aug 16, 2017 15:26
[2017-08-16] MEDS ORDERED: PROPOFOL 40 ML ONE (17:58)
[2017-08-16] MEDS ORDERED: LIDOCAINE 2% (SDV) 5 ML INJ ONE (17:58)
--- NOTE | 2017-08-16 18:16 | OPPN ---
Date/Time of Note Date/Time of Note DATE: 08/16/17 TIME: 18:12 Proc Note GI Procedure Date 08/16/17 Pre-procedure Diagnosis * GI bleeding Post-procedure Diagnosis Depression: * 1.5 cm deep antral gastric ulceration. Benign endoscopic appearance. No stigmata recent bleeding. * Multiple biopsies obtained to rule out CVA, rule out H. pylori infection Plan: * Protonix 40 mg twice daily * Review pathology * Advance diet as tolerated * Follow-up EGD in 8 weeks . Procedure Performed: Endoscopy (With biopsies) Surgeon DONALD ERICKSON MD Malware Analyst none Anesthesia Type: MAC Anesthesiologist: MICHAEL MEYER MD Tourniquet Time none EBL none Transfusion required none Biopsy 1: Gastric ulcer Biopsy 2: Gastric body and antrum/rule out H. pylori infection Grafts/Implants none Tubes/Drains none Complication(s) none Pt Condition post procedure: stable Disposition: PACU Indications: other (GI bleeding) Procedure Description After informed consent, with the patient/relatives understanding the procedure, its indications, potential risks and complications, including but not limited to : allergic reaction, bleeding, perforation or infection, and after all pertinent questions were answered to the patients satisfaction, the patient/ relatives signed witnessed informed consent. Following this, premedication was administered slowly IV push under careful cardiovascular and respiratory monitoring with pulse oximetry, automatic blood pressure, and paper machine backtender. Once the sedative effect was achieved the patient was place in the left lateral decubitus, the panendoscope was introduced and advanced under visual control. Careful examination of the upper gastrointestinal tract, both on insertion as well as withdrawal of the instrument disclosing the following findings: ESOPHAGUS: the mucosa of the entire esophagus was carefully examined and showed the following findings: the mucosa appears within normal limits. There is no evidence of esophagitis, varices, neoplasm, or stricture. No Hiatal Hernia identified. STOMACH: Upon entrance to the stomach air was insufflated, the gastric carty distended normally. The mucosa of the fundus, body and antrum of the stomach was carefully examined both head-on and on retroflexion, and showed the following findings: There is a 1.5 cm deep antral gastric ulceration with a clean base, benign endoscopic appearance, no stigmata recent bleeding. Biopsies were obtained of the edges of the ulcer and also biopsies were obtained in the body and antrum the stomach to rule out H. pylori infection. Otherwise the mucosa appears within normal limits with no abnormalities. There is no evidence of neoplasm. PYLORUS: The pylorus was carefully examined and showed the following findings: the pylorus appears patent and within normal limits, with no evidence of gastric outlet obstruction. DUODENUM: The duodenal mucosa was carefully examined in the duodenal bulb as well as the second portion of the duodenum and showed the following findings: the mucosa appears unremarkable with no evidence of duodenitis, ulcer or neoplasm. Copies To: CC: DONALD ERICKSNO MD, MORDO MD Aug 16, 2017 18:16
[2017-08-16] MEDS ORDERED: LABETALOL HCL 20MG INJ ONE (18:42)
[2017-08-16] MEDS ORDERED: LABETALOL HCL 20MG INJ IV ONE (19:00)
--- NOTE | 2017-08-16 20:55 | RADRPT ---
PROCEDURE: US carotid arteries. CLINICAL INDICATION: Dizziness. Syncope. TECHNIQUE: Multiple sonographic images of the carotid arteries and vertebral arteries were obtaine d utilizing garcia scale, duplex, and color-flow imaging. The images were reviewed on a PACS workstati on. COMPARISON: No prior studies are available for comparison. FINDINGS: Evaluation of the right carotid bifurcation region reveals mild atherosclerotic disease. Evaluation of the left carotid bifurcation region reveals mild atherosclerotic disease. There is antegrade flow within the vertebral arteries bilaterally. RIGHT CAROTID MEASUREMENTS: Common Carotid [id number] (cm/sec) Internal Carotid Artery 43 (cm/sec) External Carotid Artery 42 (cm/sec) Vertebral Artery 37 (cm/sec) Internal Carotid/Common Carotid0.9 LEFT CAROTID MEASUREMENTS: Common Carotid [id number] (cm/sec) Internal Carotid Artery 58 (cm/sec) External Carotid Artery 42 (cm/sec) Vertebral Artery 50 (cm/sec) Internal Carotid/Common Carotid1.3 Validated velocity measurements with angiographic measurements. Velocity criteria are extrapolated f rom diameter data as defined by the Society of Radiologists in Ultrasound Consensus Conference. Radi ology 2003; 229;340-346. This study does indirectly reference the measurement of the distal ICA richa meter as the denominator for stenosis measurement. IMPRESSION: 1. Less than 50% stenosis bilaterally in the internal carotid arteries. 2. Normal antegrade flow in the vertebral arteries bilaterally. RPTAT: QQ SRU Consensus Conference Criteria for the Diagnosis of Carotid Artery Stenosis* Degree of Stenosis, % ICA PSV, cm/sec Plaque Estimate, % ICA/CCA PSV Ratio Normal <125 None <2.0 <50 <125 <50 <2.0 50 69 125-230 >50 2.0-4.0 >70 but less than near occlusion >230 >50 <4.0 Near occlusion High, low, or undetectable Visible Variable Total occlusion Undetectable Visible, no detectable lumen Not applicable *Cartoid artery stenosis: garcia-scale and Doppler US diagnosis. Society of Radiologists in Ultrasound Consensus Conference. Radiology 2003; 229: 340-346 .Leonard Gamble MD, Date Time Electronically viewed and signed by .Leonard Gamble MD, on 08/16/2017 20:55 .R/
[2017-08-16] MEDS ORDERED: CARISOPRODOL 350 MG TAB PO PRN (21:00)
[2017-08-16] MEDS ORDERED: NITROGLYCERIN (SL) 0.4 MG TAB SL PRN (21:00)
[2017-08-16] MEDS: TOLTERODINE 2 MG TAB PO SCH (22:58)
[2017-08-16] MEDS: BENAZEPRIL 10 MG TAB PO SCH (22:58)
[2017-08-16] MEDS: ISOSORBIDE MONONITRATE(SR)30 MG TAB PO SCH (22:59)
[2017-08-16] MEDS: PANTOPRAZOLE 40 MG INJ IV SCH (23:01)
[2017-08-17] VITALS (10 sets, daily range): BP systolic 102–147; BP diastolic 57–89; PULSE 81–95; RESP 16–18
[2017-08-17] MEDS: ALPRAZOLAM 0.5 MG TAB PO PRN ×2 (03:32→22:44)
[2017-08-17] MEDS: LORAZEPAM 2 MG INJ IV PRN ×3 (03:40→22:51)
[2017-08-17] MEDS: LEVOTHYROXINE 50 MCG TAB PO SCH (06:06)
[2017-08-17] MEDS: PANTOPRAZOLE 40 MG INJ IV SCH ×2 (06:06→17:47)
[2017-08-17] MEDS: morphine 2 MG INJ IV PRN ×4 (06:09→20:06)
[2017-08-17 07:56] LABS: ABNORMAL IP MESSAGE 1; BASOPHILS % 0.4 % (0.0-2.0); EOSINOPHILS # 0.3 10^3/ul (0.0-0.5); EOSINOPHILS % 5.5 % (0.0-7.0); HEMATOCRIT 29.8 % (37.0-47.0); HEMOGLOBIN 9.4 g/dl (12.0-16.0); LYMPHOCYTES % 21.6 % (15.0-51.0); MEAN CORPUSCULAR HEMOGLOBIN 30.2 pg (29.0-33.0); MEAN CORPUSCULAR HGB CONC 31.5 g/dl (32.0-37.0); MEAN CORPUSCULAR VOLUME 95.8 fl (82.0-101.0); MONOCYTE # 0.5 10^3/ul (0.3-0.9); MONOCYTES % 9.9 % (0.0-11.0); NEUTROPHILS % 62.2 % (39.0-77.0); PLATELET COUNT 95 10^3/UL (140-415); RED BLOOD COUNT 3.11 10^6/ul (4.20-5.40); RED CELL DISTRIBUTION WIDTH 17.2 % (11.5-14.5); WHITE BLOOD COUNT 4.8 10^3/ul (4.8-10.8)
[2017-08-17 08:02] LABS: POSITIVE DIFF @See below
[2017-08-17 08:16] LABS: CALCIUM 7.8 mg/dl (8.4-10.2); CREATININE 0.84 mg/dl (0.44-1.00); POTASSIUM 4.1 mmol/L (3.5-5.1)
[2017-08-17] MEDS: ACETAMINOPHEN 325 MG TAB PO PRN ×2 (08:43→19:00)
[2017-08-17] MEDS: CEFTRIAXONE 1 GM/50 ML (PMX) 50 ML IVPB SCH (08:43)
[2017-08-17] MEDS: FERROUS SULFATE (EC) 325 MG TAB PO SCH (08:44)
[2017-08-17] MEDS: ISOSORBIDE MONONITRATE(SR)30 MG TAB PO SCH (08:44)
[2017-08-17] MEDS: TOLTERODINE 2 MG TAB PO SCH ×2 (08:44→20:06)
[2017-08-17] MEDS: NEUTRA-PHOS 250 MG PACKET PO SCH ×3 (08:44→20:05)
[2017-08-17] MEDS: BENAZEPRIL 10 MG TAB PO SCH (08:45)
[2017-08-17] MEDS: CIPROFLOXACIN 400MG/D5W 200 ML IVPB SCH ×2 (11:04→20:05)
[2017-08-17] MEDS: FLUTICASONE 0.05% 16 GM NAS SPRAY NASAL SCH ×2 (12:54→20:05)
--- NOTE | 2017-08-17 14:00 | PN ---
Date/Time of Note Date/Time of Note DATE: 08/17/17 TIME: 13:52 Assessment/Plan VTE Prophylaxis VTE Prophylaxis Intervention: SCD's Lines/Catheters IV Catheter Type (from Nrs): Peripheral IV Assessment/Plan Chief Complaint/Hosp Course Assessment and plan 1. Syncope. Likely secondary to hypotension. CT scan of the head was negative for any acute findings. Cardiac Doppler is pending. Hypotension likely secondary to anemia given history of black tarry stools. s/p colonoscopy. follow up results 2. Sepsis secondary to UTI. Continue antibiotics. Monitor for clinical improvement. 3. Reported tarry stool. s/p colonoscopy follow up result. H&H stable 4. Hypothyroidism. Continue on Synthroid 5. History of seizures. Continue antiepileptic medications Disposition and plan: noted unable to ambulate. will get PT to eval. follow up GI recs. continue inpatient monitoring Discussed plan of care with Dr. Dawkins Problems: Subjective 24 Hr Interval Summary Free Text/Dictation comfortable at present. 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-XII 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, nl mental status, nl speech Skin: nl turgor Results Result Diagram: 08/17/17 0629 08/17/17 0629 Results 24 hrs Laboratory Tests Test 08/17/17 06:29 White Blood Count 4.8 Red Blood Count 3.11 L Hemoglobin 9.4 L Hematocrit 29.8 L Mean Corpuscular Volume 95.8 Mean Corpuscular Hemoglobin 30.2 Mean Corpuscular Hemoglobin Concent 31.5 L Red Cell Distribution Width 17.2 H Platelet Count 95 L Mean Platelet Volume 10.0 Neutrophils % 62.2 Lymphocytes % 21.6 Monocytes % 9.9 Eosinophils % 5.5 Basophils % 0.4 Nucleated Red Blood Cells % 0.0 Neutrophils # 3.0 Lymphocytes # 1.0 Monocytes # 0.5 Eosinophils # 0.3 Basophils # 0.0 Nucleated Red Blood Cells # 0.0 Sodium Level 137 Potassium Level 4.1 Chloride Level 107 Carbon Dioxide Level 27 Anion Gap 7 L Blood Urea Nitrogen 5 L Creatinine 0.84 Glucose Level 95 Calcium Level 7.8 L Magnesium Level 1.7 Medications Medications Current Medications Haloperidol (Haldol) 2 mg Q4 PRN IV anxiety; Start 08/15/17 at 04:30 Lorazepam (Ativan) 1 mg Q3H PRN IV anxiety Last administered on 08/17/17 13:17 ; Admin Dose 1 MG; Start 08/15/17 at 04:30 Ondansetron HCl (Zofran Inj) 4 mg Q4H PRN IV NAUSEA AND/OR VOMITING; Start at 04:00 Acetaminophen (Tylenol Tab) 650 mg Q6H PRN PO PAIN AND OR ELEVATED TEMP Last administered on 08/17/17 08:43; Admin Dose 650 MG; Start 08/15/17 at 04:00 Morphine Sulfate (morphine) 2 mg Q4H PRN IV PAIN LEVEL 4-7 Last administered on 08/17/17 10:10; Admin Dose 2 MG; Start 08/15/17 at 04:00 Heparin Sodium (Porcine) (Heparin (5000 Units/0.5 ml)) 5,000 unit BID SC Last administered on 08/15/17 08:46; Admin Dose 5,000 UNIT; Start 08/15/17 at 09:00 ; Status Future Hold Sodium Phosphate (Neutra-Phos) 250 mg TID PO Last administered on 08/17/17 12: 55; Admin Dose 250 MG; Start 08/15/17 at 21:00 IV Flush (NS 10 ml) 10 ml PRN PRN IV IV PROTOCOL; Start 08/15/17 at 18:00 Pantoprazole (Protonix Iv) 40 mg BID@18 IV Last administered on 08/17/17 06 :06; Admin Dose 40 MG; Start 08/16/17 at 20:00 Alprazolam (Xanax) 0.5 mg Q8H PRN PO ANXIETY Last administered on 08/17/17 03: 32; Admin Dose 0.5 MG; Start 08/16/17 at 21:00 Benazepril HCl (Lotensin) 10 mg DAILY PO Last administered on 08/17/17 08:45; Admin Dose 10 MG; Start 08/16/17 at 21:00 Carisoprodol (Soma) 350 mg Q8 PRN PO MUSCLE SPASMS; Start 08/16/17 at 21:00 Ferrous Sulfate (Ferrous Sulfate (Ec)) 325 mg DAILY PO Last administered on 08:44; Admin Dose 325 MG; Start 08/17/17 at 09:00 Isosorbide Mononitrate (Imdur) 30 mg DAILY PO Last administered on 08/17/17 08 :44; Admin Dose 30 MG; Start 08/16/17 at 21:00 Levothyroxine Sodium (Synthroid) 50 mcg DAILY@06 PO Last administered on 06:06; Admin Dose 50 MCG; Start 08/17/17 at 06:00 Nitroglycerin (Nitroglycerin (Sl Tab) 0.4 Mg) 1 tab [id number] PRN SL CHEST PAIN ; Start 08/16/17 at 21:00 Tolterodine Tartrate (Detrol) 2 mg BID PO Last administered on 08/17/17 08:44 ; Admin Dose 2 MG; Start 08/16/17 at 21:00 Atorvastatin Calcium 10 mg 10 mg DAILY@21 PO ; Start 08/17/17 at 21:00 Ciprofloxacin/ Dextrose (Cipro Ivpb) 200 ml @ 200 mls/hr Q12 IVPB Last administered on 08/17/17 11:04; Admin Dose 200 MLS/HR; Start 08/17/17 at 09:30 Fluticasone Propionate (Flonase 0.05% Nasal) 1 spray BID NASAL Last administered on 08/17/17 12:54; Admin Dose 1 SPRAY; Start 08/17/17 at 12:30 JENNIFER PRUITT Aug 17, 2017 14:00
[2017-08-17] MEDS ORDERED: MAGNESIUM OXIDE 400 MG TAB PO ONE (14:30)
[2017-08-17 15:45] LABS: FREE T3 3.88 pg/ml (2.77-5.27)
--- NOTE | 2017-08-17 17:23 | PN ---
Date/Time of Note Date/Time of Note DATE: 08/17/17 TIME: 17:20 Assessment/Plan VTE Prophylaxis VTE Prophylaxis Intervention: SCD's Lines/Catheters IV [facility]): Peripheral IV Assessment/Plan Chief Complaint/Hosp Course Problems: Assessment/Plan Assessment GI bleed EGD 1.5 cm deep antral gastric ulceration. Benign endoscopic appearance. No stigmata recent bleeding. * Multiple biopsies obtained to rule out CVA, rule out H. pylori infection Depression Plan Continue present management case discuss with DR Uriostegui Further orders with DR Uriostegui Subjective 24 Hr Interval Summary Free Text/Dictation course reviewed patient seen and examined EGD * 1.5 cm deep antral gastric ulceration. Benign endoscopic appearance. No stigmata recent bleeding. * Multiple biopsies obtained to rule out CVA, rule out H. pylori infection Exam/Review of Systems Vital Signs Vitals Vital Signs Date Time Temp Pulse Resp B/P Pulse Ox O2 Delivery O2 Flow Rate FiO2 08/17/17 16:00 81 08/17/17 16:00 98.0 18 117/85 99 08/16/17 18:44 Room Air 08/14/17 15:27 2 Intake and Output 08/16/17 08/16/17 08/17/17 15:00 23:00 07:00 Intake Total 1100 ml 1310 ml Output Total 600 ml 100 ml 600 ml Balance 500 ml -100 ml 710 ml Exam Constitutional: alert Neck: non-tender, supple Respiratory: clear to auscultation, normal air movement Cardiovascular: nl pulses, regular rate and rhythm Gastrointestinal: non-tender, soft Musculoskeletal: nl extremities to inspection, nl gait and stance Extremities: normal pulses Results Result Diagram: 08/17/17 0629 08/17/17 0629 Results 24 hrs Laboratory Tests Test 08/17/17 06:29 08/17/17 14:38 White Blood Count 4.8 Red Blood Count 3.11 L Hemoglobin 9.4 L Hematocrit 29.8 L Mean Corpuscular Volume 95.8 Mean Corpuscular Hemoglobin 30.2 Mean Corpuscular Hemoglobin Concent 31.5 L Red Cell Distribution Width 17.2 H Platelet Count 95 L Mean Platelet Volume 10.0 Neutrophils % 62.2 Lymphocytes % 21.6 Monocytes % 9.9 Eosinophils % 5.5 Basophils % 0.4 Nucleated Red Blood Cells % 0.0 Neutrophils # 3.0 Lymphocytes # 1.0 Monocytes # 0.5 Eosinophils # 0.3 Basophils # 0.0 Nucleated Red Blood Cells # 0.0 Sodium Level 137 Potassium Level 4.1 Chloride Level 107 Carbon Dioxide Level 27 Anion Gap 7 L Blood Urea Nitrogen 5 L Creatinine 0.84 Glucose Level 95 Calcium Level 7.8 L Magnesium Level 1.7 Free Thyroxine 1.15 Thyroxine (T4) 7.5 Free Triiodothyronine (T3) pg/mL 3.88 Medications Medications Current Medications Haloperidol (Haldol) 2 mg Q4 PRN IV anxiety; Start 08/15/17 at 04:30 Lorazepam (Ativan) 1 mg Q3H PRN IV anxiety Last administered on 08/17/17 13:17 ; Admin Dose 1 MG; Start 08/15/17 at 04:30 Ondansetron HCl (Zofran Inj) 4 mg Q4H PRN IV NAUSEA AND/OR VOMITING; Start at 04:00 Acetaminophen (Tylenol Tab) 650 mg Q6H PRN PO PAIN AND OR ELEVATED TEMP Last administered on 08/17/17 08:43; Admin Dose 650 MG; Start 08/15/17 at 04:00 Morphine Sulfate (morphine) 2 mg Q4H PRN IV PAIN LEVEL 4-7 Last administered on 08/17/17 15:28; Admin Dose 2 MG; Start 08/15/17 at 04:00 Heparin Sodium (Porcine) (Heparin (5000 Units/0.5 ml)) 5,000 unit BID SC Last administered on 08/15/17 08:46; Admin Dose 5,000 UNIT; Start 08/15/17 at 09:00 ; Status Future Hold Sodium Phosphate (Neutra-Phos) 250 mg TID PO Last administered on 08/17/17 12: 55; Admin Dose 250 MG; Start 08/15/17 at 21:00 IV Flush (NS 10 ml) 10 ml PRN PRN IV IV PROTOCOL; Start 08/15/17 at 18:00 Pantoprazole (Protonix Iv) 40 mg BID@06,18 IV Last administered on 08/17/17 06 :06; Admin Dose 40 MG; Start 08/16/17 at 20:00 Alprazolam (Xanax) 0.5 mg Q8H PRN PO ANXIETY Last administered on 08/17/17 03: 32; Admin Dose 0.5 MG; Start 08/16/17 at 21:00 Benazepril HCl (Lotensin) 10 mg DAILY PO Last administered on 08/17/17 08:45; Admin Dose 10 MG; Start 08/16/17 at 21:00 Carisoprodol (Soma) 350 mg Q8 PRN PO MUSCLE SPASMS; Start 08/16/17 at 21:00 Ferrous Sulfate (Ferrous Sulfate (Ec)) 325 mg DAILY PO Last administered on 08:44; Admin Dose 325 MG; Start 08/17/17 at 09:00 Isosorbide Mononitrate (Imdur) 30 mg DAILY PO Last administered on 08/17/17 08 :44; Admin Dose 30 MG; Start 08/16/17 at 21:00 Levothyroxine Sodium (Synthroid) 50 mcg DAILY@06 PO Last administered on 06:06; Admin Dose 50 MCG; Start 08/17/17 at 06:00 Nitroglycerin (Nitroglycerin (Sl Tab) 0.4 Mg) 1 tab [id number] PRN SL CHEST PAIN ; Start 08/16/17 at 21:00 Tolterodine Tartrate (Detrol) 2 mg BID PO Last administered on 08/17/17 08:44 ; Admin Dose 2 MG; Start 08/16/17 at 21:00 Atorvastatin Calcium 10 mg 10 mg DAILY@21 PO ; Start 08/17/17 at 21:00 Ciprofloxacin/ Dextrose (Cipro Ivpb) 200 ml @ 200 mls/hr Q12 IVPB Last administered on 08/17/17 11:04; Admin Dose 200 MLS/HR; Start 08/17/17 at 09:30 Fluticasone Propionate (Flonase 0.05% Nasal) 1 spray BID NASAL Last administered on 08/17/17 12:54; Admin Dose 1 SPRAY; Start 08/17/17 at 12:30 RAMILA AVALOS NP Aug 17, 2017 17:23
[2017-08-17] MEDS: ATORVASTATIN 10 MG TAB PO SCH (20:05)
[2017-08-18] VITALS (12 sets, daily range): BP systolic 132–185; BP diastolic 76–98; PULSE 80–108; RESP 16–19
[2017-08-18] MEDS: morphine 2 MG INJ IV PRN ×4 (02:01→20:10)
[2017-08-18] MEDS: LORAZEPAM 2 MG INJ IV PRN ×4 (04:43→23:05)
[2017-08-18] MEDS: LEVOTHYROXINE 50 MCG TAB PO SCH (06:27)
[2017-08-18] MEDS: PANTOPRAZOLE 40 MG INJ IV SCH ×2 (06:28→18:00)
[2017-08-18 07:31] LABS: BASOPHILS % 0.4 % (0.0-2.0); EOSINOPHILS # 0.3 10^3/ul (0.0-0.5); EOSINOPHILS % 5.5 % (0.0-7.0); HEMATOCRIT 33.1 % (37.0-47.0); HEMOGLOBIN 10.7 g/dl (12.0-16.0); LYMPHOCYTES % 19.6 % (15.0-51.0); MEAN CORPUSCULAR HEMOGLOBIN 30.7 pg (29.0-33.0); MEAN CORPUSCULAR HGB CONC 32.3 g/dl (32.0-37.0); MEAN CORPUSCULAR VOLUME 95.1 fl (82.0-101.0); MEAN PLATELET VOLUME 9.4 fl (7.4-10.4); MONOCYTE # 0.6 10^3/ul (0.3-0.9); MONOCYTES % 11.6 % (0.0-11.0); NEUTROPHIL # 3.3 10^3/ul (1.6-7.5); NEUTROPHILS % 62.3 % (39.0-77.0); PLATELET COUNT 109 10^3/UL (140-415); RED BLOOD COUNT 3.48 10^6/ul (4.20-5.40); RED CELL DISTRIBUTION WIDTH 17.6 % (11.5-14.5); WHITE BLOOD COUNT 5.3 10^3/ul (4.8-10.8)
[2017-08-18 08:11] LABS: CALCIUM 8.7 mg/dl (8.4-10.2); CREATININE 0.76 mg/dl (0.44-1.00); POTASSIUM 4.1 mmol/L (3.5-5.1)
[2017-08-18] MEDS: CIPROFLOXACIN 400MG/D5W 200 ML IVPB SCH ×2 (08:49→20:10)
[2017-08-18] MEDS: FLUTICASONE 0.05% 16 GM NAS SPRAY NASAL SCH ×2 (08:50→20:11)
[2017-08-18] MEDS: TOLTERODINE 2 MG TAB PO SCH ×2 (08:51→20:10)
[2017-08-18] MEDS: FERROUS SULFATE (EC) 325 MG TAB PO SCH (08:51)
[2017-08-18] MEDS: BENAZEPRIL 10 MG TAB PO SCH (08:51)
[2017-08-18] MEDS: ISOSORBIDE MONONITRATE(SR)30 MG TAB PO SCH (08:52)
[2017-08-18] MEDS: NEUTRA-PHOS 250 MG PACKET PO SCH ×3 (08:52→20:10)
--- NOTE | 2017-08-18 10:46 | PN ---
Date/Time of Note Date/Time of Note DATE: 08/18/17 TIME: 10:39 Assessment/Plan VTE Prophylaxis VTE Prophylaxis Intervention: SCD's Lines/Catheters IV Catheter Type (from Nrs): PICC Line Central line still needed: Yes Assessment/Plan Chief Complaint/Hosp Course Assessment and plan: 62-year-old female with: 1. Syncope. Likely secondary to hypotension. CT scan of the head was negative for any acute findings. Cardiac Doppler is pending. Hypotension likely secondary to anemia given history of black tarry stools. S/p EGD with 1.5 cm deep antral gastric ulceration found. -Continue PPI, follow-up GI results -For repeat EGD in 8 weeks per GI recommendations 2. Sepsis secondary to UTI. Urine culture shows greater than 100,000 E. coli colony-forming units - continue current antibiotics. Monitor for clinical improvement. 3. Reported tarry stool. s/p EGD, unclear if colonoscopy will be performed as well, follow up result. H&H stable 4. Hypothyroidism. Continue on Synthroid 5. History of seizures. Continue antiepileptic medications Disposition and plan: Follow-up PT to eval. follow up GI recs. continue inpatient monitoring Problems: Subjective 24 Hr Interval Summary Free Text/Dictation Patient had EGD performed yesterday with 1.5 cm deep antral gastric ulceration found. 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, nl mental status, nl speech Skin: nl turgor Results Result Diagram: 08/18/17 0656 08/18/17 0655 Results 24 hrs Laboratory Tests Test 08/17/17 14:38 08/18/17 06:55 08/18/17 06:56 Free Thyroxine 1.15 Thyroxine (T4) 7.5 Free Triiodothyronine (T3) pg/mL 3.88 Sodium Level 135 Potassium Level 4.1 Chloride Level 102 Carbon Dioxide Level 31 Anion Gap 6 L Blood Urea Nitrogen 4 L Creatinine 0.76 Glucose Level 97 Calcium Level 8.7 White Blood Count 5.3 Red Blood Count 3.48 L Hemoglobin 10.7 L Hematocrit 33.1 L Mean Corpuscular Volume 95.1 Mean Corpuscular Hemoglobin 30.7 Mean Corpuscular Hemoglobin Concent 32.3 Red Cell Distribution Width 17.6 H Platelet Count 109 L Mean Platelet Volume 9.4 Neutrophils % 62.3 Lymphocytes % 19.6 Monocytes % 11.6 H Eosinophils % 5.5 Basophils % 0.4 Nucleated Red Blood Cells % 0.0 Neutrophils # 3.3 Lymphocytes # 1.0 Monocytes # 0.6 Eosinophils # 0.3 Basophils # 0.0 Nucleated Red Blood Cells # 0.0 Medications Medications Current Medications Haloperidol (Haldol) 2 mg Q4 PRN IV anxiety; Start 08/15/17 at 04:30 Lorazepam (Ativan) 1 mg Q3H PRN IV anxiety Last administered on 08/18/17 04:43 ; Admin Dose 1 MG; Start 08/15/17 at 04:30 Ondansetron HCl (Zofran Inj) 4 mg Q4H PRN IV NAUSEA AND/OR VOMITING; Start at 04:00 Acetaminophen (Tylenol Tab) 650 mg Q6H PRN PO PAIN AND OR ELEVATED TEMP Last administered on 08/17/17 19:00; Admin Dose 650 MG; Start 08/15/17 at 04:00 Morphine Sulfate (morphine) 2 mg Q4H PRN IV PAIN LEVEL 4-7 Last administered on 08/18/17 08:57; Admin Dose 2 MG; Start 08/15/17 at 04:00 Heparin Sodium (Porcine) (Heparin (5000 Units/0.5 ml)) 5,000 unit BID SC Last administered on 08/15/17 08:46; Admin Dose 5,000 UNIT; Start 08/15/17 at 09:00 ; Status Future Hold Sodium Phosphate (Neutra-Phos) 250 mg TID PO Last administered on 08/18/17 08: 52; Admin Dose 250 MG; Start 08/15/17 at 21:00 IV Flush (NS 10 ml) 10 ml PRN PRN IV IV PROTOCOL; Start 08/15/17 at 18:00 Pantoprazole (Protonix Iv) 40 mg BID@06,18 IV Last administered on 08/18/17 06 :28; Admin Dose 40 MG; Start 08/16/17 at 20:00 Alprazolam (Xanax) 0.5 mg Q8H PRN PO ANXIETY Last administered on 08/17/17 22: 44; Admin Dose 0.5 MG; Start 08/16/17 at 21:00 Benazepril HCl (Lotensin) 10 mg DAILY PO Last administered on 08/18/17 08:51; Admin Dose 10 MG; Start 08/16/17 at 21:00 Carisoprodol (Soma) 350 mg Q8 PRN PO MUSCLE SPASMS; Start 08/16/17 at 21:00 Ferrous Sulfate (Ferrous Sulfate (Ec)) 325 mg DAILY PO Last administered on 08:51; Admin Dose 325 MG; Start 08/17/17 at 09:00 Isosorbide Mononitrate (Imdur) 30 mg DAILY PO Last administered on 08/18/17 08 :52; Admin Dose 30 MG; Start 08/16/17 at 21:00 Levothyroxine Sodium (Synthroid) 50 mcg DAILY@06 PO Last administered on 06:27; Admin Dose 50 MCG; Start 08/17/17 at 06:00 Nitroglycerin (Nitroglycerin (Sl Tab) 0.4 Mg) 1 tab [id number] PRN SL CHEST PAIN ; Start 08/16/17 at 21:00 Tolterodine Tartrate (Detrol) 2 mg BID PO Last administered on 08/18/17 08:51 ; Admin Dose 2 MG; Start 08/16/17 at 21:00 Atorvastatin Calcium 10 mg 10 mg DAILY@21 PO Last administered on 08/17/17 20: 05; Admin Dose 10 MG; Start 08/17/17 at 21:00 Ciprofloxacin/ Dextrose (Cipro Ivpb) 200 ml @ 200 mls/hr Q12 IVPB Last administered on 08/18/17 08:49; Admin Dose 200 MLS/HR; Start 08/17/17 at 09:30 Fluticasone Propionate (Flonase 0.05% Nasal) 1 spray BID NASAL Last administered on 08/18/17t 08:50; Admin Dose 1 SPRAY; Start 08/17/17 at 12:30 SILVIA HUERTA Aug 18, 2017 10:46
[2017-08-18] MEDS: ALPRAZOLAM 0.5 MG TAB PO PRN (16:40)
--- NOTE | 2017-08-18 17:27 | PN ---
Date/Time of Note Date/Time of Note DATE: 08/18/17 TIME: 17:22 Assessment/Plan VTE Prophylaxis VTE Prophylaxis Intervention: SCD's Lines/Catheters IV Catheter Type (from Nrs): PICC Line Central line still needed: Yes Assessment/Plan Chief Complaint/Hosp Course Problems: Assessment/Plan Assessment GI bleed EGD 1.5 cm deep antral gastric ulceration. Benign endoscopic appearance. No stigmata recent bleeding. * Multiple biopsies obtained to rule out CVA, rule out H. pylori infection Depression Plan will sign off will follow up as needed Continue present management case discuss with DR Uriostegui Subjective 24 Hr Interval Summary Free Text/Dictation * course reviewed * patient seen and examined * EGD 1.5 cm deep antral gastric ulceration. Benign endoscopic appearance. No stigmata recent bleeding. * Multiple biopsies obtained to rule out CVA, rule out H. pylori infection * Biopsy A-Gastric biopsies: -- Gastric mucosa with no significant histopathological features. -- No Helicobacter pylori organisms identified. B-Gastric body and antrum, biopsies: -- Gastric antral type mucosa with mild superficial chronic gastritis. -- Gastric body type mucosa with no significant histopathological features. -- A Giemsa stain with an appropriate control, is negative for Helicobacter pylori organisms. -- No dysplasia or intestinal metaplasia is identified. Exam/Review of Systems Vital Signs Vitals Vital Signs Date Time Temp Pulse Resp B/P Pulse Ox O2 Delivery O2 Flow Rate FiO2 08/18/17 16:31 89 08/18/17 15:28 98.2 19 132/93 98 08/16/17 18:44 Room Air 08/14/17 15:27 2 Intake and Output 08/17/17 08/17/17 08/18/17 15:00 23:00 07:00 Intake Total 300 ml Balance 300 ml Exam Constitutional: alert, oriented Neck: non-tender, supple Respiratory: clear to auscultation, normal air movement Cardiovascular: regular rate and rhythm Gastrointestinal: non-tender, soft Musculoskeletal: nl extremities to inspection, nl gait and stance Neurological: nl speech, nl strength Skin: nl turgor, No rash or lesions Lymph: nl lymph nodes Results Result Diagram: 08/18/17 0656 08/18/17 0655 Results 24 hrs Laboratory Tests Test 08/18/17 06:55 08/18/17 06:56 Sodium Level 135 Potassium Level 4.1 Chloride Level 102 Carbon Dioxide Level 31 Anion Gap 6 L Blood Urea Nitrogen 4 L Creatinine 0.76 Glucose Level 97 Calcium Level 8.7 White Blood Count 5.3 Red Blood Count 3.48 L Hemoglobin 10.7 L Hematocrit 33.1 L Mean Corpuscular Volume 95.1 Mean Corpuscular Hemoglobin 30.7 Mean Corpuscular Hemoglobin Concent 32.3 Red Cell Distribution Width 17.6 H Platelet Count 109 L Mean Platelet Volume 9.4 Neutrophils % 62.3 Lymphocytes % 19.6 Monocytes % 11.6 H Eosinophils % 5.5 Basophils % 0.4 Nucleated Red Blood Cells % 0.0 Neutrophils # 3.3 Lymphocytes # 1.0 Monocytes # 0.6 Eosinophils # 0.3 Basophils # 0.0 Nucleated Red Blood Cells # 0.0 Medications Medications Current Medications Haloperidol (Haldol) 2 mg Q4 PRN IV anxiety; Start 08/15/17 at 04:30 Lorazepam (Ativan) 1 mg Q3H PRN IV anxiety Last administered on 08/18/17 16:48 ; Admin Dose 1 MG; Start 08/15/17 at 04:30 Ondansetron HCl (Zofran Inj) 4 mg Q4H PRN IV NAUSEA AND/OR VOMITING; Start at 04:00 Acetaminophen (Tylenol Tab) 650 mg Q6H PRN PO PAIN AND OR ELEVATED TEMP Last administered on 08/17/17 19:00; Admin Dose 650 MG; Start 08/15/17 at 04:00 Morphine Sulfate (morphine) 2 mg Q4H PRN IV PAIN LEVEL 4-7 Last administered on 08/18/17 14:01; Admin Dose 2 MG; Start 08/15/17 at 04:00 Heparin Sodium (Porcine) (Heparin (5000 Units/0.5 ml)) 5,000 unit BID SC Last administered on 08/15/17 08:46; Admin Dose 5,000 UNIT; Start 08/15/17 at 09:00 ; Status Future Hold Sodium Phosphate (Neutra-Phos) 250 mg TID PO Last administered on 08/18/17 14: 00; Admin Dose 250 MG; Start 08/15/17 at 21:00 IV Flush (NS 10 ml) 10 ml PRN PRN IV IV PROTOCOL; Start 08/15/17 at 18:00 Pantoprazole (Protonix Iv) 40 mg BID@ IV Last administered on 08/18/17 06 :28; Admin Dose 40 MG; Start 08/16/17 at 20:00 Alprazolam (Xanax) 0.5 mg Q8H PRN PO ANXIETY Last administered on 08/17/17 22: 44; Admin Dose 0.5 MG; Start 08/16/17 at 21:00 Benazepril HCl (Lotensin) 10 mg DAILY PO Last administered on 08/18/17 08:51; Admin Dose 10 MG; Start 08/16/17 at 21:00 Carisoprodol (Soma) 350 mg Q8 PRN PO MUSCLE SPASMS; Start 08/16/17 at 21:00 Ferrous Sulfate (Ferrous Sulfate (Ec)) 325 mg DAILY PO Last administered on 08:51; Admin Dose 325 MG; Start 08/17/17 at 09:00 Isosorbide Mononitrate (Imdur) 30 mg DAILY PO Last administered on 08/18/17 08 :52; Admin Dose 30 MG; Start 08/16/17 at 21:00 Levothyroxine Sodium (Synthroid) 50 mcg DAILY@06 PO Last administered on 06:27; Admin Dose 50 MCG; Start 08/17/17 at 06:00 Nitroglycerin (Nitroglycerin (Sl Tab) 0.4 Mg) 1 tab [id number] PRN SL CHEST PAIN ; Start 08/16/17 at 21:00 Tolterodine Tartrate (Detrol) 2 mg BID PO Last administered on 08/18/17 08:51 ; Admin Dose 2 MG; Start 08/16/17 at 21:00 Atorvastatin Calcium 10 mg 10 mg DAILY@21 PO Last administered on 08/17/17 20: 05; Admin Dose 10 MG; Start 08/17/17 at 21:00 Ciprofloxacin/ Dextrose (Cipro Ivpb) 200 ml @ 200 mls/hr Q12 IVPB Last administered on 08/18/17 08:49; Admin Dose 200 MLS/HR; Start 08/17/17 at 09:30 Fluticasone Propionate (Flonase 0.05% Nasal) 1 spray BID NASAL Last administered on 08/18/17 08:50; Admin Dose 1 SPRAY; Start 08/17/17 at 12:30 RAMILA AVALOS NP Aug 18, 2017 17:27
[2017-08-18] MEDS: ATORVASTATIN 10 MG TAB PO SCH (20:10)
[2017-08-19] VITALS (11 sets, daily range): BP systolic 117–171; BP diastolic 68–94; PULSE 75–97; RESP 18–20
[2017-08-19] MEDS: morphine 2 MG INJ IV PRN ×2 (04:30→16:08)
[2017-08-19] MEDS: LORAZEPAM 2 MG INJ IV PRN ×4 (06:13→21:19)
[2017-08-19] MEDS: LEVOTHYROXINE 50 MCG TAB PO SCH (06:13)
[2017-08-19] MEDS: PANTOPRAZOLE 40 MG INJ IV SCH ×2 (06:13→17:02)
[2017-08-19 08:09] LABS: BASOPHILS % 0.5 % (0.0-2.0); EOSINOPHILS # 0.2 10^3/ul (0.0-0.5); EOSINOPHILS % 3.7 % (0.0-7.0); HEMATOCRIT 32.5 % (37.0-47.0); HEMOGLOBIN 10.6 g/dl (12.0-16.0); LYMPHOCYTES # 1.2 10^3/ul (0.8-2.9); LYMPHOCYTES % 20.8 % (15.0-51.0); MEAN CORPUSCULAR HEMOGLOBIN 31.1 pg (29.0-33.0); MEAN CORPUSCULAR HGB CONC 32.6 g/dl (32.0-37.0); MEAN CORPUSCULAR VOLUME 95.3 fl (82.0-101.0); MEAN PLATELET VOLUME 9.3 fl (7.4-10.4); MONOCYTE # 0.7 10^3/ul (0.3-0.9); MONOCYTES % 12.2 % (0.0-11.0); NEUTROPHIL # 3.7 10^3/ul (1.6-7.5); NEUTROPHILS % 62.3 % (39.0-77.0); PLATELET COUNT 151 10^3/UL (140-415); RED BLOOD COUNT 3.41 10^6/ul (4.20-5.40); RED CELL DISTRIBUTION WIDTH 17.9 % (11.5-14.5)
[2017-08-19] MEDS: FLUTICASONE 0.05% 16 GM NAS SPRAY NASAL SCH ×2 (08:20→21:18)
[2017-08-19] MEDS: TOLTERODINE 2 MG TAB PO SCH ×2 (08:21→21:19)
[2017-08-19] MEDS: BENAZEPRIL 10 MG TAB PO SCH (08:21)
[2017-08-19] MEDS: FERROUS SULFATE (EC) 325 MG TAB PO SCH (08:21)
[2017-08-19] MEDS: NEUTRA-PHOS 250 MG PACKET PO SCH ×3 (08:21→21:19)
[2017-08-19] MEDS: ISOSORBIDE MONONITRATE(SR)30 MG TAB PO SCH (08:21)
[2017-08-19] MEDS: CIPROFLOXACIN 400MG/D5W 200 ML IVPB SCH ×2 (08:22→21:18)
[2017-08-19 08:29] LABS: CALCIUM 8.5 mg/dl (8.4-10.2); CREATININE 0.84 mg/dl (0.44-1.00)
[2017-08-19] MEDS: ACETAMINOPHEN 325 MG TAB PO PRN (15:22)
[2017-08-19] MEDS: ATORVASTATIN 10 MG TAB PO SCH (21:19)
[2017-08-20] VITALS (12 sets, daily range): BP systolic 135–160; BP diastolic 68–93; PULSE 75–85; RESP 18–20
[2017-08-20] MEDS: morphine 2 MG INJ IV PRN ×3 (01:35→18:45)
[2017-08-20] MEDS: PANTOPRAZOLE 40 MG INJ IV SCH ×2 (05:46→18:44)
[2017-08-20] MEDS: LORAZEPAM 2 MG INJ IV PRN ×4 (05:46→21:06)
[2017-08-20] MEDS: LEVOTHYROXINE 50 MCG TAB PO SCH (05:46)
[2017-08-20 06:59] LABS: BASOPHILS % 0.7 % (0.0-2.0); EOSINOPHILS # 0.2 10^3/ul (0.0-0.5); EOSINOPHILS % 4.4 % (0.0-7.0); HEMATOCRIT 33.4 % (37.0-47.0); HEMOGLOBIN 10.3 g/dl (12.0-16.0); LYMPHOCYTES # 1.3 10^3/ul (0.8-2.9); LYMPHOCYTES % 24.3 % (15.0-51.0); MEAN CORPUSCULAR HEMOGLOBIN 29.8 pg (29.0-33.0); MEAN CORPUSCULAR HGB CONC 30.8 g/dl (32.0-37.0); MEAN CORPUSCULAR VOLUME 96.5 fl (82.0-101.0); MEAN PLATELET VOLUME 9.3 fl (7.4-10.4); MONOCYTE # 0.8 10^3/ul (0.3-0.9); MONOCYTES % 15.5 % (0.0-11.0); NEUTROPHILS % 54.5 % (39.0-77.0); PLATELET COUNT 177 10^3/UL (140-415); RED BLOOD COUNT 3.46 10^6/ul (4.20-5.40); RED CELL DISTRIBUTION WIDTH 18.2 % (11.5-14.5); WHITE BLOOD COUNT 5.4 10^3/ul (4.8-10.8)
[2017-08-20 07:22] LABS: CALCIUM 8.6 mg/dl (8.4-10.2); CREATININE 0.79 mg/dl (0.44-1.00); POTASSIUM 3.9 mmol/L (3.5-5.1)
[2017-08-20] MEDS: NEUTRA-PHOS 250 MG PACKET PO SCH ×3 (09:20→21:06)
[2017-08-20] MEDS: TOLTERODINE 2 MG TAB PO SCH ×2 (09:20→21:06)
[2017-08-20] MEDS: ISOSORBIDE MONONITRATE(SR)30 MG TAB PO SCH (09:21)
[2017-08-20] MEDS: BENAZEPRIL 10 MG TAB PO SCH (09:21)
[2017-08-20] MEDS: FERROUS SULFATE (EC) 325 MG TAB PO SCH (09:21)
[2017-08-20] MEDS: CIPROFLOXACIN 400MG/D5W 200 ML IVPB SCH ×2 (09:22→21:05)
[2017-08-20] MEDS: FLUTICASONE 0.05% 16 GM NAS SPRAY NASAL SCH ×2 (09:22→21:05)
[2017-08-20] MEDS ORDERED: hydrALAzine 20 MG INJ IV PRN (11:30)
--- NOTE | 2017-08-20 12:11 | PN ---
Date/Time of Note Date/Time of Note LATE ENTRY DATE: 08/19/17 Assessment/Plan VTE Prophylaxis VTE Prophylaxis Intervention: SCD's Lines/Catheters IV Catheter Type (from Nrsg): PICC Line Central line still needed: Yes Assessment/Plan Chief Complaint/Hosp Course Assessment and plan 1. Syncope. Likely secondary to hypotension. CT scan of the head was negative for any acute findings. Hypotension likely secondary to anemia given history of black tarry stools. s/p colonoscopy. follow up results 2. Sepsis secondary to UTI. Continue antibiotics. Monitor for clinical improvement. 3. Reported tarry stool. h&h STABLE. will monitor 4. Hypothyroidism. Continue on Synthroid 5. History of seizures. Continue antiepileptic medications Disposition and plan: Patient cleared by physical therapy. Still reports unable to care for self at home. Will get case management involved to see for possible placement. Discussed plan of care with Dr. Dawkins Problems: Subjective 24 Hr Interval Summary Free Text/Dictation No signs or symptoms of distress. RN at bedside. Exam/Review of Systems Vital Signs Vitals Vital Signs Date Time Temp Pulse Resp B/P Pulse Ox O2 Delivery O2 Flow Rate FiO2 08/20/17 11:26 98.7 82 18 139/87 97 08/19/17 16:00 Room Air Intake and Output 08/19/17 08/19/17 08/20/17 15:00 23:00 07:00 Intake Total 200 ml 1680 ml Balance 200 ml 1680 ml Exam Constitutional: alert, oriented Psych: anxiety Head: normocephalic Neck: supple Respiratory: clear to auscultation Cardiovascular: regular rate and rhythm Gastrointestinal: soft, tender (less) Neurological: ZONING TECHNICIAN II-XII intact, nl mental status, nl speech Skin: nl turgor Results Result Diagram: 08/20/17 0604 08/20/17 0604 Results 24 hrs Laboratory Tests Test 08/20/17 06:04 White Blood Count 5.4 Red Blood Count 3.46 L Hemoglobin 10.3 L Hematocrit 33.4 L Mean Corpuscular Volume 96.5 Mean Corpuscular Hemoglobin 29.8 Mean Corpuscular Hemoglobin Concent 30.8 L Red Cell Distribution Width 18.2 H Platelet Count 177 Mean Platelet Volume 9.3 Neutrophils % 54.5 Lymphocytes % 24.3 Monocytes % 15.5 H Eosinophils % 4.4 Basophils % 0.7 Nucleated Red Blood Cells % 0.0 Neutrophils # 3.0 Lymphocytes # 1.3 Monocytes # 0.8 Eosinophils # 0.2 Basophils # 0.0 Nucleated Red Blood Cells # 0.0 Sodium Level 136 Potassium Level 3.9 Chloride Level 105 Carbon Dioxide Level 28 Anion Gap 7 L Blood Urea Nitrogen 6 L Creatinine 0.79 Glucose Level 93 Calcium Level 8.6 Medications Medications Current Medications Haloperidol (Haldol) 2 mg Q4 PRN IV anxiety; Start 08/15/17 at 04:30 Lorazepam (Ativan) 1 mg Q3H PRN IV anxiety Last administered on 08/20/17 09:58 ; Admin Dose 1 MG; Start 08/15/17 at 04:30 Ondansetron HCl (Zofran Inj) 4 mg Q4H PRN IV NAUSEA AND/OR VOMITING; Start at 04:00 Acetaminophen (Tylenol Tab) 650 mg Q6H PRN PO PAIN AND OR ELEVATED TEMP Last administered on 08/19/17 15:22; Admin Dose 650 MG; Start 08/15/17 at 04:00 Morphine Sulfate (morphine) 2 mg Q4H PRN IV PAIN LEVEL 4-7 Last administered on 08/20/17 12:07; Admin Dose 2 MG; Start 08/15/17 at 04:00 Heparin Sodium (Porcine) (Heparin (5000 Units/0.5 ml)) 5,000 unit BID SC Last administered on 08/15/17 08:46; Admin Dose 5,000 UNIT; Start 08/15/17 at 09:00 ; Status Future Hold Sodium Phosphate (Neutra-Phos) 250 mg TID PO Last administered on 08/20/17 09: 20; Admin Dose 250 MG; Start 08/15/17 at 21:00 IV Flush (NS 10 ml) 10 ml PRN PRN IV IV PROTOCOL; Start 08/15/17 at 18:00 Pantoprazole (Protonix Iv) 40 mg BID@,18 IV Last administered on 08/20/17 05 :46; Admin Dose 40 MG; Start 08/16/17 at 20:00 Alprazolam (Xanax) 0.5 mg Q8H PRN PO ANXIETY Last administered on 08/17/17 22: 44; Admin Dose 0.5 MG; Start 08/16/17 at 21:00 Benazepril HCl (Lotensin) 10 mg DAILY PO Last administered on 08/20/17 09:21; Admin Dose 10 MG; Start 08/16/17 at 21:00 Carisoprodol (Soma) 350 mg Q8 PRN PO MUSCLE SPASMS; Start 08/16/17 at 21:00 Ferrous Sulfate (Ferrous Sulfate (Ec)) 325 mg DAILY PO Last administered on 09:21; Admin Dose 325 MG; Start 08/17/17 at 09:00 Isosorbide Mononitrate (Imdur) 30 mg DAILY PO Last administered on 08/20/17 09 :21; Admin Dose 30 MG; Start 08/16/17 at 21:00 Levothyroxine Sodium (Synthroid) 50 mcg DAILY@06 PO Last administered on 05:46; Admin Dose 50 MCG; Start 08/17/17 at 06:00 Nitroglycerin (Nitroglycerin (Sl Tab) 0.4 Mg) 1 tab [id number] PRN SL CHEST PAIN ; Start 08/16/17 at 21:00 Tolterodine Tartrate (Detrol) 2 mg BID PO Last administered on 08/20/17 09:20 ; Admin Dose 2 MG; Start 08/16/17 at 21:00 Atorvastatin Calcium 10 mg 10 mg DAILY@21 PO Last administered on 08/19/17 21: 19; Admin Dose 10 MG; Start 08/17/17 at 21:00 Ciprofloxacin/ Dextrose (Cipro Ivpb) 200 ml @ 200 mls/hr Q12 IVPB Last administered on 08/20/17 09:22; Admin Dose 200 MLS/HR; Start 08/17/17 at 09:30 Fluticasone Propionate (Flonase 0.05% Nasal) 1 spray BID NASAL Last administered on 08/20/17 09:22; Admin Dose 1 SPRAY; Start 08/17/17 at 12:30 Hydralazine HCl (Apresoline) 10 mg Q4H PRN IV sbp>160; Start 08/20/17 at 11:30 JENNIFER PRUITT Aug 20, 2017 12:11
--- NOTE | 2017-08-20 12:14 | PN ---
Date/Time of Note Date/Time of Note DATE: 08/20/17 TIME: 12:11 Assessment/Plan VTE Prophylaxis VTE Prophylaxis Intervention: SCD's Lines/Catheters IV Catheter Type (from Nrs): PICC Line Central line still needed: Yes Assessment/Plan Chief Complaint/Hosp Course Assessment and plan 1. Syncope. Likely secondary to hypotension. CT scan of the head was negative for any acute findings. . Hypotension likely secondary to anemia given history of black tarry stools. s/p colonoscopy. Report showing 1.5 cm deep antral gastric ulceration. Continue on PPI medication. Pathology done from endoscopy negative for H. pylori 2. Sepsis secondary to UTI. Continue antibiotics. Monitor for clinical improvement. 3. Reported tarry stool. H&H remainS stable at present. 4. Hypothyroidism. Continue on Synthroid 5. History of seizures. Continue antiepileptic medications Disposition and plan: Case management following. Awaiting placement. We will follow-up Discussed plan of care with Dr. Dawkins Problems: Subjective 24 Hr Interval Summary Free Text/Dictation Still reports having some left lower quadrant abdominal pain Exam/Review of Systems Vital Signs Vitals Vital Signs Date Time Temp Pulse Resp B/P Pulse Ox O2 Delivery O2 Flow Rate FiO2 08/20/17 11:26 98.7 82 18 139/87 97 08/19/17 16:00 Room Air Intake and Output 08/19/17 08/19/17 08/20/17 15:00 23:00 07:00 Intake Total 200 ml 1680 ml Balance 200 ml 1680 ml Exam Constitutional: alert, oriented Psych: anxiety slightly less Head: normocephalic Neck: supple Respiratory: clear to auscultation Cardiovascular: regular rate and rhythm Gastrointestinal: More noted on left lower abdominal quadrant there is reported tenderness Neurological: WIND ENERGY PROJECT MANAGER II-XII intact, nl mental status, nl speech Skin: nl turgor Results Result Diagram: 08/20/17 0604 08/20/17 0604 Results 24 hrs Laboratory Tests Test 08/20/17 06:04 White Blood Count 5.4 Red Blood Count 3.46 L Hemoglobin 10.3 L Hematocrit 33.4 L Mean Corpuscular Volume 96.5 Mean Corpuscular Hemoglobin 29.8 Mean Corpuscular Hemoglobin Concent 30.8 L Red Cell Distribution Width 18.2 H Platelet Count 177 Mean Platelet Volume 9.3 Neutrophils % 54.5 Lymphocytes % 24.3 Monocytes % 15.5 H Eosinophils % 4.4 Basophils % 0.7 Nucleated Red Blood Cells % 0.0 Neutrophils # 3.0 Lymphocytes # 1.3 Monocytes # 0.8 Eosinophils # 0.2 Basophils # 0.0 Nucleated Red Blood Cells # 0.0 Sodium Level 136 Potassium Level 3.9 Chloride Level 105 Carbon Dioxide Level 28 Anion Gap 7 L Blood Urea Nitrogen 6 L Creatinine 0.79 Glucose Level 93 Calcium Level 8.6 Medications Medications Current Medications Haloperidol (Haldol) 2 mg Q4 PRN IV anxiety; Start 08/15/17 at 04:30 Lorazepam (Ativan) 1 mg Q3H PRN IV anxiety Last administered on 08/20/17 09:58 ; Admin Dose 1 MG; Start 08/15/17 at 04:30 Ondansetron HCl (Zofran Inj) 4 mg Q4H PRN IV NAUSEA AND/OR VOMITING; Start at 04:00 Acetaminophen (Tylenol Tab) 650 mg Q6H PRN PO PAIN AND OR ELEVATED TEMP Last administered on 08/19/17 15:22; Admin Dose 650 MG; Start 08/15/17 at 04:00 Morphine Sulfate (morphine) 2 mg Q4H PRN IV PAIN LEVEL 4-7 Last administered on 08/20/17 12:07; Admin Dose 2 MG; Start 08/15/17 at 04:00 Heparin Sodium (Porcine) (Heparin (5000 Units/0.5 ml)) 5,000 unit BID SC Last administered on 08/15/17 08:46; Admin Dose 5,000 UNIT; Start 08/15/17 at 09:00 ; Status Future Hold Sodium Phosphate (Neutra-Phos) 250 mg TID PO Last administered on 08/20/17 09: 20; Admin Dose 250 MG; Start 08/15/17 at 21:00 IV Flush (NS 10 ml) 10 ml PRN PRN IV IV PROTOCOL; Start 08/15/17 at 18:00 Pantoprazole (Protonix Iv) 40 mg BID@06,18 IV Last administered on 08/20/17 05 :46; Admin Dose 40 MG; Start 08/16/17 at 20:00 Alprazolam (Xanax) 0.5 mg Q8H PRN PO ANXIETY Last administered on 08/17/17 22: 44; Admin Dose 0.5 MG; Start 08/16/17 at 21:00 Benazepril HCl (Lotensin) 10 mg DAILY PO Last administered on 08/20/17 09:21; Admin Dose 10 MG; Start 08/16/17 at 21:00 Carisoprodol (Soma) 350 mg Q8 PRN PO MUSCLE SPASMS; Start 08/16/17 at 21:00 Ferrous Sulfate (Ferrous Sulfate (Ec)) 325 mg DAILY PO Last administered on 09:21; Admin Dose 325 MG; Start 08/17/17 at 09:00 Isosorbide Mononitrate (Imdur) 30 mg DAILY PO Last administered on 08/20/17 09 :21; Admin Dose 30 MG; Start 08/16/17 at 21:00 Levothyroxine Sodium (Synthroid) 50 mcg DAILY@06 PO Last administered on 05:46; Admin Dose 50 MCG; Start 08/17/17 at 06:00 Nitroglycerin (Nitroglycerin (Sl Tab) 0.4 Mg) 1 tab [id number] PRN SL CHEST PAIN ; Start 08/16/17 at 21:00 Tolterodine Tartrate (Detrol) 2 mg BID PO Last administered on 08/20/17 09:20 ; Admin Dose 2 MG; Start 08/16/17 at 21:00 Atorvastatin Calcium 10 mg 10 mg DAILY@21 PO Last administered on 08/19/17 21: 19; Admin Dose 10 MG; Start 08/17/17 at 21:00 Ciprofloxacin/ Dextrose (Cipro Ivpb) 200 ml @ 200 mls/hr Q12 IVPB Last administered on 08/20/17 09:22; Admin Dose 200 MLS/HR; Start 08/17/17 at 09:30 Fluticasone Propionate (Flonase 0.05% Nasal) 1 spray BID NASAL Last administered on 08/20/17 09:22; Admin Dose 1 SPRAY; Start 08/17/17 at 12:30 Hydralazine HCl (Apresoline) 10 mg Q4H PRN IV sbp>160; Start 08/20/17 at 11:30 JENNIFER PRUITT Aug 20, 2017 12:14
[2017-08-20] MEDS: ACETAMINOPHEN 325 MG TAB PO PRN (14:36)
[2017-08-20] MEDS: ATORVASTATIN 10 MG TAB PO SCH (21:06)
[2017-08-20] MEDS ORDERED: ZOLPIDEM 5 MG TAB PO ONE (23:00)
[2017-08-21] VITALS (11 sets, daily range): BP systolic 122–155; BP diastolic 65–89; PULSE 72–86; RESP 19–20
[2017-08-21] MEDS: morphine 2 MG INJ IV PRN ×5 (03:18→22:12)
[2017-08-21] MEDS: LEVOTHYROXINE 50 MCG TAB PO SCH (05:57)
[2017-08-21] MEDS: PANTOPRAZOLE 40 MG INJ IV SCH (05:57)
[2017-08-21 06:21] LABS: BASOPHILS % 0.6 % (0.0-2.0); EOSINOPHILS # 0.2 10^3/ul (0.0-0.5); EOSINOPHILS % 3.1 % (0.0-7.0); HEMATOCRIT 31.8 % (37.0-47.0); HEMOGLOBIN 9.8 g/dl (12.0-16.0); LYMPHOCYTES # 1.1 10^3/ul (0.8-2.9); LYMPHOCYTES % 21.1 % (15.0-51.0); MEAN CORPUSCULAR HEMOGLOBIN 29.8 pg (29.0-33.0); MEAN CORPUSCULAR HGB CONC 30.8 g/dl (32.0-37.0); MEAN CORPUSCULAR VOLUME 96.7 fl (82.0-101.0); MEAN PLATELET VOLUME 8.9 fl (7.4-10.4); MONOCYTE # 0.8 10^3/ul (0.3-0.9); MONOCYTES % 15.9 % (0.0-11.0); NEUTROPHILS % 58.7 % (39.0-77.0); PLATELET COUNT 209 10^3/UL (140-415); RED BLOOD COUNT 3.29 10^6/ul (4.20-5.40); WHITE BLOOD COUNT 5.2 10^3/ul (4.8-10.8)
[2017-08-21 07:09] LABS: CALCIUM 8.4 mg/dl (8.4-10.2); CREATININE 0.82 mg/dl (0.44-1.00); POTASSIUM 3.9 mmol/L (3.5-5.1)
[2017-08-21] MEDS: TOLTERODINE 2 MG TAB PO SCH ×2 (08:50→20:12)
[2017-08-21] MEDS: ISOSORBIDE MONONITRATE(SR)30 MG TAB PO SCH (08:50)
[2017-08-21] MEDS: FERROUS SULFATE (EC) 325 MG TAB PO SCH (08:51)
[2017-08-21] MEDS: CIPROFLOXACIN 400MG/D5W 200 ML IVPB SCH (08:53)
[2017-08-21] MEDS: FLUTICASONE 0.05% 16 GM NAS SPRAY NASAL SCH ×2 (08:53→20:13)
[2017-08-21] MEDS: NEUTRA-PHOS 250 MG PACKET PO SCH ×3 (08:54→20:12)
[2017-08-21] MEDS: BENAZEPRIL 10 MG TAB PO SCH (08:54)
[2017-08-21] MEDS: LORAZEPAM 2 MG INJ IV PRN ×3 (10:12→20:37)
--- NOTE | 2017-08-21 11:42 | PN ---
Date/Time of Note Date/Time of Note DATE: 08/21/17 TIME: 11:39 Assessment/Plan VTE Prophylaxis VTE Prophylaxis Intervention: contraindicated Lines/Catheters IV [facility] PICC Line Central line still needed: Yes Assessment/Plan Chief Complaint/Hosp Course 1. Reported syncope. The patient was hypotensive upon presentation to the ER. CT scan negative for any acute intracranial findings. A carotid Doppler study showing less than 50% stenosis of bilateral internal carotid arteries. Recent 2D echocardiogram from July 10, 2017 showed ejection fraction of 65% with stage II diastolic dysfunction with mild aortic stenosis. 2. Sepsis secondary to underlying urinary tract infection. No evidence of any septic shock. Continue antibiotics. 3. Normocytic, normochromic anemia. Status post esophagogastroduodenoscopy that showed a 1.5 cm deep antral gastric ulceration. Continue proton pump inhibitors. Gastric biopsy negative for any H. pylori. 4. Hypothyroidism. Continue Synthroid. 5. Iron deficiency. Continue iron supplements. 6. Essential hypertension. Continue antihypertensives. 7. CAD. Status post coronary angiogram on 03/22/2017 that showed moderate nonobstructive coronary artery disease with a probable area of myocardial bridge. Aspirin on hold because of underlying gastric ulcer. Continue statins. 8. Paroxysmal atrial fibrillation. Currently in sinus rhythm. The patient was on factor Xa inhibitors at home. This has been discontinued because of underlying gastric ulcer. Will check with gastroenterology as to when to resume the anticoagulation. Will have cardiology evaluate the patient. 9. Debility. Status post evaluation by physical therapy. Physical therapy recommending placement. 10. Anxiety disorder. Continue as needed anxiolytics. 11. Fluids, electrolytes, and nutrition. Low-sodium diet. 12. Plan. Continue current management. Obtain cardiology consult for expert opinion regarding anticoagulation given the patient's history of paroxysmal atrial fibrillation. Case discussed with Dr. Mata Problems: Subjective 24 Hr Interval Summary Free Text/Dictation Complains of burning on urination. 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 Exam/Review of Systems Vital Signs Vitals Vital Signs Date Time Temp Pulse Resp B/P Pulse Ox O2 Delivery O2 Flow Rate FiO2 08/21/17 08:16 74 08/21/17 07:13 98.2 20 153/87 98 08/19/17 16:00 Room Air Intake and Output 08/20/17 08/20/17 08/21/17 15:00 23:00 07:00 Intake Total 200 ml 1200 ml 1500 ml Output Total 1200 ml Balance 200 ml 0 ml 1500 ml Exam General: Adequately build 62 year-old female lying in bed in no apparent distress. HEENT: Normocephalic, atraumatic. Eyes: Anicteric sclerae, conjunctivae clear. ENT: Nasal septum midline, oral mucosa moist. Neck supple, no JVD noticed. Respiratory: Bilaterally clear breath sounds. No use of accessory muscles of respiration. No adventitious breath sounds. Cardiovascular: S1, S2 heard. No murmurs or gallops. Abdomen: Soft, nontender, and nondistended. Bowel sounds positive in all 4 quadrants. Genitourinary: Deferred. Extremities: No cyanosis, no clubbing, no edema. Peripheral pulses palpable. Neurologic: Cranial nerves II through XII grossly intact. The patient is awake, alert, and oriented. Skin: Normal skin turgor. No skin rashes. Results Result Diagram: 08/21/17 0601 08/21/17 0601 Results 24 hrs Laboratory Tests Test 08/21/17 06:01 White Blood Count 5.2 Red Blood Count 3.29 L Hemoglobin 9.8 L Hematocrit 31.8 L Mean Corpuscular Volume 96.7 Mean Corpuscular Hemoglobin 29.8 Mean Corpuscular Hemoglobin Concent 30.8 L Red Cell Distribution Width 18.0 H Platelet Count 209 Mean Platelet Volume 8.9 Neutrophils % 58.7 Lymphocytes % 21.1 Monocytes % 15.9 H Eosinophils % 3.1 Basophils % 0.6 Nucleated Red Blood Cells % 0.0 Neutrophils # 3.0 Lymphocytes # 1.1 Monocytes # 0.8 Eosinophils # 0.2 Basophils # 0.0 Nucleated Red Blood Cells # 0.0 Sodium Level 138 Potassium Level 3.9 Chloride Level 106 Carbon Dioxide Level 28 Anion Gap 8 Blood Urea Nitrogen 9 Creatinine 0.82 Glucose Level 91 Calcium Level 8.4 Medications Medications Current Medications Haloperidol (Haldol) 2 mg Q4 PRN IV anxiety; Start 08/15/17 at 04:30 Lorazepam (Ativan) 1 mg Q3H PRN IV anxiety Last administered on 08/21/17t 10:12 ; Admin Dose 1 MG; Start 08/15/17 at 04:30 Ondansetron HCl (Zofran Inj) 4 mg Q4H PRN IV NAUSEA AND/OR VOMITING; Start at 04:00 Acetaminophen (Tylenol Tab) 650 mg Q6H PRN PO PAIN AND OR ELEVATED TEMP Last administered on 08/20/17 14:36; Admin Dose 650 MG; Start 08/15/17 at 04:00 Morphine Sulfate (morphine) 2 mg Q4H PRN IV PAIN LEVEL 4-7 Last administered on 08/21/17 08:54; Admin Dose 2 MG; Start 08/15/17 at 04:00 Heparin Sodium (Porcine) (Heparin (5000 Units/0.5 ml)) 5,000 unit BID SC Last administered on 08/15/17 08:46; Admin Dose 5,000 UNIT; Start 08/15/17 at 09:00 ; Status Future Hold Sodium Phosphate (Neutra-Phos) 250 mg TID PO Last administered on 08/21/17 08: 54; Admin Dose 250 MG; Start 08/15/17 at 21:00 IV Flush (NS 10 ml) 10 ml PRN PRN IV IV PROTOCOL; Start 08/15/17 at 18:00 Pantoprazole (Protonix Iv) 40 mg BID@06,18 IV Last administered on 08/21/17 05 :57; Admin Dose 40 MG; Start 08/16/17 at 20:00 Alprazolam (Xanax) 0.5 mg Q8H PRN PO ANXIETY Last administered on 08/17/17 22: 44; Admin Dose 0.5 MG; Start 08/16/17 at 21:00 Benazepril HCl (Lotensin) 10 mg DAILY PO Last administered on 08/21/17 08:54; Admin Dose 10 MG; Start 08/16/17 at 21:00 Carisoprodol (Soma) 350 mg Q8 PRN PO MUSCLE SPASMS; Start 08/16/17 at 21:00 Ferrous Sulfate (Ferrous Sulfate (Ec)) 325 mg DAILY PO Last administered on 08:51; Admin Dose 325 MG; Start 08/17/17 at 09:00 Isosorbide Mononitrate (Imdur) 30 mg DAILY PO Last administered on 08/21/17 08 :50; Admin Dose 30 MG; Start 08/16/17 at 21:00 Levothyroxine Sodium (Synthroid) 50 mcg DAILY@06 PO Last administered on 05:57; Admin Dose 50 MCG; Start 08/17/17 at 06:00 Nitroglycerin (Nitroglycerin (Sl Tab) 0.4 Mg) 1 tab [id number] PRN SL CHEST PAIN ; Start 08/16/17 at 21:00 Tolterodine Tartrate (Detrol) 2 mg BID PO Last administered on 08/21/17 08:50 ; Admin Dose 2 MG; Start 08/16/17 at 21:00 Atorvastatin Calcium 10 mg 10 mg DAILY@21 PO Last administered on 08/20/17 21: 06; Admin Dose 10 MG; Start 08/17/17 at 21:00 Ciprofloxacin/ Dextrose (Cipro Ivpb) 200 ml @ 200 mls/hr Q12 IVPB Last administered on 08/21/17 08:53; Admin Dose 200 MLS/HR; Start 08/17/17 at 09:30 Fluticasone Propionate (Flonase 0.05% Nasal) 1 spray BID NASAL Last administered on 08/21/17 08:53; Admin Dose 1 SPRAY; Start 08/17/17 at 12:30 Hydralazine HCl (Apresoline) 10 mg Q4H PRN IV sbp>160; Start 08/20/17 at 11:30 Phenazopyridine HCl 100 mg 100 mg TID PO ; Start 08/21/17 at 13:00; Status UNV Ferric Sodium Gluconate Complex/ Sodium Chloride (Ferrlecit/NS) 110 ml @ 100 mls/hr Q24H IVPB ; Start 08/21/17 at 11:30; Stop 08/23/17 at 12:35; Status UNV VANNESA WEBER NP Aug 21, 2017 11:42
[2017-08-21 12:17] LABS: CHOL/HDL RATIO 2.4 RATIO
[2017-08-21] MEDS: SOD FERRIC GLUC COMPLX 125 MG in SOD CHLORIDE 0.9% 100 ML IVPB SCH (13:48)
[2017-08-21] MEDS: PHENAZOPYRIDINE 100 MG TAB PO SCH ×2 (13:49→20:11)
[2017-08-21] MEDS: ACETAMINOPHEN 325 MG TAB PO PRN (13:56)
[2017-08-21] MEDS: CIPROFLOXACIN 500 MG TAB PO SCH (18:13)
[2017-08-21] MEDS: PANTOPRAZOLE (EC) 40 MG TAB PO SCH (18:14)
[2017-08-21] MEDS: METOPROLOL 25 MG TAB PO SCH (20:11)
[2017-08-21] MEDS: ATORVASTATIN 20 MG TAB PO SCH (20:12)
[2017-08-21] MEDS: ALPRAZOLAM 0.5 MG TAB PO PRN (20:28)
[2017-08-21] MEDS ORDERED: CARISOPRODOL 350 MG TAB PO PRN (20:30)
[2017-08-21] MEDS: ZOLPIDEM 5 MG TAB PO PRN (22:12)
[2017-08-22] VITALS (11 sets, daily range): BP systolic 112–156; BP diastolic 62–81; PULSE 60–67; RESP 18–19
[2017-08-22] MEDS: morphine 2 MG INJ IV PRN ×5 (02:46→20:26)
--- NOTE | 2017-08-22 05:07 | CONS ---
DATE OF ADMISSION: 08/14/2017 DATE OF CONSULTATION: 08/21/2017 REASON FOR CONSULTATION: Syncope, assess for cardiac etiology as well as cardiogram to assess acute coronary syndrome. REFERRING PHYSICIAN: Nurse practitioner Magdalene Abrams from the hospital service. HISTORY OF PRESENT ILLNESS: Ms. Arroyo is a 62-year-old female known to myself from prior hospital admissions as a prior patient with history of dyslipidemia, hypertension, coronary artery disease by catheterization in March 2017 with a mild LAD myocardial bridge, prior non-ST elevation myocardial infarction, who was initially admitted 08/14/2017 with at that time an episode of syncope where she had been found down in a parking lot of a fast food restaurant, confused, stating that she had tripped resulting in her fall. Per description to me today, the patient states that she noticed tension in her body and all over, felt very tremulous, but does not necessarily say it was a seizure episode. Initially upon arrival, patient had a low blood pressure of 69/41 with elevated lactic acid level of 9 and a UA consistent with UTI. The patient was admitted, placed on IV antibiotics, and had urine culture return positive for E coli for which she was treated with improvement and initially received IV fluid hydration with improvement in systolic blood pressures. Patient was also found to have occult blood in her stool and associated anemia and was consulted by the GI services and underwent endoscopy revealing a gastric ulcer, and has had anticoagulation held for this reason. The patient now remains on the telemetry floor. Complaints of generalized weakness, body aches, elevated systolic blood pressures now with ongoing antibiotic therapy and has been placed on baseline statin NANCI inhibitor and oral nitrates. The patient at this time denies chest pain or shortness of breath. PAST MEDICAL HISTORY: As above in HPI. PAST SURGICAL HISTORY: As above in HPI. MEDICATION: Currently in the hospital: 1. Pyridium. 2. Lipitor 10 mg daily. 3. Ciprofloxacin. 4. Ferrous sulfate 325 mg daily. 5. Synthroid 50 mcg daily. 6. Xanax p.r.n. 7. Potassium 10 mg daily. 8. Imdur 30 mg daily. 9. Sublingual nitroglycerin p.r.n. 10. Detrol p.r.n. 11. Protonix 40 mg IV b.i.d. 12. Neutra-Phos. 13. Haldol p.r.n. 14. Ativan p.r.n. 15. Zofran p.r.n. 16. Tylenol p.r.n. 17. Morphine p.r.n. ALLERGIES: NO KNOWN DRUG ALLERGIES. SOCIAL HISTORY: No current tobacco, ETOH, or illicit drug use. FAMILY HISTORY: No history of cardiac or early CAD. REVIEW OF SYSTEMS: As above in HPI. CONSTITUTIONAL: No fevers, chills. PULMONARY: No current signs or risks for compromise. GASTROINTESTINAL: Gastric ulcer. GENITOURINARY: No hematuria. Positive UTI. MUSCULOSKELETAL: Degenerative joint disease. PSYCH: Anxiety. NEUROLOGIC: Syncope. PHYSICAL EXAMINATION: VITAL SIGNS: Temperature 98.1, blood pressure most recent 145/82, pulse 78, respiratory rate 20, satting 95 percent. GENERAL: The patient is alert, awake, complaining of generalized weakness and abdominal pain. NECK: JVP approximately 8 cm water. LUNGS: Fair air movement throughout. HEART: Regular rate and rhythm. Normal S1, S2. 1/6 systolic murmur. Nondisplaced PMI. ABDOMEN: Positive bowel sounds. Soft. EXTREMITIES: No edema. 1+ pulses bilateral posterior tibial. LABORATORY: Most recently from today reveals a white count of 5.2, hemoglobin 9.8, platelet count of 209. Sodium 138, potassium 3.9, creatinine 0.82. LDL 79, HDL 66. TSH of 7.1 with a free T4 that was normal limits. IMAGING STUDIES: As above in HPI. No further imaging studies reviewed at this time. ECG from 08/14/2017 at that time revealed a normal sinus rhythm, rate 98, with borderline left axis deviation, anteroseptal Qs, poor R-wave progression across the precordial leads, inferior Qs. IMPRESSION: 1. cardiogram to assess for acute coronary syndrome. 2. History of paroxysmal atrial fibrillation. The patient has been on Eliquis, but has not been documented in the hospital. Assess management. 3. History of coronary artery disease with LAD myocardial bridge, mild by echo March 2017. 4. History of non-ST elevation myocardial infarction. 5. Hypertension. 6. Hypothyroidism. 7. Urinary tract infection. 8. Sepsis, resolved. 9. Anemia. 10. Gastric ulcer. 11. Anxiety. RECOMMENDATIONS: 1. At this time, I would maintain patient on telemetry monitoring to follow rhythm and rates closely, and assess for any possible recurrent bouts of true cardiac arrhythmia with paroxysmal atrial fibrillation. 2. Would hold the patient's anticoagulation at this time given anemia, gastric ulcer, and the patient currently in sinus rhythm. No documented atrial fibrillation episodes. 3. Check a repeat EKG to assess for any arrhythmic changes since admit and additional troponin to ensure the patient has not had any recent coronary syndromes in the setting of anemia and sepsis. 4. Continue the patient's current statin therapy and adjust according to a fasting lipid panel. 5. Continue patient's benazepril with slight increase to improve overall systolic blood pressure control as well as the patient's Imdur at this time. 6. Patient will additionally be initiated on a beta-tramaine to decrease change in pressure over time in the setting of myocardial bridge and recent non-ST myocardial infarction. 7. Continue the patient's antibiotics and follow up all culture data. 8. Continue patient's iron repletion and follow anemia closely. Thank you for allowing me to take part in the care of this patient. I will continue to follow along very closely with you with our recommendations made as patient progresses through her inpatient hospital course. Dictated By: Archie Cullen MD /brittny/nuria /Document#: [id number]
[2017-08-22] MEDS: LEVOTHYROXINE 50 MCG TAB PO SCH (06:05)
[2017-08-22] MEDS: CIPROFLOXACIN 500 MG TAB PO SCH ×2 (06:05→17:32)
[2017-08-22] MEDS: PANTOPRAZOLE (EC) 40 MG TAB PO SCH ×2 (06:05→17:32)
[2017-08-22] MEDS: LORAZEPAM 2 MG INJ IV PRN ×7 (06:11→23:56)
[2017-08-22 07:32] LABS: BASOPHIL # 0.1 10^3/ul (0.0-0.1); BASOPHILS % 1.1 % (0.0-2.0); EOSINOPHILS # 0.2 10^3/ul (0.0-0.5); EOSINOPHILS % 3.2 % (0.0-7.0); HEMATOCRIT 33.6 % (37.0-47.0); HEMOGLOBIN 10.2 g/dl (12.0-16.0); LYMPHOCYTES # 1.3 10^3/ul (0.8-2.9); LYMPHOCYTES % 27.3 % (15.0-51.0); MEAN CORPUSCULAR HEMOGLOBIN 29.4 pg (29.0-33.0); MEAN CORPUSCULAR HGB CONC 30.4 g/dl (32.0-37.0); MEAN CORPUSCULAR VOLUME 96.8 fl (82.0-101.0); MEAN PLATELET VOLUME 8.8 fl (7.4-10.4); MONOCYTE # 0.8 10^3/ul (0.3-0.9); NEUTROPHIL # 2.3 10^3/ul (1.6-7.5); PLATELET COUNT 239 10^3/UL (140-415); RED BLOOD COUNT 3.47 10^6/ul (4.20-5.40); RED CELL DISTRIBUTION WIDTH 17.8 % (11.5-14.5); WHITE BLOOD COUNT 4.7 10^3/ul (4.8-10.8)
[2017-08-22 08:04] LABS: CALCIUM 8.7 mg/dl (8.4-10.2); CREATININE 0.8 mg/dl (0.44-1.00); POTASSIUM 3.8 mmol/L (3.5-5.1)
[2017-08-22 08:13] LABS: MAGNESIUM 1.6 mg/dl (1.7-2.5); PHOSPHORUS 4.1 mg/dl (2.5-4.9)
[2017-08-22] MEDS: TOLTERODINE 2 MG TAB PO SCH ×2 (08:48→20:20)
[2017-08-22] MEDS: ISOSORBIDE MONONITRATE(SR)30 MG TAB PO SCH (08:48)
[2017-08-22] MEDS: PHENAZOPYRIDINE 100 MG TAB PO SCH ×3 (08:48→20:19)
[2017-08-22] MEDS: FERROUS SULFATE (EC) 325 MG TAB PO SCH (08:49)
[2017-08-22] MEDS: METOPROLOL 25 MG TAB PO SCH ×2 (08:49→21:00)
[2017-08-22] MEDS: BENAZEPRIL 10 MG TAB PO SCH (08:49)
[2017-08-22] MEDS: NEUTRA-PHOS 250 MG PACKET PO SCH ×3 (08:50→20:19)
[2017-08-22] MEDS: FLUTICASONE 0.05% 16 GM NAS SPRAY NASAL SCH ×2 (08:50→20:19)
[2017-08-22] MEDS: SOD FERRIC GLUC COMPLX 125 MG in SOD CHLORIDE 0.9% 100 ML IVPB SCH (11:29)
[2017-08-22] MEDS ORDERED: MAGNESIUM SULFATE 2 GM/50 ML 50 ML IVPB ONE (12:00)
--- NOTE | 2017-08-22 12:01 | PN ---
Date/Time of Note Date/Time of Note DATE: 08/22/17 TIME: 11:59 Assessment/Plan VTE Prophylaxis VTE Prophylaxis Intervention: SCD's Lines/Catheters IV Catheter Type (from [facility]): PICC Line Central line still needed: Yes Urinary Cath still in place: No Assessment/Plan Chief Complaint/Hosp Course 1. Reported syncope. The patient was hypotensive upon presentation to the ER. CT scan negative for any acute intracranial findings. A carotid Doppler study showing less than 50% stenosis of bilateral internal carotid arteries. Recent 2D echocardiogram from July 10, 2017 showed ejection fraction of 65% with stage II diastolic dysfunction with mild aortic stenosis. 2. Sepsis secondary to underlying urinary tract infection. No evidence of any septic shock. Continue antibiotics. 3. Normocytic, normochromic anemia. Status post esophagogastroduodenoscopy that showed a 1.5 cm deep antral gastric ulceration. Continue proton pump inhibitors. Gastric biopsy negative for any H. pylori. 4. Hypothyroidism. Continue Synthroid. 5. Iron deficiency. Continue iron supplements. 6. Essential hypertension. Continue antihypertensives. 7. CAD. Status post coronary angiogram on 03/22/2017 that showed moderate nonobstructive coronary artery disease with a probable area of myocardial bridge. Aspirin on hold because of underlying gastric ulcer. Continue statins. 8. Paroxysmal atrial fibrillation. Currently in sinus rhythm. The patient was on factor Xa inhibitors at home. This has been discontinued because of underlying gastric ulcer. 9. Debility. Status post evaluation by physical therapy. Physical therapy recommending placement. 10. Anxiety disorder. Continue as needed anxiolytics. 11. Fluids, electrolytes, and nutrition. Low-sodium diet. 12. DVT prophylaxis. B/L SCDs. 13. Plan. Continue current management. Needs placement. Replete magnesium. Case discussed with Dr. Mata Problems: Subjective 24 Hr Interval Summary Free Text/Dictation Still complains of burning on urination. Exam/Review of Systems Vital Signs Vitals Vital Signs Date Time Temp Pulse Resp B/P Pulse Ox O2 Delivery O2 Flow Rate FiO2 08/22/17 11:37 98.1 63 18 120/62 94 08/19/17 16:00 Room Air Intake and Output 08/21/17 08/21/17 08/22/17 15:00 23:00 07:00 Intake Total 1510 ml Balance 1510 ml Exam General: Adequately build 62 year-old female lying in bed in no apparent distress. HEENT: Normocephalic, atraumatic. Eyes: Anicteric sclerae, conjunctivae clear. ENT: Nasal septum midline, oral mucosa moist. Neck supple, no JVD noticed. Respiratory: Bilaterally clear breath sounds. No use of accessory muscles of respiration. No adventitious breath sounds. Cardiovascular: S1, S2 heard. No murmurs or gallops. Abdomen: Soft, nontender, and nondistended. Bowel sounds positive in all 4 quadrants. Genitourinary: Deferred. Extremities: No cyanosis, no clubbing, no edema. Peripheral pulses palpable. Neurologic: Cranial nerves II through XII grossly intact. The patient is awake, alert, and oriented. Skin: Normal skin turgor. No skin rashes. Results Result Diagram: 08/22/1752 08/22/17651 Results 24 hrs Laboratory Tests Test 08/21/17 14:28 08/22/17 06:52 Troponin I < 0.012 0.033 White Blood Count 4.7 L Red Blood Count 3.47 L Hemoglobin 10.2 L Hematocrit 33.6 L Mean Corpuscular Volume 96.8 Mean Corpuscular Hemoglobin 29.4 Mean Corpuscular Hemoglobin Concent 30.4 L Red Cell Distribution Width 17.8 H Platelet Count 239 Mean Platelet Volume 8.8 Neutrophils % 50.0 Lymphocytes % 27.3 Monocytes % 18.0 H Eosinophils % 3.2 Basophils % 1.1 Nucleated Red Blood Cells % 0.0 Neutrophils # 2.3 Lymphocytes # 1.3 Monocytes # 0.8 Eosinophils # 0.2 Basophils # 0.1 Nucleated Red Blood Cells # 0.0 Sodium Level 139 Potassium Level 3.8 Chloride Level 105 Carbon Dioxide Level 29 Anion Gap 9 Blood Urea Nitrogen 7 Creatinine 0.80 Glucose Level 81 Calcium Level 8.7 Phosphorus Level 4.1 Magnesium Level 1.6 L Medications Medications Current Medications Haloperidol (Haldol) 2 mg Q4 PRN IV anxiety; Start 08/15/17 at 04:30 Lorazepam (Ativan) 1 mg Q3H PRN IV anxiety Last administered on 08/22/17 09:19 ; Admin Dose 1 MG; Start 08/15/17 at 04:30 Ondansetron HCl (Zofran Inj) 4 mg Q4H PRN IV NAUSEA AND/OR VOMITING; Start at 04:00 Acetaminophen (Tylenol Tab) 650 mg Q6H PRN PO PAIN AND OR ELEVATED TEMP Last administered on 08/21/17 13:56; Admin Dose 650 MG; Start 08/15/17 at 04:00 Morphine Sulfate (morphine) 2 mg Q4H PRN IV PAIN LEVEL 4-7 Last administered on 08/22/17 11:29; Admin Dose 2 MG; Start 08/15/17 at 04:00 Heparin Sodium (Porcine) (Heparin (5000 Units/0.5 ml)) 5,000 unit BID SC Last administered on 08/15/17 08:46; Admin Dose 5,000 UNIT; Start 08/15/17 at 09:00 ; Status Future Hold Sodium Phosphate (Neutra-Phos) 250 mg TID PO Last administered on 08/22/17 08: 50; Admin Dose 250 MG; Start 08/15/17 at 21:00 IV Flush (NS 10 ml) 10 ml PRN PRN IV IV PROTOCOL; Start 08/15/17 at 18:00 Alprazolam (Xanax) 0.5 mg Q8H PRN PO ANXIETY Last administered on 08/17/17 22: 44; Admin Dose 0.5 MG; Start 08/16/17 at 21:00 Benazepril HCl (Lotensin) 10 mg DAILY PO Last administered on 08/22/17 08:49; Admin Dose 10 MG; Start 08/16/17 at 21:00 Ferrous Sulfate (Ferrous Sulfate (Ec)) 325 mg DAILY PO Last administered on 08:49; Admin Dose 325 MG; Start 08/17/17 at 09:00 Isosorbide Mononitrate (Imdur) 30 mg DAILY PO Last administered on 08/22/17 08 :48; Admin Dose 30 MG; Start 08/16/17 at 21:00 Levothyroxine Sodium (Synthroid) 50 mcg DAILY@06 PO Last administered on 06:05; Admin Dose 50 MCG; Start 08/17/17 at 06:00 Nitroglycerin (Nitroglycerin (Sl Tab) 0.4 Mg) 1 tab [id number] PRN SL CHEST PAIN ; Start 08/16/17 at 21:00 Tolterodine Tartrate (Detrol) 2 mg BID PO Last administered on 08/22/17 08:48 ; Admin Dose 2 MG; Start 08/16/17 at 21:00 Fluticasone Propionate (Flonase 0.05% Nasal) 1 spray BID NASAL Last administered on 08/22/17 08:50; Admin Dose 1 SPRAY; Start 08/17/17 at 12:30 Hydralazine HCl (Apresoline) 10 mg Q4H PRN IV sbp>160; Start 08/20/17 at 11:30 Phenazopyridine HCl 100 mg 100 mg TID PO Last administered on 08/22/17 08:48; Admin Dose 100 MG; Start 08/21/17 at 13:00; Stop 08/23/17 at 12:59 Ferric Sodium Gluconate Complex/ Sodium Chloride (Ferrlecit/NS) 110 ml @ 100 mls/hr Q24H IVPB Last administered on 08/22/17 11:29; Admin Dose 100 MLS/HR; Start 08/21/17 at 11:30; Stop 08/23/17 at 12:35 Atorvastatin Calcium (Lipitor) 20 mg DAILY@21 PO Last administered on 20:12; Admin Dose 20 MG; Start 08/21/17 at 21:00 Metoprolol Tartrate (Lopressor) 25 mg BID PO Last administered on 08/22/17 08: 49; Admin Dose 25 MG; Start 08/21/17 at 21:00 Pantoprazole (Protonix Tab) 40 mg BID@06,18 PO Last administered on 08/22/17 06:05; Admin Dose 40 MG; Start 08/21/17 at 18:00 Ciprofloxacin (Cipro) 500 mg BID@,18 PO Last administered on 08/22/17 06:05 ; Admin Dose 500 MG; Start 08/21/17 at 18:00 Zolpidem Tartrate (Ambien) 5 mg HS PRN PO INSOMNIA Last administered on 22:12; Admin Dose 5 MG; Start 08/21/17 at 20:30 Carisoprodol (Soma) 350 mg Q8H PRN PO MUSCLE SPASMS; Start 08/21/17 at 20:30 VANNESA WEBER NP Aug 22, 2017 12:01
--- NOTE | 2017-08-22 13:56 | CONS ---
Date/Time of Note Date/Time of Note DATE: 08/22/17 TIME: 13:54 Assessment/Plan Assessment/Plan Additional Assessment/Plan 1. CP - cardiogram to assess for acute coronary syndrome. R/O SC. 2. History of paroxysmal atrial fibrillation. The patient has been on Eliquis , but has not been documented in the hospital. In sinus now. 3. History of coronary artery disease with LAD myocardial bridge, mild by echo March 2017. On meds. 4. History of non-ST elevation myocardial infarction. 5. Hypertension - well controlled now. 6. Hypothyroidism. 7. Urinary tract infection - on anti-Bx, treated. 8. Sepsis, resolved. 9. Anemia- no signs of bleeding now. 10. Gastric ulcer. 11. Anxiety. Consultation Date/Type/Reason Admit Date/Time Aug 14, 2017 at 18:22 Initial Consult Date 08/15/17 Type of Consultation: Gastroenterology Referring Provider: SILVIA HUERTA 24 HR Interval Summary Free Text/Dictation No acute events - BP in good range -no CP now, doubt ischemia. ROS: No fever, no chills, no nausea, no vomiting, no diarrhea/constipation No recent weight changes No chest pain, no PND, no orthopnea No dizziness, blurred vision No thirst, no heat or cold intolerance Exam/Review of Systems Vital Signs Vitals Vital Signs Date Time Temp Pulse Resp B/P Pulse Ox O2 Delivery O2 Flow Rate FiO2 08/22/17 12:15 60 08/22/17 11:37 98.1 18 120/62 94 08/19/17 16:00 Room Air Intake and Output 08/21/17 08/21/17 08/22/17 14:59 22:59 06:59 Intake Total 1510 ml Balance 1510 ml Exam General: WN/WD/NAD, AOx 3 HEENT: Unicetric/atraumatic/EOMI (follow commands) NECK: JVD elevated, no thyromegaly Lymph: no lymphadenopathy HEART: regular with no S3, II/ systolic murmur at apex LUNGS: Coarse sounds ABD: soft, NT, ND, +BS : Intact Neuro: non focal SKIN: chronic changes EXT: trace edema Results Result Diagram: 08/22/17 0652 08/22/1752 Results 24 hrs Laboratory Tests Test 08/21/17 14:28 08/22/17 06:52 Troponin I < 0.012 0.033 White Blood Count 4.7 L Red Blood Count 3.47 L Hemoglobin 10.2 L Hematocrit 33.6 L Mean Corpuscular Volume 96.8 Mean Corpuscular Hemoglobin 29.4 Mean Corpuscular Hemoglobin Concent 30.4 L Red Cell Distribution Width 17.8 H Platelet Count 239 Mean Platelet Volume 8.8 Neutrophils % 50.0 Lymphocytes % 27.3 Monocytes % 18.0 H Eosinophils % 3.2 Basophils % 1.1 Nucleated Red Blood Cells % 0.0 Neutrophils # 2.3 Lymphocytes # 1.3 Monocytes # 0.8 Eosinophils # 0.2 Basophils # 0.1 Nucleated Red Blood Cells # 0.0 Sodium Level 139 Potassium Level 3.8 Chloride Level 105 Carbon Dioxide Level 29 Anion Gap 9 Blood Urea Nitrogen 7 Creatinine 0.80 Glucose Level 81 Calcium Level 8.7 Phosphorus Level 4.1 Magnesium Level 1.6 L Medications Medications Current Medications Haloperidol (Haldol) 2 mg Q4 PRN IV anxiety; Start 08/15/17 at 04:30 Lorazepam (Ativan) 1 mg Q3H PRN IV anxiety Last administered on 08/22/17 09:19 ; Admin Dose 1 MG; Start 08/15/17 at 04:30 Ondansetron HCl (Zofran Inj) 4 mg Q4H PRN IV NAUSEA AND/OR VOMITING; Start at 04:00 Acetaminophen (Tylenol Tab) 650 mg Q6H PRN PO PAIN AND OR ELEVATED TEMP Last administered on 08/21/17 13:56; Admin Dose 650 MG; Start 08/15/17 at 04:00 Morphine Sulfate (morphine) 2 mg Q4H PRN IV PAIN LEVEL 4-7 Last administered on 08/22/17 11:29; Admin Dose 2 MG; Start 08/15/17 at 04:00 Heparin Sodium (Porcine) (Heparin (5000 Units/0.5 ml)) 5,000 unit BID SC Last administered on 08/15/17 08:46; Admin Dose 5,000 UNIT; Start 08/15/17 at 09:00 ; Status Future Hold Sodium Phosphate (Neutra-Phos) 250 mg TID PO Last administered on 08/22/17 13: 52; Admin Dose 250 MG; Start 08/15/17 at 21:00 IV Flush (NS 10 ml) 10 ml PRN PRN IV IV PROTOCOL; Start 08/15/17 at 18:00 Alprazolam (Xanax) 0.5 mg Q8H PRN PO ANXIETY Last administered on 08/17/17 22: 44; Admin Dose 0.5 MG; Start 08/16/17 at 21:00 Benazepril HCl (Lotensin) 10 mg DAILY PO Last administered on 08/22/17 08:49; Admin Dose 10 MG; Start 08/16/17 at 21:00 Ferrous Sulfate (Ferrous Sulfate (Ec)) 325 mg DAILY PO Last administered on 08:49; Admin Dose 325 MG; Start 08/17/17 at 09:00 Isosorbide Mononitrate (Imdur) 30 mg DAILY PO Last administered on 08/22/17 08 :48; Admin Dose 30 MG; Start 08/16/17 at 21:00 Levothyroxine Sodium (Synthroid) 50 mcg DAILY@06 PO Last administered on 06:05; Admin Dose 50 MCG; Start 08/17/17 at 06:00 Nitroglycerin (Nitroglycerin (Sl Tab) 0.4 Mg) 1 tab [id number] PRN SL CHEST PAIN ; Start 08/16/17 at 21:00 Tolterodine Tartrate (Detrol) 2 mg BID PO Last administered on 08/22/17 08:48 ; Admin Dose 2 MG; Start 08/16/17 at 21:00 Fluticasone Propionate (Flonase 0.05% Nasal) 1 spray BID NASAL Last administered on 08/22/17 08:50; Admin Dose 1 SPRAY; Start 08/17/17 at 12:30 Hydralazine HCl (Apresoline) 10 mg Q4H PRN IV sbp>160; Start 08/20/17 at 11:30 Phenazopyridine HCl 100 mg 100 mg TID PO Last administered on 08/22/17 13:52; Admin Dose 100 MG; Start 08/21/17 at 13:00; Stop 08/23/17 at 12:59 Ferric Sodium Gluconate Complex/ Sodium Chloride (Ferrlecit/NS) 110 ml @ 100 mls/hr Q24H IVPB Last administered on 08/22/17 11:29; Admin Dose 100 MLS/HR; Start 08/21/17 at 11:30; Stop 08/23/17 at 12:35 Atorvastatin Calcium (Lipitor) 20 mg DAILY@21 PO Last administered on 20:12; Admin Dose 20 MG; Start 08/21/17 at 21:00 Metoprolol Tartrate (Lopressor) 25 mg BID PO Last administered on 08/22/17 08: 49; Admin Dose 25 MG; Start 08/21/17 at 21:00 Pantoprazole (Protonix Tab) 40 mg BID@18 PO Last administered on 08/22/17 06:05; Admin Dose 40 MG; Start 08/21/17 at 18:00 Ciprofloxacin (Cipro) 500 mg BID@18 PO Last administered on 08/22/17 06:05 ; Admin Dose 500 MG; Start 08/21/17 at 18:00 Zolpidem Tartrate (Ambien) 5 mg HS PRN PO INSOMNIA Last administered on 22:12; Admin Dose 5 MG; Start 08/21/17 at 20:30 Carisoprodol 350 mg 350 mg Q8H PRN PO MUSCLE SPASMS; Start 08/21/17 at 20:30 Magnesium Sulfate (Magnesium Sulfate 2 Gm/50 ml) 50 ml @ 25 mls/hr ONCE ONCE IVPB Last administered on 08/22/17 13:52; Admin Dose 25 MLS/HR; Start at 12:00; Stop 08/22/17 at 13:59 CONSTANCE KC MD Aug 22, 2017 13:56
[2017-08-22] MEDS: ALPRAZOLAM 0.5 MG TAB PO PRN (14:51)
[2017-08-22] MEDS: ATORVASTATIN 20 MG TAB PO SCH (20:20)
[2017-08-23] VITALS (10 sets, daily range): BP systolic 98–139; BP diastolic 54–77; PULSE 61–68; RESP 17–20
[2017-08-23] MEDS: morphine 2 MG INJ IV PRN ×3 (01:24→10:59)
[2017-08-23] MEDS: ZOLPIDEM 5 MG TAB PO PRN (01:24)
[2017-08-23] MEDS: ALPRAZOLAM 0.5 MG TAB PO PRN ×2 (03:12→11:00)
[2017-08-23] MEDS: PANTOPRAZOLE (EC) 40 MG TAB PO SCH ×2 (06:03→17:27)
[2017-08-23] MEDS: LEVOTHYROXINE 50 MCG TAB PO SCH (06:04)
[2017-08-23] MEDS: CIPROFLOXACIN 500 MG TAB PO SCH ×2 (06:04→17:27)
[2017-08-23] MEDS: LORAZEPAM 2 MG INJ IV PRN ×3 (07:00→13:38)
[2017-08-23 07:22] LABS: BASOPHIL # 0.1 10^3/ul (0.0-0.1); BASOPHILS % 1.3 % (0.0-2.0); EOSINOPHILS # 0.2 10^3/ul (0.0-0.5); EOSINOPHILS % 3.3 % (0.0-7.0); HEMATOCRIT 32.2 % (37.0-47.0); HEMOGLOBIN 10.2 g/dl (12.0-16.0); LYMPHOCYTES # 1.6 10^3/ul (0.8-2.9); LYMPHOCYTES % 34.9 % (15.0-51.0); MEAN CORPUSCULAR HEMOGLOBIN 30.6 pg (29.0-33.0); MEAN CORPUSCULAR HGB CONC 31.7 g/dl (32.0-37.0); MEAN CORPUSCULAR VOLUME 96.7 fl (82.0-101.0); MEAN PLATELET VOLUME 9.2 fl (7.4-10.4); MONOCYTE # 0.7 10^3/ul (0.3-0.9); MONOCYTES % 16.1 % (0.0-11.0); PLATELET COUNT 235 10^3/UL (140-415); RED BLOOD COUNT 3.33 10^6/ul (4.20-5.40); RED CELL DISTRIBUTION WIDTH 17.6 % (11.5-14.5); WHITE BLOOD COUNT 4.6 10^3/ul (4.8-10.8)
--- NOTE | 2017-08-23 07:29 | PN ---
Date/Time of Note Date/Time of Note DATE: 08/23/17 TIME: 07:28 Assessment/Plan VTE Prophylaxis VTE Prophylaxis Intervention: SCD's Lines/Catheters IV C[facility]ter Type ([facility] PICC Line Central line still needed: Yes Urinary Cath still in place: No Assessment/Plan Chief Complaint/Hosp Course 1. Reported syncope. The patient was hypotensive upon presentation to the ER. CT scan negative for any acute intracranial findings. A carotid Doppler study showing less than 50% stenosis of bilateral internal carotid arteries. Recent 2D echocardiogram from July 10, 2017 showed ejection fraction of 65% with stage II diastolic dysfunction with mild aortic stenosis. 2. Sepsis secondary to underlying urinary tract infection. No evidence of any septic shock. Continue antibiotics. 3. Normocytic, normochromic anemia. Status post esophagogastroduodenoscopy that showed a 1.5 cm deep antral gastric ulceration. Continue proton pump inhibitors. Gastric biopsy negative for any H. pylori. 4. Hypothyroidism. Continue Synthroid. 5. Iron deficiency. Continue iron supplements. 6. Essential hypertension. Continue antihypertensives. 7. CAD. Status post coronary angiogram on 03/22/2017 that showed moderate nonobstructive coronary artery disease with a probable area of myocardial bridge. Aspirin on hold because of underlying gastric ulcer. Continue statins. 8. Paroxysmal atrial fibrillation. Currently in sinus rhythm. The patient was on factor Xa inhibitors at home. This has been discontinued because of underlying gastric ulcer. 9. Debility. Status post evaluation by physical therapy. Physical therapy recommending placement. 10. Anxiety disorder. Continue as needed anxiolytics. 11. Fluids, electrolytes, and nutrition. Low-sodium diet. 12. DVT prophylaxis. B/L SCDs. 13. Plan. Continue current management. Needs placement. Case discussed with Dr. Mata Problems: Subjective 24 Hr Interval Summary Free Text/Dictation Patient afebrile. Exam/Review of Systems Vital Signs Vitals Vital Signs Date Time Temp Pulse Resp B/P Pulse Ox O2 Delivery O2 Flow Rate FiO2 08/23/17 07:19 97.6 66 17 134/64 96 08/19/17 16:00 Room Air Intake and Output 08/22/17 08/22/17 08/23/17 15:00 23:00 07:00 Intake Total 610 ml 1000 ml Output Total 16 ml Balance 610 ml 984 ml Exam General: Adequately build 62 year-old female lying in bed in no apparent distress. HEENT: Normocephalic, atraumatic. Eyes: Anicteric sclerae, conjunctivae clear. ENT: Nasal septum midline, oral mucosa moist. Neck supple, no JVD noticed. Respiratory: Bilaterally clear breath sounds. No use of accessory muscles of respiration. No adventitious breath sounds. Cardiovascular: S1, S2 heard. No murmurs or gallops. Abdomen: Soft, nontender, and nondistended. Bowel sounds positive in all 4 quadrants. Genitourinary: Deferred. Extremities: No cyanosis, no clubbing, no edema. Peripheral pulses palpable. Neurologic: Cranial nerves II through XII grossly intact. The patient is awake, alert, and oriented. Skin: Normal skin turgor. No skin rashes. Results Result Diagram: 08/22/1765108/22/17651 Results 24 hrs Laboratory Tests Test 08/23/17 06:57 White Blood Count 4.6 L Red Blood Count 3.33 L Hemoglobin 10.2 L Hematocrit 32.2 L Mean Corpuscular Volume 96.7 Mean Corpuscular Hemoglobin 30.6 Mean Corpuscular Hemoglobin Concent 31.7 L Red Cell Distribution Width 17.6 H Platelet Count 235 Mean Platelet Volume 9.2 Neutrophils % 44.0 Lymphocytes % 34.9 Monocytes % 16.1 H Eosinophils % 3.3 Basophils % 1.3 Nucleated Red Blood Cells % 0.0 Neutrophils # 2.0 Lymphocytes # 1.6 Monocytes # 0.7 Eosinophils # 0.2 Basophils # 0.1 Nucleated Red Blood Cells # 0.0 Medications Medications Current Medications Haloperidol (Haldol) 2 mg Q4 PRN IV anxiety; Start 08/15/17 at 04:30 Lorazepam (Ativan) 1 mg Q3H PRN IV anxiety Last administered on 08/23/17 07:00 ; Admin Dose 1 MG; Start 08/15/17 at 04:30 Ondansetron HCl (Zofran Inj) 4 mg Q4H PRN IV NAUSEA AND/OR VOMITING; Start at 04:00 Acetaminophen (Tylenol Tab) 650 mg Q6H PRN PO PAIN AND OR ELEVATED TEMP Last administered on 08/21/17 13:56; Admin Dose 650 MG; Start 08/15/17 at 04:00 Morphine Sulfate (morphine) 2 mg Q4H PRN IV PAIN LEVEL 4-7 Last administered on 08/23/17 06:10; Admin Dose 2 MG; Start 08/15/17 at 04:00 Heparin Sodium (Porcine) (Heparin (5000 Units/0.5 ml)) 5,000 unit BID SC Last administered on 08/15/17 08:46; Admin Dose 5,000 UNIT; Start 08/15/17 at 09:00 ; Status Future Hold Sodium Phosphate (Neutra-Phos) 250 mg TID PO Last administered on 08/22/17 20: 19; Admin Dose 250 MG; Start 08/15/17 at 21:00 IV Flush (NS 10 ml) 10 ml PRN PRN IV IV PROTOCOL; Start 08/15/17 at 18:00 Alprazolam (Xanax) 0.5 mg Q8H PRN PO ANXIETY Last administered on 08/23/17 03: 12; Admin Dose 0.5 MG; Start 08/16/17 at 21:00 Benazepril HCl (Lotensin) 10 mg DAILY PO Last administered on 08/22/17 08:49; Admin Dose 10 MG; Start 08/16/17 at 21:00 Ferrous Sulfate (Ferrous Sulfate (Ec)) 325 mg DAILY PO Last administered on 08:49; Admin Dose 325 MG; Start 08/17/17 at 09:00 Isosorbide Mononitrate (Imdur) 30 mg DAILY PO Last administered on 08/22/17 08 :48; Admin Dose 30 MG; Start 08/16/17 at 21:00 Levothyroxine Sodium (Synthroid) 50 mcg DAILY@06 PO Last administered on 06:04; Admin Dose 50 MCG; Start 08/17/17 at 06:00 Nitroglycerin (Nitroglycerin (Sl Tab) 0.4 Mg) 1 tab [id number] PRN SL CHEST PAIN ; Start 08/16/17 at 21:00 Tolterodine Tartrate (Detrol) 2 mg BID PO Last administered on 08/22/17 20:20 ; Admin Dose 2 MG; Start 08/16/17 at 21:00 Fluticasone Propionate (Flonase 0.05% Nasal) 1 spray BID NASAL Last administered on 08/22/17 20:19; Admin Dose 1 SPRAY; Start 08/17/17 at 12:30 Hydralazine HCl (Apresoline) 10 mg Q4H PRN IV sbp>160; Start 08/20/17 at 11:30 Phenazopyridine HCl 100 mg 100 mg TID PO Last administered on 08/22/17 20:19; Admin Dose 100 MG; Start 08/21/17 at 13:00; Stop 08/23/17 at 12:59 Ferric Sodium Gluconate Complex/ Sodium Chloride (Ferrlecit/NS) 110 ml @ 100 mls/hr Q24H IVPB Last administered on 08/22/17 11:29; Admin Dose 100 MLS/HR; Start 08/21/17 at 11:30; Stop 08/23/17 at 12:35 Atorvastatin Calcium (Lipitor) 20 mg DAILY@21 PO Last administered on 20:20; Admin Dose 20 MG; Start 08/21/17 at 21:00 Metoprolol Tartrate (Lopressor) 25 mg BID PO Last administered on 08/22/17 08: 49; Admin Dose 25 MG; Start 08/21/17 at 21:00 Pantoprazole (Protonix Tab) 40 mg BID@06,18 PO Last administered on 08/23/17 06:03; Admin Dose 40 MG; Start 08/21/17 at 18:00 Ciprofloxacin (Cipro) 500 mg BID@06,18 PO Last administered on 08/23/17 06:04 ; Admin Dose 500 MG; Start 08/21/17 at 18:00 Zolpidem Tartrate (Ambien) 5 mg HS PRN PO INSOMNIA Last administered on 01:24; Admin Dose 5 MG; Start 08/21/17 at 20:30 Carisoprodol (Soma) 350 mg Q8H PRN PO MUSCLE SPASMS; Start 08/21/17 at 20:30 VANNESA WEBER NP Aug 23, 2017 07:29
[2017-08-23 08:03] LABS: CALCIUM 8.5 mg/dl (8.4-10.2); CREATININE 0.81 mg/dl (0.44-1.00); POTASSIUM 4.1 mmol/L (3.5-5.1)
[2017-08-23] MEDS: METOPROLOL 25 MG TAB PO SCH (09:26)
[2017-08-23] MEDS: NEUTRA-PHOS 250 MG PACKET PO SCH ×2 (09:26→13:32)
[2017-08-23] MEDS: PHENAZOPYRIDINE 100 MG TAB PO SCH (09:27)
[2017-08-23] MEDS: BENAZEPRIL 10 MG TAB PO SCH (09:27)
[2017-08-23] MEDS: ISOSORBIDE MONONITRATE(SR)30 MG TAB PO SCH (09:27)
[2017-08-23] MEDS: FERROUS SULFATE (EC) 325 MG TAB PO SCH (09:27)
[2017-08-23] MEDS: TOLTERODINE 2 MG TAB PO SCH (09:27)
[2017-08-23] MEDS: FLUTICASONE 0.05% 16 GM NAS SPRAY NASAL SCH (09:28)
[2017-08-23] MEDS: SOD FERRIC GLUC COMPLX 125 MG in SOD CHLORIDE 0.9% 100 ML IVPB SCH (10:59)
--- NOTE | 2017-08-23 12:07 | CONS ---
Date/Time of Note Date/Time of Note DATE: 08/23/17 TIME: 11:55 Assessment/Plan Assessment/Plan Chief Complaint/Hosp Course IMPRESSION: 1. Abnl ECG-assess for acute coronary syndrome.-negative trop x 3 2. History of paroxysmal atrial fibrillation-currently in SR. Eliquis held due to ulcer 3. History of coronary artery disease with LAD myocardial bridge, mild by echo March 2017. 4. History of non-ST elevation myocardial infarction. 5. Hypertension-somewhat labile 6. Hypothyroidism. 7. Urinary tract infection. 8. Sepsis, resolved. 9. Anemia. 10. Gastric ulcer. 11. Anxiety. Recc: -Tele -serial ecg;s -Continue current BB/ACEI/imdur -Continue current statin -Follow Hgb and continue FE repletion -Continue PPI Problems: Consultation Date/Type/Reason Admit Date/Time Aug 14, 2017 at 18:22 Initial Consult Date 08/15/17 Type of Consultation: cardiology Reason for Consultation abnl ecg Referring Provider: SILVIA HUERTA Exam/Review of Systems Vital Signs Vitals Vital Signs Date Time Temp Pulse Resp B/P Pulse Ox O2 Delivery O2 Flow Rate FiO2 08/23/17 11:19 98.1 55 17 139/77 97 08/19/17 16:00 Room Air Intake and Output 08/22/17 08/22/17 08/23/17 15:00 23:00 07:00 Intake Total 610 ml 1000 ml Output Total 16 ml Balance 610 ml 984 ml Exam Review of Systems: CONSTITUTIONAL: No fevers, chills. PULMONARY: No sob CARDIOVASCULAR: No chest pain/palpitations GASTROINTESTINAL: No nausea/vomiting. GENITOURINARY: No hematuria/dysuria. MUSCULOSKELETAL: No myagias/arthalgias. PSYCHIATRIC: The patient denies depression. NEUROLOGIC: No weakness Constitutional: alert Psych: no complaints Head: normocephalic ENMT: mucosa pink and moist Neck: jvd, supple Respiratory: diminished breath sounds Cardiovascular: regular rate and rhythm Gastrointestinal: non-tender, soft Musculoskeletal: muscle tone (normal) Extremities: edema (none) Neurological: other (No focal deficits) Results Result Diagram: 08/23/17 0657 08/23/17 0657 Results 24 hrs Laboratory Tests Test 08/23/17 06:57 White Blood Count 4.6 L Red Blood Count 3.33 L Hemoglobin 10.2 L Hematocrit 32.2 L Mean Corpuscular Volume 96.7 Mean Corpuscular Hemoglobin 30.6 Mean Corpuscular Hemoglobin Concent 31.7 L Red Cell Distribution Width 17.6 H Platelet Count 235 Mean Platelet Volume 9.2 Neutrophils % 44.0 Lymphocytes % 34.9 Monocytes % 16.1 H Eosinophils % 3.3 Basophils % 1.3 Nucleated Red Blood Cells % 0.0 Neutrophils # 2.0 Lymphocytes # 1.6 Monocytes # 0.7 Eosinophils # 0.2 Basophils # 0.1 Nucleated Red Blood Cells # 0.0 Sodium Level 138 Potassium Level 4.1 Chloride Level 106 Carbon Dioxide Level 26 Anion Gap 10 Blood Urea Nitrogen 8 Creatinine 0.81 Glucose Level 104 Calcium Level 8.5 Magnesium Level 1.8 Medications Medications Current Medications Haloperidol (Haldol) 2 mg Q4 PRN IV anxiety; Start 08/15/17 at 04:30 Lorazepam (Ativan) 1 mg Q3H PRN IV anxiety Last administered on 08/23/17 10:12 ; Admin Dose 1 MG; Start 08/15/17 at 04:30 Ondansetron HCl (Zofran Inj) 4 mg Q4H PRN IV NAUSEA AND/OR VOMITING; Start at 04:00 Acetaminophen (Tylenol Tab) 650 mg Q6H PRN PO PAIN AND OR ELEVATED TEMP Last administered on 08/21/17 13:56; Admin Dose 650 MG; Start 08/15/17 at 04:00 Morphine Sulfate (morphine) 2 mg Q4H PRN IV PAIN LEVEL 4-7 Last administered on 08/23/17 10:59; Admin Dose 2 MG; Start 08/15/17 at 04:00 Heparin Sodium (Porcine) (Heparin (5000 Units/0.5 ml)) 5,000 unit BID SC Last administered on 08/15/17 08:46; Admin Dose 5,000 UNIT; Start 08/15/17 at 09:00 ; Status Future Hold Sodium Phosphate (Neutra-Phos) 250 mg TID PO Last administered on 08/23/17 09: 26; Admin Dose 250 MG; Start 08/15/17 at 21:00 IV Flush (NS 10 ml) 10 ml PRN PRN IV IV PROTOCOL; Start 08/15/17 at 18:00 Alprazolam (Xanax) 0.5 mg Q8H PRN PO ANXIETY Last administered on 08/23/17 11: 00; Admin Dose 0.5 MG; Start 08/16/17 at 21:00 Benazepril HCl (Lotensin) 10 mg DAILY PO Last administered on 08/23/17 09:27; Admin Dose 10 MG; Start 08/16/17 at 21:00 Ferrous Sulfate (Ferrous Sulfate (Ec)) 325 mg DAILY PO Last administered on 09:27; Admin Dose 325 MG; Start 08/17/17 at 09:00 Isosorbide Mononitrate (Imdur) 30 mg DAILY PO Last administered on 08/23/17 09 :27; Admin Dose 30 MG; Start 08/16/17 at 21:00 Levothyroxine Sodium (Synthroid) 50 mcg DAILY@06 PO Last administered on 06:04; Admin Dose 50 MCG; Start 08/17/17 at 06:00 Nitroglycerin (Nitroglycerin (Sl Tab) 0.4 Mg) 1 tab [id number] PRN SL CHEST PAIN ; Start 08/16/17 at 21:00 Tolterodine Tartrate (Detrol) 2 mg BID PO Last administered on 08/23/17 09:27 ; Admin Dose 2 MG; Start 08/16/17 at 21:00 Fluticasone Propionate (Flonase 0.05% Nasal) 1 spray BID NASAL Last administered on 08/23/17 09:28; Admin Dose 1 SPRAY; Start 08/17/17 at 12:30 Hydralazine HCl (Apresoline) 10 mg Q4H PRN IV sbp>160; Start 08/20/17 at 11:30 Phenazopyridine HCl 100 mg 100 mg TID PO Last administered on 08/23/17 09:27; Admin Dose 100 MG; Start 08/21/17 at 13:00; Stop 08/23/17 at 12:59 Ferric Sodium Gluconate Complex/ Sodium Chloride (Ferrlecit/NS) 110 ml @ 100 mls/hr Q24H IVPB Last administered on 08/23/17 10:59; Admin Dose 100 MLS/HR; Start 08/21/17 at 11:30; Stop 08/23/17 at 12:35 Atorvastatin Calcium (Lipitor) 20 mg DAILY@21 PO Last administered on 20:20; Admin Dose 20 MG; Start 08/21/17 at 21:00 Metoprolol Tartrate (Lopressor) 25 mg BID PO Last administered on 08/23/17 09: 26; Admin Dose 25 MG; Start 08/21/17 at 21:00 Pantoprazole (Protonix Tab) 40 mg BID@18 PO Last administered on 08/23/17 06:03; Admin Dose 40 MG; Start 08/21/17 at 18:00 Ciprofloxacin (Cipro) 500 mg BID@18 PO Last administered on 08/23/17 06:04 ; Admin Dose 500 MG; Start 08/21/17 at 18:00 Zolpidem Tartrate (Ambien) 5 mg HS PRN PO INSOMNIA Last administered on 01:24; Admin Dose 5 MG; Start 08/21/17 at 20:30 Carisoprodol (Soma) 350 mg Q8H PRN PO MUSCLE SPASMS; Start 08/21/17 at 20:30 DALILA BUTT Aug 23, 2017 12:05
[2017-08-23] MEDS ORDERED: CIPR500T4 PO (14:01)
--- NOTE | 2017-08-23 14:01 | PDOCDIS ---
Discharge Instructions DIAGNOSIS Discharge Diagnosis Gastric ulcer. CONDITION Patient Condition: Stable HOME CARE INSTRUCTIONS: Special Diet: cardiac FOLLOW UP/APPOINTMENTS Follow-up Plan Archie Cullen MD Specialty Cardiology Office Address [address] [place] [address] Office OTHER ORDERS: Other Orders: 1. Medications as per medication list. 2. Activities with assist 3. Low-cholesterol diet. 4. Follow-up with Dr. Cullen in 2 weeks. VANNESA WEBER NP Aug 23, 2017 14:00
--- NOTE | 2017-08-23 20:36 | DS ---
DATE OF ADMISSION: 08/14/2017 DATE OF DISCHARGE: 08/23/2017 FINAL DIAGNOSES: 1. Reported syncope, most probably secondary to hypotension, resolved. 2. Status post sepsis secondary to underlying urinary tract infection. 3. Normocytic, normochromic anemia. 4. Iron deficiency. 5. Gastrointestinal bleeding secondary to a 1.5-cm deep antral gastric ulceration. 6. Hypothyroidism. 7. Essential hypertension. 8. Coronary artery disease. Status post coronary angiogram on 03/22/2017, showing moderate nonobstructive coronary artery disease, with a probable area of myocardial bridge. 9. Paroxysmal atrial fibrillation. 10. Debility. 11. Anxiety disorder. CONSULTANTS: 1. Dr. Fred Uriostegui, Gastroenterology. 2. Dr. Archie Cullen, Cardiology. 3. Dr. Supa Mercado, Cardiology. HOSPITAL COURSE: This is a 62-year-old female with a history of hypothyroidism, nonobstructive CAD, dyslipidemia and anxiety, who came to the emergency room after the patient was found down in the parking lot of a fast food restaurant. The patient denied any chest pain, palpitations, lightheadedness, or shortness of breath upon presentation. When the patient presented to the ER, the patient had a low blood pressure reading of 69/41. The patient had significant lactic acidosis. The patient's urinalysis was consistent with a urinary tract infection. The patient's head CT was negative for any acute findings. The patient was admitted to inpatient setting for further evaluation. The patient was admitted to inpatient telemetry floor. The patient was started on empiric antibiotics. Pancultures were obtained. The patient's urine culture showed positive E. coli. The patient's blood cultures remained negative. The patient was maintained on antibiotics as per the sensitivities. During the patient's hospitalization, the patient complained about dark, tarry stools. Consequently, a Gastroenterology consult was obtained. The patient underwent an esophagogastroduodenoscopy on 08/16/2017 that showed a 1.5-cm deep antral gastric ulceration, with no stigmata of recent bleeding. Consequently, the patient was maintained on proton pump inhibitors. The patient was also taking aspirin for her nonobstructive coronary artery disease and Eliquis for her paroxysmal atrial fibrillation. These 2 medications were discontinued, once the patient was found to have melena. The patient's concrete carpenter was consulted on the patient's case for expert opinion on the need for anticoagulation. As per the conversation with the patient's concrete carpenter, the patient mostly has remained in a sinus rhythm, and the patient has a significant gastric antral ulcer that necessitates the patient to be off anticoagulation. The patient's Eliquis, as well as aspirin, will be put on hold. Nevertheless, the patient will follow up with outpatient Cardiology. The patient was also noticed to have underlying iron deficiency. The patient was maintained on IV iron supplements. She has underlying hypothyroidism. She was maintained on her own Synthroid for the same. She has underlying essential hypertension. The patient was maintained on antihypertensives for the same. As mentioned earlier, the patient has history of paroxysmal atrial fibrillation. The patient remained in sinus rhythm throughout the patient's hospital course. The patient was maintained on beta blockers. She has underlying dyslipidemia. She was maintained on statins for the same. The patient was noticed to be significantly debilitated. Hence, the patient was seen by Physical Therapy. Physical Therapy recommended placement. Hence, Case Management was involved in the patient's care. Case Management had a difficult time finding a place for this patient because of probably insurance reasons. Finally, the patient has a place to be discharged. The patient is clinically stable to be discharged to a [place] [facility] facility. DISCHARGE DISPOSITION/PLAN: The patient will be discharged to [facility]. The patient will take medications as per medication list. Activities will be with assist. The patient will follow a low-cholesterol diet. The patient will follow up with Dr. Cullen in 2 weeks. The patient verbalized understanding of the discharge instructions. DISCHARGE CONDITION: Stable. DISCHARGE MEDICATIONS: 1. Ciprofloxacin 500 mg p.o. b.i.d. until 08/26/2017. 2. Xanax 0.5 mg p.o. q.8 hours p.r.n. anxiety. 3. Benazepril 10 mg p.o. daily. 4. Carisoprodol 350 mg p.o. as needed p.r.n. muscle spasms. 5. Ferrous sulfate 325 mg p.o. b.i.d. 6. Isosorbide mononitrate 30 mg p.o. daily. 7. Synthroid 50 mcg p.o. daily. 8. Protonix 40 mg p.o. b.i.d. 9. Lipitor 20 mg p.o. daily. 10. Detrol 2 mg p.o. b.i.d. LABORATORY DATA AND DIAGNOSTIC STUDIES: 1. Esophagogastroduodenoscopy on 08/16/2017. A 1.5-cm deep antral gastric ulceration. 2. Brain CT scan upon admission. No acute intracranial abnormality. 3. Carotid Doppler study. Less than 50 percent stenosis bilaterally in the internal carotid arteries. 4. CT scan of the abdomen and pelvis. Mild cardiomegaly. Fatty metamorphosis of the liver. Calcification of the mitral valve annulus. Coronary artery calcification. Atherosclerosis. Diverticulosis of the sigmoid colon, without evidence of diverticulitis. No urinary tract calculus or hydronephrosis. No evidence of appendicitis. 5. Urine culture positive for E coli. 6. Blood culture x2 negative. 7. Latest CBC: WBC 4.6, hemoglobin 10.2, hematocrit 32.2, platelet count 235. 8. Latest BMP: Sodium 138, potassium 4.1, chloride 106, carbon dioxide 26, anion gap 10, BUN 8, creatinine 0.81, glucose 104, calcium 8.5, magnesium 1.8. 9. Hemoglobin A1c 5.0. 10. Fasting lipid panel: Triglycerides 75, total cholesterol 160, LDL 79, HDL 66. 11. Iron panel: TIBC 236, iron saturation 11, ferritin 48.9. At this time, I would like to thank all the consultants for seeing the patient, doing the necessary procedures, and providing clinical recommendations. The case and management of this patient was fully discussed with Dr. Mata. Approximately 40 minutes was spent on coordinating the discharge on this patient. Dictated By: Luis Pulliam NP /brittny/noemi /Document#: [id number] LUIS
--- NOTE | 2017-08-24 09:14 | RADRPT ---
Vent Rate: 81 bpm RR Interval: 0 msec [place] Interval: 186 msec QRS Duration: 76 msec QT Interval: 376 msec QTC Interval: 436 msec P-R-T [place]: 33 - -58 - 40 degrees Normal sinus rhythm Left axis deviation Low voltage QRS Inferior infarct , age undetermined Cannot rule out Anteroseptal infarct , age undetermined Abnormal ECG Electronically Signed By: Stephon Casas [id number]
--- NOTE | 2017-08-24 09:17 | RADRPT ---
Vent Rate: 71 bpm RR Interval: 0 msec [place] Interval: 196 msec QRS Duration: 80 msec QT Interval: 390 msec QTC Interval: 423 msec P-R-T [place]: 36 - -51 - 24 degrees Normal sinus rhythm Left axis deviation Inferior infarct , age undetermined Anteroseptal infarct , age undetermined Abnormal ECG Electronically Signed By: Stephon Casas [id number]
== END 2017-08-23 19:10 | DRG 871 ==
LOC: E/R 15:03 → MS4 18:22 → TEL 08-15 18:27
PROVIDERS: ADMIT Internal Medicine; ATTEND Internal Medicine
PROC: 0DB68ZX Excision of Stomach, Via Natural or Artificial Opening Endoscopic, Diagnostic (ICD-10-PCS; principal; 2017-08-16 21:30)
DX: A41.9 Sepsis, unspecified organism (principal); R65.21 Severe sepsis with septic shock; N39.0 Urinary tract infection, site not specified; R55 Syncope and collapse; K76.0 Fatty (change of) liver, not elsewhere classified; I10 Essential (primary) hypertension; Z95.5 Presence of coronary angioplasty implant and graft; B96.20 Unspecified Escherichia coli [E. coli] as the cause of diseases classified elsewhere; E86.0 Dehydration; E87.6 Hypokalemia; E03.9 Hypothyroidism, unspecified; F41.8 Other specified anxiety disorders; R56.9 Unspecified convulsions; K25.9 Gastric ulcer, unspecified as acute or chronic, without hemorrhage or perforation; R19.5 Other fecal abnormalities; I25.2 Old myocardial infarction; D64.9 Anemia, unspecified; Z79.02 Long term (current) use of antithrombotics/antiplatelets
CPT/HCPCS: 36415; 36569; 70450; 71010; 74176; 76937; 80048; 80053; 80061; 80306; 80307; 81001; 82728; 83036; 83540; 83605; 83735; 84100; 84436; 84439; 84443; 84481; 84484; 85025; 85610; 85730; 87040; 87086; 88305; 88312; 90686; 93005; 93880; 96374; 96375; 97162; 97530; C9113; J0696; J0744; J1644; J2060; J2270; J2543; J2916; J3370; J3475; J3480; J7030; J7042

== ENCOUNTER 2017-10-08 09:54 | Inpatient (IN) | payer OTHER ==
[~2017-10-08] VITALS: Ht 162.6 cm; Wt 52.0 kg
[2017-10-08] VITALS (7 sets, daily range): BP systolic 125–130; BP diastolic 61–78; PULSE 84–111; RESP 17–18; TEMP 99; Ht 162.6 cm; Wt 52.0 kg
[~2017-10-08 09:54] MED LIST changes: -ASPI81TA3 NGT; +CIPR500T4 PO; -METO-448 PO
[2017-10-08] MEDS ORDERED: SOD CHLORIDE 0.9% 1,000 ML IV STA ×2 (09:58)
[2017-10-08] MEDS ORDERED: CEFEPIME 2GM/50 ML (PMX) 50 ML IVPB STA (09:58)
[2017-10-08] MEDS ORDERED: VANCOMYCIN 1 GM (PMX) 250 ML IVPB ONE (10:00)
--- NOTE | 2017-10-08 10:27 | RADRPT ---
PROCEDURE: XR Chest. CLINICAL INDICATION: Syncope TECHNIQUE: Single frontal view of the chest was obtained COMPARISON: 03/23/2017 FINDINGS: No pleural effusion or pneumothorax. No consolidation. Stable enlarged cardiomediastinal silhouette. No acute osseous abnormality. IMPRESSION: No acute cardiopulmonary disease. Stable cardiomegaly. RPTAT: EE Marsha Galindo Physician Date Time Electronically viewed and signed by Marsha Galindo Physician on 10/08/2017 10:26 /
[2017-10-08 10:37] LABS: BASOPHIL # 0.1 10^3/ul (0.0-0.1); BASOPHILS % 0.6 % (0.0-2.0); EOSINOPHILS % 0.4 % (0.0-7.0); HEMATOCRIT 37.5 % (37.0-47.0); HEMOGLOBIN 12.7 g/dl (12.0-16.0); LYMPHOCYTES # 1.9 10^3/ul (0.8-2.9); LYMPHOCYTES % 19.9 % (15.0-51.0); MEAN CORPUSCULAR HEMOGLOBIN 31.5 pg (29.0-33.0); MEAN CORPUSCULAR HGB CONC 33.9 g/dl (32.0-37.0); MEAN CORPUSCULAR VOLUME 93.1 fl (82.0-101.0); MEAN PLATELET VOLUME 9.4 fl (7.4-10.4); MONOCYTE # 0.9 10^3/ul (0.3-0.9); MONOCYTES % 9.4 % (0.0-11.0); NEUTROPHIL # 6.4 10^3/ul (1.6-7.5); NEUTROPHILS % 69.4 % (39.0-77.0); PLATELET COUNT 213 10^3/UL (140-415); RED BLOOD COUNT 4.03 10^6/ul (4.20-5.40); RED CELL DISTRIBUTION WIDTH 14.7 % (11.5-14.5); WHITE BLOOD COUNT 9.3 10^3/ul (4.8-10.8)
[2017-10-08 10:56] LABS: ALBUMIN 3.9 g/dl (3.3-4.9); ALBUMIN/GLOBULIN RATIO 1.34; BILIRUBIN,INDIRECT 0.7 mg/dl (0-1.1); BILIRUBIN,TOTAL 0.7 mg/dl (0.2-1.3); CREATININE 0.77 mg/dl (0.44-1.00); TOTAL PROTEIN 6.8 g/dl (6.1-8.1)
[2017-10-08 11:00] LABS: INR 0.99; PROTIME 13.1 Sec (12.2-14.2)
[2017-10-08] MEDS ORDERED: LORAZEPAM 2 MG INJ IV ONE (11:00)
[2017-10-08 11:01] LABS: PARTIAL THROMBOPLASTIN TIME 30.7 Sec (25.0-35.0)
[2017-10-08 11:07] LABS: TROPONIN-I 0.113 ng/ml (0.00-0.12)
[2017-10-08] MEDS ORDERED: ACETAMINOPHEN 325 MG TAB PO PRN (12:30)
[2017-10-08] MEDS ORDERED: ONDANSETRON 4 MG INJ IV PRN ×2 (12:30→14:00)
--- NOTE | 2017-10-08 13:16 | ERD ---
ER Documentation Chief Complaint Chief Complaint C/O GENERALIZED WEAKNESS AND SYNCOPAL EPISODE THIS AM. HPI Patient is a 62-year-old female with coronary disease and hypertension who presents with weakness. She says "I felt like I was having a hypoglycemic attack". She said that her legs felt weak and trembling. She had a low blood count in the past. She was recently admitted in July for septic shock. She does admit to burning with urination today. She has had fevers and said she passed out today. Please note the history and physical exam is limited secondary to the patient's confusion. Upon review of old medical records the patient has multiple visits to the ER and review of the emergency department information exchange system shows visits to 2 separate emergency departments. ROS All systems reviewed and are negative except as per history of present illness. Medications Home Meds Active Scripts Ciprofloxacin Hcl* (Ciprofloxacin Hcl*) 500 Mg Tablet, 500 MG PO BID@06,18 for 3 Days, TAB Prov:VANNESA WEBER NP 08/23/17 Tolterodine Tartrate* (Detrol*) 2 Mg Tablet, 2 MG PO BID for 30 Days, #60 TAB Prov:NAOMIE STEEL MD 07/11/17 Levothyroxine Sodium* (Synthroid*) 50 Mcg Tablet, 50 MCG PO DAILY@06 for 30 Days , #30 TAB Prov:NAOMIE STEEL MD 07/11/17 Alprazolam* (Xanax*) 0.5 Mg Tab, 0.5 MG PO Q8H Y for ANXIETY, #20 TAB Prov:SHITAL FERNÁNDEZ MD 03/24/17 Reported Medications Pantoprazole* (Pantoprazole*) 40 Mg Tablet.dr, 40 MG PO AC BREAKFAST DINNER, TAB 08/14/17 Simvastatin* (Zocor*) Unknown Strength Tablet, 1 TAB PO QHS, #30 TAB 07/09/17 Ferrous Sulfate* (Ferrous Sulfate*) 325 Mg Tabec, 325 MG PO NEEDED, TAB 07/09/17 Carisoprodol* (Carisoprodol*) 350 Mg Tablet, 350 MG PO NEEDED Y for MUSCLE SPASMS, TAB 07/09/17 Benazepril Hcl* (Benazepril Hcl*) 10 Mg Tablet, 10 MG PO DAILY, #30 TAB 09/14/16 Isosorbide Mononitrate* (Isosorbide Mononitrate*) 30 Mg Tab.er.24h, 30 MG PO DAILY, TAB 05/29/16 Nitroglycerin* (Nitrostat*) 0.4 Mg Tab.subl, 0.4 MG SL Q5MIN Y for CHEST PAIN, BOTTLE 05/29/16 Allergies Allergies: Coded Allergies: No Known Allergy (Unverified , 10/08/17) PMhx/Soc History of Surgery: Yes () Anesthesia Reaction: No Hx Neurological Disorder: Yes (seizures) Hx Respiratory Disorders: No Hx Cardiac Disorders: Yes (htn, dyslipidemia, mi, chf) Hx Psychiatric Problems: Yes (anxiety, depression) Hx Miscellaneous Medical Probl: Yes (LEFT CLAVICLE FX, SEIZURE, CHF, UT, ANXIETY/DEPRESION, HYPOTHYROIDISM) Hx Alcohol Use: Yes (occasionally) Hx Substance Use: No Hx Tobacco Use: No Smoking Status: Former smoker FmHx Family History: diabetes Physical Exam Vitals Vital Signs Date Time Temp Pulse Resp B/P Pulse Ox O2 Delivery O2 Flow Rate FiO2 10/08/17 11:00 98.3 110 20 121/76 98 Room Air 10/08/17 10:00 Nasal Cannula 2 10/08/17 09:58 97.6 113 18 157/85 99 Physical Exam Const: Moderate distress Head: Atraumatic Eyes: Normal Conjunctiva ENT: Normal External Ears, Nose and Mouth. Neck: Full range of motion..~ No meningismus. Resp: Clear to auscultation bilaterally Cardio: Regular rate and rhythm, no murmurs Abd: Soft, non tender, non distended. Normal bowel sounds Skin: No petechiae or rashes Back: No midline or flank tenderness Ext: No cyanosis, or edema Neur: Awake confused Result Diagram: 10/08/17 1015 10/08/17 1015 Results 24 hrs Laboratory Tests Test 10/08/17 10:15 White Blood Count 9.310^3/ul Red Blood Count 4.0310^6/ul Hemoglobin 12.7g/dl Hematocrit 37.5% Mean Corpuscular Volume 93.1fl Mean Corpuscular Hemoglobin 31.5pg Mean Corpuscular Hemoglobin Concent 33.9g/dl Red Cell Distribution Width 14.7% Platelet Count 69887^3/UL Mean Platelet Volume 9.4fl Neutrophils % 69.4% Lymphocytes % 19.9% Monocytes % 9.4% Eosinophils % 0.4% Basophils % 0.6% Nucleated Red Blood Cells % 0.0/100WBC Neutrophils # 6.410^3/ul Lymphocytes # 1.910^3/ul Monocytes # 0.910^3/ul Eosinophils # 0.010^3/ul Basophils # 0.110^3/ul Nucleated Red Blood Cells # 0.010^3/ul Prothrombin Time 13.1Sec Prothrombin Time Ratio 1.0 INR International Normalized Ratio 0.99 Activated Partial Thromboplast Time 30.7Sec Sodium Level 138mmol/L Potassium Level 4.0mmol/L Chloride Level 94mmol/L Carbon Dioxide Level 30mmol/L Anion Gap 18 Blood Urea Nitrogen 16mg/dl Creatinine 0.77mg/dl Glucose Level 142mg/dl Lactic Acid Level 2.6mmol/L Calcium Level 9.0mg/dl Total Bilirubin 0.7mg/dl Direct Bilirubin 0.00mg/dl Indirect Bilirubin 0.7mg/dl Aspartate Amino Transf (AST/SGOT) 63IU/L Alanine Aminotransferase (ALT/SGPT) 25IU/L Alkaline Phosphatase 201IU/L Troponin I 0.113ng/ml Total Protein 6.8g/dl Albumin 3.9g/dl Globulin 2.90g/dl Albumin/Globulin Ratio 1.34 Lipase 111U/L Ethyl Alcohol Level < 10.0mg/dl Current Medications Medications (Trade) Dose Ordered Sig/Marixa Route PRN Reason Start Time Stop Time Status Last Admin Dose Admin Cefepime HCl 50 ml @ 100 mls/hr ONCE STAT IVPB 10/08/17 09:58 10/08/17 10:27 DC 10/08/17 10:54 Vancomycin HCl 250 ml @ 125 mls/hr ONCE ONCE IVPB 10/08/17 10:00 10/08/17 11:59 DC Sodium Chloride 1,000 ml @ 1,000 mls/hr Q1H STAT IV 10/08/17 09:58 10/08/17 10:57 DC 10/08/17 10:45 Sodium Chloride (NS) 1,000 ml @ 1,000 mls/hr Q1H STAT IV 10/08/17 09:58 10/08/17 10:57 DC 10/08/17 10:45 Lorazepam (Ativan) 1 mg ONCE ONCE IV 10/08/17 11:00 11/19/17 11:01 DC 10/08/17 10:53 Ondansetron HCl (Zofran Inj) 4 mg ER BRIDGE PRN IV NAUSEA AND/OR VOMITING 10/08/17 12:30 10/09/17 12:29 Acetaminophen (Tylenol Tab) 650 mg ER BRIDGE PRN PO MILD PAIN/FEVER 10/08/17 12:30 10/09/17 12:29 Procedures/MDM EKG read by me: Rate/Rhythm: Sinus tachycardia at a rate of 114 Intervals: Normal Impression: Sinus tachycardia without ischemia Chest x-ray shows cardiomegaly per radiology. Admit MDM: Patient's infectious symptoms have not stabilized and the patient is at risk of rapid decompensation. The patient will be admitted for careful hydration, antibiotic therapy, and infectious source control. Severe Sepsis criteria: Infectious source: Likely cystitis End organ damage indicated by: Lactate greater than 2 Sepsis Management: Time of recognition of sepsis: 10:15 AM Within 3 hours of recognition: Blood cultures x 2 before broad-spectrum antibiotics: Yes 30 ml/kg NS bolus Completed Initial lactate 2.6 Repeat lactate pending Time of recognition of septic shock: No septic shock Septic Shock Assessment: Any lactic acid > 4.0 No Persistent hypotension (SBP < 90 or 40 mmHg drop, MAP < 65) despite 30 mL/kg IV fluid bolus No Volume Re-assessment for Septic Shock (post 30 ml/kg bolus): No septic shock at this time Persistent Hypotension Treatment: Comfort care No Central line Not Required Vasopressor started Not required I considered further perfusion assessment with CVP measurement, SCVO2, bedside ultrasound volume assessment, passive leg raise, trial of further fluid bolus. And proceeded with 30 ml/kg fluid bolus of NSS, broad spectrum antibiotics, and admission. Accepting Care Team Current data and ongoing care discussed. Admitting Physician: Dr. Major from the panel team Top Taper Machine(s): None Outstanding Data: Culture results and repeat lactic acid Critical Care: Critical care time 35 minutes excluding all billable procedures Emergent fluid management while maintaining close respiratory support. Provision of immediate and broad-spectrum antibiotic therapy. Simultaneous assessment for possible sources in order to direct targeted therapy. Consideration for invasive and chemical support to prevent cardiopulmonary collapse. Departure Diagnosis: Primary Impression: Severe sepsis Additional Impressions: Syncope Syncope type: unspecified Qualified Code: R55 - Syncope, unspecified syncope type Altered mental status Altered mental status type: unspecified Qualified Code: R41.82 - Altered mental status, unspecified altered mental status type Condition: EMERSON Barcenas MD Oct 08, 2017 13:16
--- NOTE | 2017-10-08 13:56 | HP ---
Date/Time of Note Date/Time of Note DATE: 10/08/17 TIME: 13:46 Assessment/Plan VTE Prophylaxis VTE Prophylaxis Intervention: SCD's Assessment/Plan Chief Complaint/Hosp Course Patient is a 62-year-old female with multiple issues and comorbidities who presents for syncope Assessment and plan Syncope -Questionable if true syncope, patient has had many episodes of many admissions for the same reason multiple times throughout the years -Appears patient is volume depleted, which may explain slightly elevated lactic acid, BUN/creatinine ratio near 20, inability to urinate the entire day, will hydrate patient with IV fluids -Lactic acid already resolved -CT pending Lactic acid elevation -Resolved with fluids -Blood cultures taken, UA pending -Likely secondary to volume depletion, patient received 1 dose of antibiotics in the ED, however do not suspect infection at this point, will restart antibiotics if UA is positive, chest x-ray negative Generalized debility -Patient's main objective throughout multiple admissions appears to be placed in a usp after her legitimate medical needs are met. -No clear explanation except chronic debility for patient's weakness, will get social and case management on board GI ulcer -Found during previous admission, per land manager during that admission patient should hold off on aspirin and Eliquis -Protonix twice a day Coronary artery disease -Has outpatient land manager, will follow-up in the outpatient setting -Echocardiogram ordered, ultrasound carotids within normal limits during previous admission -If cardiac cause for syncope, will reconsult cards Paroxysmal A. fib -Usually in sinus rhythm, currently in sinus rhythm, holding Eliquis secondary to recent GI ulcer -Monitor and rate control as necessary as patient is mildly tachycardic, spoke to outpatient land manager, recommends mild metoprolol, monitor closely as patient's heart rate does tend to be mildly bradycardic Seizure -Very questionable history of seizure, seizure precautions for now with as needed Ativan Anxiety -Ativan as needed Hypothyroidism -Resume home Synthroid Hypertension -Resume home benazepril Disposition -Workup pending Problems: HPI/ROS Admit Date/Time Admit Date/Time Hx of Present Illness Patient is a 62-year-old female with a past medical history of atrial fibrillation, recent GI ulcer, coronary artery disease with last angiogram done March 2017, debility, hypothyroidism, with multiple admissions into [facility] for multiple different complaints, most recently for septic shock and GI bleed a proximally 1 month prior. Patient was sent to group home facility however was discharged approximately 15 days ago from that nursing facility. Patient states that she needs a lot of help and she is almost 63 and cannot take care of herself. Patient's main complaint today is syncope as well as a weakening of the knees. Patient states that she hit her head but there was no laceration. Patient states that she takes all her medications, but now has not followed up with a doctor. Patient states that she has not urinated today and her last alcoholic drink was 2 days ago. Patient denies routine alcohol consumption. Patient currently also has a headache, however denies nausea vomiting. Denies chest pain. States is still weak in the knees but is her baseline. PMH/Family/Social Past Surgical History Past Surgical Hx: other Social History Smoking Status: Former smoker Exam/Review of Systems Vital Signs Vitals Vital Signs Date Time Temp Pulse Resp B/P Pulse Ox O2 Delivery O2 Flow Rate FiO2 10/08/17 13:21 99.0 97 18 138/87 99 Room Air 10/08/17 10:00 2 Exam Exam Physical exam General: Patient is laying in bed and answers questions appropriately Mentation: Patient is alert and oriented 4, Head: Normocephalic atraumatic Eyes: EOMI, pupils reactive to light Neck: Supple, nontender, midline Respiratory: Clear to auscultation bilaterally Cardiovascular: regular rate, murmur heard Gastrointestinal: non-tender to palpation, bowel sounds heard. Neurological: Moves all extremities spontaneously, 4/5 strength for UE/LE Skin: No new skin lesions Labs Result Diagram: 10/08/17 1015 10/08/17 1015 Medications Medications Current Medications Alprazolam (Xanax) 0.5 mg Q8H PRN PO ANXIETY; Start 10/08/17 at 14:00 Benazepril HCl (Lotensin) 10 mg DAILY PO ; Start 10/09/17 at 09:00 Carisoprodol (Soma) 350 mg Q12 PRN PO MUSCLE SPASMS; Start 10/08/17 at 14:00 Isosorbide Mononitrate (Imdur) 30 mg DAILY PO ; Start 10/09/17 at 09:00 Levothyroxine Sodium (Synthroid) 50 mcg DAILY@06 PO ; Start 10/09/17 at 06:00 Tolterodine Tartrate (Detrol) 2 mg BID PO ; Start 10/08/17 at 21:00 Labetalol HCl (Labetalol) 10 mg Q4 PRN IV SBP>160; Start 10/08/17 at 14:00 Lorazepam (Ativan) 2 mg Q10MIN PRN IV seizure only; Start 10/08/17 at 14:00 JAMILAH ECHEVERRIA Oct 08, 2017 13:56
[2017-10-08] MEDS ORDERED: LABETALOL HCL 20MG INJ IV PRN (14:00)
[2017-10-08] MEDS ORDERED: BISACODYL (EC) 5 MG TAB PO PRN (14:00)
[2017-10-08] MEDS ORDERED: LORAZEPAM 2 MG INJ IV PRN (14:00)
[2017-10-08] MEDS ORDERED: NACL 0.9% 3 ML SYG IV SCH (14:00)
[2017-10-08] MEDS ORDERED: ALPRAZOLAM 0.5 MG TAB PO PRN (14:00)
[2017-10-08] MEDS ORDERED: ONDANSETRON 4 MG TAB PO PRN (14:00)
--- NOTE | 2017-10-08 14:09 | RADRPT ---
PROCEDURE: CT Head without. CLINICAL INDICATION: Syncope. TECHNIQUE: The study was performed utilizing a multi-slice, multidetector CT scanner. Direct spira l 1 mm axial sections were obtained through the head without the use of intravenous contrast materia l. 1 or more of the following dose reduction techniques were utilized: Automated exposure control, adjustment of the mA and/or kV according to patient's size, iterative reconstruction technique. Co alena and sagittal reformations were obtained. The images were reviewed on a PACS workstation. DICOM images are available. RADIATION DOSE: CTDIvol: 45.0 mGyDLP: 720.2 mGy-cm COMPARISON: 08/14/2017, 08/15/2016 FINDINGS: There is no intracranial hemorrhage, extra-axial fluid collection, mass lesion, midline shift or hyd rocephalus. There is mild prominence of the cerebral sulci, lateral and third ventricles. There is mild periventricular and subcortical white matter hypodensity. There is mild arteriosclerotic calc ification of the parasellar internal carotid arteries. The garcia-white matter differentiation is pre served. The basal cisterns are patent. The midline structures are intact. There is pneumatization of the bilateral petrous apices without evidence of inflammatory changes, normal variant. The orbit s, calvarium and extracranial soft tissues are normal in appearance. The visualized paranasal sinuse s, mastoid air cells and middle ear cavities are normally aerated. IMPRESSION: 1. No significant interval change compared to 08/14/2017. No acute intracranial abnormality. No in tracranial hemorrhage, extra-axial fluid collection, mass lesion or hydrocephalous. 2. Mild peripheral and central cerebral volume loss. 3. Mild periventricular and subcortical white matter hypodensity, likely related to chronic microan giopathic changes. RPTAT: HGAS .Adarsh Gupta MD, Date Time Electronically viewed and signed by .Adarsh Gupta MD, MD on 10/08/2017 14:09 .S/
[2017-10-08] MEDS: METOPROLOL 25 MG TAB PO SCH ×2 (15:41→23:08)
[2017-10-08] MEDS: SOD CHLORIDE 0.45% 1,000 ML IV SCH (16:22)
[2017-10-08] MEDS: HYDROCODONE/APAP (5/325) TAB PO PRN ×2 (16:43→23:09)
[2017-10-08] MEDS: PANTOPRAZOLE (EC) 40 MG TAB PO SCH (16:44)
[2017-10-08] MEDS: ATORVASTATIN 20 MG TAB PO SCH (23:06)
[2017-10-09] VITALS (12 sets, daily range): BP systolic 91–135; BP diastolic 62–76; PULSE 85–95; RESP 16–20
[2017-10-09] MEDS: TOLTERODINE 2 MG TAB PO SCH ×3 (00:29→21:15)
[2017-10-09] MEDS: ALPRAZOLAM 0.25 MG TAB PO PRN ×2 (03:14→21:15)
[2017-10-09] MEDS: LEVOTHYROXINE 50 MCG TAB PO SCH (06:23)
[2017-10-09] MEDS: PANTOPRAZOLE (EC) 40 MG TAB PO SCH ×2 (06:23→17:56)
[2017-10-09] MEDS: SOD CHLORIDE 0.45% 1,000 ML IV SCH ×2 (06:25→16:22)
[2017-10-09 07:44] LABS: BASOPHILS % 0.6 % (0.0-2.0); EOSINOPHILS # 0.1 10^3/ul (0.0-0.5); EOSINOPHILS % 1.7 % (0.0-7.0); HEMATOCRIT 34.4 % (37.0-47.0); HEMOGLOBIN 11.2 g/dl (12.0-16.0); LYMPHOCYTES # 1.2 10^3/ul (0.8-2.9); LYMPHOCYTES % 24.3 % (15.0-51.0); MEAN CORPUSCULAR HGB CONC 32.6 g/dl (32.0-37.0); MEAN CORPUSCULAR VOLUME 98.3 fl (82.0-101.0); MEAN PLATELET VOLUME 9.1 fl (7.4-10.4); MONOCYTE # 0.3 10^3/ul (0.3-0.9); MONOCYTES % 6.3 % (0.0-11.0); NEUTROPHIL # 3.2 10^3/ul (1.6-7.5); NEUTROPHILS % 66.9 % (39.0-77.0); PLATELET COUNT 139 10^3/UL (140-415); RED CELL DISTRIBUTION WIDTH 14.8 % (11.5-14.5); WHITE BLOOD COUNT 4.7 10^3/ul (4.8-10.8)
[2017-10-09 08:22] LABS: ALBUMIN/GLOBULIN RATIO 1.07; BILIRUBIN,INDIRECT 0.4 mg/dl (0-1.1); BILIRUBIN,TOTAL 0.4 mg/dl (0.2-1.3); CALCIUM 8.8 mg/dl (8.4-10.2); CHOL/HDL RATIO 1.5 RATIO; CREATININE 0.88 mg/dl (0.44-1.00); POTASSIUM 3.1 mmol/L (3.5-5.1); TOTAL PROTEIN 5.8 g/dl (6.1-8.1)
[2017-10-09 08:44] LABS: THYROID STIMULATING HORMONE 9.22 MIU/L (0.465-4.680)
[2017-10-09 08:51] LABS: MAGNESIUM 1.3 mg/dl (1.7-2.5)
[2017-10-09] MEDS: METOPROLOL 25 MG TAB PO SCH ×2 (09:53→21:17)
[2017-10-09] MEDS: BENAZEPRIL 10 MG TAB PO SCH (09:54)
[2017-10-09] MEDS: ISOSORBIDE MONONITRATE(SR)30 MG TAB PO SCH (09:54)
[2017-10-09] MEDS ORDERED: MAGNESIUM SULFATE 2 GM/50 ML 50 ML IVPB ONE (10:00)
[2017-10-09] MEDS: CEFTRIAXONE 1 GM/50 ML (PMX) 50 ML IVPB SCH (11:55)
[2017-10-09] MEDS: POTASSIUM CHLORIDE 250 ML IVPB SCH ×2 (13:37→18:17)
--- NOTE | 2017-10-09 14:52 | RADRPT ---
PROCEDURE: Right upper quadrant abdominal ultrasound. CLINICAL INDICATION: Abdominal pain, abnormal function tests TECHNIQUE: Saez scale and color doppler ultrasound images of the right upper quadrant of the abdom en. COMPARISON: CT 08/14/2017 FINDINGS: Pancreas: Visualized portions appear of normal echogenicity without focal lesions. Liver: Morphology: The right lobe of the liver is elongated measuring up to 18.7 cm which may reflect Ried el's lobe configuration. Contour:Normal, no evidence of nodularity. Echogenicity: Normal. Focal lesions:None. Main portal vein: Patent with hepatopetal flow. Biliary System: Gallbladder wall: Normal thickness. Gallstones: None. Intrahepatic bile ducts: Normal caliber. Common bile duct diameter (mm): 4.1 Kidneys: Right length (cm) : 9.6 Right cortical thickness: Normal. Echogenicity: Normal. Hydronephrosis: None. Renal calculi: None. Focal lesions: None. Free fluid/ascites: None. Abdominal aorta: Not visualized by the dye line operator. Other findings: None. IMPRESSION: Normal gallbladder without gallstones. Increased echogenicity of the liver parenchyma suggestive of hepatic steatosis. No focal hepatic lesions. RPTAT: AADD .Steve Garcia MD, MD Date Time Electronically viewed and signed by .Steve Garcia MD, on 10/09/2017 14:52 .B/
--- NOTE | 2017-10-09 15:38 | PN ---
Date/Time of Note Date/Time of Note DATE: 10/09/17 TIME: 15:33 Assessment/Plan VTE Prophylaxis VTE Prophylaxis Intervention: SCD's Assessment/Plan Chief Complaint/Hosp Course Patient is a 62-year-old female with multiple issues and comorbidities who presents for syncope Assessment and plan Syncope-resolved -Questionable if true syncope, patient has had many episodes of many admissions for the same reason multiple times throughout the years -Appears patient was volume depleted, which may explain slightly elevated lactic acid, BUN/creatinine ratio near 20, inability to urinate the entire day. -no urine sed rate to compare as urinalysis was ordered, but not collected. -Lactic acid resolved -CT head wnl Lactic acid elevation -Resolved with fluids -Blood cultures taken, UA pending -Likely secondary to volume depletion, but unexpected lactic acid elevation last night, starting ceftriaxone until UA and blood cultures. Generalized debility -Patient's main objective throughout multiple admissions appears to be placed in a residential after her legitimate medical needs are met. -No clear explanation except chronic debility for patient's weakness, will get social and case management on board GI ulcer -Found during previous admission, per automatic print developer during that admission patient should hold off on aspirin and Eliquis -Protonix twice a day Coronary artery disease -Has outpatient automatic print developer, will follow-up in the outpatient setting -Echocardiogram ordered, ultrasound carotids within normal limits during previous admission -If cardiac cause for syncope, will reconsult cards Paroxysmal A. fib -Usually in sinus rhythm, upon admission in sinus rhythm, holding Eliquis secondary to recent GI ulcer -Monitor and rate control with metoprolol. hx of bradycardia, monitor. Seizure -Very questionable history of seizure, seizure precautions for now with as needed Ativan Anxiety -Ativan as needed Hypothyroidism -Resume home Synthroid -patient not taking synthroid for 5 days prior to admission which may explain most, if not all, of her symptoms Hypertension -Resume home benazepril Disposition -cultures pending -PT/OT Problems: Subjective 24 Hr Interval Summary Free Text/Dictation patient still feels terrible, but can not explain what exactly is the issues, states generalized weakness Exam/Review of Systems Vital Signs Vitals Vital Signs Date Time Temp Pulse Resp B/P Pulse Ox O2 Delivery O2 Flow Rate FiO2 10/09/17 12:01 98.1 97 18 91/63 95 10/08/17 13:21 Room Air 11/19/17 10:00 2 Intake and Output 10/08/17 10/08/17 10/09/17 15:00 23:00 07:00 Intake Total 480 ml Balance 480 ml Exam Physical exam General: Patient is laying in bed and answers questions appropriately Mentation: Patient is alert and oriented 4, Head: Normocephalic atraumatic Eyes: EOMI, pupils reactive to light Neck: Supple, nontender, midline Respiratory: Clear to auscultation bilaterally Cardiovascular: regular rate, murmur heard Gastrointestinal: non-tender to palpation, bowel sounds heard. Neurological: Moves all extremities spontaneously, 4/5 strength for UE/LE Skin: No new skin lesions Results Result Diagram: 10/09/17 0650 10/09/17 0650 Results 24 hrs Laboratory Tests Test 10/09/17 06:47 10/09/17 06:50 10/09/17 13:52 Free Thyroxine 0.91 White Blood Count 4.7 #L Red Blood Count 3.50 L Hemoglobin 11.2 L Hematocrit 34.4 L Mean Corpuscular Volume 98.3 Mean Corpuscular Hemoglobin 32.0 Mean Corpuscular Hemoglobin Concent 32.6 Red Cell Distribution Width 14.8 H Platelet Count 139 #L Mean Platelet Volume 9.1 Neutrophils % 66.9 Lymphocytes % 24.3 Monocytes % 6.3 Eosinophils % 1.7 Basophils % 0.6 Nucleated Red Blood Cells % 0.0 Neutrophils # 3.2 Lymphocytes # 1.2 Monocytes # 0.3 Eosinophils # 0.1 Basophils # 0.0 Nucleated Red Blood Cells # 0.0 Sodium Level 138 Potassium Level 3.1 L Chloride Level 101 Carbon Dioxide Level 29 Anion Gap 11 # Blood Urea Nitrogen 13 Creatinine 0.88 Glucose Level 132 Calcium Level 8.8 Magnesium Level 1.3 L Total Bilirubin 0.4 Direct Bilirubin 0.00 Indirect Bilirubin 0.4 Aspartate Amino Transf (AST/SGOT) 118 H Alanine Aminotransferase (ALT/SGPT) 32 Alkaline Phosphatase 155 H Total Protein 5.8 #L Albumin 3.0 L Globulin 2.80 Albumin/Globulin Ratio 1.07 Triglycerides Level 73 Cholesterol Level 122 LDL Cholesterol, Calculated 30 HDL Cholesterol 77 Cholesterol/HDL Ratio 1.5 Thyroid Stimulating Hormone (TSH) 9.220 H Lactic Acid Level 1.9 Medications Medications Current Medications Benazepril HCl (Lotensin) 10 mg DAILY PO Last administered on 10/09/17 09:54 ; Admin Dose 10 MG; Start 10/09/17 at 09:00 Carisoprodol (Soma) 350 mg Q12 PRN PO MUSCLE SPASMS; Start 10/08/17 at 14:00 Isosorbide Mononitrate (Imdur) 30 mg DAILY PO Last administered on 10/09/17 09:54; Admin Dose 30 MG; Start 10/09/17 at 09:00 Levothyroxine Sodium (Synthroid) 50 mcg DAILY@06 PO Last administered on 06:23; Admin Dose 50 MCG; Start 10/09/17 at 06:00 Tolterodine Tartrate (Detrol) 2 mg BID PO Last administered on 10/09/17 09:54 ; Admin Dose 2 MG; Start 10/08/17 at 21:00 Labetalol HCl (Labetalol) 10 mg Q4 PRN IV SBP>160; Start 10/08/17 at 14:00 Lorazepam 2 mg 2 mg Q10MIN PRN IV seizure only; Start 10/08/17 at 14:00 Sodium Chloride (1/2 NS) 1,000 ml @ 75 mls/hr [id number] IV Last administered on 10/09/17 06:25; Admin Dose 75 MLS/HR; Start 10/08/17 at 13:42 Ondansetron HCl (Zofran Tab) 4 mg Q6H PRN PO NAUSEA AND/OR VOMITING; Start at 14:00 Ondansetron HCl (Zofran Inj) 4 mg Q6H PRN IV NAUSEA AND/OR VOMITING; Start at 14:00 Nitroglycerin (Nitroglycerin (Sl Tab) 0.4 Mg) 1 tab Q5M PRN SL CHEST PAIN; Start 10/08/17 at 14:00 Acetaminophen (Tylenol Tab) 650 mg Q6H PRN PO PAIN LEVEL 1-3 OR FEVER; Start 10/08/17 at 14:00 Acetaminophen/ Hydrocodone Bitart ([place] (5/325)) 1 tab Q6H PRN PO PAIN LEVEL 4 -6 Last administered on 10/08/17 23:09; Admin Dose 1 TAB; Start 10/08/17 at 14:00 Morphine Sulfate (morphine) 2 mg Q4H PRN IV PAIN LEVEL 7-10; Start 10/08/17 at 14:00 Bisacodyl (Dulcolax) 5 mg DAILY PRN PO CONSTIPATION; Start 10/08/17 at 14:00 Metoprolol Tartrate (Lopressor) 12.5 mg BID PO Last administered on 10/09/17 09:53; Admin Dose 12.5 MG; Start 10/08/17 at 14:00 Atorvastatin Calcium (Lipitor) 20 mg HS PO Last administered on 10/08/17 23: 06; Admin Dose 20 MG; Start 10/08/17 at 21:00 Alprazolam 0.5 mg 0.5 mg Q8H PRN PO ANXIETY Last administered on 10/09/17 03: 14; Admin Dose 0.5 MG; Start 10/08/17 at 23:12 Potassium Chloride 250 ml @ 62.5 mls/hr Q4H IVPB Last administered on 13:37; Admin Dose 62.5 MLS/HR; Start 10/09/17 at 11:00; Stop 10/09/17 at 18:59 Ceftriaxone Sodium (Rocephin) 50 ml @ 100 mls/hr Q24H IVPB Last administered on 10/09/17 11:55; Admin Dose 100 MLS/HR; Start 10/09/17 at 11:00 JAMILAH ECHEVERRIA Oct 09, 2017 15:38
[2017-10-09] MEDS: HYDROCODONE/APAP (5/325) TAB PO PRN (16:01)
[2017-10-09] MEDS: morphine 2 MG INJ IV PRN (18:16)
[2017-10-09] MEDS: ATORVASTATIN 20 MG TAB PO SCH (21:15)
[2017-10-10] VITALS (12 sets, daily range): BP systolic 112–139; BP diastolic 58–82; PULSE 88–102; RESP 16–19
[2017-10-10] MEDS: SOD CHLORIDE 0.45% 1,000 ML IV SCH ×2 (02:16→18:22)
[2017-10-10] MEDS: HYDROCODONE/APAP (5/325) TAB PO PRN ×2 (04:40→10:03)
[2017-10-10] MEDS: LEVOTHYROXINE 50 MCG TAB PO SCH (06:14)
[2017-10-10 09:25] LABS: BASOPHILS % 0.7 % (0.0-2.0); EOSINOPHILS # 0.1 10^3/ul (0.0-0.5); EOSINOPHILS % 2.5 % (0.0-7.0); HEMATOCRIT 31.8 % (37.0-47.0); HEMOGLOBIN 10.3 g/dl (12.0-16.0); LYMPHOCYTES # 1.5 10^3/ul (0.8-2.9); LYMPHOCYTES % 36.6 % (15.0-51.0); MEAN CORPUSCULAR HEMOGLOBIN 31.7 pg (29.0-33.0); MEAN CORPUSCULAR HGB CONC 32.4 g/dl (32.0-37.0); MEAN CORPUSCULAR VOLUME 97.8 fl (82.0-101.0); MEAN PLATELET VOLUME 9.8 fl (7.4-10.4); MONOCYTE # 0.2 10^3/ul (0.3-0.9); MONOCYTES % 5.4 % (0.0-11.0); NEUTROPHIL # 2.2 10^3/ul (1.6-7.5); NEUTROPHILS % 54.6 % (39.0-77.0); PLATELET COUNT 132 10^3/UL (140-415); RED BLOOD COUNT 3.25 10^6/ul (4.20-5.40); RED CELL DISTRIBUTION WIDTH 14.8 % (11.5-14.5); WHITE BLOOD COUNT 4.1 10^3/ul (4.8-10.8)
[2017-10-10 09:44] LABS: CALCIUM 9.8 mg/dl (8.4-10.2); CREATININE 0.88 mg/dl (0.44-1.00); MAGNESIUM 1.3 mg/dl (1.7-2.5); PHOSPHORUS 4.4 mg/dl (2.5-4.9); POTASSIUM 4.1 mmol/L (3.5-5.1)
[2017-10-10] MEDS: ISOSORBIDE MONONITRATE(SR)30 MG TAB PO SCH (09:53)
[2017-10-10] MEDS: METOPROLOL 25 MG TAB PO SCH ×2 (09:55→21:48)
[2017-10-10] MEDS: PANTOPRAZOLE (EC) 40 MG TAB PO SCH ×2 (09:56→18:20)
[2017-10-10] MEDS: BENAZEPRIL 10 MG TAB PO SCH (09:57)
[2017-10-10] MEDS: TOLTERODINE 2 MG TAB PO SCH ×2 (09:57→21:48)
[2017-10-10] MEDS: CEFTRIAXONE 1 GM/50 ML (PMX) 50 ML IVPB SCH (10:08)
[2017-10-10] MEDS ORDERED: MAGNESIUM SULFATE 2 GM/50 ML 50 ML IVPB ONE (12:30)
[2017-10-10] MEDS: morphine 2 MG INJ IV PRN ×2 (13:46→18:20)
--- NOTE | 2017-10-10 14:21 | PN ---
Date/Time of Note Date/Time of Note DATE: 10/10/17 TIME: 14:19 Assessment/Plan VTE Prophylaxis VTE Prophylaxis Intervention: SCD's Lines/Catheters IV C[facility]ter Type (from [facility]): Peripheral IV Assessment/Plan Chief Complaint/Hosp Course Patient is a 62-year-old female with multiple issues and comorbidities who presents for syncope Assessment and plan Syncope-resolved -Questionable if true syncope, patient has had many episodes of many admissions for the same reason multiple times throughout the years -Appears patient was volume depleted, which may explain slightly elevated lactic acid, BUN/creatinine ratio near 20, inability to urinate the entire day of admission -no urine sed rate to compare as urinalysis was ordered, but not collected. -Lactic acid resolved -CT head wnl Lactic acid elevation -Resolved with fluids -Blood cultures taken, UA pending -Likely secondary to volume depletion, but unexpected lactic acid elevation last night, starting ceftriaxone until UA and blood cultures. Generalized debility -Patient's main objective throughout multiple admissions appears to be placed in a usp after her legitimate medical needs are met. -No clear explanation except chronic debility for patient's weakness, will get social and case management on board GI ulcer -Found during previous admission, per steel pickler during that admission patient should hold off on aspirin and Eliquis -Protonix twice a day Coronary artery disease -Has outpatient steel pickler, will follow-up in the outpatient setting -Echocardiogram ordered, ultrasound carotids within normal limits during previous admission -If cardiac cause for syncope, will reconsult cards Paroxysmal A. fib -Usually in sinus rhythm, upon admission in sinus rhythm, holding Eliquis secondary to recent GI ulcer -Monitor and rate control with metoprolol. hx of bradycardia, monitor. Seizure -Very questionable history of seizure, seizure precautions for now with as needed Ativan Anxiety -Ativan as needed Hypothyroidism -Resume home Synthroid -patient not taking synthroid for 5 days prior to admission which may explain most, if not all, of her symptoms Hypertension -Resume home benazepril Disposition -cultures pending -PT/OT -will likely require placement Problems: Subjective 24 Hr Interval Summary Free Text/Dictation Patient had episode of buckling legs yesterday, no trauma to the head. Patient still does not feel well Exam/Review of Systems Vital Signs Vitals Vital Signs Date Time Temp Pulse Resp B/P Pulse Ox O2 Delivery O2 Flow Rate FiO2 10/10/17 13:23 88 10/10/17 12:20 98.1 17 123/82 97 10/08/17 13:21 Room Air 10/08/17 10:00 2 Intake and Output 10/09/17 10/09/17 10/10/17 14:59 22:59 06:59 Intake Total 600 ml 1050 ml 1300 ml Balance 600 ml 1050 ml 1300 ml Exam Physical exam General: Patient is laying in bed and answers questions appropriately Mentation: Patient is alert and oriented 4, Head: Normocephalic atraumatic Eyes: EOMI, pupils reactive to light Neck: Supple, nontender, midline Respiratory: Clear to auscultation bilaterally Cardiovascular: regular rate, murmur heard Gastrointestinal: non-tender to palpation, bowel sounds heard. Neurological: Moves all extremities spontaneously, 4/5 strength for UE/LE Skin: No new skin lesions Results Result Diagram: 10/10/17 0750 10/10/17 0751 Results 24 hrs Laboratory Tests Test 10/10/17 07:50 10/10/17 07:51 White Blood Count 4.1 L Red Blood Count 3.25 L Hemoglobin 10.3 L Hematocrit 31.8 L Mean Corpuscular Volume 97.8 Mean Corpuscular Hemoglobin 31.7 Mean Corpuscular Hemoglobin Concent 32.4 Red Cell Distribution Width 14.8 H Platelet Count 132 L Mean Platelet Volume 9.8 Neutrophils % 54.6 Lymphocytes % 36.6 Monocytes % 5.4 Eosinophils % 2.5 Basophils % 0.7 Nucleated Red Blood Cells % 0.0 Neutrophils # 2.2 Lymphocytes # 1.5 Monocytes # 0.2 L Eosinophils # 0.1 Basophils # 0.0 Nucleated Red Blood Cells # 0.0 Lactic Acid Level 1.3 Sodium Level 138 Potassium Level 4.1 Chloride Level 101 Carbon Dioxide Level 33 H Anion Gap 8 Blood Urea Nitrogen 11 Creatinine 0.88 Glucose Level 89 # Calcium Level 9.8 Phosphorus Level 4.4 Magnesium Level 1.3 L Medications Medications Current Medications Benazepril HCl (Lotensin) 10 mg DAILY PO Last administered on 10/10/17t 09:57 ; Admin Dose 10 MG; Start 10/09/17 at 09:00 Carisoprodol (Soma) 350 mg Q12 PRN PO MUSCLE SPASMS; Start 10/08/17 at 14:00 Isosorbide Mononitrate (Imdur) 30 mg DAILY PO Last administered on 10/10/17 09:53; Admin Dose 30 MG; Start 10/09/17 at 09:00 Levothyroxine Sodium (Synthroid) 50 mcg DAILY@06 PO Last administered on 06:14; Admin Dose 50 MCG; Start 10/09/17 at 06:00 Tolterodine Tartrate (Detrol) 2 mg BID PO Last administered on 10/10/17 09:57 ; Admin Dose 2 MG; Start 10/08/17 at 21:00 Labetalol HCl (Labetalol) 10 mg Q4 PRN IV SBP>160; Start 10/08/17 at 14:00 Lorazepam 2 mg 2 mg Q10MIN PRN IV seizure only; Start 10/08/17 at 14:00 Sodium Chloride (1/2 NS) 1,000 ml @ 75 mls/hr [id number] IV Last administered on 10/10/17 02:16; Admin Dose 75 MLS/HR; Start 10/08/17 at 13:42 Ondansetron HCl (Zofran Tab) 4 mg Q6H PRN PO NAUSEA AND/OR VOMITING; Start at 14:00 Ondansetron HCl (Zofran Inj) 4 mg Q6H PRN IV NAUSEA AND/OR VOMITING; Start at 14:00 Nitroglycerin (Nitroglycerin (Sl Tab) 0.4 Mg) 1 tab Q5M PRN SL CHEST PAIN; Start 10/08/17 at 14:00 Acetaminophen (Tylenol Tab) 650 mg Q6H PRN PO PAIN LEVEL 1-3 OR FEVER; Start 10/08/17 at 14:00 Acetaminophen/ Hydrocodone Bitart ([place] (5/325)) 1 tab Q6H PRN PO PAIN LEVEL 4 -6 Last administered on 10/10/17 10:03; Admin Dose 1 TAB; Start 10/08/17 at 14:00 Morphine Sulfate (morphine) 2 mg Q4H PRN IV PAIN LEVEL 7-10 Last administered on 10/10/17 13:46; Admin Dose 2 MG; Start 10/08/17 at 14:00 Bisacodyl (Dulcolax) 5 mg DAILY PRN PO CONSTIPATION; Start 10/08/17 at 14:00 Metoprolol Tartrate (Lopressor) 12.5 mg BID PO Last administered on 10/10/17 09:55; Admin Dose 12.5 MG; Start 10/08/17 at 14:00 Atorvastatin Calcium (Lipitor) 20 mg HS PO Last administered on 10/09/17 21: 15; Admin Dose 20 MG; Start 10/08/17 at 21:00 Alprazolam 0.5 mg 0.5 mg Q8H PRN PO ANXIETY Last administered on 10/09/17 21: 15; Admin Dose 0.5 MG; Start 10/08/17 at 23:12 Ceftriaxone Sodium 50 ml @ 100 mls/hr Q24H IVPB Last administered on 10:08; Admin Dose 100 MLS/HR; Start 10/09/17 at 11:00 Magnesium Sulfate (Magnesium Sulfate 2 Gm/50 ml) 50 ml @ 25 mls/hr ONCE ONCE IVPB Last administered on 10/10/17 13:32; Admin Dose 25 MLS/HR; Start at 12:30; Stop 10/10/17 at 14:29 JAMILAH ECHEVERRIA Oct 10, 2017 14:20
[2017-10-10] MEDS: ALPRAZOLAM 0.25 MG TAB PO PRN (21:48)
[2017-10-10] MEDS: ATORVASTATIN 20 MG TAB PO SCH (21:48)
[2017-10-10] MEDS: ACETAMINOPHEN 325 MG TAB PO PRN (22:05)
[2017-10-11] VITALS (13 sets, daily range): BP systolic 110–129; BP diastolic 57–82; PULSE 84–90; RESP 16–18
[2017-10-11] MEDS: morphine 2 MG INJ IV PRN ×4 (00:12→18:25)
[2017-10-11] MEDS: HYDROCODONE/APAP (5/325) TAB PO PRN (03:24)
[2017-10-11] MEDS: LEVOTHYROXINE 50 MCG TAB PO SCH (06:52)
[2017-10-11] MEDS: TOLTERODINE 2 MG TAB PO SCH ×2 (08:50→23:43)
[2017-10-11] MEDS: PANTOPRAZOLE (EC) 40 MG TAB PO SCH ×2 (08:51→18:25)
[2017-10-11] MEDS: BENAZEPRIL 10 MG TAB PO SCH (08:51)
[2017-10-11] MEDS: METOPROLOL 25 MG TAB PO SCH ×2 (08:51→21:09)
[2017-10-11] MEDS: ISOSORBIDE MONONITRATE(SR)30 MG TAB PO SCH (08:51)
[2017-10-11] MEDS: ALPRAZOLAM 0.25 MG TAB PO PRN ×2 (08:57→23:42)
[2017-10-11] MEDS: SOD CHLORIDE 0.45% 1,000 ML IV SCH ×2 (08:58→21:42)
[2017-10-11 09:45] LABS: BASOPHILS % 1.1 % (0.0-2.0); EOSINOPHILS # 0.1 10^3/ul (0.0-0.5); EOSINOPHILS % 2.4 % (0.0-7.0); HEMATOCRIT 32.9 % (37.0-47.0); HEMOGLOBIN 10.7 g/dl (12.0-16.0); LYMPHOCYTES # 1.4 10^3/ul (0.8-2.9); MEAN CORPUSCULAR HEMOGLOBIN 32.2 pg (29.0-33.0); MEAN CORPUSCULAR HGB CONC 32.5 g/dl (32.0-37.0); MEAN CORPUSCULAR VOLUME 99.1 fl (82.0-101.0); MEAN PLATELET VOLUME 9.5 fl (7.4-10.4); MONOCYTE # 0.3 10^3/ul (0.3-0.9); MONOCYTES % 7.7 % (0.0-11.0); NEUTROPHIL # 1.9 10^3/ul (1.6-7.5); NEUTROPHILS % 49.7 % (39.0-77.0); PLATELET COUNT 142 10^3/UL (140-415); RED BLOOD COUNT 3.32 10^6/ul (4.20-5.40); RED CELL DISTRIBUTION WIDTH 14.7 % (11.5-14.5); WHITE BLOOD COUNT 3.8 10^3/ul (4.8-10.8)
[2017-10-11] MEDS ORDERED: MAGNESIUM SULFATE 2 GM/50 ML 50 ML IVPB ONE (10:30)
[2017-10-11 10:33] LABS: CALCIUM 8.9 mg/dl (8.4-10.2); CREATININE 0.84 mg/dl (0.44-1.00); MAGNESIUM 1.4 mg/dl (1.7-2.5); PHOSPHORUS 5.8 mg/dl (2.5-4.9); POTASSIUM 4.1 mmol/L (3.5-5.1)
[2017-10-11] MEDS: CEFTRIAXONE 1 GM/50 ML (PMX) 50 ML IVPB SCH (10:51)
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
--- NOTE | 2017-10-11 15:23 | RADRPT ---
PROCEDURE: XR Chest. CLINICAL INDICATION: Chest pain TECHNIQUE: Single portable view of the chest was obtained COMPARISON: CR CHEST 03/23/2017 , 10/08/2017 FINDINGS: The heart and mediastinum are within normal limits. There are new bibasilar atelectatic changes. There is a new small right pleural effusion. The lungs are otherwise clear. There is no pneumothorax. RPTAT: AA IMPRESSION: New mild bibasilar atelectatic changes. New small right pleural effusion. .Carl Sanchez MD, MD Date Time Electronically viewed and signed by .Carl Sanchez MD, MD on 10/11/2017 15:22 .S/
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
[2017-10-11] MEDS ORDERED: LORAZEPAM 1 MG TAB PO PRN (16:00)
[2017-10-11] MEDS: ACETAMINOPHEN 325 MG TAB PO PRN (16:27)
--- NOTE | 2017-10-11 19:21 | CONS ---
DATE OF ADMISSION: 10/08/2017 DATE OF CONSULTATION: 10/11/2017 REASON FOR CONSULTATION: Chest pain, assess for acute coronary syndrome, as well as syncope, rule o ut cardiac arrhythmia. REQUESTING PHYSICIAN: Dr. Musa from the hospitalist service. HISTORY OF PRESENT ILLNESS: The patient is a 62-year-old female with history of hypertension, dysli pidemia, nonobstructive coronaries by catheterization in March 2017 with mild LAD myocardial bridge, p rior non-ST myocardial infarction, and gastric ulcer, who presented with reported syncope and genera lized weakness. Upon arrival initially in the emergency department, temperature 97.6, blood pressur e 150/85, pulse 113, respiratory rate 18, saturating 99%. The patient's labs revealed white count 9 .3, hemoglobin 7, platelet count 213. Sodium of 138, potassium 4.0, creatinine 0.7, BUN 16, AST 33, ALT 25. Troponin negative. TSH is 9.22 with a free T4 within normal limits. Lactic acid level of 2.6. White blood count 9.3, hemoglobin 12.7, platelet count 213. ETOH level less than 10. The pa jessi underwent a head CT revealing no significant interval change, no acute intracranial abnormalit y, mild peripheral central cerebral volume loss. A chest x-ray revealed no acute cardiac abnormalit ies, mild cardiomegaly. A gallbladder ultrasound revealing normal gallbladder without gallstones, i ncreased echogenicity of the liver parenchyma suggestive of hepatic steatosis. Foot x-ray revealed relatively increased sclerosis of the second metatarsal and flattening of the distal second metatars al head. Patient's electrocardiogram showed sinus tachycardia 114, left axis deviation, inferior Q' s, poor R-wave progression across the anteroseptal leads with today revealing T-wave inversion across the precordial leads. As above in HPI. After patient had complained of substernal chest pain described as a pressure-like sensation today, radiating to her right arm, thus the reason I was called for consult. PAST MEDICAL HISTORY: As above in HPI. MEDICATIONS CURRENTLY IN HOSPITAL: 1. Ceftriaxone. 2. Benazepril 10 mg daily. 3. Imdur 30 mg daily. 4. Synthroid 50 mcg daily. 5. Xanax 0.5 mg daily. 6. Detrol 2 mg b.i.d. 7. Lipitor 20 mg at bedtime. 8. Soma p.r.n. 9. Metoprolol 12.5 mg p.o. b.i.d. ALLERGIES: NO KNOWN DRUG ALLERGIES. SOCIAL HISTORY: No tobacco, ETOH or illicit drug use. FAMILY HISTORY: No history of sudden cardiac or early CAD. REVIEW OF SYSTEMS: As above in HPI. CONSTITUTIONAL: No fevers, chills. PULMONARY: No current shortness of breath. CARDIOVASCULAR: Intermittent chest pain. GASTROINTESTINAL: No vomiting. GENITOURINARY: No hematuria. MUSCULOSKELETAL: Degenerative joint disease. PSYCHIATRIC: Positive psych history. NEUROLOGIC: No documented history of CVA. ENDOCRINE: Hypothyroidism. PHYSICAL EXAMINATION: VITAL SIGNS: Temperature of 98.6, blood pressure most recent 120/74, pulse 83, respirations 16, sat urating 95%. GENERAL: The patient is alert, awake, and complaining of intermittent substernal chest pain. NECK: JVP approximately 8 cm water. CHEST: Fair movement throughout with mildly decreased breath sounds at bases bilaterally. HEART: Regular rate and rhythm. Normal S1, S2, I/ systolic murmur, nondisplaced PMI. ABDOMEN: Positive bowel sounds, soft. EXTREMITIES: No pitting edema, 1+ pulses bilateral posterior tibial. LABORATORY DATA: As above in HPI. Most recent from today, white count 3.8, hemoglobin 10.7, platel et count 142. Sodium 138, potassium of 4.1, creatinine 0.8, BUN 11. Troponin negative x1. IMAGING STUDIES: As above in HPI with chest x-ray from today revealing new mild bibasilar atelectat ic change. New small right pleural effusion. IMPRESSION: 1. Chest pain, assess for acute coronary syndrome. 2. Abnormal electrocardiogram with T-wave inversions across the anterior precordial leads. 3. Hypertension. 4. Syncope, rule out cardiac etiology, assess for cardiac arrhythmia. 5. Hypothyroidism. 6. Dyslipidemia. 7. Anxiety. 8. Anemia. RECOMMENDATIONS: 1. At this time would maintain patient on telemetry monitoring to follow rhythm and rate control jason sely. 2. Would complete a myocardial infarction to ensure the patient's chest pain was not due to acute co ronary syndrome, acute myocardial infarction. 3. Complete patient's magnesium as you are doing. 4. Continue the patient's current Imdur and beta tramaine to control heart rate and blood pressure, a nd will increase the patient's beta tramaine given known LAD bridge by electric heart catheterization . 5. Continue the patient's current statin therapy. 6. Check serial EKGs to assess for significant ongoing changes. 7. For recurrent chest pain, will additionally consider initiation of Ranexa. 8. Continue to follow for possible recurrent arrhythmias and continue physical therapy. Thank you for allowing me to take part in the care of this patient. I will continue to follow along very closely with you with further recommendations to be made as the patient progresses through her inpatient hospital clinical course. Dictated By: DALILA ROMO/MURTAZA Conf#: [id number] DID#: [id number] CC: Dr. Musa;*End*
[2017-10-11] MEDS: ATORVASTATIN 20 MG TAB PO SCH (21:08)
[2017-10-11] MEDS: CARISOPRODOL 350 MG TAB PO PRN (21:19)
[2017-10-12] VITALS (13 sets, daily range): BP systolic 120–173; BP diastolic 77–105; PULSE 70–82; RESP 18–19
[2017-10-12] MEDS: morphine 2 MG INJ IV PRN ×3 (01:52→21:17)
[2017-10-12] MEDS: LEVOTHYROXINE 50 MCG TAB PO SCH (05:27)
[2017-10-12] MEDS: METOPROLOL 25 MG TAB PO SCH ×2 (08:07→20:47)
[2017-10-12] MEDS: ISOSORBIDE MONONITRATE(SR)30 MG TAB PO SCH (08:07)
[2017-10-12] MEDS: BENAZEPRIL 10 MG TAB PO SCH (08:07)
[2017-10-12] MEDS: TOLTERODINE 2 MG TAB PO SCH ×2 (08:07→20:52)
[2017-10-12] MEDS: PANTOPRAZOLE (EC) 40 MG TAB PO SCH ×2 (08:07→17:47)
[2017-10-12] MEDS: CEFTRIAXONE 1 GM/50 ML (PMX) 50 ML IVPB SCH (10:11)
[2017-10-12] MEDS: SOD CHLORIDE 0.45% 1,000 ML IV SCH ×2 (11:02→18:18)
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
[2017-10-12] MEDS: ALPRAZOLAM 0.25 MG TAB PO PRN ×2 (13:04→23:44)
--- NOTE | 2017-10-12 13:06 | RADRPT ---
PROCEDURE: MR Brain without intravenous contrast CLINICAL INDICATION: Syncope. COMPARISON: CT from 08/14/2017. TECHNIQUE: Multiplanar multi-sequence images of the brain were obtained. Images acquired on a 3.0 T esla magnet. FINDINGS: Parenchyma: No acute hemorrhage, infarction, or mass. Mild amount of periventricular and subcortical white matter FLAIR hyperintensity, a nonspecific finding often associated with chronic microangiopa thy. Ventricles: Mild generalized volume with proportionate ex vacuo ventricular dilation. Extra-axial spaces: No herniation or midline shift. Orbits: Normal. Major intracranial flow voids: Preserved. Paranasal sinuses: Clear. Mastoids and middle ears: Small left mastoid effusion. Mucous retention cyst or polyp in the right m axillary sinus. Bones: Grade 1 anterolisthesis of C3 on C4. Extracranial soft tissues: Normal. Additional comment: None. IMPRESSION: 1. No acute intracranial hemorrhage or infarction. 2. Mild white matter changes, a nonspecific finding often associated with chronic microangiopathy. RPTAT: PP Physician Savannah Date Time Electronically viewed and signed by Physician Savannah on 10/12/2017 13:06 /
--- NOTE | 2017-10-12 13:12 | CONS ---
Date/Time of Note Date/Time of Note DATE: 10/12/17 TIME: 13:09 Assessment/Plan Assessment/Plan Additional Assessment/Plan 1. Chest pain, assess for acute coronary syndrome- no cP now, in good fluid status - will monitor clinically now. 2. Abnormal electrocardiogram with T-wave inversions across the anterior precordial leads- doubt acute cardiac event, 3. Hypertension- on hig side, will adjust Rx as needed. 4. Syncope, rule out cardiac etiology, assess for cardiac arrhythmia - not confirmed, no tachy mary Sx noted now. 5. Hypothyroidism- on therpy, will monitor. 6. Dyslipidemia. 7. Anxiety. 8. Anemia. Consultation Date/Type/Reason Admit Date/Time Oct 08, 2017 at 12:28 Initial Consult Date 24 HR Interval Summary Free Text/Dictation No acute events - BP in god range - no CP now - con't HTn rx. ROS: No fever, no chills, no nausea, no vomiting, no diarrhea/constipation No recent weight changes No chest pain, no PND, no orthopnea No dizziness, blurred vision No thirst, no heat or cold intolerance Exam/Review of Systems Vital Signs Vitals Vital Signs Date Time Temp Pulse Resp B/P Pulse Ox O2 Delivery O2 Flow Rate FiO2 10/12/17 12:30 75 10/12/17 11:31 98.3 19 171/98 95 10/11/17 13:45 Room Air 10/08/17 10:00 2 Intake and Output 10/11/17 10/11/17 10/12/17 14:59 22:59 06:59 Intake Total 1750 ml Balance 1750 ml Exam General: WN/WD/NAD, AOx 3 HEENT: Unicetric/atraumatic/EOMI (follows commands) NECK: JVD elevated, no thyromegaly Lymph: no lymphadenopathy HEART: regular with no S3, II/ systolic murmur at apex LUNGS: Coarse sounds ABD: soft, NT, ND, +BS : Intact Neuro: non focal SKIN: chronic changes EXT: trace edema Results Result Diagram: 10/11/1791910/11/17919 Results 24 hrs Laboratory Tests Test 10/11/17 14:16 10/11/17 19:51 10/12/17 00:46 10/12/17 06:46 Troponin I 0.016 0.023 0.018 0.013 Medications Medications Current Medications Benazepril HCl (Lotensin) 10 mg DAILY PO Last administered on 10/12/17 08:07 ; Admin Dose 10 MG; Start 10/09/17 at 09:00 Carisoprodol (Soma) 350 mg Q12 PRN PO MUSCLE SPASMS Last administered on 21:19; Admin Dose 350 MG; Start 10/08/17 at 14:00 Isosorbide Mononitrate (Imdur) 30 mg DAILY PO Last administered on 10/12/17 08:07; Admin Dose 30 MG; Start 10/09/17 at 09:00 Levothyroxine Sodium (Synthroid) 50 mcg DAILY@06 PO Last administered on 05:27; Admin Dose 50 MCG; Start 10/09/17 at 06:00 Tolterodine Tartrate (Detrol) 2 mg BID PO Last administered on 10/12/17 08:07 ; Admin Dose 2 MG; Start 10/08/17 at 21:00 Labetalol HCl (Labetalol) 10 mg Q4 PRN IV SBP>160 Last administered on 13:04; Admin Dose 10 MG; Start 10/08/17 at 14:00 Lorazepam 2 mg 2 mg Q10MIN PRN IV seizure only; Start 10/08/17 at 14:00 Sodium Chloride (1/2 NS) 1,000 ml @ 75 mls/hr [id number] IV Last administered on 10/11/17 21:42; Admin Dose 75 MLS/HR; Start 10/08/17 at 13:42 Ondansetron HCl (Zofran Tab) 4 mg Q6H PRN PO NAUSEA AND/OR VOMITING; Start at 14:00 Ondansetron HCl (Zofran Inj) 4 mg Q6H PRN IV NAUSEA AND/OR VOMITING; Start at 14:00 Nitroglycerin (Nitroglycerin (Sl Tab) 0.4 Mg) 1 tab Q5M PRN SL CHEST PAIN; Start 10/08/17 at 14:00 Acetaminophen (Tylenol Tab) 650 mg Q6H PRN PO PAIN LEVEL 1-3 OR FEVER Last administered on 10/11/17 16:27; Admin Dose 650 MG; Start 10/08/17 at 14:00 Acetaminophen/ Hydrocodone Bitart ([place] (5/325)) 1 tab Q6H PRN PO PAIN LEVEL 4 -6 Last administered on 10/11/17 03:24; Admin Dose 1 TAB; Start 10/08/17 at 14:00 Morphine Sulfate (morphine) 2 mg Q4H PRN IV PAIN LEVEL 7-10 Last administered on 10/12/17 10:08; Admin Dose 2 MG; Start 10/08/17 at 14:00 Bisacodyl (Dulcolax) 5 mg DAILY PRN PO CONSTIPATION; Start 10/08/17 at 14:00 Atorvastatin Calcium (Lipitor) 20 mg HS PO Last administered on 10/11/17 21: 08; Admin Dose 20 MG; Start 10/08/17 at 21:00 Alprazolam (Xanax) 0.5 mg Q8H PRN PO ANXIETY Last administered on 10/12/17 13 :04; Admin Dose 0.5 MG; Start 10/08/17 at 23:12 Metoprolol Tartrate (Lopressor) 25 mg BID PO Last administered on 10/12/17 08 :07; Admin Dose 25 MG; Start 10/11/17 at 21:00 CONSTANCE KC MD Oct 12, 2017 13:12
[2017-10-12 15:37] LABS: ADD UMIC NO; UR ASCORBIC ACID NEGATIVE (NEGATIVE); UR BILIRUBIN (Dip) NEGATIVE (NEGATIVE); UR BLOOD (Dip) NEGATIVE (NEGATIVE); UR CLARITY CLEAR (CLEAR); UR COLOR COLORLESS (YELLOW); UR GLUCOSE (Dip) NEGATIVE (NEGATIVE); UR KETONES (Dip) NEGATIVE (NEGATIVE); UR LEUKOCYTE ESTERASE (Dip) NEGATIVE Leu/ul (NEGATIVE); UR NITRITE (Dip) NEGATIVE (NEGATIVE); UR SPECIFIC GRAVITY (Dip) 1.004 (1.003-1.030); UR TOTAL PROTEIN (Dip) NEGATIVE (NEGATIVE); UR UROBILINOGEN (Dip) NEGATIVE (NEGATIVE)
[2017-10-12] MEDS: CARISOPRODOL 350 MG TAB PO PRN (18:17)
[2017-10-12] MEDS: ACETAMINOPHEN 325 MG TAB PO PRN (20:46)
[2017-10-12] MEDS: ATORVASTATIN 20 MG TAB PO SCH (20:47)
[2017-10-13] VITALS (15 sets, daily range): BP systolic 126–187; BP diastolic 75–112; PULSE 62–90; RESP 18–20
[2017-10-13] MEDS: PANTOPRAZOLE (EC) 40 MG TAB PO SCH ×2 (06:33→17:13)
[2017-10-13] MEDS: SOD CHLORIDE 0.45% 1,000 ML IV SCH (06:33)
[2017-10-13] MEDS: LEVOTHYROXINE 50 MCG TAB PO SCH (06:33)
[2017-10-13 06:35] LABS: BASOPHIL # 0.1 10^3/ul (0.0-0.1); BASOPHILS % 1.1 % (0.0-2.0); EOSINOPHILS # 0.1 10^3/ul (0.0-0.5); EOSINOPHILS % 2.5 % (0.0-7.0); HEMATOCRIT 35.5 % (37.0-47.0); HEMOGLOBIN 11.7 g/dl (12.0-16.0); LYMPHOCYTES # 1.6 10^3/ul (0.8-2.9); LYMPHOCYTES % 35.9 % (15.0-51.0); MEAN CORPUSCULAR HEMOGLOBIN 32.1 pg (29.0-33.0); MEAN CORPUSCULAR VOLUME 97.5 fl (82.0-101.0); MEAN PLATELET VOLUME 8.9 fl (7.4-10.4); MONOCYTE # 0.5 10^3/ul (0.3-0.9); MONOCYTES % 10.5 % (0.0-11.0); NEUTROPHIL # 2.1 10^3/ul (1.6-7.5); NEUTROPHILS % 48.2 % (39.0-77.0); PLATELET COUNT 119 10^3/UL (140-415); RED BLOOD COUNT 3.64 10^6/ul (4.20-5.40); RED CELL DISTRIBUTION WIDTH 15.6 % (11.5-14.5); WHITE BLOOD COUNT 4.4 10^3/ul (4.8-10.8)
[2017-10-13] MEDS: morphine 2 MG INJ IV PRN ×2 (06:38→15:34)
[2017-10-13 07:03] LABS: CALCIUM 9.3 mg/dl (8.4-10.2); CREATININE 0.81 mg/dl (0.44-1.00); MAGNESIUM 1.8 mg/dl (1.7-2.5); PHOSPHORUS 4.1 mg/dl (2.5-4.9)
[2017-10-13] MEDS: ISOSORBIDE MONONITRATE(SR)30 MG TAB PO SCH (08:22)
[2017-10-13] MEDS: METOPROLOL 25 MG TAB PO SCH ×2 (08:23→20:55)
[2017-10-13] MEDS: BENAZEPRIL 10 MG TAB PO SCH (08:24)
[2017-10-13] MEDS: CARISOPRODOL 350 MG TAB PO PRN ×2 (09:52→22:49)
[2017-10-13] MEDS: TOLTERODINE 2 MG TAB PO SCH ×2 (09:52→20:55)
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
[2017-10-13] MEDS: ALPRAZOLAM 0.25 MG TAB PO PRN ×2 (11:52→20:58)
[2017-10-13] MEDS: ACETAMINOPHEN 325 MG TAB PO PRN ×2 (11:53→18:06)
[2017-10-13] MEDS: hydrALAzine 20 MG INJ IV PRN (11:56)
--- NOTE | 2017-10-13 15:02 | CONS ---
Date/Time of Note Date/Time of Note DATE: 10/13/17 TIME: 15:00 Assessment/Plan Assessment/Plan Additional Assessment/Plan 1. Chest pain, assess for acute coronary syndrome- no cP now, in good fluid status - will monitor clinically now. R/o IN - doubt ischemia. 2. Abnormal electrocardiogram with T-wave inversions across the anterior precordial leads- doubt acute cardiac event, 3. Hypertension- on hig side, will adjust Rx as needed. WELL Rx. 4. Syncope, rule out cardiac etiology, assess for cardiac arrhythmia - not confirmed, no tachy mary Sx noted now. 5. Hypothyroidism- on therpy, will monitor. 6. Dyslipidemia. 7. Anxiety- RX as needed, likely contributing. 8. Anemia. Consultation Date/Type/Reason Admit Date/Time Oct 08, 2017 at 12:28 24 HR Interval Summary Free Text/Dictation NO acute events - BP stable now - no CP noted,. ROS: No fever, no chills, no nausea, no vomiting, no diarrhea/constipation No recent weight changes No chest pain, no PND, no orthopnea No dizziness, blurred vision No thirst, no heat or cold intolerance Exam/Review of Systems Vital Signs Vitals Vital Signs Date Time Temp Pulse Resp B/P Pulse Ox O2 Delivery O2 Flow Rate FiO2 10/13/17 13:08 70 18 126/76 Room Air 10/13/17 11:59 98.1 95 Intake and Output 10/12/17 10/12/17 10/13/17 15:00 23:00 07:00 Intake Total 1700 ml 1250 ml Output Total 1200 ml Balance 1700 ml 50 ml Exam General: WN/WD/NAD, AOx 3 anxious HEENT: Unicetric/atraumatic/EOMI (follow commands) NECK: JVD elevated, no thyromegaly Lymph: no lymphadenopathy HEART: regular with no S3, II/ systolic murmur at apex LUNGS: Coarse sounds ABD: soft, NT, ND, +BS : Intact Neuro: non focal SKIN: chronic changes EXT: trace edema Results Result Diagram: 10/13/1762110/13/17 06 Results 24 hrs Laboratory Tests Test 10/13/17 06:22 White Blood Count 4.4 L Red Blood Count 3.64 L Hemoglobin 11.7 L Hematocrit 35.5 L Mean Corpuscular Volume 97.5 Mean Corpuscular Hemoglobin 32.1 Mean Corpuscular Hemoglobin Concent 33.0 Red Cell Distribution Width 15.6 H Platelet Count 119 L Mean Platelet Volume 8.9 Neutrophils % 48.2 Lymphocytes % 35.9 Monocytes % 10.5 Eosinophils % 2.5 Basophils % 1.1 Nucleated Red Blood Cells % 0.0 Neutrophils # 2.1 Lymphocytes # 1.6 Monocytes # 0.5 Eosinophils # 0.1 Basophils # 0.1 Nucleated Red Blood Cells # 0.0 Sodium Level 142 Potassium Level 4.0 Chloride Level 102 Carbon Dioxide Level 34 H Anion Gap 10 Blood Urea Nitrogen 6 L Creatinine 0.81 Glucose Level 96 Calcium Level 9.3 Phosphorus Level 4.1 Magnesium Level 1.8 Medications Medications Current Medications Benazepril HCl (Lotensin) 10 mg DAILY PO Last administered on 10/13/17 08:24 ; Admin Dose 10 MG; Start 10/09/17 at 09:00 Carisoprodol (Soma) 350 mg Q12 PRN PO MUSCLE SPASMS Last administered on 09:52; Admin Dose 350 MG; Start 10/08/17 at 14:00 Isosorbide Mononitrate (Imdur) 30 mg DAILY PO Last administered on 10/13/17 08:22; Admin Dose 30 MG; Start 10/09/17 at 09:00 Levothyroxine Sodium (Synthroid) 50 mcg DAILY@06 PO Last administered on 06:33; Admin Dose 50 MCG; Start 10/09/17 at 06:00 Tolterodine Tartrate (Detrol) 2 mg BID PO Last administered on 10/13/17 09:52 ; Admin Dose 2 MG; Start 10/08/17 at 21:00 Labetalol HCl (Labetalol) 10 mg Q4 PRN IV SBP>160 Last administered on 13:04; Admin Dose 10 MG; Start 10/08/17 at 14:00 Lorazepam (Ativan) 2 mg Q10MIN PRN IV seizure only; Start 10/08/17 at 14:00 Ondansetron HCl (Zofran Tab) 4 mg Q6H PRN PO NAUSEA AND/OR VOMITING; Start at 14:00 Ondansetron HCl (Zofran Inj) 4 mg Q6H PRN IV NAUSEA AND/OR VOMITING; Start at 14:00 Nitroglycerin (Nitroglycerin (Sl Tab) 0.4 Mg) 1 tab Q5M PRN SL CHEST PAIN; Start 10/08/17 at 14:00 Acetaminophen (Tylenol Tab) 650 mg Q6H PRN PO PAIN LEVEL 1-3 OR FEVER Last administered on 10/13/17 11:53; Admin Dose 650 MG; Start 10/08/17 at 14:00 Acetaminophen/ Hydrocodone Bitart ([place] (5/325)) 1 tab Q6H PRN PO PAIN LEVEL 4 -6 Last administered on 10/11/17 03:24; Admin Dose 1 TAB; Start 10/08/17 at 14:00 Morphine Sulfate (morphine) 2 mg Q4H PRN IV PAIN LEVEL 7-10 Last administered on 10/13/17 06:38; Admin Dose 2 MG; Start 10/08/17 at 14:00 Bisacodyl (Dulcolax) 5 mg DAILY PRN PO CONSTIPATION; Start 10/08/17 at 14:00 Atorvastatin Calcium (Lipitor) 20 mg HS PO Last administered on 10/12/17 20: 47; Admin Dose 20 MG; Start 10/08/17 at 21:00 Alprazolam (Xanax) 0.5 mg Q8H PRN PO ANXIETY Last administered on 10/13/17 11 :52; Admin Dose 0.5 MG; Start 10/08/17 at 23:12 Metoprolol Tartrate (Lopressor) 25 mg BID PO Last administered on 10/13/17 08 :23; Admin Dose 25 MG; Start 10/11/17 at 21:00 Hydralazine HCl (Apresoline) 10 mg Q4H PRN IV sbp>160 Last administered on 11:56; Admin Dose 10 MG; Start 10/13/17 at 11:00 CONSTANCE KC MD Oct 13, 2017 15:02
--- NOTE | 2017-10-13 16:09 | RADRPT ---
Vent Rate: 80 bpm RR Interval: 0 msec SC Interval: 178 msec QRS Duration: 84 msec QT Interval: 408 msec QTC Interval: 470 msec P-R-T [place]: 30 - -43 - -17 degrees Normal sinus rhythm Left axis deviation Inferior infarct , age undetermined Anteroseptal infarct , age undetermined T wave abnormality, consider lateral ischemia Abnormal ECG Electronically Signed By: Supa Mercado [id number]
--- NOTE | 2017-10-13 16:10 | RADRPT ---
Vent Rate: 78 bpm RR Interval: 0 msec MD Interval: 188 msec QRS Duration: 82 msec QT Interval: 392 msec QTC Interval: 446 msec P-R-T [place]: 17 - -44 - -9 degrees Normal sinus rhythm Left axis deviation Low voltage QRS Inferior infarct , age undetermined Anterolateral infarct , age undetermined Abnormal ECG Electronically Signed By: Supa Mercado [id number]
[2017-10-13] MEDS: ATORVASTATIN 20 MG TAB PO SCH (20:55)
[2017-10-14] VITALS (7 sets, daily range): BP systolic 103–190; BP diastolic 61–118; PULSE 79; RESP 16–20
[2017-10-14] MEDS: NITROGLYCERIN (SL) 0.4 MG TAB SL PRN ×3 (00:16→00:27)
[2017-10-14] MEDS: morphine 2 MG INJ IV PRN ×3 (00:53→19:58)
[2017-10-14] MEDS: hydrALAzine 20 MG INJ IV PRN (00:53)
[2017-10-14] MEDS ORDERED: ZOLPIDEM 5 MG TAB ONE (02:35)
[2017-10-14] MEDS: ZOLPIDEM 5 MG TAB PO PRN ×4 (02:39→23:49)
[2017-10-14] MEDS: LEVOTHYROXINE 50 MCG TAB PO SCH (06:18)
[2017-10-14] MEDS: ALPRAZOLAM 0.25 MG TAB PO PRN ×2 (06:18→17:41)
[2017-10-14] MEDS: PANTOPRAZOLE (EC) 40 MG TAB PO SCH ×2 (08:49→17:41)
[2017-10-14] MEDS: TOLTERODINE 2 MG TAB PO SCH ×2 (08:49→20:57)
[2017-10-14] MEDS: HYDROCODONE/APAP (5/325) TAB PO PRN (08:50)
[2017-10-14] MEDS: ISOSORBIDE MONONITRATE(SR)30 MG TAB PO SCH (08:52)
[2017-10-14] MEDS: BENAZEPRIL 10 MG TAB PO SCH (08:52)
[2017-10-14] MEDS: METOPROLOL 25 MG TAB PO SCH ×2 (08:53→20:57)
--- NOTE | 2017-10-14 10:05 | CONS ---
Date/Time of Note Date/Time of Note DATE: 10/14/17 TIME: 10:04 Assessment/Plan Assessment/Plan Additional Assessment/Plan 1. Chest pain, assess for acute coronary syndrome- no cP now, in good fluid status - will monitor clinically now. R/o CA - doubt ischemia.BETTER NOW. 2. Abnormal electrocardiogram with T-wave inversions across the anterior precordial leads- doubt acute cardiac event, no intervention palnned. 3. Hypertension- on hig side, will adjust Rx as needed. WELL Rx. 4. Syncope, rule out cardiac etiology, assess for cardiac arrhythmia - not confirmed, no tachy mary Sx noted now. DOUBT cardiac. 5. Hypothyroidism- on therpy, will monitor. 6. Dyslipidemia. 7. Anxiety- RX as needed, likely contributing. 8. Anemia. Consultation Date/Type/Reason Admit Date/Time Oct 08, 2017 at 12:28 24 HR Interval Summary Free Text/Dictation NO acute events - in good fluid status -no CP now. ROS: No fever, no chills, no nausea, no vomiting, no diarrhea/constipation No recent weight changes No chest pain, no PND, no orthopnea No dizziness, blurred vision No thirst, no heat or cold intolerance Exam/Review of Systems Vital Signs Vitals Vital Signs Date Time Temp Pulse Resp B/P Pulse Ox O2 Delivery O2 Flow Rate FiO2 10/14/17 07:17 98.0 77 16 105/66 95 10/14/17 02:24 Room Air Intake and Output 10/13/17 10/13/17 10/14/17 15:00 23:00 07:00 Intake Total 700 ml 820 ml Output Total 1300 ml Balance -600 ml 820 ml Exam General: WN/WD/NAD, AOx 3 HEENT: Unicetric/atraumatic/EOMI (follow commands) NECK: JVD elevated, no thyromegaly Lymph: no lymphadenopathy HEART: regular with no S3, II/ systolic murmur at apex LUNGS: Coarse sounds ABD: soft, NT, ND, +BS : Intact Neuro: non focal SKIN: chronic changes EXT: trace edema Results Result Diagram: 10/13/1762110/13/17621 Results 24 hrs Laboratory Tests Test 10/14/17 00:44 Troponin I < 0.012 Medications Medications Current Medications Benazepril HCl (Lotensin) 10 mg DAILY PO Last administered on 10/14/17 08:52 ; Admin Dose 10 MG; Start 10/09/17 at 09:00 Isosorbide Mononitrate (Imdur) 30 mg DAILY PO Last administered on 10/14/17 08:52; Admin Dose 30 MG; Start 10/09/17 at 09:00 Levothyroxine Sodium (Synthroid) 50 mcg DAILY@06 PO Last administered on 06:18; Admin Dose 50 MCG; Start 10/09/17 at 06:00 Tolterodine Tartrate (Detrol) 2 mg BID PO Last administered on 10/14/17 08:49 ; Admin Dose 2 MG; Start 10/08/17 at 21:00 Labetalol HCl (Labetalol) 10 mg Q4 PRN IV SBP>160 Last administered on 13:04; Admin Dose 10 MG; Start 10/08/17 at 14:00 Lorazepam (Ativan) 2 mg Q10MIN PRN IV seizure only; Start 10/08/17 at 14:00 Ondansetron HCl (Zofran Tab) 4 mg Q6H PRN PO NAUSEA AND/OR VOMITING; Start at 14:00 Ondansetron HCl (Zofran Inj) 4 mg Q6H PRN IV NAUSEA AND/OR VOMITING; Start at 14:00 Nitroglycerin (Nitroglycerin (Sl Tab) 0.4 Mg) 1 tab Q5M PRN SL CHEST PAIN Last administered on 10/14/17 00:27; Admin Dose 1 TAB; Start 10/08/17 at 14:00 Acetaminophen (Tylenol Tab) 650 mg Q6H PRN PO PAIN LEVEL 1-3 OR FEVER Last administered on 10/13/17 18:06; Admin Dose 650 MG; Start 10/08/17 at 14:00 Acetaminophen/ Hydrocodone Bitart ([place] (5/325)) 1 tab Q6H PRN PO PAIN LEVEL 4 -6 Last administered on 10/14/17 08:50; Admin Dose 1 TAB; Start 10/08/17 at 14:00 Morphine Sulfate (morphine) 2 mg Q4H PRN IV PAIN LEVEL 7-10 Last administered on 10/14/17 00:53; Admin Dose 2 MG; Start 10/08/17 at 14:00 Bisacodyl (Dulcolax) 5 mg DAILY PRN PO CONSTIPATION; Start 10/08/17 at 14:00 Atorvastatin Calcium (Lipitor) 20 mg HS PO Last administered on 10/13/17 20: 55; Admin Dose 20 MG; Start 10/08/17 at 21:00 Alprazolam (Xanax) 0.5 mg Q8H PRN PO ANXIETY Last administered on 10/14/17 06 :18; Admin Dose 0.5 MG; Start 10/08/17 at 23:12 Metoprolol Tartrate (Lopressor) 25 mg BID PO Last administered on 10/14/17 08 :53; Admin Dose 25 MG; Start 10/11/17 at 21:00 Hydralazine HCl (Apresoline) 10 mg Q4H PRN IV sbp>160 Last administered on 00:53; Admin Dose 10 MG; Start 10/13/17 at 11:00 Methocarbamol (Robaxin) 1,000 mg TID PO ; Start 10/14/17 at 13:00 CONSTANCE KC MD Oct 14, 2017 10:05
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
[2017-10-14] MEDS: METHOCARBAMOL 500 MG TAB PO SCH ×2 (12:19→20:57)
[2017-10-14] MEDS: ACETAMINOPHEN 325 MG TAB PO PRN (14:24)
[2017-10-14] MEDS: ATORVASTATIN 20 MG TAB PO SCH (20:57)
[2017-10-15 01:59] VITALS: BP 108/76; RESP 20
[2017-10-15] MEDS: morphine 2 MG INJ IV PRN ×4 (04:29→22:17)
[2017-10-15] MEDS: LEVOTHYROXINE 50 MCG TAB PO SCH (05:33)
[2017-10-15] MEDS: ALPRAZOLAM 0.25 MG TAB PO PRN ×3 (05:35→22:18)
[2017-10-15 06:43] LABS: BASOPHIL # 0.1 10^3/ul (0.0-0.1); BASOPHILS % 1.4 % (0.0-2.0); EOSINOPHILS # 0.1 10^3/ul (0.0-0.5); EOSINOPHILS % 2.8 % (0.0-7.0); HEMOGLOBIN 12.2 g/dl (12.0-16.0); LYMPHOCYTES # 1.8 10^3/ul (0.8-2.9); LYMPHOCYTES % 42.4 % (15.0-51.0); MEAN CORPUSCULAR HEMOGLOBIN 31.4 pg (29.0-33.0); MEAN CORPUSCULAR HGB CONC 32.1 g/dl (32.0-37.0); MEAN CORPUSCULAR VOLUME 97.7 fl (82.0-101.0); MEAN PLATELET VOLUME 9.1 fl (7.4-10.4); MONOCYTE # 0.8 10^3/ul (0.3-0.9); MONOCYTES % 18.9 % (0.0-11.0); NEUTROPHIL # 1.4 10^3/ul (1.6-7.5); NEUTROPHILS % 32.6 % (39.0-77.0); PLATELET COUNT 193 10^3/UL (140-415); RED BLOOD COUNT 3.89 10^6/ul (4.20-5.40); RED CELL DISTRIBUTION WIDTH 15.8 % (11.5-14.5); WHITE BLOOD COUNT 4.3 10^3/ul (4.8-10.8)
[2017-10-15 07:28] LABS: CALCIUM 9.5 mg/dl (8.4-10.2); CREATININE 0.85 mg/dl (0.44-1.00); MAGNESIUM 1.8 mg/dl (1.7-2.5); PHOSPHORUS 4.7 mg/dl (2.5-4.9); POTASSIUM 4.2 mmol/L (3.5-5.1)
[2017-10-15 07:38] VITALS: BP 143/78; RESP 20
[2017-10-15] MEDS: PANTOPRAZOLE (EC) 40 MG TAB PO SCH ×2 (08:23→17:26)
[2017-10-15] MEDS: TOLTERODINE 2 MG TAB PO SCH ×2 (08:23→20:40)
[2017-10-15] MEDS: METHOCARBAMOL 500 MG TAB PO SCH ×3 (08:23→20:41)
[2017-10-15] MEDS: ISOSORBIDE MONONITRATE(SR)30 MG TAB PO SCH (08:24)
[2017-10-15] MEDS: METOPROLOL 25 MG TAB PO SCH ×2 (08:24→20:42)
[2017-10-15] MEDS: BENAZEPRIL 10 MG TAB PO SCH (08:24)
[2017-10-15] MEDS: ACETAMINOPHEN 325 MG TAB PO PRN (09:04)
--- NOTE | 2017-10-15 10:16 | CONS ---
Date/Time of Note Date/Time of Note DATE: 10/15/17 TIME: 10:15 Assessment/Plan Assessment/Plan Additional Assessment/Plan 1. Chest pain, assess for acute coronary syndrome- no PP now, in good fluid status - will monitor clinically now. R/o MS - doubt ischemia.BETTER NOW. STABLE. 2. Abnormal electrocardiogram with T-wave inversions across the anterior precordial leads- doubt acute cardiac event, no intervention palnned. 3. Hypertension- on hig side, will adjust Rx as needed. WELL Rx. BETTER CONTROLLED. 4. Syncope, rule out cardiac etiology, assess for cardiac arrhythmia - not confirmed, no tachy mary Sx noted now. DOUBT cardiac. 5. Hypothyroidism- on therpy, will monitor. 6. Dyslipidemia. 7. Anxiety- RX as needed, likely contributing. 8. Anemia. Consultation Date/Type/Reason Admit Date/Time Oct 08, 2017 at 12:28 24 HR Interval Summary Free Text/Dictation NO acute events - off tele now. ROS: No fever, no chills, no nausea, no vomiting, no diarrhea/constipation No recent weight changes No chest pain, no PND, no orthopnea No dizziness, blurred vision No thirst, no heat or cold intolerance Exam/Review of Systems Vital Signs Vitals Vital Signs Date Time Temp Pulse Resp B/P Pulse Ox O2 Delivery O2 Flow Rate FiO2 10/15/17 07:38 97.5 79 20 143/78 97 10/14/17 02:24 Room Air Intake and Output 10/14/17 10/14/17 10/15/17 14:59 22:59 06:59 Intake Total 1200 ml 900 ml Output Total 400 ml Balance 800 ml 900 ml Exam General: WN/WD/NAD, AOx 3 HEENT: Unicetric/atraumatic/EOMI (follows commands) NECK: JVD elevated, no thyromegaly Lymph: no lymphadenopathy HEART: regular with no S3, II/ systolic murmur at apex LUNGS: Coarse sounds ABD: soft, NT, ND, +BS : Intact Neuro: non focal SKIN: chronic changes EXT: trace edema Results Result Diagram: 10/15/1752810/15/17528 Results 24 hrs Laboratory Tests Test 10/15/17 05:29 White Blood Count 4.3 L Red Blood Count 3.89 L Hemoglobin 12.2 Hematocrit 38.0 Mean Corpuscular Volume 97.7 Mean Corpuscular Hemoglobin 31.4 Mean Corpuscular Hemoglobin Concent 32.1 Red Cell Distribution Width 15.8 H Platelet Count 193 # Mean Platelet Volume 9.1 Neutrophils % 32.6 L Lymphocytes % 42.4 Monocytes % 18.9 H Eosinophils % 2.8 Basophils % 1.4 Nucleated Red Blood Cells % 0.0 Neutrophils # 1.4 L Lymphocytes # 1.8 Monocytes # 0.8 Eosinophils # 0.1 Basophils # 0.1 Nucleated Red Blood Cells # 0.0 Sodium Level 142 Potassium Level 4.2 Chloride Level 105 Carbon Dioxide Level 28 Anion Gap 13 Blood Urea Nitrogen 11 Creatinine 0.85 Glucose Level 100 Calcium Level 9.5 Phosphorus Level 4.7 Magnesium Level 1.8 Medications Medications Current Medications Benazepril HCl (Lotensin) 10 mg DAILY PO Last administered on 10/15/17 08:24 ; Admin Dose 10 MG; Start 10/09/17 at 09:00 Isosorbide Mononitrate (Imdur) 30 mg DAILY PO Last administered on 10/15/17 08:24; Admin Dose 30 MG; Start 10/09/17 at 09:00 Levothyroxine Sodium (Synthroid) 50 mcg DAILY@06 PO Last administered on 05:33; Admin Dose 50 MCG; Start 10/09/17 at 06:00 Tolterodine Tartrate (Detrol) 2 mg BID PO Last administered on 10/15/17 08:23 ; Admin Dose 2 MG; Start 10/08/17 at 21:00 Labetalol HCl (Labetalol) 10 mg Q4 PRN IV SBP>160 Last administered on 13:04; Admin Dose 10 MG; Start 10/08/17 at 14:00; Status Future Hold Lorazepam (Ativan) 2 mg Q10MIN PRN IV seizure only; Start 10/08/17 at 14:00 Ondansetron HCl (Zofran Tab) 4 mg Q6H PRN PO NAUSEA AND/OR VOMITING; Start at 14:00 Ondansetron HCl (Zofran Inj) 4 mg Q6H PRN IV NAUSEA AND/OR VOMITING; Start at 14:00 Nitroglycerin (Nitroglycerin (Sl Tab) 0.4 Mg) 1 tab Q5M PRN SL CHEST PAIN Last administered on 10/14/17 00:27; Admin Dose 1 TAB; Start 10/08/17 at 14:00 Acetaminophen (Tylenol Tab) 650 mg Q6H PRN PO PAIN LEVEL 1-3 OR FEVER Last administered on 10/15/17 09:04; Admin Dose 650 MG; Start 10/08/17 at 14:00 Acetaminophen/ Hydrocodone Bitart ([place] (5/325)) 1 tab Q6H PRN PO PAIN LEVEL 4 -6 Last administered on 10/14/17 08:50; Admin Dose 1 TAB; Start 10/08/17 at 14:00 Morphine Sulfate (morphine) 2 mg Q4H PRN IV PAIN LEVEL 7-10 Last administered on 10/15/17 04:29; Admin Dose 2 MG; Start 10/08/17 at 14:00 Bisacodyl (Dulcolax) 5 mg DAILY PRN PO CONSTIPATION; Start 10/08/17 at 14:00 Atorvastatin Calcium (Lipitor) 20 mg HS PO Last administered on 10/14/17 20: 57; Admin Dose 20 MG; Start 10/08/17 at 21:00 Alprazolam (Xanax) 0.5 mg Q8H PRN PO ANXIETY Last administered on 10/15/17 05 :35; Admin Dose 0.5 MG; Start 10/08/17 at 23:12 Metoprolol Tartrate (Lopressor) 25 mg BID PO Last administered on 10/15/17 08 :24; Admin Dose 25 MG; Start 10/11/17 at 21:00 Hydralazine HCl (Apresoline) 10 mg Q4H PRN IV sbp>160 Last administered on 00:53; Admin Dose 10 MG; Start 10/13/17 at 11:00 Methocarbamol (Robaxin) 1,000 mg TID PO Last administered on 10/15/17 08:23; Admin Dose 1,000 MG; Start 10/14/17 at 13:00 CONSTANCE KC MD Oct 15, 2017 10:16
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
[2017-10-15] MEDS: HYDROCODONE/APAP (5/325) TAB PO PRN (12:50)
[2017-10-15 13:54] VITALS: BP 140/85; RESP 18
[2017-10-15 20:40] VITALS: BP 170/79; PULSE 75; RESP 20
[2017-10-15] MEDS: ATORVASTATIN 20 MG TAB PO SCH (20:41)
[2017-10-15 22:00] VITALS: BP 150/87; PULSE 71
[2017-10-15] MEDS: ZOLPIDEM 5 MG TAB PO PRN (23:19)
[2017-10-16 02:00] VITALS: BP 136/72; PULSE 73; RESP 20
[2017-10-16] MEDS: morphine 2 MG INJ IV PRN ×4 (03:28→21:20)
[2017-10-16] MEDS: LEVOTHYROXINE 50 MCG TAB PO SCH (05:40)
[2017-10-16 06:43] LABS: BASOPHIL # 0.1 10^3/ul (0.0-0.1); BASOPHILS % 1.4 % (0.0-2.0); EOSINOPHILS # 0.1 10^3/ul (0.0-0.5); HEMATOCRIT 35.7 % (37.0-47.0); HEMOGLOBIN 11.7 g/dl (12.0-16.0); LYMPHOCYTES % 45.2 % (15.0-51.0); MEAN CORPUSCULAR HEMOGLOBIN 32.3 pg (29.0-33.0); MEAN CORPUSCULAR HGB CONC 32.8 g/dl (32.0-37.0); MEAN CORPUSCULAR VOLUME 98.6 fl (82.0-101.0); MONOCYTE # 0.8 10^3/ul (0.3-0.9); MONOCYTES % 18.6 % (0.0-11.0); NEUTROPHIL # 1.3 10^3/ul (1.6-7.5); NEUTROPHILS % 30.7 % (39.0-77.0); PLATELET COUNT 227 10^3/UL (140-415); RED BLOOD COUNT 3.62 10^6/ul (4.20-5.40); RED CELL DISTRIBUTION WIDTH 15.5 % (11.5-14.5); WHITE BLOOD COUNT 4.4 10^3/ul (4.8-10.8)
[2017-10-16 06:51] LABS: CREATININE 0.81 mg/dl (0.44-1.00); MAGNESIUM 1.8 mg/dl (1.7-2.5); PHOSPHORUS 4.9 mg/dl (2.5-4.9); POTASSIUM 4.2 mmol/L (3.5-5.1)
[2017-10-16] MEDS: ALPRAZOLAM 0.25 MG TAB PO PRN ×2 (06:53→17:40)
[2017-10-16 07:54] VITALS: BP 133/73; RESP 18
[2017-10-16] MEDS: PANTOPRAZOLE (EC) 40 MG TAB PO SCH ×2 (09:00→17:40)
[2017-10-16] MEDS: METHOCARBAMOL 500 MG TAB PO SCH ×3 (09:01→21:19)
[2017-10-16] MEDS: TOLTERODINE 2 MG TAB PO SCH ×2 (09:01→21:19)
[2017-10-16] MEDS: ISOSORBIDE MONONITRATE(SR)30 MG TAB PO SCH (09:01)
[2017-10-16] MEDS: METOPROLOL 25 MG TAB PO SCH ×2 (09:02→19:33)
[2017-10-16] MEDS: BENAZEPRIL 10 MG TAB PO SCH (09:02)
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
--- NOTE | 2017-10-16 13:37 | CONS ---
Date/Time of Note Date/Time of Note DATE: 10/16/17 TIME: 13:32 Assessment/Plan Assessment/Plan Chief Complaint/Hosp Course IMPRESSION: 1. Chest pain, assess for acute coronary syndrome.-negative trop x 3/NL EF by most recent echo. No current chest pain 2. Abnormal electrocardiogram with T-wave inversions across the anterior precordial leads. 3. Hypertension-well controlled 4. Syncope, rule out cardiac etiology, assess for cardiac arrhythmia. 5. Hypothyroidism. 6. Dyslipidemia. 7. Anxiety. 8. Anemia. 9. Suprapubic discomfort Recc: -Continue BB/ACEI -Continue imdur/asa/statin -Continue synthroid -ONgoing eval of suprapubic pain -D/C planning from cardiac standpoint with outpatient f/u Problems: Consultation Date/Type/Reason Admit Date/Time Oct 08, 2017 at 12:28 Initial Consult Date 10/11/2017 Type of Consultation: cardiology Reason for Consultation chest pain Referring Provider: JAMILAH ECHEVERRIA Exam/Review of Systems Vital Signs Vitals Vital Signs Date Time Temp Pulse Resp B/P Pulse Ox O2 Delivery O2 Flow Rate FiO2 10/16/17 07:54 97.7 69 18 133/73 97 10/16/17 02:00 Room Air Intake and Output 10/15/17 10/15/17 10/16/17 15:00 23:00 07:00 Intake Total 1360 ml 720 ml Output Total 800 ml Balance 560 ml 720 ml Exam Review of Systems: CONSTITUTIONAL: No fevers, chills. PULMONARY: No sob CARDIOVASCULAR: No chest pain/palpitations GASTROINTESTINAL: back and abd pain GENITOURINARY: No hematuria/dysuria. MUSCULOSKELETAL: No myagias/arthalgias. PSYCHIATRIC: The patient denies depression. NEUROLOGIC: No weakness Constitutional: alert Psych: no complaints Head: normocephalic ENMT: mucosa pink and moist Neck: jvd (9 cm water), supple Respiratory: clear to auscultation Cardiovascular: regular rate and rhythm Gastrointestinal: non-tender, soft Musculoskeletal: muscle tone (normal) Extremities: edema (none) Neurological: other (No focal deficits) Results Result Diagram: 10/16/17 0602 10/16/17 0602 Results 24 hrs Laboratory Tests Test 10/16/17 06:02 White Blood Count 4.4 L Red Blood Count 3.62 L Hemoglobin 11.7 L Hematocrit 35.7 L Mean Corpuscular Volume 98.6 Mean Corpuscular Hemoglobin 32.3 Mean Corpuscular Hemoglobin Concent 32.8 Red Cell Distribution Width 15.5 H Platelet Count 227 Mean Platelet Volume 9.0 Neutrophils % 30.7 L Lymphocytes % 45.2 Monocytes % 18.6 H Eosinophils % 3.0 Basophils % 1.4 Nucleated Red Blood Cells % 0.0 Neutrophils # 1.3 L Lymphocytes # 2.0 Monocytes # 0.8 Eosinophils # 0.1 Basophils # 0.1 Nucleated Red Blood Cells # 0.0 Sodium Level 140 Potassium Level 4.2 Chloride Level 104 Carbon Dioxide Level 28 Anion Gap 12 Blood Urea Nitrogen 7 Creatinine 0.81 Glucose Level 118 Calcium Level 9.0 Phosphorus Level 4.9 Magnesium Level 1.8 Medications Medications Current Medications Benazepril HCl (Lotensin) 10 mg DAILY PO Last administered on 10/16/17 09:02 ; Admin Dose 10 MG; Start 10/09/17 at 09:00 Isosorbide Mononitrate (Imdur) 30 mg DAILY PO Last administered on 10/16/17 09:01; Admin Dose 30 MG; Start 10/09/17 at 09:00 Levothyroxine Sodium (Synthroid) 50 mcg DAILY@06 PO Last administered on 05:40; Admin Dose 50 MCG; Start 10/09/17 at 06:00 Tolterodine Tartrate (Detrol) 2 mg BID PO Last administered on 10/16/17 09:01 ; Admin Dose 2 MG; Start 10/08/17 at 21:00 Labetalol HCl (Labetalol) 10 mg Q4 PRN IV SBP>160 Last administered on 13:04; Admin Dose 10 MG; Start 10/08/17 at 14:00; Status Future Hold Lorazepam (Ativan) 2 mg Q10MIN PRN IV seizure only; Start 10/08/17 at 14:00 Ondansetron HCl (Zofran Tab) 4 mg Q6H PRN PO NAUSEA AND/OR VOMITING; Start at 14:00 Ondansetron HCl (Zofran Inj) 4 mg Q6H PRN IV NAUSEA AND/OR VOMITING; Start at 14:00 Nitroglycerin (Nitroglycerin (Sl Tab) 0.4 Mg) 1 tab Q5M PRN SL CHEST PAIN Last administered on 10/14/17 00:27; Admin Dose 1 TAB; Start 10/08/17 at 14:00 Acetaminophen (Tylenol Tab) 650 mg Q6H PRN PO PAIN LEVEL 1-3 OR FEVER Last administered on 10/15/17 09:04; Admin Dose 650 MG; Start 10/08/17 at 14:00 Acetaminophen/ Hydrocodone Bitart ([place] (5/325)) 1 tab Q6H PRN PO PAIN LEVEL 4 -6 Last administered on 10/15/17 12:50; Admin Dose 1 TAB; Start 10/08/17 at 14:00 Morphine Sulfate (morphine) 2 mg Q4H PRN IV PAIN LEVEL 7-10 Last administered on 10/16/17 13:14; Admin Dose 2 MG; Start 10/08/17 at 14:00 Bisacodyl (Dulcolax) 5 mg DAILY PRN PO CONSTIPATION; Start 10/08/17 at 14:00 Atorvastatin Calcium (Lipitor) 20 mg HS PO Last administered on 10/15/17 20: 41; Admin Dose 20 MG; Start 10/08/17 at 21:00 Alprazolam (Xanax) 0.5 mg Q8H PRN PO ANXIETY Last administered on 10/16/17 06 :53; Admin Dose 0.5 MG; Start 10/08/17 at 23:12 Metoprolol Tartrate (Lopressor) 25 mg BID PO Last administered on 10/16/17 09 :02; Admin Dose 25 MG; Start 10/11/17 at 21:00 Hydralazine HCl (Apresoline) 10 mg Q4H PRN IV sbp>160 Last administered on 00:53; Admin Dose 10 MG; Start 10/13/17 at 11:00 Methocarbamol (Robaxin) 1,000 mg TID PO Last administered on 10/16/17 13:14; Admin Dose 1,000 MG; Start 10/14/17 at 13:00 DALILA BUTT 27, 2017 13:37
[2017-10-16 15:03] VITALS: BP 126/85; RESP 18
[2017-10-16 15:59] LABS: ADD UMIC NO; UR ASCORBIC ACID NEGATIVE (NEGATIVE); UR BILIRUBIN (Dip) NEGATIVE (NEGATIVE); UR BLOOD (Dip) NEGATIVE (NEGATIVE); UR CLARITY CLEAR (CLEAR); UR COLOR YELLOW (YELLOW); UR GLUCOSE (Dip) NEGATIVE (NEGATIVE); UR KETONES (Dip) NEGATIVE (NEGATIVE); UR LEUKOCYTE ESTERASE (Dip) NEGATIVE Leu/ul (NEGATIVE); UR NITRITE (Dip) NEGATIVE (NEGATIVE); UR SPECIFIC GRAVITY (Dip) 1.006 (1.003-1.030); UR TOTAL PROTEIN (Dip) NEGATIVE (NEGATIVE); UR UROBILINOGEN (Dip) NEGATIVE (NEGATIVE)
[2017-10-16 19:22] VITALS: BP 159/94; RESP 18
[2017-10-16] MEDS: ATORVASTATIN 20 MG TAB PO SCH (21:19)
[2017-10-16] MEDS: ZOLPIDEM 5 MG TAB PO PRN ×2 (21:20→23:22)
[2017-10-17 01:30] VITALS: BP 138/66; RESP 17
[2017-10-17] MEDS: ALPRAZOLAM 0.25 MG TAB PO PRN (01:48)
[2017-10-17] MEDS: LEVOTHYROXINE 50 MCG TAB PO SCH (05:08)
[2017-10-17] MEDS: morphine 2 MG INJ IV PRN ×2 (05:09→21:35)
[2017-10-17 06:39] LABS: BASOPHIL # 0.1 10^3/ul (0.0-0.1); BASOPHILS % 1.4 % (0.0-2.0); EOSINOPHILS # 0.1 10^3/ul (0.0-0.5); EOSINOPHILS % 1.7 % (0.0-7.0); HEMATOCRIT 36.3 % (37.0-47.0); HEMOGLOBIN 11.9 g/dl (12.0-16.0); LYMPHOCYTES # 1.8 10^3/ul (0.8-2.9); LYMPHOCYTES % 43.5 % (15.0-51.0); MEAN CORPUSCULAR HGB CONC 32.8 g/dl (32.0-37.0); MEAN CORPUSCULAR VOLUME 97.6 fl (82.0-101.0); MEAN PLATELET VOLUME 9.1 fl (7.4-10.4); MONOCYTE # 0.8 10^3/ul (0.3-0.9); MONOCYTES % 18.8 % (0.0-11.0); NEUTROPHIL # 1.4 10^3/ul (1.6-7.5); NEUTROPHILS % 33.9 % (39.0-77.0); PLATELET COUNT 266 10^3/UL (140-415); RED BLOOD COUNT 3.72 10^6/ul (4.20-5.40); RED CELL DISTRIBUTION WIDTH 14.9 % (11.5-14.5); WHITE BLOOD COUNT 4.2 10^3/ul (4.8-10.8)
[2017-10-17 06:57] LABS: ALBUMIN 3.8 g/dl (3.3-4.9); CALCIUM 9.3 mg/dl (8.4-10.2); CREATININE 0.82 mg/dl (0.44-1.00); MAGNESIUM 1.8 mg/dl (1.7-2.5); PHOSPHORUS 4.6 mg/dl (2.5-4.9); POTASSIUM 4.6 mmol/L (3.5-5.1)
[2017-10-17 07:42] VITALS: BP 139/74; RESP 18
[2017-10-17] MEDS: PANTOPRAZOLE (EC) 40 MG TAB PO SCH ×2 (08:12→16:38)
[2017-10-17] MEDS: ISOSORBIDE MONONITRATE(SR)30 MG TAB PO SCH (08:12)
[2017-10-17] MEDS: METHOCARBAMOL 500 MG TAB PO SCH ×3 (08:12→21:37)
[2017-10-17] MEDS: METOPROLOL 25 MG TAB PO SCH ×2 (08:12→21:38)
[2017-10-17] MEDS: TOLTERODINE 2 MG TAB PO SCH ×2 (08:12→21:36)
[2017-10-17] MEDS: BENAZEPRIL 10 MG TAB PO SCH (08:13)
[2017-10-17] MEDS ORDERED: ALPRAZOLAM 0.25 MG TAB ONE (09:49)
[2017-10-17] MEDS: ALPRAZOLAM 1 MG TAB PO PRN ×2 (09:51→21:36)
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
--- NOTE | 2017-10-17 10:40 | CONS ---
Date/Time of Note Date/Time of Note DATE: 10/17/17 TIME: 10:40 Assessment/Plan Assessment/Plan Additional Assessment/Plan VS reviewed - no cardiac instability - off tele now Consultation Date/Type/Reason Admit Date/Time Oct 08, 2017 at 12:28 Type of Consultation: cardiology Referring Provider: JAMILAH ECHEVERRIA Exam/Review of Systems Vital Signs Vitals Vital Signs Date Time Temp Pulse Resp B/P Pulse Ox O2 Delivery O2 Flow Rate FiO2 10/17/17 07:42 97.6 72 18 139/74 96 10/16/17 02:00 Room Air Intake and Output 10/16/17 10/16/17 10/17/17 15:00 23:00 07:00 Intake Total 1480 ml 800 ml Output Total 200 ml 1 ml Balance 1280 ml 799 ml Results Result Diagram: 10/17/17 0537 10/17/17 0537 Results 24 hrs Laboratory Tests Test 10/16/17 15:25 10/17/17 05:37 Urine Color YELLOW Urine Clarity CLEAR Urine pH 6.0 Urine Specific [place] 1.006 Urine Ketones NEGATIVE Urine Nitrite NEGATIVE Urine Bilirubin NEGATIVE Urine Urobilinogen NEGATIVE Urine Leukocyte Esterase NEGATIVE Urine Hemoglobin NEGATIVE Urine Glucose NEGATIVE Urine Total Protein NEGATIVE White Blood Count 4.2 L Red Blood Count 3.72 L Hemoglobin 11.9 L Hematocrit 36.3 L Mean Corpuscular Volume 97.6 Mean Corpuscular Hemoglobin 32.0 Mean Corpuscular Hemoglobin Concent 32.8 Red Cell Distribution Width 14.9 H Platelet Count 266 Mean Platelet Volume 9.1 Neutrophils % 33.9 L Lymphocytes % 43.5 Monocytes % 18.8 H Eosinophils % 1.7 Basophils % 1.4 Nucleated Red Blood Cells % 0.0 Neutrophils # 1.4 L Lymphocytes # 1.8 Monocytes # 0.8 Eosinophils # 0.1 Basophils # 0.1 Nucleated Red Blood Cells # 0.0 Sodium Level 140 Potassium Level 4.6 Chloride Level 102 Carbon Dioxide Level 29 Anion Gap 14 Blood Urea Nitrogen 6 L Creatinine 0.82 Glucose Level 101 Calcium Level 9.3 Phosphorus Level 4.6 Magnesium Level 1.8 Albumin 3.8 Medications Medications Current Medications Benazepril HCl (Lotensin) 10 mg DAILY PO Last administered on 10/17/17t 08:13 ; Admin Dose 10 MG; Start 10/09/17 at 09:00 Isosorbide Mononitrate (Imdur) 30 mg DAILY PO Last administered on 10/17/17 08:12; Admin Dose 30 MG; Start 10/09/17 at 09:00 Levothyroxine Sodium (Synthroid) 50 mcg DAILY@06 PO Last administered on 05:08; Admin Dose 50 MCG; Start 10/09/17 at 06:00 Tolterodine Tartrate (Detrol) 2 mg BID PO Last administered on 10/17/17 08:12 ; Admin Dose 2 MG; Start 10/08/17 at 21:00 Labetalol HCl (Labetalol) 10 mg Q4 PRN IV SBP>160 Last administered on 13:04; Admin Dose 10 MG; Start 10/08/17 at 14:00; Status Future Hold Lorazepam (Ativan) 2 mg Q10MIN PRN IV seizure only; Start 10/08/17 at 14:00 Ondansetron HCl (Zofran Tab) 4 mg Q6H PRN PO NAUSEA AND/OR VOMITING; Start at 14:00 Ondansetron HCl (Zofran Inj) 4 mg Q6H PRN IV NAUSEA AND/OR VOMITING; Start at 14:00 Nitroglycerin (Nitroglycerin (Sl Tab) 0.4 Mg) 1 tab Q5M PRN SL CHEST PAIN Last administered on 10/14/17 00:27; Admin Dose 1 TAB; Start 10/08/17 at 14:00 Acetaminophen (Tylenol Tab) 650 mg Q6H PRN PO PAIN LEVEL 1-3 OR FEVER Last administered on 10/15/17 09:04; Admin Dose 650 MG; Start 10/08/17 at 14:00 Acetaminophen/ Hydrocodone Bitart ([place] (5/325)) 1 tab Q6H PRN PO PAIN LEVEL 4 -6 Last administered on 10/15/17 12:50; Admin Dose 1 TAB; Start 10/08/17 at 14:00 Morphine Sulfate (morphine) 2 mg Q4H PRN IV PAIN LEVEL 7-10 Last administered on 10/17/17 05:09; Admin Dose 2 MG; Start 10/08/17 at 14:00 Bisacodyl (Dulcolax) 5 mg DAILY PRN PO CONSTIPATION; Start 10/08/17 at 14:00 Atorvastatin Calcium (Lipitor) 20 mg HS PO Last administered on 10/16/17 21: 19; Admin Dose 20 MG; Start 10/08/17 at 21:00 Metoprolol Tartrate (Lopressor) 25 mg BID PO Last administered on 10/17/17 08 :12; Admin Dose 25 MG; Start 10/11/17 at 21:00 Hydralazine HCl (Apresoline) 10 mg Q4H PRN IV sbp>160 Last administered on 00:53; Admin Dose 10 MG; Start 10/13/17 at 11:00 Methocarbamol (Robaxin) 1,000 mg TID PO Last administered on 10/17/17 08:12; Admin Dose 1,000 MG; Start 10/14/17 at 13:00 Alprazolam (Xanax) 1 mg Q8H PRN PO ANXIETY Last administered on 10/17/17 09: 51; Admin Dose 1 MG; Start 10/17/17 at 15:12 CONSTANCE KC MD Oct 17, 2017 10:40
--- NOTE | 2017-10-17 14:13 | RADRPT ---
Vent Rate: 78 bpm RR Interval: 0 msec LA Interval: 170 msec QRS Duration: 74 msec QT Interval: 380 msec QTC Interval: 433 msec P-R-T [place]: 25 - -40 - 17 degrees Normal sinus rhythm Left axis deviation Low voltage QRS Inferior infarct , age undetermined Cannot rule out Anteroseptal infarct , age undetermined Abnormal ECG Electronically Signed By: Mario Reese [id number]
[2017-10-17 14:14] VITALS: BP 112/78; RESP 19
--- NOTE | 2017-10-17 15:35 | RADRPT ---
PROCEDURE: Pelvic ultrasound. CLINICAL INDICATION: Pelvic pain TECHNIQUE: Saez scale, color doppler, spectral doppler ultrasound of the pelvis was performed with transabdominal transducers. COMPARISON: CT 08/14/2017 FINDINGS: Uterus: Position: Anteverted. Normal myometrial echogenicity. Not well visualized but does not appear significantly thickened. Ovaries: Normal appearing right ovary. Normal appearing left ovary. No adnexal masses. Free fluid: None. Measurements: Uterus (cm): 5.7 x 2.8 x 4.0 Right ovary (cm): 2.4 x 1.5 x 1.7 Left ovary (cm): 2.0 x 1.1 x 1.5 IMPRESSION: Endometrium not well visualized by transabdominal only imaging but does not appear significantly thi ckened. Normal appearance of the myometrium and both ovaries. RPTAT: AADD .Steve Garcia MD, Date Time Electronically viewed and signed by .Steve Garcia MD, on 10/17/2017 15:34 .B/
[2017-10-17 19:44] VITALS: BP 178/87; RESP 18
[2017-10-17 19:52] VITALS: BP 171/95; RESP 18
[2017-10-17] MEDS: hydrALAzine 20 MG INJ IV PRN (21:35)
[2017-10-17] MEDS: ATORVASTATIN 20 MG TAB PO SCH (21:36)
[2017-10-17] MEDS: ZOLPIDEM 5 MG TAB PO PRN (22:29)
[2017-10-18 02:01] VITALS: BP 101/56; RESP 16
[2017-10-18] MEDS: ACETAMINOPHEN 325 MG TAB PO PRN (02:05)
[2017-10-18] MEDS: LEVOTHYROXINE 50 MCG TAB PO SCH (05:30)
[2017-10-18] MEDS: ALPRAZOLAM 1 MG TAB PO PRN (05:30)
[2017-10-18 06:31] LABS: BASOPHIL # 0.1 10^3/ul (0.0-0.1); BASOPHILS % 1.2 % (0.0-2.0); EOSINOPHILS # 0.1 10^3/ul (0.0-0.5); HEMATOCRIT 35.2 % (37.0-47.0); HEMOGLOBIN 11.8 g/dl (12.0-16.0); LYMPHOCYTES % 39.1 % (15.0-51.0); MEAN CORPUSCULAR HEMOGLOBIN 32.3 pg (29.0-33.0); MEAN CORPUSCULAR HGB CONC 33.5 g/dl (32.0-37.0); MEAN CORPUSCULAR VOLUME 96.4 fl (82.0-101.0); MEAN PLATELET VOLUME 9.3 fl (7.4-10.4); MONOCYTE # 0.8 10^3/ul (0.3-0.9); MONOCYTES % 14.9 % (0.0-11.0); NEUTROPHIL # 2.2 10^3/ul (1.6-7.5); NEUTROPHILS % 42.4 % (39.0-77.0); PLATELET COUNT 309 10^3/UL (140-415); RED BLOOD COUNT 3.65 10^6/ul (4.20-5.40); RED CELL DISTRIBUTION WIDTH 15.1 % (11.5-14.5); WHITE BLOOD COUNT 5.1 10^3/ul (4.8-10.8)
[2017-10-18 06:58] LABS: ALBUMIN 3.7 g/dl (3.3-4.9); CALCIUM 9.3 mg/dl (8.4-10.2); CREATININE 0.86 mg/dl (0.44-1.00); MAGNESIUM 1.8 mg/dl (1.7-2.5); PHOSPHORUS 5.9 mg/dl (2.5-4.9); POTASSIUM 4.3 mmol/L (3.5-5.1)
[2017-10-18 07:41] VITALS: BP 124/73; RESP 18
[2017-10-18] MEDS: BENAZEPRIL 10 MG TAB PO SCH (08:25)
[2017-10-18] MEDS: METHOCARBAMOL 500 MG TAB PO SCH (08:25)
[2017-10-18] MEDS: TOLTERODINE 2 MG TAB PO SCH (08:25)
[2017-10-18] MEDS: METOPROLOL 25 MG TAB PO SCH (08:26)
[2017-10-18] MEDS: PANTOPRAZOLE (EC) 40 MG TAB PO SCH (08:26)
[2017-10-18] MEDS: ISOSORBIDE MONONITRATE(SR)30 MG TAB PO SCH (08:26)
--- NOTE | 2017-10-18 12:18 | CONS ---
Date/Time of Note Date/Time of Note DATE: 10/18/17 TIME: 12:14 Assessment/Plan Assessment/Plan Chief Complaint/Hosp Course IMPRESSION: 1. Chest pain, assess for acute coronary syndrome.-negative trop x 3/NL EF by most recent echo. No current chest pain 2. Abnormal electrocardiogram with T-wave inversions across the anterior precordial leads. 3. Hypertension-well controlled 4. Syncope, rule out cardiac etiology, assess for cardiac arrhythmia. 5. Hypothyroidism. 6. Dyslipidemia. 7. Anxiety. 8. Anemia. 9. Suprapubic discomfort-improved Recc: -Continue BB/ACEI and follow labile bp closely -Continue imdur/asa/statin -Continue synthroid -D/C planning from cardiac standpoint with outpatient f/u Problems: Consultation Date/Type/Reason Admit Date/Time Oct 08, 2017 at 12:28 Initial Consult Date 10/11/2017 Type of Consultation: cardiology Reason for Consultation HTN/chest pain Referring Provider: JAMILAH ECHEVERRIA Exam/Review of Systems Vital Signs Vitals Vital Signs Date Time Temp Pulse Resp B/P Pulse Ox O2 Delivery O2 Flow Rate FiO2 10/18/17 07:41 97.7 72 18 124/73 98 10/16/17 02:00 Room Air Intake and Output 10/17/17 10/17/17 10/18/17 15:00 23:00 07:00 Intake Total 1260 ml 200 ml Balance 1260 ml 200 ml Exam Review of Systems: CONSTITUTIONAL: No fevers, chills. PULMONARY: No sob CARDIOVASCULAR: No chest pain/palpitations GASTROINTESTINAL: No nausea/vomiting. GENITOURINARY: No hematuria/dysuria. MUSCULOSKELETAL: No myagias/arthalgias. PSYCHIATRIC: The patient denies depression. NEUROLOGIC: No weakness Constitutional: alert, oriented Psych: no complaints Head: normocephalic ENMT: mucosa pink and moist Neck: jvd (9 cm water), supple Respiratory: clear to auscultation Cardiovascular: regular rate and rhythm Gastrointestinal: non-tender, soft Musculoskeletal: muscle tone (normal) Extremities: edema (none) Neurological: other (no focal deficits) Results Result Diagram: 10/18/17 0536 10/18/17 0536 Results 24 hrs Laboratory Tests Test 10/18/17 05:36 White Blood Count 5.1 # Red Blood Count 3.65 L Hemoglobin 11.8 L Hematocrit 35.2 L Mean Corpuscular Volume 96.4 Mean Corpuscular Hemoglobin 32.3 Mean Corpuscular Hemoglobin Concent 33.5 Red Cell Distribution Width 15.1 H Platelet Count 309 Mean Platelet Volume 9.3 Neutrophils % 42.4 Lymphocytes % 39.1 Monocytes % 14.9 H Eosinophils % 2.0 Basophils % 1.2 Nucleated Red Blood Cells % 0.0 Neutrophils # 2.2 Lymphocytes # 2.0 Monocytes # 0.8 Eosinophils # 0.1 Basophils # 0.1 Nucleated Red Blood Cells # 0.0 Sodium Level 140 Potassium Level 4.3 Chloride Level 102 Carbon Dioxide Level 28 Anion Gap 14 Blood Urea Nitrogen 9 Creatinine 0.86 Glucose Level 91 Calcium Level 9.3 Phosphorus Level 5.9 H Magnesium Level 1.8 Albumin 3.7 Medications Medications Current Medications Benazepril HCl (Lotensin) 10 mg DAILY PO Last administered on 10/18/17 08:25 ; Admin Dose 10 MG; Start 10/09/17 at 09:00 Isosorbide Mononitrate (Imdur) 30 mg DAILY PO Last administered on 10/18/17 08:26; Admin Dose 30 MG; Start 10/09/17 at 09:00 Levothyroxine Sodium (Synthroid) 50 mcg DAILY@06 PO Last administered on 05:30; Admin Dose 50 MCG; Start 10/09/17 at 06:00 Tolterodine Tartrate (Detrol) 2 mg BID PO Last administered on 10/18/17 08:25 ; Admin Dose 2 MG; Start 10/08/17 at 21:00 Labetalol HCl (Labetalol) 10 mg Q4 PRN IV SBP>160 Last administered on 13:04; Admin Dose 10 MG; Start 10/08/17 at 14:00; Status Future Hold Lorazepam (Ativan) 2 mg Q10MIN PRN IV seizure only; Start 10/08/17 at 14:00 Ondansetron HCl (Zofran Tab) 4 mg Q6H PRN PO NAUSEA AND/OR VOMITING; Start at 14:00 Ondansetron HCl (Zofran Inj) 4 mg Q6H PRN IV NAUSEA AND/OR VOMITING; Start at 14:00 Nitroglycerin (Nitroglycerin (Sl Tab) 0.4 Mg) 1 tab Q5M PRN SL CHEST PAIN Last administered on 10/14/17 00:27; Admin Dose 1 TAB; Start 10/08/17 at 14:00 Acetaminophen (Tylenol Tab) 650 mg Q6H PRN PO PAIN LEVEL 1-3 OR FEVER Last administered on 10/18/17 02:05; Admin Dose 650 MG; Start 10/08/17 at 14:00 Acetaminophen/ Hydrocodone Bitart ([place] (5/325)) 1 tab Q6H PRN PO PAIN LEVEL 4 -6 Last administered on 10/15/17 12:50; Admin Dose 1 TAB; Start 10/08/17 at 14:00 Morphine Sulfate (morphine) 2 mg Q4H PRN IV PAIN LEVEL 7-10 Last administered on 10/17/17 21:35; Admin Dose 2 MG; Start 10/08/17 at 14:00 Bisacodyl (Dulcolax) 5 mg DAILY PRN PO CONSTIPATION; Start 10/08/17 at 14:00 Atorvastatin Calcium (Lipitor) 20 mg HS PO Last administered on 10/17/17 21: 36; Admin Dose 20 MG; Start 10/08/17 at 21:00 Metoprolol Tartrate (Lopressor) 25 mg BID PO Last administered on 10/18/17 08 :26; Admin Dose 25 MG; Start 10/11/17 at 21:00 Hydralazine HCl (Apresoline) 10 mg Q4H PRN IV sbp>160 Last administered on 21:35; Admin Dose 10 MG; Start 10/13/17 at 11:00 Methocarbamol (Robaxin) 1,000 mg TID PO Last administered on 10/18/17 08:25; Admin Dose 1,000 MG; Start 10/14/17 at 13:00 Alprazolam (Xanax) 1 mg Q8H PRN PO ANXIETY Last administered on 10/18/17 05: 30; Admin Dose 1 MG; Start 10/17/17 at 15:12 DALILA BUTT Oct 18, 2017 12:18
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
[2017-10-18] MEDS ORDERED: ALPR0.5T PO (12:53)
[2017-10-18] MEDS ORDERED: HYDR-3498 PO (12:53)
[2017-10-18] MEDS ORDERED: FER325 PO (12:53)
[2017-10-18] MEDS ORDERED: ATOR20TA65 PO (12:53)
[2017-10-18] MEDS ORDERED: METO-448 PO (12:53)
[2017-10-18] MEDS ORDERED: CARI350T29 PO (12:53)
[2017-10-18] MEDS ORDERED: LEVO50TA83 PO (12:53)
[2017-10-18] MEDS ORDERED: BENA10TA48 PO (12:53)
[2017-10-18] MEDS ORDERED: PANT40TA4 PO (12:53)
[2017-10-18] MEDS ORDERED: NIT4 SL (12:53)
[2017-10-18] MEDS ORDERED: ISOS30TA5 PO (12:53)
[2017-10-18] MEDS ORDERED: TOLT2TAB13 PO (12:53)
[2017-10-18] MEDS ORDERED: ASPI-664 PO (12:58)
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
--- NOTE | 2017-10-18 13:00 | PDOCDIS ---
Discharge Instructions DIAGNOSIS Discharge Diagnosis 1. Suprapubic discomfort 2. HTN 3. Syncope-resolved 4. L foot fibrous changes 5. Lactic acidosis- resolved 6. Generalized debility 7. GI ulcer- stable 8. Coronary artery disease 9. Paroxysmal A. fib 10. Anxiety 11. Hypothyroidism 12. Hypertension CONDITION Patient Condition: Fair HOME CARE INSTRUCTIONS: Diet Instructions: Low Fat /CholesterolSpecial Diet: LOW CHOLESTEROL, LOW FAT , 2G NA ACTIVITY: Activity Restrictions: Avoid heavy lifting FOLLOW UP/APPOINTMENTS Follow-up Plan 1. Follow up with your primary care physician in 1 week 2. Take medications as prescribed 3. Talk to you primary care about referral for physical therapy as an outpatient 4. You may want to look into assisted living facilities if you do not feel comfortably in your current living situation 5. Return to the ED if your symptoms worsen 6. Follow up with cardiology in 2 weeks AVA TODD MD Oct 18, 2017 12:59
[2017-10-18 15:28] VITALS: BP 101/55; RESP 19
== END 2017-10-18 15:05 | disposition home or self-care (01) | DRG 641 ==
LOC: E/R 09:54 → MS4 12:28 → MS2 10-13 23:45
PROVIDERS: ADMIT Internal Medicine; ATTEND Internal Medicine
DX: E86.0 Dehydration (principal); E87.2 Acidosis; R56.9 Unspecified convulsions; K25.9 Gastric ulcer, unspecified as acute or chronic, without hemorrhage or perforation; I25.10 Atherosclerotic heart disease of native coronary artery without angina pectoris; I48.0 Paroxysmal atrial fibrillation; F41.9 Anxiety disorder, unspecified; E03.9 Hypothyroidism, unspecified; I10 Essential (primary) hypertension; S91.302D Unspecified open wound, left foot, subsequent encounter; W34.00XD Accidental discharge from unspecified firearms or gun, subsequent encounter; E78.5 Hyperlipidemia, unspecified; D64.9 Anemia, unspecified; R07.9 Chest pain, unspecified; R10.9 Unspecified abdominal pain
CPT/HCPCS: 36415; 70450; 70551; 71010; 76705; 76856; 80048; 80053; 80061; 80069; 80306; 81003; 83605; 83690; 83735; 84100; 84439; 84443; 84484; 85025; 85610; 85730; 87040; 87086; 93005; 96374; 96375; 97110; 97116; 97162; J0360; J0692; J0696; J2060; J2270; J3370; J3475; J3480; J7030

== ENCOUNTER 2017-11-16 11:14 | Inpatient (IN) | END 2017-11-18 16:15 | disposition home or self-care (01) | DRG 312 ==

== ENCOUNTER 2017-12-09 13:29 | Inpatient (IN) | END 2017-12-15 14:47 | disposition home health service (06) | DRG 281 ==

== ENCOUNTER 2018-01-05 13:41 | Emergency (ER) | END 2018-01-05 17:27 | disposition left against medical advice (07) ==

== ENCOUNTER 2018-01-06 07:38 | Emergency (ER) | END 2018-01-06 21:32 | disposition short-term general hospital (02) ==

== ENCOUNTER 2018-02-09 10:45 | Emergency (ER) | END 2018-02-09 18:22 | disposition home or self-care (01) ==

== ENCOUNTER 2018-02-11 12:03 | Inpatient (IN) | END 2018-02-18 15:47 | disposition home or self-care (01) | DRG 871 ==

== ENCOUNTER 2018-03-05 12:07 | Emergency (ER) | END 2018-03-05 12:32 | disposition left against medical advice (07) ==

== ENCOUNTER 2018-03-08 14:36 | Emergency (ER) | END 2018-03-09 00:11 | disposition home or self-care (01) ==

== ENCOUNTER 2018-03-17 18:12 | Emergency (ER) | END 2018-03-17 20:07 | disposition home or self-care (01) ==

== ENCOUNTER 2018-06-03 13:17 | Observation (INO) | END 2018-06-06 12:11 | disposition home or self-care (01) ==

== ENCOUNTER 2018-06-15 23:29 | Emergency (ER) | END 2018-06-15 23:57 | disposition left against medical advice (07) ==

== ENCOUNTER 2018-08-20 16:52 | Emergency (ER) | END 2018-08-20 19:44 | disposition home or self-care (01) ==

== ENCOUNTER 2018-10-06 19:21 | Inpatient (IN) | END 2018-10-08 16:45 | disposition home or self-care (01) | DRG 206 ==

== ENCOUNTER 2019-06-13 13:02 | Inpatient (IN) | payer OTHER ==
[~2019-06-13] VITALS: Ht 162.6 cm; Wt 64.0 kg
[~2019-06-13 13:02] MED LIST changes: -ALPR0.5T PO; +ALPR0.5T6 PO; +AMLO-145 PO; +ATOR40TA68 PO; -BENA10TA48 PO; -CIPR500T4 PO; -FER325 PO; +GUAI120S25 PO; +ISOS10TA2 PO; +ISOS20TA19 PO; -ISOS30TA5 PO; +LEVO50TA71 PO; -LEVO50TA83 PO; +LOSA25TA2 PO; -NIT4 SL; +NITR0.4T32 SL; +NITR0.4T39 SL; +OLME1TAB37 PO; +OMEP20CA16 PO; -PANT40TA4 PO; -SIMV10TA PO; -TOLT2TAB13 PO; +ZOLP10TA5 PO
[2019-06-13] MEDS ORDERED: ONDANSETRON 4 MG INJ IV STA (13:14)
[2019-06-13] MEDS ORDERED: SOD CHLORIDE 0.9% 1,000 ML IV STA ×3 (13:14→16:13)
[2019-06-13] MEDS ORDERED: morphine 2 MG INJ IV STA (13:14)
--- NOTE | 2019-06-13 13:28 | ERD ---
ER Documentation Chief Complaint Chief Complaint weak,shortness of breath,pressure like pain radiating to left arm;blurry vi HPI 64-year-old female who presents to the emergency room complaining of chest pain, shortness of breath. Patient states that earlier this morning she felt lightheaded and weak. She describes some blurred vision and chest discomfort that is pressure-like. She describes a history of non-ST elevation myocardial infarction. Based on EMR her last angiogram was in January 2018. Patient is also feeling somewhat anxious. She denies any mid back pain, pleuritic pain or calf swelling. Took aspirin today. ROS All systems reviewed and are negative except as per history of present illness. Medications Home Meds Reported Medications Umjfckdekv-Wudpvylucd-BCWB (Tribenzor) 40-10-25 Mg Tablet, 1 TAB PO DAILY, TAB 06/13/19 Omeprazole* (Omeprazole*) 20 Mg Capsule.dr, 20 MG PO DAILY, #30 CAP 06/13/19 Atorvastatin* (Atorvastatin*) 40 Mg Tablet, 40 MG PO QHS, #30 TAB 06/13/19 Isosorbide Dinitrate* (Isosorbide Dinitrate*) 20 Mg Tablet, 30 MG PO DAILY, TAB 06/13/19 Nitroglycerin* (Nitrostat*) 0.4 Mg Tab.subl, 0.4 MG SL Q5MIN PRN for CHEST PAIN, BOTTLE 06/13/19 Zolpidem Tartrate* (Zolpidem Tartrate*) 10 Mg Tablet, 10 MG PO QHS PRN for INSOMNIA, #30 TAB 06/13/19 Levothyroxine Sodium* (Levoxyl*) 50 Mcg Tablet, 50 MCG PO BEFORE BREAKFAST, #30 TAB 06/13/19 Carisoprodol* (Carisoprodol*) 350 Mg Tablet, 350 MG PO DAILY PRN for MUSCLE SPASMS, TAB 06/13/19 Alprazolam* (Alprazolam*) 0.5 Mg Tablet, 0.5 MG PO BID PRN for ANXIETY, TAB 06/13/19 Discontinued Reported Medications Atorvastatin* (Atorvastatin*) 40 Mg Tablet, 40 MG PO QHS, #30 TAB 06/03/18 Levothyroxine Sodium* (Levoxyl*) 50 Mcg Tablet, 50 MCG PO BEFORE BREAKFAST, #30 TAB 06/03/18 Zolpidem Tartrate* (Zolpidem Tartrate*) 10 Mg Tablet, 10 MG PO QHS PRN for INSOMNIA, #30 TAB 06/03/18 Alprazolam* (Alprazolam*) 0.5 Mg Tablet, 0.5 MG PO BID PRN for ANXIETY, TAB 06/03/18 Omeprazole* (Omeprazole*) 20 Mg Capsule.dr, 20 MG PO DAILY, #30 CAP 06/03/18 Discontinued Scripts Clwzzgytmyp-W-Bwihkdlmmh Hb* (Guaifenesin* DM Syrup) 120 Ml Syrup, 5 ML PO Q6 PRN for COUGH, #1 BOTTLE Prov:SILVIA HUERTA S. 10/08/18 Nitroglycerin* (Nitroglycerin* SL) 0.4 Mg Tab.subl, 1 TAB SL Q5M PRN for ANGINA, #90 TAB 1 Refill Prov:BETO GUERRERONereida 06/06/18 Amlodipine Besylate* (Amlodipine Besylate*) 5 Mg Tablet, 5 MG PO DAILY, #60 TAB Prov:BETO GUERRERONereida 06/06/18 Isosorbide Dinitrate* (Isordil*) 10 Mg Tablet, 10 MG PO TID, #90 TAB 1 Refill Prov:WING GUERRERO 06/06/18 Allergies Allergies: Coded Allergies: No Known Allergy (Unverified , 06/13/19) PMhx/Soc History of Surgery: Yes ( , merced cath (1198& 2001)) Anesthesia Reaction: No Hx Neurological Disorder: Yes (Seizure) Hx Respiratory Disorders: Yes (pneumonia) Hx Cardiac Disorders: Yes (CAD, [place] (2003), HTN) Hx Psychiatric Problems: Yes (anxiety) Hx Miscellaneous Medical Probl: No Hx Alcohol Use: Yes (socially) Hx Substance Use: No Hx Tobacco Use: No FmHx Family History: No diabetes Physical Exam Vitals Vital Signs Date Temp Pulse Resp B/P (MAP) Pulse Ox O2 O2 Flow FiO2 Time Delivery Rate 06/13/19 73 17 94/69 (77) 98 Room Air 14:15 06/13/19 84 22 81/61 (68) 100 Room Air 13:45 06/13/19 98.2 86 22 88/69 (75) 97 Room Air 13:30 06/13/19 88 16 99/71 (80) 13:12 06/13/19 97.9 99 24 76/54 (61) 98 13:04 Physical Exam General: Well developed, well nourished, no acute distress Head: Normocephalic, atraumatic. Eyes: Pupils equally reactive, EOM intact ENT: Moist mucous membranes Neck: Supple, no lymphadenopathy Respiratory: Lungs clear bilaterally, no distress Cardiovascular: RRR, no murmurs, rubs, or gallops Abdominal: Soft, non-tender, non-distended, no peritoneal signs : Deferred MSK: No edema, no unilateral swelling, 5/5 strength Neurologic: Alert and oriented, moving all extremities, normal speech, no focal weakness, no cerebellar signs Skin: No rash Psych: Normal mood Result Diagram: 06/13/19 1334 06/13/19 1334 Results 24 hrs Laboratory Tests Test 06/13/19 13:34 White Blood Count 7.8 10^3/ul Red Blood Count 3.81 10^6/ul Hemoglobin 11.9 g/dl Hematocrit 36.4 % Mean Corpuscular Volume 95.5 fl Mean Corpuscular Hemoglobin 31.2 pg Mean Corpuscular Hemoglobin Concent 32.7 g/dl Red Cell Distribution Width 12.4 % Platelet Count 333 10^3/UL Mean Platelet Volume 8.6 fl Immature Granulocytes % 0.300 % Neutrophils % 64.5 % Lymphocytes % 24.6 % Monocytes % 7.9 % Eosinophils % 1.5 % Basophils % 1.2 % Nucleated Red Blood Cells % 0.0 /100WBC Immature Granulocytes # 0.020 10^3/ul Neutrophils # 5.0 10^3/ul Lymphocytes # 1.9 10^3/ul Monocytes # 0.6 10^3/ul Eosinophils # 0.1 10^3/ul Basophils # 0.1 10^3/ul Nucleated Red Blood Cells # 0.0 10^3/ul Prothrombin Time 13.5 Sec Prothrombin Time Ratio 1.1 INR International Normalized Ratio 1.02 Activated Partial Thromboplast Time 30.3 Sec Sodium Level 141 mmol/L Potassium Level 4.5 mmol/L Chloride Level 103 mmol/L Carbon Dioxide Level 26 mmol/L Anion Gap 12 Blood Urea Nitrogen 27 mg/dl Creatinine 1.46 mg/dl Est Glomerular Filtrat Rate mL/min 36 mL/min Glucose Level 125 mg/dl Calcium Level 9.5 mg/dl Troponin I < 0.012 ng/ml Current Medications Medications Dose Sig/Marixa Start Time Status Last (Trade) Ordered Route PRN Stop Time Admin Dose Reason Admin Sodium 1,000 ml @ Q1H STAT 06/13/19 DC 06/13/19 Chloride 1,000 mls/hr IV 13:14 13:37 06/13/19 14:13 Morphine 2 mg ONCE STAT 06/13/19 DC 06/13/19 Sulfate IV 13:14 13:47 (morphine) 06/13/19 13:15 Ondansetron 4 mg ONCE STAT 06/13/19 DC 06/13/19 HCl (Zofran IV 13:14 13:46 Inj) 06/13/19 13:15 Ondansetron 4 mg ER BRIDGE 06/13/19 HCl (Zofran PRN IV 15:00 Inj) NAUSEA/VOMITI 06/14/19 14:59 NG 650 mg ER BRIDGE 06/13/19 Acetaminophen PRN PO 15:00 (Tylenol .MILD PAIN 06/14/19 14:59 Tab) 1-3 OR TEMP IV Flush 3 ml PER 06/13/19 UNV (NS 3 ml) PROTOCOL IV 15:30 Ondansetron 4 mg Q6H PRN 06/13/19 UNV HCl (Zofran IV 15:30 Inj) NAUSEA/VOMITI NG 650 mg Q6H PRN 06/13/19 UNV Acetaminophen PO .PAIN 1-3 15:30 (Tylenol OR TEMP Tab) Enoxaparin 40 mg DAILY SC 06/14/19 UNV Sodium 09:00 (Lovenox) Alprazolam 0.5 mg BID PRN 06/13/19 UNV (Xanax) PO ANXIETY 16:00 40 mg QHS PO 06/13/19 UNV Atorvastatin 21:00 Calcium (Lipitor) 350 mg DAILY PRN 06/13/19 UNV Carisoprodol PO MUSCLE 16:00 (Soma) SPASMS Isosorbide 30 mg DAILY PO 06/14/19 UNV Dinitrate 09:00 (Isordil) 50 mcg BEFORE 06/14/19 UNV Levothyroxine BREAKFAST 07:00 Sodium PO (Synthroid) 1 tab [id number] 06/13/19 UNV Nitroglycerin PRN SL 16:00 CHEST PAIN (Nitroglyceri n (Sl Tab) 0.4 Mg) Zolpidem 10 mg QHS PRN 06/13/19 UNV Tartrate PO INSOMNIA 16:00 (Ambien) 1 tab DAILY PO 06/14/19 UNV Miscellaneous 09:00 Information 20 mg DAILY PO 06/14/19 UNV Miscellaneous 09:00 Information Sodium 1,000 ml @ Q1H STAT 06/13/19 Chloride 1,000 mls/hr IV 16:13 06/13/19 17:12 Sodium 1,000 ml @ Q1H STAT 06/13/19 Chloride 1,000 mls/hr IV 16:13 06/13/19 17:12 Procedures/MDM EKG, MONITORS, & DIAGNOSTIC IMAGING: EKG: I reviewed and interpreted a 12-lead EKG. Rhythm: Normal sinus rhythm ST Changes: No contiguous ST segment elevations T waves: No contiguous T wave inversions Impression: No evidence of acute cardiac ischemia Repeat EKG: EKG: I reviewed and interpreted a 12-lead EKG. Rhythm: Normal sinus rhythm ST Changes: No contiguous ST segment elevations T waves: No contiguous T wave inversions Impression: No evidence of acute cardiac ischemia Chest x-ray: I reviewed and interpreted a 1 view of the chest Mediastinum: No enlargement Cardiac silhouette: No cardiomegaly Airspace: Clear lung millan bilaterally without evidence of pneumothorax Bones: No evidence of fracture PROCEDURES: None LAB INTERPRETATION: Negative troponin MEDICAL DECISION MAKING: The patient's history, physical exam and clinical presentation is concerning for possible cardiogenic etiology and acute coronary syndrome. Anxiety may be playing a role in the patient's presentation however the patient's last visit was in September of last year. Based on the patient's clinical exam and history and risk factors, I have a much lower clinical concern for pulmonary embolism, acute aortic dissection, pneumothorax, pneumonia, cardiac tamponade HEART Score: 5 MACE Rate: 16.6% Shared Decision Making: We had a conversation regarding risk stratification, MACE rate, and the risks, benefits, alternatives of disposition planning options. Disposition planning: Admission for ACS rule out ER COURSE: * Patient's blood pressure is borderline though I do not believe this is consistent with aortic rupture. Pulmonary embolism. Patient may have some mild dehydration. Patient does not appear to be in cardiogenic shock. Patient will benefit from IV fluids. Aspirin taken prior to arrival. Small dose of morphine provided. Nitroglycerin withheld given borderline blood pressure. * The patient's chest pain is improving. The patient's blood pressure however remains an 80 and 90 range. The patient has a little bump in her creatinine possibly consistent with dehydration. Fluid resuscitation seems to be improving. The patient again has no evidence of infectious process. No evidence of cardiogenic shock. Continue to monitor the blood pressure but no indication for broad-spectrum antibiotics, vasopressors or other significant interventions at this time. CONSULTATION: None DISPOSITION PLAN: Accepting care team and consultations: I discussed the current laboratory data, diagnostic imaging and emergency care provided. Admitting team: Dr. Terrell Admitting team indication: Insurance directed Departure Diagnosis: Primary Impression: Dehydration Additional Impressions: Chest pain Chest pain type: unspecified Qualified Codes: R07.9 - Chest pain, unspecified Acute renal insufficiency Condition: Stable REKHA DIAZ MD Jun 13, 2019 13:28
[2019-06-13] MEDS ORDERED: ONDANSETRON 4 MG INJ IV PRN ×2 (15:00→15:30)
[2019-06-13] MEDS ORDERED: ACETAMINOPHEN 325 MG TAB PO PRN (15:00)
[2019-06-13] MEDS ORDERED: NACL 0.9% 3 ML SYG IV SCH (15:30)
--- NOTE | 2019-06-13 15:57 | HP ---
Date/Time of Note Date/Time of Note DATE: 06/13/19 TIME: 15:34 Assessment/Plan VTE Prophylaxis SCD applied (from Nsg): Yes Pharmacological prophylaxis: NA/contraindicated Pharm contraindication: low risk/ambulating Lines/Catheters IV Catheter Type (from Nrsg): Saline Lock Assessment/Plan Assessment/Plan 64 yo woman history of HTN, nonobstructive CAD, dyslipidemia, anxiety, and GERD who presents with fatigue and heart palpitations. #Chest pain #Heart palpitations #Dyspnea - I suspect these are all related to hypovolemic state and hypotension - Low suspicion for ACS with negative troponin. EKG is unusual but appears unchanged from May 2018. - Patient is now chest pain free - s/p 2L bolus in ED. #New heart murmur - Loud 4/6 systolic murmur - Echo in May 2018 shows mild aortic stenosis - This may have progressed. Repeat echo, consult cardiology #Nausea #Diarrhea #Fatigue - I suspect she has acute gastroenteritis leading to inadequate PO intake and GI losses causing hypovolemia - IV and oral rehydration. - zofran prn #HTN - Continue home BP meds if blood pressure has recovered in AM #dyslipidemia #CAD - Cont home statin #Hypothyroid - Cont home synthroid #anxiety - Cont home benzos DVT: SCDs GI: PPI Result Diagram: 06/13/19 1334 06/13/19 1334 HPI/ROS Admit Date/Time Admit Date/Time 13 June 2019 Hx of Present Illness Ms. Abdalla is a 64 yo woman with history of HTN, nonobstructive CAD, dyslipidemia, anxiety, and GERD who presents with fatigue and heart palpitations. She was in her usual state of health until about 3 days ago, when she developed nausea, poor appetite, and loose stools. She grew progressively more fatigued over this time. Today she woke up very fatigued and struggled to walk to the bus stop. While standing at the bus stop she developed blurry vision, dyspnea, heart palpitations, and chest pressure. She then brought herself the the emergency room. She reports compliance with all listed medications. She has several ED admissions in 2018 for chest pain and had a left heart cath by Dr. Cullen 02/15/2018 which showed nonobstructive coronary artery disease. In the ED she was afebrile, P 70-80s, hypotensive 88/69, saturating 97% on room air. Labs notable for RUTH with Cr 1.46. Troponin negative. Her EKG is unusual with Q waves in inferior leads and poor R wave progression in lateral leads; but it appears unchanged from last EKG in 05/2018. ROS She denies fever, chills, night sweats, vertigo, sore throat, dysphagia, rhinorrhea, cough, vomiting, constipation, abdominal pain, leg swelling, dysuria, hematuria, new urinary frequency. PMH/Family/Social Past Medical History Coronary artery disease Hypertension Dyslipidemia Anxiety Medications Current Medications Ondansetron HCl (Zofran Inj) 4 mg ER BRIDGE PRN IV NAUSEA/VOMITING; Start 06/13/19 at 15:00; Stop 06/14/19 at 14:59 Acetaminophen (Tylenol Tab) 650 mg ER BRIDGE PRN PO .MILD PAIN 1-3 OR TEMP; Start 06/13/19 at 15:00; Stop 06/14/19 at 14:59 IV Flush (NS 3 ml) 3 ml PER PROTOCOL IV ; Start 06/13/19 at 15:30; Status UNV Ondansetron HCl (Zofran Inj) 4 mg Q6H PRN IV NAUSEA/VOMITING; Start 06/13/19 at 15:30; Status UNV Acetaminophen (Tylenol Tab) 650 mg Q6H PRN PO .PAIN 1-3 OR TEMP; Start 06/13/19 at 15:30; Status UNV Enoxaparin Sodium (Lovenox) 40 mg DAILY SC ; Start 06/14/19 at 09:00; Status UNV Coded Allergies: No Known Allergy (Unverified , 06/13/19) Past Surgical History x2 Left heart cath 01/2018 Past Surgical Hx: other Family History Significant Family History: no pertinent family hx Social History Lives alone in affordable housing Alcohol Use: occasionally Smoking Status: Never smoker Drug Use: none Exam/Review of Systems Vital Signs Vitals Vital Signs Date Temp Pulse Resp B/P (MAP) Pulse Ox O2 O2 Flow FiO2 Time Delivery Rate 06/13/19 73 17 94/69 (77) 98 Room Air 14:15 06/13/19 98.2 13:30 Exam Exam Gen: Well appearing woman in no acute distress. Eyes: PERRL, no icterus HEENT: Dry mucous membranes, clear oropharynx, missing several teeth. Neck: Supple, flat jugular vein, no lymphadenopathy Card: 4/6 systolic ejection murmur. Regular rate and rhythm. Pulm: Clear to auscultation bilaterally Abd: Soft, normoactive bowel sounds, nondistended, no hepatosplenomegaly, nontender. Ext: No cyanosis/clubbing/edema Skin: warm, dry, well perfused. DALILA PERALTA MD Jun 13, 2019 15:45
[2019-06-13] MEDS ORDERED: NITROGLYCERIN (SL) 0.4 MG TAB SL PRN (16:00)
[2019-06-13 17:00] VITALS: BP 122/63; PULSE 72; RESP 16
[2019-06-13 17:45] VITALS: Ht 162.6 cm; Wt 64.0 kg
[2019-06-13] MEDS: ACETAMINOPHEN 325 MG TAB PO PRN (19:50)
[2019-06-13 20:00] VITALS: BP 112/63; PULSE 75; RESP 18
[2019-06-13] MEDS: ATORVASTATIN 40 MG TAB PO SCH (20:28)
[2019-06-13] MEDS: ZOLPIDEM 5 MG TAB PO PRN (22:14)
[2019-06-14] VITALS: BP 112/65; PULSE 67; RESP 18
--- NOTE | 2019-06-14 02:25 | CONS ---
DATE OF ADMISSION: 06/13/2019 DATE OF CONSULTATION: 06/13/2019 REASON FOR CONSULTATION: Chest pain, assess for acute coronary syndrome. REQUESTING PHYSICIAN: Dalila Terrell MD, from the hospitalist service. HISTORY OF PRESENT ILLNESS: Ms. Arroyo is a 64-year-old female with history of hypertension an d myocardial infarction with left heart cath in 01/2018 revealing nonobstructive coronary artery dise ase, dyslipidemia, anxiety, gastroesophageal reflux disease, and hypothyroidism, who presents from he r home with feelings of presyncope and generalized weakness upon standing, as well as substernal ches t pain, described as a pressure-like sensation, as well as nausea and poor p.o. intake. The patient states these symptoms have been ongoing for approximately 3 days and additionally does state that she has had loose stools as well. Upon arrival in the emergency department, temperature 97.9, blood pre ssure low at 76/54, pulse 99, respiratory rate 24, satting 98%. LABORATORY: Notable for a white cell count of 7.8, hemoglobin 11.9, platelet count 333. Sodium 141, potassium 4.5, creatinine of 1.46, BUN 27. Troponin negative. INR 1.0. The patient underwent a ch est x-ray revealing mildly elevated left hemidiaphragm with mild left basilar atelectasis, mild cardi omegaly. The patient's electrocardiogram revealed normal sinus rhythm at a rate of 92, left axis dev iation, lateral biphasic T abnormalities, inferior Q's and borderline anterior R progression concerni ng for possible prior anterior NC with anteroseptal Q's. The patient subsequently admitted to the floor and since then has been receiving IV fluid hydration w ith improvement in systolic blood pressure, most recently over 100. PAST MEDICAL HISTORY: As above in HPI, with patient undergoing left heart cath in 01/2018 revealing nonobstructive coronary artery disease. Thus, the patient's NC was concerning for possible vasospast ic angina. MEDICATIONS CURRENTLY IN HOSPITAL: 1. Lovenox 40 mg daily. 2. Isordil 30 mg daily. 3. Synthroid 50 mcg daily. 4. Protonix 40 mg daily. 5. Lipitor 40 mg at bedtime. 6. Xanax. 7. Soma. 8. Sublingual nitroglycerin. 9. Ambien. 10. Zofran. 11. Tylenol. ALLERGIES: NO KNOWN DRUG ALLERGIES. SOCIAL HISTORY: No current tobacco, ETOH or illicit drug use. FAMILY HISTORY: No history of sudden cardiac or early CAD. REVIEW OF SYSTEMS: As above in HPI. CONSTITUTIONAL: No fevers, chills. PULMONARY: No current shortness of breath. CARDIOVASCULAR: Intermittent chest pain. GASTROINTESTINAL: Nausea, no vomiting. GENITOURINARY: Renal failure. PSYCHIATRIC: Anxiety. NEUROLOGIC: No documented history of CVA. ENDOCRINE: Hypothyroidism. PHYSICAL EXAMINATION: VITAL SIGNS: Temperature 98.2, blood pressure is 105/76, pulse of 77, respiratory rate 18, satting 9 8%. GENERAL: The patient is alert, awake, complaining of generalized nausea, blurred vision, generalized weakness. NECK: No jugular venous distention. CHEST: Fair air movement throughout. HEART: Regular rate and rhythm. Normal S1, S2, I/ systolic murmur, nondisplaced PMI. ABDOMEN: Positive bowel sounds, soft. EXTREMITIES: No significant pitting edema, 1+ pulses bilaterally, posterior tibial. IMAGING STUDIES: As above in HPI. No further imaging studies for my review at this time. ECG: As above in HPI. No further electrocardiograms for my review at this time. IMPRESSION: 1. Chest pain, assess for acute coronary syndrome. The patient had a catheterization 01/2018 reveal ing no significant coronary artery disease. 2. Abnormal electrocardiogram with inferior Q's and anteroseptal Q's, assess for acute coronary synd nohemy. This patient presented with chest pain. 3. Hypotension on admit, likely due to dehydration and poor p.o. intake, loose stools. 4. Coronary artery disease, nonobstructive by catheterization in 01/2018. 5. Dyslipidemia. 6. Blurry vision. 7. Generalized weakness. 8. Hypothyroidism. 9. Anxiety. RECOMMENDATIONS: 1. At this time, we would maintain the patient on telemetry monitoring to follow rhythm and rate con trol closely. 2. We would continue the patient's IV fluid hydration, following volume status closely, strict I's a nd O's and creatinine closely. 3. Agree with initiation of oral nitrates once the patient's blood pressure has improved and will ju st change the patient's formulary from isosorbide dinitrate to isosorbide mononitrate for once daily dosing. 4. Continue the patient's statin therapy and adjust according to a fasting lipid panel to be checked . 5. The patient will be ordered for 2D echo for reassessment of patient's ejection fraction, wall mot ion and to reassess the etiology of patient's very notable murmur. 6. Continue the patient's antianxiety medications as necessary. 7. If the patient continues to have blurred vision or any other neurologic symptoms we will consider a head CT. Thank you for allowing me to take part in the care of this patient. I will continue to follow very c losely with you with further recommendations to be made as the patient progresses through her [facility] clinical course. Dictated By: DALILA ROMO/MURTAZA Conf#: [id number] DID#: [id number] CC: DALILA TERRELL MD;*EndCC*
[2019-06-14 04:00] VITALS: BP 100/64; PULSE 65; RESP 18
[2019-06-14] MEDS: ACETAMINOPHEN 325 MG TAB PO PRN ×3 (04:03→18:47)
[2019-06-14] MEDS: ALPRAZOLAM 0.5 MG TAB PO PRN ×2 (04:08→11:03)
[2019-06-14] MEDS: LEVOTHYROXINE 50 MCG TAB PO SCH (06:25)
[2019-06-14] MEDS: PANTOPRAZOLE (EC) 40 MG TAB PO SCH (06:25)
[2019-06-14 07:15] VITALS: BP 101/74; PULSE 63; RESP 16
[2019-06-14] MEDS: ISOSORBIDE MONONITRATE(SR)30 MG TAB PO SCH ×2 (08:28→09:00)
[2019-06-14] MEDS: ENOXAPARIN 40 MG/0.4 ML SYG SC SCH (08:42)
[2019-06-14] MEDS ORDERED: NON-FORMULARY/PATIENT OWN MED (Olmesartan-Amlodipine-HCTZ (Tribenzor) 1 TAB) PO SCH (09:00)
[2019-06-14] MEDS ORDERED: ISOSORBIDE DINITRATE 10 MG TAB PO SCH (09:00)
[2019-06-14] MEDS ORDERED: AMLODIPINE 10 MG TAB PO SCH (09:00)
[2019-06-14] MEDS: HYDROCHLOROTHIAZIDE 25 MG TAB PO SCH (09:00)
[2019-06-14] MEDS ORDERED: LOSARTAN 50 MG TAB PO SCH (09:00)
[2019-06-14] MEDS ORDERED: NON-FORMULARY/PATIENT OWN MED (Omeprazole* 20 MG) PO SCH (09:00)
--- NOTE | 2019-06-14 10:13 | PN ---
Date/Time of Note Date/Time of Note DATE: 06/14/19 TIME: 10:09 Assessment/Plan VTE Prophylaxis Risk score (from Nsg)>0 risk: 3 SCD applied (from Nsg): Yes Pharmacological prophylaxis: NA/contraindicated Pharm contraindication: low risk/ambulating Lines/Catheters IV Catheter Type (from Nrsg): Saline Lock Urinary Cath still in place: No Assessment/Plan Assessment/Plan 64 yo woman history of HTN, nonobstructive CAD, dyslipidemia, anxiety, and GERD who presents with fatigue and heart palpitations. #Chest pain #Heart palpitations #Dyspnea - I suspect these are all related to hypovolemic state and hypotension - Low suspicion for ACS with negative troponin. EKG is unusual but appears unchanged from May 2018. - Patient is now chest pain free - s/p 2L bolus in ED. - Monitor for 24 hours on telemetry. So far she appears to have 1st degree AV block, no other events. #New heart murmur - Loud 4/6 systolic murmur - Echo in May 2018 shows mild aortic stenosis - This may have progressed. Repeat echo, consult cardiology #Headache, blurry vision - Will get head CT #Nausea #Diarrhea #Fatigue - I suspect she has acute gastroenteritis leading to inadequate PO intake and GI losses causing hypovolemia - IV and oral rehydration. - zofran prn - Nausea, diarrhea now resolved. #HTN - Continue home BP meds #dyslipidemia #CAD - Cont home statin #Hypothyroid - Cont home synthroid #anxiety - Cont home benzos DVT: SCDs GI: PPI Result Diagram: 06/14/19 0506/14/19527 Subjective 24 Hr Interval Summary Free Text/Dictation No acute overnight events. Patient still having intermittent frontal tension-type headache and blurry vision. No flashes or floaters. Also with mild "tugging" chest discomfort lasting seconds relieved by deep breath, consistent with precordial catch syndrome. Otherwise ambulating independently. Tolerating diet. Exam/Review of Systems Exam Vitals Vital Signs Date Temp Pulse Resp B/P (MAP) Pulse Ox O2 O2 Flow FiO2 Time Delivery Rate 06/14/19 98.4 63 16 101/74 96 07:15 (83) 06/13/19 Room Air 17:17 Intake and Output 06/13/19 06/13/19 06/14/19 1414:59 22:59 06:59 IntakeIntake Total 250 ml 240 ml BalanceBalance 250 ml 240 ml Exam Gen: Well appearing woman in no acute distress. Eyes: PERRL, no icterus HEENT: Moist mucous membranes, clear oropharynx, missing several teeth. Neck: Supple, no lymphadenopathy Card: 4/6 systolic ejection murmur. Regular rate and rhythm. Pulm: Clear to auscultation bilaterally Abd: Soft, normoactive bowel sounds, nondistended, no hepatosplenomegaly, nontender. Ext: No cyanosis/clubbing/edema Skin: warm, dry, well perfused. Results Results 24hrs Laboratory Tests Test 06/13/19 13:34 06/13/19 19:36 06/14/19 00:43 06/14/19 05:28 White Blood Count 7.8 # 5.0 # Red Blood Count 3.81 L 3.35 L Hemoglobin 11.9 L 10.4 L Hematocrit 36.4 L 33.3 L Mean Corpuscular 95.5 99.4 Volume Mean Corpuscular 31.2 31.0 Hemoglobin Mean Corpuscular 32.7 31.2 L Hemoglobin Concent Red Cell 12.4 12.3 Distribution Width Platelet Count 333 251 # Mean Platelet Volume 8.6 9.1 Immature 0.300 0.200 Granulocytes % Neutrophils % 64.5 46.2 Lymphocytes % 24.6 35.9 Monocytes % 7.9 10.7 Eosinophils % 1.5 5.4 Basophils % 1.2 1.6 Nucleated Red Blood 0.0 0.0 Cells % Immature 0.020 0.010 Granulocytes # Neutrophils # 5.0 2.3 Lymphocytes # 1.9 1.8 Monocytes # 0.6 0.5 Eosinophils # 0.1 0.3 Basophils # 0.1 0.1 Nucleated Red Blood 0.0 0.0 Cells # Prothrombin Time 13.5 Prothrombin Time 1.1 Ratio INR International 1.02 Normalized Ratio Activated 30.3 Partial Thromboplast Time Sodium Level 141 141 Potassium Level 4.5 3.9 Chloride Level 103 108 Carbon Dioxide Level 26 26 Anion Gap 12 7 Blood Urea Nitrogen 27 H 13 # Creatinine 1.46 H 0.84 Est Glomerular 36 L > 60 Filtrat Rate mL/min Glucose Level 125 120 Calcium Level 9.5 9.0 Troponin I < 0.012 < 0.012 < 0.012 Creatine Kinase 28 25 Creatine Kinase 1.6 1.9 Index Creatinine Kinase MB 0.46 0.47 (Mass) Hemoglobin A1c 5.0 Phosphorus Level 3.8 Magnesium Level 1.7 Total Bilirubin 0.4 Direct Bilirubin 0.00 Indirect Bilirubin 0.4 Aspartate Amino 20 Transf (AST/SGOT) Alanine 13 Aminotransferase (AL T/SGPT) Alkaline Phosphatase 71 Total Protein 6.1 Albumin 3.4 Globulin 2.70 Albumin/Globulin 1.25 Ratio Triglycerides Level 142 Cholesterol Level 119 LDL Cholesterol, 49 Calculated HDL Cholesterol 42 Cholesterol/HDL 2.8 Ratio Thyroid Stimulating 3.890 Hormone (TSH) Medications Medication Current Medications IV Flush (NS 3 ml) 3 ml PER PROTOCOL IV ; Start 06/13/19 at 15:30 Ondansetron HCl (Zofran Inj) 4 mg Q6H PRN IV NAUSEA/VOMITING; Start 06/13/19 at 15:30 Acetaminophen (Tylenol Tab) 650 mg Q6H PRN PO .PAIN 1-3 OR TEMP Last administered on 06/14/19 04:03; Admin Dose 650 MG; Start 06/13/19 at 15:30 Enoxaparin Sodium (Lovenox) 40 mg DAILY SC Last administered on 06/14/19at 08:42; Admin Dose 40 MG; Start 06/14/19 at 09:00 Alprazolam (Xanax) 0.5 mg BID PRN PO ANXIETY Last administered on 06/14/19at 04: 08; Admin Dose 0.5 MG; Start 06/13/19 at 16:00 Atorvastatin Calcium (Lipitor) 40 mg QHS PO Last administered on 06/13/19at 20:28; Admin Dose 40 MG; Start 06/13/19 at 21:00 Carisoprodol (Soma) 350 mg DAILY PRN PO MUSCLE SPASMS; Start 06/13/19 at 16:00 Levothyroxine Sodium (Synthroid) 50 mcg BEFORE BREAKFAST PO Last administered on 06/14/19at 06:25; Admin Dose 50 MCG; Start 06/14/19 at 07:00 Nitroglycerin (Nitroglycerin (Sl Tab) 0.4 Mg) 1 tab [id number] PRN SL CHEST PAIN; Start 06/13/19 at 16:00 Zolpidem Tartrate (Ambien) 10 mg QHS PRN PO INSOMNIA Last administered on 7/25/19at 22:14; Admin Dose 10 MG; Start 06/13/19 at 16:00 Pantoprazole (Protonix Tab) 40 mg DAILY@06 PO Last administered on 06/14/19at 06:25; Admin Dose 40 MG; Start 06/14/19 at 06:00 Isosorbide Mononitrate (Imdur) 30 mg DAILY PO ; Start 06/14/19 at 09:00 Losartan Potassium (Cozaar) 100 mg DAILY PO ; Start 06/14/19 at 09:00 Amlodipine Besylate (Norvasc) 10 mg DAILY PO ; Start 06/14/19 at 09:00 Hydrochlorothiazide (Hydrochlorothiazide) 25 mg DAILY PO ; Start 06/14/19 at 09:00 DALILA PERALTA MD Jun 14, 2019 10:13
[2019-06-14 11:06] VITALS: BP 99/60; PULSE 72; RESP 18
--- NOTE | 2019-06-14 13:46 | CONS ---
Assessment/Plan Assessment/Plan Hospital Course (Demo Recall) IMPRESSION: 1. Chest pain, assess for acute coronary syndrome. The patient had a catheterization 01/2018 revealing no significant coronary artery disease. -neg trop x 3 and pain now resolved 2. Abnormal electrocardiogram with inferior Q's and anteroseptal Q's, assess for acute coronary syndrome. This patient presented with chest pain. 3. Hypotension on admit, likely due to dehydration and poor p.o. intake, loose stools. 4. Coronary artery disease, nonobstructive by catheterization in 01/2018. 5. Dyslipidemia. 6. Blurry vision. 7. Generalized weakness. 8. Hypothyroidism. 9. Anxiety. Recc: -Tele -will f/u echo -holding antihypertenives and will reduce dose so when does receive them does not significantly reduce BP -would give additional IVF hydration Consultation Date/Type/Reason Admit Date/Time Jun 13, 2019 at 14:51 Initial Consult Date 06/13/19 Type of Consult Cardiology Reason for Consultation chest pain Requesting Provider: DALILA PERALTA MD Date/Time of Note DATE: 06/14/19 TIME: 13:39 Exam/Review of Systems Vital Signs Vitals Vital Signs Date Temp Pulse Resp B/P (MAP) Pulse Ox O2 O2 Flow FiO2 Time Delivery Rate 06/14/19 72 18 99/60 (73) 99 11:06 06/14/19 98.4 07:15 06/13/19 Room Air 17:17 Intake and Output 06/13/19 06/13/19 06/14/19 1515:00 23:00 07:00 IntakeIntake Total 250 ml 240 ml BalanceBalance 250 ml 240 ml Exam Exam Review of Systems: CONSTITUTIONAL: No fevers, chills. PULMONARY: No sob CARDIOVASCULAR: No chest pain/palpitations GASTROINTESTINAL: No nausea/vomiting. GENITOURINARY: dysuria. MUSCULOSKELETAL: No myagias/arthalgias. PSYCHIATRIC: The patient denies depression. NEUROLOGIC: No weakness Constitutional: alert Psych: no complaints Head: normocephalic ENMT: mucosa pink and moist Neck: supple, jvd (9 cm water) Respiratory: clear to auscultation Cardiovascular: regular rate and rhythm Gastrointestinal: soft, non-tender Musculoskeletal: muscle tone (normal) Extremities: edema (none) Neurological: other (No focal deficits) Labs Result Diagram: 06/14/19 0528 06/14/19 0528 Results 24hrs Laboratory Tests Test 06/13/19 19:36 06/14/19 00:43 06/14/19 05:28 Creatine Kinase 28 25 Creatine Kinase Index 1.6 1.9 Creatinine Kinase MB (Mass) 0.46 0.47 Troponin I < 0.012 < 0.012 White Blood Count 5.0 # Red Blood Count 3.35 L Hemoglobin 10.4 L Hematocrit 33.3 L Mean Corpuscular Volume 99.4 Mean Corpuscular Hemoglobin 31.0 Mean Corpuscular Hemoglobin Concent 31.2 L Red Cell Distribution Width 12.3 Platelet Count 251 # Mean Platelet Volume 9.1 Immature Granulocytes % 0.200 Neutrophils % 46.2 Lymphocytes % 35.9 Monocytes % 10.7 Eosinophils % 5.4 Basophils % 1.6 Nucleated Red Blood Cells % 0.0 Immature Granulocytes # 0.010 Neutrophils # 2.3 Lymphocytes # 1.8 Monocytes # 0.5 Eosinophils # 0.3 Basophils # 0.1 Nucleated Red Blood Cells # 0.0 Sodium Level 141 Potassium Level 3.9 Chloride Level 108 Carbon Dioxide Level 26 Anion Gap 7 Blood Urea Nitrogen 13 # Creatinine 0.84 Est Glomerular Filtrat Rate mL/min > 60 Glucose Level 120 Hemoglobin A1c 5.0 Calcium Level 9.0 Phosphorus Level 3.8 Magnesium Level 1.7 Total Bilirubin 0.4 Direct Bilirubin 0.00 Indirect Bilirubin 0.4 Aspartate Amino Transf (AST/SGOT) 20 Alanine Aminotransferase (ALT/SGPT) 13 Alkaline Phosphatase 71 Total Protein 6.1 Albumin 3.4 Globulin 2.70 Albumin/Globulin Ratio 1.25 Triglycerides Level 142 Cholesterol Level 119 LDL Cholesterol, Calculated 49 HDL Cholesterol 42 Cholesterol/HDL Ratio 2.8 Thyroid Stimulating Hormone (TSH) 3.890 Medications Medications Current Medications IV Flush (NS 3 ml) 3 ml PER PROTOCOL IV ; Start 06/13/19 at 15:30 Ondansetron HCl (Zofran Inj) 4 mg Q6H PRN IV NAUSEA/VOMITING; Start 06/13/19 at 15:30 Acetaminophen (Tylenol Tab) 650 mg Q6H PRN PO .PAIN 1-3 OR TEMP Last administered on 06/14/19at 11:03; Admin Dose 650 MG; Start 06/13/19 at 15:30 Enoxaparin Sodium (Lovenox) 40 mg DAILY SC Last administered on 06/14/19at 08:42; Admin Dose 40 MG; Start 06/14/19 at 09:00 Alprazolam (Xanax) 0.5 mg BID PRN PO ANXIETY Last administered on 06/14/19at 11:03; Admin Dose 0.5 MG; Start 06/13/19 at 16:00 Atorvastatin Calcium (Lipitor) 40 mg QHS PO Last administered on 06/13/19at 20:28; Admin Dose 40 MG; Start 06/13/19 at 21:00 Carisoprodol (Soma) 350 mg DAILY PRN PO MUSCLE SPASMS; Start 06/13/19 at 16:00 Levothyroxine Sodium (Synthroid) 50 mcg BEFORE BREAKFAST PO Last administered on 06/14/19at 06:25; Admin Dose 50 MCG; Start 06/14/19 at 07:00 Nitroglycerin (Nitroglycerin (Sl Tab) 0.4 Mg) 1 tab [id number] PRN SL CHEST PAIN; Start 06/13/19 at 16:00 Zolpidem Tartrate (Ambien) 10 mg QHS PRN PO INSOMNIA Last administered on 06/13/19at 22:14; Admin Dose 10 MG; Start 06/13/19 at 16:00 Pantoprazole (Protonix Tab) 40 mg DAILY@06 PO Last administered on 06/14/19at 06:25; Admin Dose 40 MG; Start 06/14/19 at 06:00 Isosorbide Mononitrate (Imdur) 30 mg DAILY PO ; Start 06/14/19 at 09:00 Losartan Potassium (Cozaar) 100 mg DAILY PO ; Start 06/14/19 at 09:00 Amlodipine Besylate (Norvasc) 10 mg DAILY PO ; Start 06/14/19 at 09:00 Hydrochlorothiazide (Hydrochlorothiazide) 25 mg DAILY PO ; Start 06/14/19 at 09:00 DALILA BUTT Jun 14, 2019 13:46
[2019-06-14] MEDS ORDERED: SOD CHLORIDE 0.9% 500 ML IV ONE (14:00)
[2019-06-14 15:10] VITALS: BP 113/69; PULSE 68; RESP 18
--- NOTE | 2019-06-14 16:04 | RADRPT ---
Echocardiogram Report Patient Name: Freya RICHEYent ID: [id number] : 1955 (64y 1m)Study Date: 06/14/2019 8:43:34 AM Gender: FAccession #: [id number] Tech: LE Location: [facility] Ref.Physician: DALILA PERALTA Height(Cm): BSA: Weight(Kg): Quality: GoodOrder Physician: DALILA PERALTA Account #: Procedures: Echocardiographic Report: Transthoracic echocardiogram with complete 2D, M-Mode, and doppler examination. Indications: Murmur. Measurements: 2D/M Mode Doppler Measurement Value Normal Range Measurement Value Normal Range LVIDd 2D 4.4 [ 3.8 - 5.2 ] cm MARYA VTI 1.0 [ 2.0 - 4.0 ] cm2 LVIDs 2D 3.0 [ 2.2 - 3.5 ] cm AV Mean Thomas 2.8 [ 70.0 - 90.0 ] cm/sec LVPWd 2D 1.2 [ 0.6 - 0.9 ] cm AV Mean PG 34.0 [ 2.0 - 4.0 ] mmHg IVSd 2D 1.2 [ 0.6 - 0.9 ] cm AV VTI 75.0 cm EDV 2D 88.2 [ 46.0 - 106.0 ] ml LVOT Mean Thomas 0.8 [ 60.0 - 80.0 ] cm/sec ESV 2D 35.6 [ 14.0 - 42.0 ] ml LVOT Mean PG 3.0 [ 1.0 - 3.0 ] mmHg EF 2D 59.6 [ 54.0 - 74.0 ] percent LVOT Peak Thomas 1.1 [ 70.0 - 110.0 ] cm/sec LVOT Diam 2.1 [ 2.1 - 2.5 ] cm LVOT Peak PG 5.0 [ 2.0 - 6.0 ] mmHg LVOT VTI 22.4 [ 20.0 - 30.0 ] cm MV E Peak Thomas 1.4 [ 60.0 - 130.0 ] cm/sec MV A Peak Thomas 1.3 [ 100.0 - 120.0 ] cm/sec MV E/A 1.1 [ 0.8 - 1.5 ] ratio MV Peak Thomas 1.4 [ 60.0 - 130.0 ] cm/sec MV Peak PG 8.0 [ 1.0 - 10.0 ] mmHg MV Mean Thomas 1.1 cm/sec MV Mean PG 5.0 mmHg MV Decel Time 363 [ 104 - 258 ] msec Lat E` Thomas 0.0 [ 10.0 - 15.0 ] cm/sec Lateral E/E` 31.0 [ 1.0 - 2.0 ] ratio Med E` Thomas 0.0 cm/sec MV E/A 1.1 [ 0.8 - 1.5 ] ratio MV VTI 46.1 cm MVA VTI 1.7 cm TR Peak Thomas 2.8 [ 100.0 - 280.0 ] cm/sec TR Peak PG 32.0 mmHg PV Peak Thomas 0.7 [ 40.0 - 80.0 ] cm/sec PV Peak PG 2.0 mmHg Findings: Left Ventricle: Normal left ventricular systolic function. Normal left ventricular cavity size. Mild concentric left ventricular hypertrophy. Ejection fraction is visually estimated at 60-65 %. Tissue Doppler/Mitral Doppler indices are consistent with pseudonormalization with mildly elevated left atrial pressure (Stage II diastolic dysfunction). Right Ventricle: Normal right ventricular size. Normal right ventricular systolic function. Left Atrium: There is mild enlargement of left atrium. Right Atrium: The right atrium is normal in size. Mitral Valve: Moderate mitral leaflet calcification. Mild to moderate mitral stenosis. Mitral valve Max Velocity 142.00 m/sec. MaxPG 5.00 mmHg. MeanPG 8.00 mmHg. Aortic Valve: Moderate aortic stenosis. Aortic valve Max velocity 390.00 m/sec. Max PG 60.80 mmHg. Mean PG 34.00 mmHg. Aortic valve area 1.00 cm2. Tricuspid Valve: Normal appearance of the tricuspid valve. The estimated Peak RVSP is 35 mmHg. There is mild tricuspid regurgitation. Pulmonic Valve: Normal pulmonic valve appearance. There is trace pulmonic regurgitation. Pericardium: Normal pericardium with no significant pericardial effusion. Aorta: Normal aortic root. IVC: Normal size and normal respiratory collapse consistent with normal right atrial pressure. Conclusions: Normal left ventricular systolic function. Normal left ventricular cavity size. Mild concentric left ventricular hypertrophy. Ejection fraction is visually estimated at 60-65 %. Tissue Doppler/Mitral Doppler indices are consistent with pseudonormalization with mildly elevated left atrial pressure (Stage II diastolic dysfunction). There is mild enlargement of left atrium. Moderate mitral leaflet calcification. Mild to moderate mitral stenosis. Mitral valve Max Velocity 142.00 m/sec. MaxPG 5.00 mmHg. MeanPG 8.00 mmHg. Moderate aortic stenosis. Aortic valve Max velocity 390.00 m/sec. Max PG 60.80 mmHg. Mean PG 34.00 mmHg. Aortic valve area 1.00 cm2. Normal appearance of the tricuspid valve. The estimated Peak RVSP is 35 mmHg. There is mild tricuspid regurgitation. Normal pulmonic valve appearance. There is trace pulmonic regurgitation. n. Electronically Signed By: Dalila Cullen 2019-06-14 16:02:48 PDT
[2019-06-14] MEDS: CARISOPRODOL 350 MG TAB PO PRN (18:45)
[2019-06-14] MEDS: ATORVASTATIN 40 MG TAB PO SCH (20:23)
[2019-06-14 20:32] VITALS: BP 114/70; PULSE 66; RESP 20
[2019-06-14] MEDS: ZOLPIDEM 5 MG TAB PO PRN (22:08)
[2019-06-15] VITALS (8 sets, daily range): BP systolic 101–141; BP diastolic 62–82; PULSE 60–71; RESP 16–20
[2019-06-15] MEDS: PANTOPRAZOLE (EC) 40 MG TAB PO SCH (06:24)
[2019-06-15] MEDS: LEVOTHYROXINE 50 MCG TAB PO SCH (06:25)
[2019-06-15] MEDS: ISOSORBIDE MONONITRATE(SR)30 MG TAB PO SCH (08:48)
[2019-06-15] MEDS: CARISOPRODOL 350 MG TAB PO PRN (08:48)
[2019-06-15] MEDS: LOSARTAN 50 MG TAB PO SCH (08:48)
[2019-06-15] MEDS: HYDROCHLOROTHIAZIDE 25 MG TAB PO SCH (08:49)
[2019-06-15] MEDS: ENOXAPARIN 40 MG/0.4 ML SYG SC SCH (08:53)
--- NOTE | 2019-06-15 12:52 | PN ---
Date/Time of Note Date/Time of Note DATE: 06/15/19 TIME: 12:49 Assessment/Plan VTE Prophylaxis Risk score (from Nsg)>0 risk: 2 SCD applied (from Nsg): Yes Pharmacological prophylaxis: NA/contraindicated Pharm contraindication: other Lines/Catheters IV Catheter Type (from Nrsg): Saline Lock Urinary Cath still in place: No Assessment/Plan Hospital Course 64 yo woman history of HTN, nonobstructive CAD, dyslipidemia, anxiety, and GERD who presents with fatigue and heart palpitations. #Chest pain #Heart palpitations #Dyspnea - I suspect these are all related to hypovolemic state and hypotension - Low suspicion for ACS with negative troponin. EKG is unusual but appears unchanged from May 2018. - Patient is now chest pain free - s/p 2L bolus in ED. -Etiology consultation appreciated, so far she appears to have 1st degree AV block, no other events. #Aortic stenosis - Loud 4/6 systolic murmur - Echo in May 2018 shows mild aortic stenosis -Repeat echo shows moderate aortic stenosis #Headache, blurry vision likely secondary to labile blood pressure -CT head is negative #Acute kidney injury secondary to dehydration from gastroenteritis -Renal function has stabilized with fluids - zofran prn - Nausea, diarrhea now resolved. #HTN - Continue home BP meds but at decreased dose as blood pressure was low #dyslipidemia #CAD - Cont home statin #Hypothyroid - Cont home synthroid #anxiety - Cont home benzos DVT: SCDs GI: PPI DC planning: Patient blood pressure meds have been decreased secondary to hypotension, monitor BP overnight, anticipate DC home tomorrow Result Diagram: 06/14/19 0528 06/14/19 0528 Subjective 24 Hr Interval Summary Free Text/Dictation Weakness Exam/Review of Systems Exam Vitals Vital Signs Date Temp Pulse Resp B/P (MAP) Pulse Ox O2 O2 Flow FiO2 Time Delivery Rate 06/15/19 97.5 71 18 101/69 98 Room Air 11:38 (80) Intake and Output 06/14/19 06/14/19 06/15/19 1515:00 23:00 07:00 IntakeIntake Total 1450 ml 300 ml BalanceBalance 1450 ml 300 ml Constitutional: alert, oriented Respiratory: clear to auscultation Cardiovascular: regular rate and rhythm Gastrointestinal: soft; No distended Musculoskeletal: nl extremities to inspection Medications Medication Current Medications IV Flush (NS 3 ml) 3 ml PER PROTOCOL IV ; Start 06/13/19 at 15:30 Ondansetron HCl (Zofran Inj) 4 mg Q6H PRN IV NAUSEA/VOMITING; Start 06/13/19 at 15:30 Acetaminophen (Tylenol Tab) 650 mg Q6H PRN PO .PAIN 1-3 OR TEMP Last adm inistered on 06/14/19 18:47; Admin Dose 650 MG; Start 06/13/19 at 15:30 Enoxaparin Sodium (Lovenox) 40 mg DAILY SC Last administered on 06/15/19 08:53; Admin Dose 40 MG; Start 06/14/19 at 09:00 Alprazolam (Xanax) 0.5 mg BID PRN PO ANXIETY Last administered on 06/14/19 11:03; Admin Dose 0.5 MG; Start 06/13/19 at 16:00 Atorvastatin Calcium (Lipitor) 40 mg QHS PO Last administered on 06/14/19 20:23; Admin Dose 40 MG; Start 06/13/19 at 21:00 Carisoprodol (Soma) 350 mg DAILY PRN PO MUSCLE SPASMS Last administered on 06/15/19 08:48; Admin Dose 350 MG; Start 06/13/19 at 16:00 Levothyroxine Sodium (Synthroid) 50 mcg BEFORE BREAKFAST PO Last administered on 06/15/19 06:25; Admin Dose 50 MCG; Start 06/14/19 at 07:00 Nitroglycerin (Nitroglycerin (Sl Tab) 0.4 Mg) 1 tab [id number] PRN SL CHEST PAIN; Start 06/13/19 at 16:00 Zolpidem Tartrate (Ambien) 10 mg QHS PRN PO INSOMNIA Last administered on 06/14/19 22:08; Admin Dose 10 MG; Start 06/13/19 at 16:00 Pantoprazole (Protonix Tab) 40 mg DAILY@06 PO Last administered on 06/15/19 06:24; Admin Dose 40 MG; Start 06/14/19 at 06:00 Isosorbide Mononitrate (Imdur) 30 mg DAILY PO Last administered on 06/15/19 08:48; Admin Dose 30 MG; Start 06/14/19 at 09:00 Amlodipine Besylate (Norvasc) 10 mg DAILY PO ; Start 06/14/19 at 09:00; Status Hold Hydrochlorothiazide (Hydrochlorothiazide) 25 mg DAILY PO Last administered on 06/15/19at 08:49; Admin Dose 25 MG; Start 06/14/19 at 09:00 Losartan Potassium (Cozaar) 50 mg DAILY PO Last administered on 06/15/19at 08:48; Admin Dose 50 MG; Start 06/15/19 at 09:00 WING GUERRERO Jun 15, 2019 12:52
[2019-06-15] MEDS: ACETAMINOPHEN 325 MG TAB PO PRN (15:28)
--- NOTE | 2019-06-15 16:19 | CONS ---
Assessment/Plan Assessment/Plan Hospital Course (Demo Recall) IMPRESSION: 1. Chest pain, assess for acute coronary syndrome. The patient had a catheterization 01/2018 revealing no significant coronary artery disease. -neg trop x 3 and pain now resolved. Echo 06/04 EF 60-65/DD/mod /MS 2. Abnormal electrocardiogram with inferior Q's and anteroseptal Q's, assess for acute coronary syndrome. This patient presented with chest pain. 3. Hypotension on admit, likely due to dehydration and poor p.o. intake, loose stools. 4. Coronary artery disease, nonobstructive by catheterization in 01/2018. 5. Dyslipidemia. 6. Blurry vision. 7. Generalized weakness. 8. Hypothyroidism. 9. Anxiety. 10. /MS-both moderate by echo this admission Recc: -Tele -tolerating losartan/HCTZ with well controlled BP -would continue to hold norvasc -continue synthroid -contineu statin -d/c planing if BP stable Consultation Date/Type/Reason Admit Date/Time Jun 13, 2019 at 14:51 Initial Consult Date 06/13/19 Type of Consult Cardiology Reason for Consultation chest pain Requesting Provider: DALILA PERALTA MD Date/Time of Note DATE: 06/15/19 TIME: 16:15 Exam/Review of Systems Vital Signs Vitals Vital Signs Date Temp Pulse Resp B/P (MAP) Pulse Ox O2 O2 Flow FiO2 Time Delivery Rate 06/15/19 97.7 68 18 135/82 98 Room Air 16:09 (99) Intake and Output 06/14/19 06/14/19 06/15/19 1515:00 23:00 07:00 IntakeIntake Total 1450 ml 300 ml BalanceBalance 1450 ml 300 ml Exam Exam Review of Systems: CONSTITUTIONAL: No fevers, chills. PULMONARY: No sob CARDIOVASCULAR: No chest pain/palpitations GASTROINTESTINAL: No nausea/vomiting. GENITOURINARY: No hematuria/dysuria. MUSCULOSKELETAL: No myagias/arthalgias. PSYCHIATRIC: The patient denies depression. NEUROLOGIC: No weakness Constitutional: alert, oriented Psych: no complaints Head: normocephalic ENMT: mucosa pink and moist Neck: supple, jvd (9 cm water) Respiratory: clear to auscultation Cardiovascular: regular rate and rhythm Gastrointestinal: soft, non-tender Musculoskeletal: muscle tone (normal) Extremities: edema (none) Neurological: other (No focal deficits) Labs Result Diagram: 06/14/1952706/14/19527 Medications Medications Current Medications IV Flush (NS 3 ml) 3 ml PER PROTOCOL IV ; Start 06/13/19 at 15:30 Ondansetron HCl (Zofran Inj) 4 mg Q6H PRN IV NAUSEA/VOMITING; Start 06/13/19 at 15:30 Acetaminophen (Tylenol Tab) 650 mg Q6H PRN PO .PAIN 1-3 OR TEMP Last administered on 06/15/19 15:28; Admin Dose 650 MG; Start 06/13/19 at 15:30 Enoxaparin Sodium (Lovenox) 40 mg DAILY SC Last administered on 06/15/19 08:53; Admin Dose 40 MG; Start 06/14/19 at 09:00 Alprazolam (Xanax) 0.5 mg BID PRN PO ANXIETY Last administered on 06/14/19 11:03; Admin Dose 0.5 MG; Start 06/13/19 at 16:00 Atorvastatin Calcium (Lipitor) 40 mg QHS PO Last administered on 06/14/19 20:23; Admin Dose 40 MG; Start 06/13/19 at 21:00 Carisoprodol (Soma) 350 mg DAILY PRN PO MUSCLE SPASMS Last administered on 06/15 08:48; Admin Dose 350 MG; Start 06/13/19 at 16:00 Levothyroxine Sodium (Synthroid) 50 mcg BEFORE BREAKFAST PO Last administered on 06/15/19 06:25; Admin Dose 50 MCG; Start 06/14/19 at 07:00 Nitroglycerin (Nitroglycerin (Sl Tab) 0.4 Mg) 1 tab [id number] PRN SL CHEST PAIN; Start 06/13/19 at 16:00 Zolpidem Tartrate (Ambien) 10 mg QHS PRN PO INSOMNIA Last administered on 06/14/19 22:08; Admin Dose 10 MG; Start 06/13/19 at 16:00 Pantoprazole (Protonix Tab) 40 mg DAILY@06 PO Last administered on 06/15/19 06:24; Admin Dose 40 MG; Start 06/14/19 at 06:00 Isosorbide Mononitrate (Imdur) 30 mg DAILY PO Last administered on 06/15/19at 08:48; Admin Dose 30 MG; Start 06/14/19 at 09:00 Amlodipine Besylate (Norvasc) 10 mg DAILY PO ; Start 06/14/19 at 09:00; Status Hold Hydrochlorothiazide (Hydrochlorothiazide) 25 mg DAILY PO Last administered on 06/15/19at 08:49; Admin Dose 25 MG; Start 06/14/19 at 09:00 Losartan Potassium (Cozaar) 50 mg DAILY PO Last administered on 06/15/19at 08:48; Admin Dose 50 MG; Start 06/15/19 at 09:00 DALILA BUTT Jun 15, 2019 16:19
[2019-06-15] MEDS: ATORVASTATIN 40 MG TAB PO SCH (20:19)
[2019-06-15] MEDS: ZOLPIDEM 5 MG TAB PO PRN (21:59)
[2019-06-16] VITALS (7 sets, daily range): BP systolic 101–126; BP diastolic 62–70; PULSE 64–75; RESP 18–19
[2019-06-16] MEDS: LEVOTHYROXINE 50 MCG TAB PO SCH (06:00)
[2019-06-16] MEDS: PANTOPRAZOLE (EC) 40 MG TAB PO SCH (06:00)
[2019-06-16] MEDS: CARISOPRODOL 350 MG TAB PO PRN ×2 (06:00→13:54)
[2019-06-16] MEDS: ENOXAPARIN 40 MG/0.4 ML SYG SC SCH (08:52)
[2019-06-16] MEDS: ISOSORBIDE MONONITRATE(SR)30 MG TAB PO SCH (09:00)
[2019-06-16] MEDS: HYDROCHLOROTHIAZIDE 25 MG TAB PO SCH (09:00)
[2019-06-16] MEDS: LOSARTAN 50 MG TAB PO SCH (09:00)
[2019-06-16] MEDS: ALPRAZOLAM 0.5 MG TAB PO PRN (11:25)
--- NOTE | 2019-06-16 13:16 | CONS ---
Assessment/Plan Assessment/Plan Hospital Course (Demo Recall) IMPRESSION: 1. Chest pain, assess for acute coronary syndrome. The patient had a catheterization 01/2018 revealing no significant coronary artery disease. -neg trop x 3 and pain now resolved. Echo 06/04 EF 60-65/DD/mod /MS 2. Abnormal electrocardiogram with inferior Q's and anteroseptal Q's, assess for acute coronary syndrome. This patient presented with chest pain. 3. Hypotension on admit, likely due to dehydration and poor p.o. intake, loose stools.-now again with holding of antihypertensives 4. Coronary artery disease, nonobstructive by catheterization in 01/2018. 5. Dyslipidemia. 6. Blurry vision. 7. Generalized weakness. 8. Hypothyroidism. 9. Anxiety. 10. /MS-both moderate by echo this admission Recc: -Tele -would continue to hold norvasc and will decarse dose of losartan and hold HCTZ altogether -Give additional IVF hydration -continue synthroid -contineu statin -d/c planing if BP stable Consultation Date/Type/Reason Admit Date/Time Jun 13, 2019 at 14:51 Initial Consult Date 06/13/19 Type of Consult Cardiology Reason for Consultation chest pain Requesting Provider: DALILA PERALTA MD Date/Time of Note DATE: 06/16/19 TIME: 13:14 Exam/Review of Systems Vital Signs Vitals Vital Signs Date Temp Pulse Resp B/P (MAP) Pulse Ox O2 O2 Flow FiO2 Time Delivery Rate 06/16/19 98.0 72 18 107/62 97 Room Air 11:05 (77) Intake and Output 06/15/19 06/15/19 06/16/19 1414:59 22:59 06:59 IntakeIntake Total 300 ml 1200 ml OutputOutput Total 400 ml BalanceBalance 300 ml 1200 ml -400 ml Exam Exam Review of Systems: CONSTITUTIONAL: No fevers, chills. PULMONARY: No sob CARDIOVASCULAR: No chest pain/palpitations GASTROINTESTINAL: No nausea/vomiting. GENITOURINARY: No hematuria/dysuria. MUSCULOSKELETAL: No myagias/arthalgias. PSYCHIATRIC: The patient denies depression. NEUROLOGIC: mild generalized weakness Constitutional: alert Psych: no complaints Head: normocephalic ENMT: mucosa pink and moist Neck: supple, jvd (9 cm water) Respiratory: clear to auscultation Cardiovascular: regular rate and rhythm Gastrointestinal: soft, non-tender Musculoskeletal: muscle tone (normal) Extremities: edema (none) Neurological: other (No focal deficits) Labs Result Diagram: 06/16/19 0650 06/16/19 0650 Results 24hrs Laboratory Tests Test 06/16/19 06:50 White Blood Count 4.8 Red Blood Count 3.88 L Hemoglobin 11.9 L Hematocrit 37.9 Mean Corpuscular Volume 97.7 Mean Corpuscular Hemoglobin 30.7 Mean Corpuscular Hemoglobin Concent 31.4 L Red Cell Distribution Width 12.5 Platelet Count 275 Mean Platelet Volume 9.5 Immature Granulocytes % 0.200 Neutrophils % 55.4 Lymphocytes % 30.1 Monocytes % 8.4 Eosinophils % 4.6 Basophils % 1.3 Nucleated Red Blood Cells % 0.0 Immature Granulocytes # 0.010 Neutrophils # 2.7 Lymphocytes # 1.4 Monocytes # 0.4 Eosinophils # 0.2 Basophils # 0.1 Nucleated Red Blood Cells # 0.0 Sodium Level 141 Potassium Level 3.7 Chloride Level 99 Carbon Dioxide Level 33 H Anion Gap 9 Blood Urea Nitrogen 12 Creatinine 0.68 Est Glomerular Filtrat Rate mL/min > 60 Glucose Level 73 Calcium Level 9.6 Phosphorus Level 5.5 H Magnesium Level 1.5 L Medications Medications Current Medications IV Flush (NS 3 ml) 3 ml PER PROTOCOL IV ; Start 06/13/19 at 15:30 Ondansetron HCl (Zofran Inj) 4 mg Q6H PRN IV NAUSEA/VOMITING; Start 06/13/19 at 15:30 Acetaminophen (Tylenol Tab) 650 mg Q6H PRN PO .PAIN 1-3 OR TEMP Last administered on 06/15/19at 15:28; Admin Dose 650 MG; Start 06/13/19 at 15:30 Enoxaparin Sodium (Lovenox) 40 mg DAILY SC Last administered on 06/16/19at 08:52; Admin Dose 40 MG; Start 06/14/19 at 09:00 Alprazolam (Xanax) 0.5 mg BID PRN PO ANXIETY Last administered on 06/16/19at 11:25; Admin Dose 0.5 MG; Start 06/13/19 at 16:00 Atorvastatin Calcium (Lipitor) 40 mg QHS PO Last administered on 06/15/19at 20:19; Admin Dose 40 MG; Start 06/13/19 at 21:00 Carisoprodol (Soma) 350 mg DAILY PRN PO MUSCLE SPASMS Last administered on 06/16/19 06:00; Admin Dose 350 MG; Start 06/13/19 at 16:00 Levothyroxine Sodium (Synthroid) 50 mcg BEFORE BREAKFAST PO Last administered on 06/16/19 06:00; Admin Dose 50 MCG; Start 06/14/19 at 07:00 Nitroglycerin (Nitroglycerin (Sl Tab) 0.4 Mg) 1 tab [id number] PRN SL CHEST PAIN; Start 06/13/19 at 16:00 Zolpidem Tartrate (Ambien) 10 mg QHS PRN PO INSOMNIA Last administered on 06/15/19 21:59; Admin Dose 10 MG; Start 06/13/19 at 16:00 Pantoprazole (Protonix Tab) 40 mg DAILY@06 PO Last administered on 06/16/19 06:00; Admin Dose 40 MG; Start 06/14/19 at 06:00 Isosorbide Mononitrate (Imdur) 30 mg DAILY PO Last administered on 06/15/19 08:48; Admin Dose 30 MG; Start 06/14/19 at 09:00 Amlodipine Besylate (Norvasc) 10 mg DAILY PO ; Start 06/14/19 at 09:00; Status Hold Hydrochlorothiazide (Hydrochlorothiazide) 25 mg DAILY PO Last administered on 06/15/19 08:49; Admin Dose 25 MG; Start 06/14/19 at 09:00 Losartan Potassium (Cozaar) 50 mg DAILY PO Last administered on 06/15/19 08:48; Admin Dose 50 MG; Start 06/15/19 at 09:00 DALILA BUTT Jun 16, 2019 13:16
[2019-06-16] MEDS ORDERED: SOD CHLORIDE 0.9% 500 ML IV ONE (13:30)
--- NOTE | 2019-06-16 14:43 | PN ---
Date/Time of Note Date/Time of Note DATE: 06/16/19 TIME: 14:41 Assessment/Plan VTE Prophylaxis Risk score (from Ns)>0 risk: 2 SCD applied (from Ns): Yes Pharmacological prophylaxis: NA/contraindicated Pharm contraindication: other Lines/Catheters IV Catheter Type (from Nrsg): Saline Lock Urinary Cath still in place: No Assessment/Plan Hospital Course 64 yo woman history of HTN, nonobstructive CAD, dyslipidemia, anxiety, and GERD who presents with fatigue and heart palpitations. #Chest pain #Heart palpitations #Dyspnea - I suspect these are all related to hypovolemic state and hypotension - Low suspicion for ACS with negative troponin. EKG is unusual but appears unchanged from May 2018. - Patient is now chest pain free - s/p 2L bolus in ED. -Etiology consultation appreciated, so far she appears to have 1st degree AV block, no other events. #Aortic stenosis - Loud 4/6 systolic murmur - Echo in May 2018 shows mild aortic stenosis -Repeat echo shows moderate aortic stenosis #Dizziness with blurry vision likely secondary to labile blood pressure -CT head is negative -Blood pressure still low, bolus today #Acute kidney injury secondary to dehydration from gastroenteritis -Renal function has stabilized with fluids - zofran prn - Nausea, diarrhea now resolved. #HTN -Blood pressure low today, holding meds #dyslipidemia #CAD - Cont home statin #Hypothyroid - Cont home synthroid #anxiety - Cont home benzos DVT: SCDs GI: PPI DC planning: Patient blood pressure meds have been held today secondary to hypotension, bolus of NS and monitor Result Diagram: 06/16/19 0650 06/16/19 0650 Results 24hrs Laboratory Tests Test 06/16/19 06:50 White Blood Count 4.8 Red Blood Count 3.88 L Hemoglobin 11.9 L Hematocrit 37.9 Mean Corpuscular Volume 97.7 Mean Corpuscular Hemoglobin 30.7 Mean Corpuscular Hemoglobin Concent 31.4 L Red Cell Distribution Width 12.5 Platelet Count 275 Mean Platelet Volume 9.5 Immature Granulocytes % 0.200 Neutrophils % 55.4 Lymphocytes % 30.1 Monocytes % 8.4 Eosinophils % 4.6 Basophils % 1.3 Nucleated Red Blood Cells % 0.0 Immature Granulocytes # 0.010 Neutrophils # 2.7 Lymphocytes # 1.4 Monocytes # 0.4 Eosinophils # 0.2 Basophils # 0.1 Nucleated Red Blood Cells # 0.0 Sodium Level 141 Potassium Level 3.7 Chloride Level 99 Carbon Dioxide Level 33 H Anion Gap 9 Blood Urea Nitrogen 12 Creatinine 0.68 Est Glomerular Filtrat Rate mL/min > 60 Glucose Level 73 Calcium Level 9.6 Phosphorus Level 5.5 H Magnesium Level 1.5 L Subjective 24 Hr Interval Summary Neurologic: dizziness Exam/Review of Systems Exam Vitals Vital Signs Date Temp Pulse Resp B/P (MAP) Pulse Ox O2 O2 Flow FiO2 Time Delivery Rate 06/16/19 98.0 72 18 107/62 97 Room Air 11:05 (77) Intake and Output 06/15/19 06/15/19 06/16/19 1515:00 23:00 07:00 IntakeIntake Total 300 ml 1200 ml OutputOutput Total 400 ml BalanceBalance 300 ml 1200 ml -400 ml Constitutional: alert, oriented Respiratory: clear to auscultation Cardiovascular: regular rate and rhythm Gastrointestinal: soft; No distended Musculoskeletal: nl extremities to inspection Results Results 24hrs Laboratory Tests Test 06/16/19 06:50 White Blood Count 4.8 Red Blood Count 3.88 L Hemoglobin 11.9 L Hematocrit 37.9 Mean Corpuscular Volume 97.7 Mean Corpuscular Hemoglobin 30.7 Mean Corpuscular Hemoglobin Concent 31.4 L Red Cell Distribution Width 12.5 Platelet Count 275 Mean Platelet Volume 9.5 Immature Granulocytes % 0.200 Neutrophils % 55.4 Lymphocytes % 30.1 Monocytes % 8.4 Eosinophils % 4.6 Basophils % 1.3 Nucleated Red Blood Cells % 0.0 Immature Granulocytes # 0.010 Neutrophils # 2.7 Lymphocytes # 1.4 Monocytes # 0.4 Eosinophils # 0.2 Basophils # 0.1 Nucleated Red Blood Cells # 0.0 Sodium Level 141 Potassium Level 3.7 Chloride Level 99 Carbon Dioxide Level 33 H Anion Gap 9 Blood Urea Nitrogen 12 Creatinine 0.68 Est Glomerular Filtrat Rate mL/min > 60 Glucose Level 73 Calcium Level 9.6 Phosphorus Level 5.5 H Magnesium Level 1.5 L Medications Medication Current Medications IV Flush (NS 3 ml) 3 ml PER PROTOCOL IV ; Start 06/13/19 at 15:30 Ondansetron HCl (Zofran Inj) 4 mg Q6H PRN IV NAUSEA/VOMITING; Start 06/13/19 at 15:30 Acetaminophen (Tylenol Tab) 650 mg Q6H PRN PO .PAIN 1-3 OR TEMP Last administered on 06/15/19 15:28; Admin Dose 650 MG; Start 06/13/19 at 15:30 Enoxaparin Sodium (Lovenox) 40 mg DAILY SC Last administered on 06/16/19 08:52; Admin Dose 40 MG; Start 06/14/19 at 09:00 Alprazolam (Xanax) 0.5 mg BID PRN PO ANXIETY Last administered on 06/16/19 11:25; Admin Dose 0.5 MG; Start 06/13/19 at 16:00 Atorvastatin Calcium (Lipitor) 40 mg QHS PO Last administered on 06/15/19 20:19; Admin Dose 40 MG; Start 06/13/19 at 21:00 Carisoprodol (Soma) 350 mg DAILY PRN PO MUSCLE SPASMS Last administered on 06/16/19 13:54; Admin Dose 350 MG; Start 06/13/19 at 16:00 Levothyroxine Sodium (Synthroid) 50 mcg BEFORE BREAKFAST PO Last administered on 06/16/19 06:00; Admin Dose 50 MCG; Start 06/14/19 at 07:00 Nitroglycerin (Nitroglycerin (Sl Tab) 0.4 Mg) 1 tab [id number] PRN SL CHEST PAIN; Start 06/13/19 at 16:00 Zolpidem Tartrate (Ambien) 10 mg QHS PRN PO INSOMNIA Last administered on 06/15/19 21:59; Admin Dose 10 MG; Start 06/13/19 at 16:00 Pantoprazole (Protonix Tab) 40 mg DAILY@06 PO Last administered on 06/16/19 06:00; Admin Dose 40 MG; Start 06/14/19 at 06:00 Isosorbide Mononitrate (Imdur) 30 mg DAILY PO Last administered on 06/15/19 08:48; Admin Dose 30 MG; Start 06/14/19 at 09:00 Amlodipine Besylate (Norvasc) 10 mg DAILY PO ; Start 06/14/19 at 09:00; Status Hold Hydrochlorothiazide (Hydrochlorothiazide) 25 mg DAILY PO Last administered on 06/15/19 08:49; Admin Dose 25 MG; Start 06/14/19 at 09:00; Status Hold Losartan Potassium (Cozaar) 25 mg DAILY PO ; Start 06/17/19 at 09:00 WING GUERRERO Jun 16, 2019 14:43
[2019-06-16] MEDS ORDERED: MAGNESIUM SULFATE 3 GM in DEXTROSE 5% 100 ML IVPB ONE (16:00)
[2019-06-16] MEDS: ATORVASTATIN 40 MG TAB PO SCH (21:44)
[2019-06-16] MEDS: ZOLPIDEM 5 MG TAB PO PRN (22:11)
[2019-06-17] VITALS: BP 106/64; PULSE 62; RESP 18
[2019-06-17 03:53] VITALS: BP 117/69; PULSE 66; RESP 18
[2019-06-17 03:57] VITALS: BP 91/57; PULSE 64; RESP 17
[2019-06-17] MEDS: PANTOPRAZOLE (EC) 40 MG TAB PO SCH (06:11)
[2019-06-17] MEDS: LEVOTHYROXINE 50 MCG TAB PO SCH (06:11)
[2019-06-17 07:50] VITALS: BP 121/72; PULSE 67; RESP 18
[2019-06-17] MEDS: ISOSORBIDE MONONITRATE(SR)30 MG TAB PO SCH (08:58)
[2019-06-17] MEDS ORDERED: LOSARTAN 25 MG TAB PO SCH (09:00)
[2019-06-17] MEDS: ENOXAPARIN 40 MG/0.4 ML SYG SC SCH (09:02)
[2019-06-17] MEDS: CARISOPRODOL 350 MG TAB PO PRN (09:09)
--- NOTE | 2019-06-17 09:13 | RADRPT ---
Vent Rate: 65 bpm RR Interval: 920 msec WI Interval: 222 msec QRS Duration: 90 msec QT Interval: 413 msec QTC Interval: 431 msec P-R-T [place]: 34 - -39 - 61 degrees Sinus rhythm...normal P axis, V-rate 50- 99 Prolonged WI interval...WI >220, V-rate 50- 90 Left axis deviation...QRS axis (-30,-90) Anterior infarct, old...Q >40mS, abnormal ST-T, V2-V5 Electronically Signed By: Taiwo Dunn
--- NOTE | 2019-06-17 11:06 | PDOCDIS ---
Discharge Instructions CONDITION [id number] Patient Condition: [id number] Good HOME CARE INSTRUCTIONS: [id number] Diet Instructions: [id number] Regular ACTIVITY: [id number] Activity Restrictions: [id number] No Restrictions FOLLOW UP/APPOINTMENTS Follow-up Plan FOLLOW UP WITH YOUR PCP IN 1-2 WEEKS WING GUERRERO Jun 17, 2019 11:06
[2019-06-17 11:48] VITALS: BP 124/69; PULSE 73; RESP 18
--- NOTE | 2019-06-17 12:32 | CONS ---
Assessment/Plan Assessment/Plan Hospital Course (Demo Recall) IMPRESSION: 1. Chest pain, assess for acute coronary syndrome. The patient had a catheterization 01/2018 revealing no significant coronary artery disease. -neg trop x 3 and pain now resolved. Echo 06/04 EF 60-65/DD/mod /MS 2. Abnormal electrocardiogram with inferior Q's and anteroseptal Q's, assess for acute coronary syndrome. This patient presented with chest pain. 3. Hypotension on admit,-now improved and tolerating losartan monotherapy 4. Coronary artery disease, nonobstructive by catheterization in 01/2018. 5. Dyslipidemia. 6. Blurry vision. 7. Generalized weakness. 8. Hypothyroidism. 9. Anxiety. 10. /MS-both moderate by echo this admission Recc: -Tele -s/p additional IVF hydration -comntinue losartan monmotheraoy now at 25 mg, well tolerated -continue synthroid -contineu statin -d/c planing if BP stable Consultation Date/Type/Reason Admit Date/Time Jun 13, 2019 at 14:51 Initial Consult Date 06/13/19 Type of Consult Cardiology Reason for Consultation Chest pain Requesting Provider: DALILA PERALTA MD Date/Time of Note DATE: 06/17/19 TIME: 12:30 Exam/Review of Systems Vital Signs Vitals Vital Signs Date Temp Pulse Resp B/P (MAP) Pulse Ox O2 O2 Flow FiO2 Time Delivery Rate 06/17/19 98.0 73 18 124/69 98 11:48 (87) 06/16/19 Room Air 15:39 Intake and Output 06/16/19 06/16/19 06/17/19 1515:00 23:00 07:00 IntakeIntake Total 700 ml 800 ml 350 ml OutputOutput Total 2 ml 1 ml 600 ml BalanceBalance 698 ml 799 ml -250 ml Exam Exam Review of Systems: CONSTITUTIONAL: No fevers, chills. PULMONARY: No sob CARDIOVASCULAR: No chest pain/palpitations GASTROINTESTINAL: No nausea/vomiting. GENITOURINARY: No hematuria/dysuria. MUSCULOSKELETAL: No myagias/arthalgias. PSYCHIATRIC: The patient denies depression. NEUROLOGIC: No weakness Constitutional: alert Psych: no complaints Head: normocephalic ENMT: mucosa pink and moist Neck: supple, jvd (9 cm water) Respiratory: diminished breath sounds (at bases/B) Cardiovascular: regular rate and rhythm Gastrointestinal: soft, non-tender Musculoskeletal: muscle tone (normal) Extremities: edema (none) Neurological: other (No focal deficits) Labs Result Diagram: 06/16/19 0650 06/17/19 0525 Results 24hrs Laboratory Tests Test 06/17/19 05:25 Sodium Level 139 Potassium Level 4.1 Chloride Level 102 Carbon Dioxide Level 30 Anion Gap 7 Blood Urea Nitrogen 11 Creatinine 0.62 Est Glomerular Filtrat Rate mL/min > 60 Glucose Level 102 Calcium Level 9.6 Magnesium Level 2.0 Medications Medications Current Medications IV Flush (NS 3 ml) 3 ml PER PROTOCOL IV ; Start 06/13/19 at 15:30 Ondansetron HCl (Zofran Inj) 4 mg Q6H PRN IV NAUSEA/VOMITING; Start 06/13/19 at 15:30 Acetaminophen (Tylenol Tab) 650 mg Q6H PRN PO .PAIN 1-3 OR TEMP Last administered on 06/15/19at 15:28; Admin Dose 650 MG; Start 06/13/19 at 15:30 Enoxaparin Sodium (Lovenox) 40 mg DAILY SC Last administered on 06/17/19at 09:02; Admin Dose 40 MG; Start 06/14/19 at 09:00 Alprazolam (Xanax) 0.5 mg BID PRN PO ANXIETY Last administered on 06/16/19at 11:25; Admin Dose 0.5 MG; Start 06/13/19 at 16:00 Atorvastatin Calcium (Lipitor) 40 mg QHS PO Last administered on 06/16/19at 21:44; Admin Dose 40 MG; Start 06/13/19 at 21:00 Carisoprodol (Soma) 350 mg DAILY PRN PO MUSCLE SPASMS Last administered on 06/17/19 09:09; Admin Dose 350 MG; Start 06/13/19 at 16:00 Levothyroxine Sodium (Synthroid) 50 mcg BEFORE BREAKFAST PO Last administered on 06/17/19at 06:11; Admin Dose 50 MCG; Start 06/14/19 at 07:00 Nitroglycerin (Nitroglycerin (Sl Tab) 0.4 Mg) 1 tab [id number] PRN SL CHEST PAIN; Start 06/13/19 at 16:00 Zolpidem Tartrate (Ambien) 10 mg QHS PRN PO INSOMNIA Last administered on 06/16/19 22:11; Admin Dose 10 MG; Start 06/13/19 at 16:00 Pantoprazole (Protonix Tab) 40 mg DAILY@06 PO Last administered on 06/17/19 06:11; Admin Dose 40 MG; Start 06/14/19 at 06:00 Isosorbide Mononitrate (Imdur) 30 mg DAILY PO Last administered on 06/17/19 08:58; Admin Dose 30 MG; Start 06/14/19 at 09:00 Amlodipine Besylate (Norvasc) 10 mg DAILY PO ; Start 06/14/19 at 09:00; Status Hold Hydrochlorothiazide (Hydrochlorothiazide) 25 mg DAILY PO Last administered on 06/15/19 08:49; Admin Dose 25 MG; Start 06/14/19 at 09:00; Status Hold Losartan Potassium (Cozaar) 25 mg DAILY PO Last administered on 06/17/19 08:57; Admin Dose 25 MG; Start 06/17/19 at 09:00 DALILA BUTT Jun 17, 2019 12:32
[2019-06-17 15:27] VITALS: BP 127/70; PULSE 78; RESP 18
--- NOTE | 2019-06-17 15:51 | DS ---
Date/Time of Note Date/Time of Note DATE: 06/17/19 TIME: 15:35 Discharge Summary Admission/Discharge Info Admit Date/Time Jun 13, 2019 at 14:51 Discharge Date/Time Jun 17, 2019 at 15:18 Discharge Diagnosis 64 yo woman history of HTN, nonobstructive CAD, dyslipidemia, anxiety, and GERD who presents with fatigue and heart palpitations. #Chest pain Patient with chronic chest pain, ACS ruled out Continue isosorbide Cardiology consultation appreciated #Heart palpitations Stable #Dizziness with dyspnea secondary to dehydration and hypotension -Resolved with fluids -Hold BP meds decreased -CT head is normal #Aortic stenosis - Loud 4/6 systolic murmur - Echo in May 2018 shows mild aortic stenosis -Repeat echo shows moderate aortic stenosis #Acute kidney injury secondary to dehydration from gastroenteritis -Renal function has stabilized with fluids - zofran prn - Nausea, diarrhea now resolved. #HTN -Blood pressure has been labile and low, have decreased home regimen #dyslipidemia #CAD - Cont home statin #Hypothyroid - Cont home synthroid #anxiety - Cont home benzos Patient Condition: Good Hospital Course Patient is a 64 yo woman history of HTN, nonobstructive CAD, dyslipidemia, anxiety, and GERD who presents with fatigue and heart palpitations. ACS was ruled out, echo showed moderate aortic stenosis. Patient was dehydrated with acute kidney injury with resolution with fluids. Patient's blood pressure was low and her home meds were tapered down. Patient was seen by cardiology and was ultimately cleared to be discharged home with decreased home blood pressure medications. On the day of discharge patient's vitals, labs and physical exam are stable. Home Meds Active Scripts Losartan Potassium* (Cozaar*) 25 Mg Tablet, 25 MG PO DAILY, #60 TAB Prov:WING GUERRERO 06/17/19 Reported Medications Omeprazole* (Omeprazole*) 20 Mg Capsule.dr, 20 MG PO DAILY, #30 CAP 06/13/19 Atorvastatin* (Atorvastatin*) 40 Mg Tablet, 40 MG PO QHS, #30 TAB 06/13/19 Isosorbide Dinitrate* (Isosorbide Dinitrate*) 20 Mg Tablet, 30 MG PO DAILY, TAB 06/13/19 Nitroglycerin* (Nitrostat*) 0.4 Mg Tab.subl, 0.4 MG SL Q5MIN PRN for CHEST PAIN, BOTTLE 7/25/19 Zolpidem Tartrate* (Zolpidem Tartrate*) 10 Mg Tablet, 10 MG PO QHS PRN for INSOMNIA, #30 TAB 06/13/19 Levothyroxine Sodium* (Levoxyl*) 50 Mcg Tablet, 50 MCG PO BEFORE BREAKFAST, #30 TAB 06/13/19 Carisoprodol* (Carisoprodol*) 350 Mg Tablet, 350 MG PO DAILY PRN for MUSCLE SPASMS, TAB 06/13/19 Alprazolam* (Alprazolam*) 0.5 Mg Tablet, 0.5 MG PO BID PRN for ANXIETY, TAB 06/13/19 Discontinued Reported Medications [id number] (Tribenzor) 40-10-25 Mg Tablet, 1 TAB PO DAILY, TAB 06/13/19 Atorvastatin* (Atorvastatin*) 40 Mg Tablet, 40 MG PO QHS, #30 TAB 06/03/18 Levothyroxine Sodium* (Levoxyl*) 50 Mcg Tablet, 50 MCG PO BEFORE BREAKFAST, #30 TAB 06/03/18 Zolpidem Tartrate* (Zolpidem Tartrate*) 10 Mg Tablet, 10 MG PO QHS PRN for INSOMNIA, #30 TAB 06/03/18 Alprazolam* (Alprazolam*) 0.5 Mg Tablet, 0.5 MG PO BID PRN for ANXIETY, TAB 06/03/18 Omeprazole* (Omeprazole*) 20 Mg Capsule.dr, 20 MG PO DAILY, #30 CAP 06/03/18 Discontinued Scripts [id number] Hb* (Guaifenesin* DM Syrup) 120 Ml Syrup, 5 ML PO Q6 PRN for COUGH, #1 BOTTLE Prov:SILVIA HUERTA S. 10/08/18 Nitroglycerin* (Nitroglycerin* SL) 0.4 Mg Tab.subl, 1 TAB SL Q5M PRN for ANGINA, #90 TAB 1 Refill Prov:WING GUERRERO 06/06/18 Amlodipine Besylate* (Amlodipine Besylate*) 5 Mg Tablet, 5 MG PO DAILY, #60 TAB Prov:WING GUERRERO 06/06/18 Isosorbide Dinitrate* (Isordil*) 10 Mg Tablet, 10 MG PO TID, #90 TAB 1 Refill Prov:WING GUERRERO 06/06/18 Follow-up Plan FOLLOW UP WITH YOUR PCP IN 1-2 WEEKS Primary Care Provider Not On Staff Doctor Time spent on discharge: > 30 minutes WING GUERRERO Jun 17, 2019 15:45
== END 2019-06-17 15:18 | disposition home or self-care (01) | DRG 313 ==
LOC: E/R 13:02 → TEL 14:51 → CANRESERV 15:21 → TEL 17:27
PROVIDERS: ADMIT Internal Medicine; ATTEND Internal Medicine
DX: R07.9 Chest pain, unspecified (principal); N17.9 Acute kidney failure, unspecified; I95.9 Hypotension, unspecified; I25.10 Atherosclerotic heart disease of native coronary artery without angina pectoris; F41.9 Anxiety disorder, unspecified; I10 Essential (primary) hypertension; E78.5 Hyperlipidemia, unspecified; E03.9 Hypothyroidism, unspecified; R00.2 Palpitations; K21.9 Gastro-esophageal reflux disease without esophagitis; K52.9 Noninfective gastroenteritis and colitis, unspecified; I44.0 Atrioventricular block, first degree; E86.0 Dehydration; E86.1 Hypovolemia; R01.1 Cardiac murmur, unspecified; I08.0 Rheumatic disorders of both mitral and aortic valves; G89.29 Other chronic pain; I25.2 Old myocardial infarction
CPT/HCPCS: 36415; 70450; 71045; 80048; 80053; 80061; 82550; 82553; 83036; 83735; 84100; 84443; 84484; 85025; 85610; 85730; 93005; 93306; 96374; 96375; 97161; J1650; J2270; J2405; J3475; J7030; J7040